=== PATIENT | female | born 2000 | race Caucasian/White ===

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

== ENCOUNTER 2020-07-12 13:01 | Emergency (ER) | payer OTHER ==
--- OUTSIDE RECORDS SUMMARY | 2020-07-12 13:03 | XMS REPORT | Continuity of Care Document ---
:2000 Author Organization [facility] t Address [address] [place] [address] Care Team Providers Name Role Phone Jalen Reynolds PA-C Attending Clinician Lab, Michael Woodard I Attending Clinician Unavailable Roldan SUBRAMANIAN Attending Clinician Problems This patient has no known problems. Allergies, Adverse Reactions, Alerts This patient has no known allergies or adverse reactions. Medications This patient has no known medications. Procedures This patient has no known procedures. Encounters Start End Encounter Admission Attending Care Care Encounter Source Date/Time Date/Time Type Type Clinicians Facility Department ID 2020-07-04 2020-07-04 [id number] 00:00:00 00:00:00 , Molly Patterson [id number] [facility] [id number] 225 2020-06-28 2020-06-28 Laboratory Lab, [facility] [id number] 17:21:12 17:41:12 Only Fam Pob I [facility] [id number] [place] [id number] [facility] [id number] nal [address] 2020-06-06 2020-06-06 Telephone [facility] [id number] 00:00:00 00:00:00 , Molly Patterson [id number] Pediatric 4.2.7.2.686 Clinic [id number] 225 2020-05-15 2020-05-[address]114 [id number] 12:58:06 13:18:06 Visit , Molly Patterson [id number] [facility] [id number] 225 2020-05-15 2020-05-15 Xavi Vera [address]114 [id number] 00:00:00 00:00:00 Leonardo [id number] [facility] [id number] 225 2020-05-15 2020-05-[address]11 4 [id number] 00:00:00 00:00:00 , Molly Patterson [id number] [facility] [id number] 225 Results This patient has no known results.
--- OUTSIDE RECORDS SUMMARY | 2020-07-12 13:03 | XMS REPORT | Summary of Care ---
:2000 Author Organization [facility] Address [address] [place] [address] Care Team Providers Name Role Phone Molly Reyonlds PA-C Primary Care Provider [phone] Reason for Visit Reason Comments Refill Request Encounter Details Date Type Department Care Team Description 05/09/[address] [facility] Pediatric Primary El amXavi MD Refill Request Care- [address], [facility] [address] [place], [place] [address] [phone] Allergies No Known Allergiesdocumented as of this encounter (statuses as of 05/09/2020) Medications Medication Sig Dispensed Refills Start Date End Date Status brompheniramine-pseudoep Take 10 mL by 473 mL 0 07/15/2019 Active hedrine-DM (BROMFED DM) mouth 4 (four) 2-30-10 mg/5 mL times daily as syrupIndications: needed for Bronchitis Congestion/Caleb rgies. 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 [id number]: ADHD (attention deficit hyperactivity disorder), combined type documented as of this encounter (statuses as of 05/09/2020) Active Problems Problem Noted Date Sensorineural hearing loss (SNHL) of both ears 020 Attention deficit hyperactivity disorder (ADHD), combi azeem type 07/15/2019 documented as of this encounter (statuses as of 05/09/2020) Immunizations Name Administration Dates Next Due DTAP 08/20/2004, 08/10/2001, 03/05/2001 HEPATITIS A 02/12/2006, 04/04/2005, 2001 HIB 3 Dose Schedule 08/10/2001, 03/05/2001 HPV 2011 Hep B, Adol or Pedi Dosage 03/05/2001, 2000 MMR 08/20/2004, 08/10/2001 Meningococcal Vaccine 08/27/2016, 2016, 09/04/2011 Polio (IPV/OPV) 08/20/2004, 05/12/2001 TDAP 09/04/2011 Varicella (varivax)(chicken pox) 03/09/2008 documented as of this encounter Social History Tobacco Use Types Packs/Day Years Used Date Never Smoker Smokeless Tobacco: Never Used Sex Assigned at Date Recorded Not on file documented as of this encounter Last Filed Vital Signs Not on filedocumented in this encounter Miscellaneous Notes Telephone Encounter - Xavi Montilla MD - 05/09/2020 12:22 PM CSTNeeds appointment. elephone Encounter - Nirmala Hobson RN - 05/09/2020 12:11 PM CST Refill request: Requested Prescriptions Pending Prescriptions Disp Refills methylphenidate HCl (QUILLICHEW ER) 30 mg cb24 30 Each 0 Sig: Take 30 mg by mouth daily. Last office visit: 04/05/2020 Last refill date: 04/05/2020 Follow up recommended for one month. No appointment currently scheduled. documented in this encounter Plan of Treatment Health Maintenance Due Date Last Done Comments VARICELLA VACCINES (2 of 2 - 06/01/2008 03/09/2008 2-dose childhood series) MENINGOCOCCAL B VACCINES (1 2010 of 2 - Risk Bexsero 2-dose series) HPV VACCINES (2 - 2-dose 02/06/2012 2011 series) CHLAMYDIA SCREENING 2016 WELL CARE VISIT: 12-21 YEARS 01/27/2020 01/26/2019 (yearly) INFLUENZA VACCINE (#1) 2020 Depression Screening 01/04/2021 01/05/2020 DTaP,Tdap,and Td Vaccines (5 09/03/2021 09/04/2011, 005, [...] Effective Dates Phone Addre ss Type Group [place] [facility] [place] [facility] [id number] 2017-[employer] Medicaid HEALTH PLAN - [facility] MANAGED MEDICAID documented as of this encounter
--- OUTSIDE RECORDS SUMMARY | 2020-07-12 13:03 | XMS REPORT | Summary of Care ---
:2000 Author Organization [facility] Address [address] [place] [address] Care Team Providers Name Role Phone Molly Reynolds PA-C Primary Care Provider [phone] Reason for Visit Reason Comments Appointment Encounter Details Date Type Department Care Team Description 05/10/2020 Telephone [facility] Pediatric Primary Molly Reynolds, Appointment Care- Ralph ANDREW [address] [place] [address] [address] [facility] [address] [facility] [address] [place] [phone] [place] [address] Allergies No Known Allergiesdocumented as of this encounter (statuses as of 05/10/2020) Medications Medication Sig Dispensed Refills Start Date [...] Active (QUILLICHEW ER) 30 mg mouth daily. [id number]: ADHD (attention deficit hyperactivity disorder), combined type documented as of this encounter (statuses as of 05/10/2020) Active Problems Problem Noted Date Sensorineural hearing loss (SNHL) of both ears 020 Attention deficit hyperactivity disorder (ADHD), combi azeem type 07/15/2019 documented as of this encounter (statuses as of 05/10/2020) Immunizations Name Administration Dates Next Due DTAP [...] this encounter Miscellaneous Notes Telephone Encounter - Malathi Ferraro - 05/10/2020 3:37 PM CSTAppointment made with sibling elephone Encounter - Mckenna Huang - 05/10/2020 3:26 PM CSTMOC would like to know if patient can be seen for a medication check on Friday the with her sibling at 1:10pm with Molly CEJA. The next medication check available is not until next Friday and she states patient cannot go that long with out it. Please advise. 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
--- OUTSIDE RECORDS SUMMARY | 2020-07-12 13:04 | XMS REPORT | Summary of Care ---
:2000 Author Organization [facility] Address [address] [place] [address] Care Team Providers Name Role Phone Molly Reynolds PA-C Primary Care Provider [phone] Reason for Visit Reason Comments Rx Concern/Question Encounter Details Date Type Department Care Team Description 05/15/2020 Telephone [facility] Pediatric Molly Reynolds, Rx Concern/Question Primary Care- [place] ANDREW [address] [place] [phone] Allergies No Known Allergiesdocumented as of this encounter (statuses as of 05/16/2020) Medications Medication Sig Dispensed Refills Start Date End Date Status Biotin 2,500 mcg Take 1 po QD for 90 capsule 2 04/05/2020 Active CapIndications: 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 Doing well on new Medication. Please send refill. documented in this encounter Plan of Treatment [...] Effective Dates Phone Addre ss Type Group [facility] CHILDRENS [id number] 2017-[employer] Medicaid [facility] - HEALTH t MANAGED MEDICAID documented as of this encounter
--- OUTSIDE RECORDS SUMMARY | 2020-07-12 13:04 | XMS REPORT | Summary of Care ---
:2000 Author Organization [facility] Address [address] [place] [address] Care Team Providers Name Role Phone Molly Reynolds PA-C Primary Care Provider [phone] Reason for Visit Reason Comments Forms Encounter Details Date Type Department Care Team Description 06/06/2020 Telephone [facility] Pediatric Primary Molly Reynolds, Forms [facility] ANDREW 208 [facility] 208 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 disorder), combined type documented as of this encounter (statuses as of 06/07/2020) Active Problems Problem Noted Date Sensorineural hearing loss (SNHL) of both ears 020 Attention deficit hyperactivity disorder (ADHD), combi azeem type 07/15/2019 documented as of this encounter (statuses as of 06/07/2020) Immunizations Name Administration Dates Next Due DTAP [...] this encounter Miscellaneous Notes Telephone Encounter - Indiana Oliva MA - 06/07/2020 8:44 AM CSTShot record attached to form and given to ANALIA Treadwell while in the clinic with sibling's appointment today. elephone Encounter - Molly Reynolds PA-C - 06/07/2020 8:35 AM CSTForm filled out, does need copy of shot records attached. Also has place for TB test, unsure if thisis required for camp. Please call patient or family and notify ready and for them to verify if TB test required./acp elephone Encounter - Malathi Ferraro MA - 06/06/2020 3:59 PM CSTForm dropped off for review and signature. Patient has not been seen for WCC only ADHD. REMA: 05/15/2020 Placed on Amys desk for review documented in this encounter Plan of Treatment [...] ss Type Group [place] [facility] [place] [facility] [id number] 2017-[employer] Medicaid HEALTH PLAN - HEALTH MANAGED MEDICAID documented as of this encounter
--- OUTSIDE RECORDS SUMMARY | 2020-07-12 13:04 | XMS REPORT | Summary of Care ---
:2000 Author Organization [facility] Address [address] [place] [address] Care Team Providers Name Role Phone Molly Reynolds PA-C Primary Care Provider [phone] Reason for Visit Reason Comments ADHD med check Encounter Details Date Type Department Care Team Description 05/15/2020 Office Visit [facility] Pediatric KATHY Reynolds ( attention deficit Primary Care- [place] Molly Rao PA-C hyperactivity disorder), [address] combined type (Primary [address] [place] [address]) [address] [facility] [address] [facility], [address] [place] [id number] Allergies No Known Allergiesdocumented as of this encounter (statuses as of 05/15/2020) Medications Medication Sig Dispensed Refills Start Date [...] Active (QUILLICHEW ER) 30 mg mouth daily. [id number]: ADHD (attention deficit hyperactivity disorder), combined type documented as of this encounter (statuses as of 05/15/2020) Active Problems Problem Noted Date Sensorineural hearing loss (SNHL) of both ears 020 Attention deficit hyperactivity disorder (ADHD), combi azeem type 07/15/2019 documented as of this encounter (statuses as of 05/15/2020) Immunizations Name Administration Dates Next Due DTAP [...] Sign Reading Time Taken Comments Blood Pressure 114/80 05/15/2020 1:09 PM FIRE PREVENTION OFFICER Pulse 112 05/15/2020 1:09 PM FIRE PREVENTION OFFICER Temperature 36.2 C (97.2 F) 05/15/2020 1:09 PM FIRE PREVENTION OFFICER Respiratory Rate 19 05/15/2020 1:09 PM FIRE PREVENTION OFFICER Oxygen Saturation 96% 05/15/2020 1:09 PM FIRE PREVENTION OFFICER Inhaled Oxygen Concentration - - Weight 46.3 kg (102 lb) 05/15/2020 1:09 PM FIRE PREVENTION OFFICER Height 165.1 cm (5' 5") 05/15/2020 1:09 PM FIRE PREVENTION OFFICER Body Mass Index 16.97 05/15/2020 1:09 PM FIRE PREVENTION OFFICER documented in this encounter Progress Notes Molly Reynolds PA-C - 05/15/2020 1:10 PM CST Patient is here for evaluation of therapy for ADD/ADHD. 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 She states he/she is doing much better at home and in school on current medication. Her ADL's and attention is much better. She reports not pulling out her hair and having a better appetite. She is adding higher calorie shakes once to twice daily. Overall she is doing well on Current medication. ROS: Headaches: No Insomnia: No Mood: No [...] have been marked as taking for the 05/15/20 encounter (Office Visit) with Molly Reynolds PA-C. History reviewed. No pertinent past medical history. BP 114/80 (BP Location: Left arm, Patient Position: Sitting, BP CUFF SIZE: Adult Medium) | Pulse 112 | Temp 36.2 C (97.2 F) (Temporal Artery) | Resp 19 | Ht 65" (165.1 cm) | Wt 46.3 kg (102 lb) | SpO2 96% | BMI 16.97 kg/m General: alert, active, in no acute distress, affect happy, appopriate Head: Atraumatic, normocephalic Eyes: pupils equal, round, reactive to light, conjunctiva clear and conjugate gaze Ears: TM's normal, external auditory canals normal Nose: clear, no discharge Oral Pharynx: moist mucous membranes without erythema, exudates or petechiae, dentition normal, normal for age Neck: supple and no lymphadenopathy Pulm: clear to auscultation CV: regular rate and rhythm, no murmur GI: soft, BS x4, no masses, no HSM : non-tender, no supra pubic tenderness, genital exam deferred at pt request Msk: FROM, Spine straight, no swelling or edema noted Neuro: appropriate mentation, MS 5/5, gait/balance appropriate Skin: warm, no rashes, no ecchymosis ASSESSMENT: Encounter Diagnosis Name Primary? ADHD (attention deficit hyperactivity disorder), combined type Yes PLAN: Medication: Current Outpatient Medications: Biotin 2,500 mcg Cap, Take 1 po QD for 4-6 months, Disp: 90 capsule, Rfl: 2 methylphenidate HCl (QUILLICHEW ER) 30 mg cb24, Take 30 mg by mouth daily., Disp: 30 Each, Rfl:0 Continue to self monitor weight and continue to eat well Follow-up in 4 months Take medication as directed Call if any side effects such as chest pain, shortness of breath, tics, or worsening behavior Parent/caregiver expressed understanding and is in agreement with plan of care Target goalsThe management ofADD/ADHD centers upon the improvement in symptoms and [...] more than 50% of the visit time. PREVENTION OFFICER documented in this encounter Plan of Treatment [...] Effective Dates Phone Addre ss Type Group [facility] CHILDRENS [id number] 2017-Presen Medicaid HEALTH PLAN - HEALTH MANAGED MEDICAID documented as of this encounter
--- OUTSIDE RECORDS SUMMARY | 2020-07-12 13:04 | XMS REPORT | Summary of Care ---
:2000 Author Organization [facility] Address [address] [place] [address] Care Team Providers Name Role Phone Molly Reynolds PA-C Primary Care Provider [phone] Reason for Visit Reason Comments ADHD med check Encounter Details Date Type Department Care Team Description 05/15/2020 Office Visit [facility] Pediatric KATHY Reynolds ( attention deficit Primary Care- [place] Molly Rao PA-C hyperactivity disorder), [address] combined type (Primary [address] [place] [address]) [address] [facility] [address] [facility], [address] [place] [address] Allergies No Known Allergiesdocumented as of this [...] Active (QUILLICHEW ER) 30 mg mouth daily. [id number]: ADHD (attention deficit hyperactivity disorder), combined type [...] Comments Blood Pressure 114/80 05/15/2020 1:09 PM TRAVEL AGENT Pulse 112 05/15/2020 1:09 PM TRAVEL AGENT Temperature 36.2 C (97.2 F) 05/15/2020 1:09 PM TRAVEL AGENT Respiratory Rate 19 05/15/2020 1:09 PM TRAVEL AGENT Oxygen Saturation 96% 05/15/2020 1:09 PM TRAVEL AGENT Inhaled Oxygen Concentration - - Weight 46.3 kg (102 lb) 05/15/2020 1:09 PM TRAVEL AGENT Height 165.1 cm (5' 5") 05/15/2020 1:09 PM TRAVEL AGENT Body Mass Index 16.97 05/15/2020 1:09 PM TRAVEL AGENT documented in this encounter Progress Notes Molly [...] more than 50% of the visit time. EL AGENT documented in this encounter Plan of Treatment [...] Effective Dates Phone Addre ss Type Group [facility] CHILDRENS [id number] 2017-[employer] Medicaid HEALTH PLAN - HEALTH MANAGED MEDICAID documented as of this encounter
--- OUTSIDE RECORDS SUMMARY | 2020-07-12 13:04 | XMS REPORT | Summary of Care ---
:2000 Author Organization [facility] Address [address] [place] [address] Care Team Providers Name Role Phone Molly Reynolds PA-C Primary Care Provider [phone] Reason for Visit Reason Comments Refill Request Encounter Details Date Type Department Care Team Description 05/09/2020 Refill [facility] Pediatric Primary El amXavi MD Refill Request Care- [address], [facility] [address] [place], [place] [phone] Allergies No Known Allergiesdocumented as of this [...] Active (QUILLICHEW ER) 30 mg mouth daily. [id number]: ADHD (attention deficit hyperactivity disorder), combined type [...] this encounter Miscellaneous Notes Telephone Encounter - Myra Valencia RN - 05/15/2020 8:43 AM SHORTHAND REPORTER Pt is scheduled for medication check appointment today. elephone Encounter - Nirmala Hobson RN - 05/10/2020 3:11 PM CSTATC patient in regards to provider instructions. No answer, left voicemail. elephone Encounter - Xavi Montilla MD - 05/09/2020 [...] 05/15/2020 Office Visit Pediatrics Molly Reynolds, ANDREW [address] [id number] Health Maintenance Due Date Last Done Comments [...] Effective Dates Phone Addre ss Type Group [place] [facility] [place] [facility] [id number] 2017-[employer] Medicaid HEALTH PLAN - HEALTH MANAGED MEDICAID documented as of this encounter
--- OUTSIDE RECORDS SUMMARY | 2020-07-12 13:04 | XMS REPORT | Summary of Care ---
:2000 Author Organization [facility] Address [address] [place] [address] Care Team Providers Name Role Phone Molly Reynolds PA-C Primary Care Provider [phone] Reason for Visit Reason Comments Refill Request Encounter Details Date Type Department Care Team Description 05/15/2020 Refill [facility] Pediatric Primary El Xavi canales MD Refill Request Care- [address], [facility] [address] [place], [place] [phone] Allergies No Known Allergiesdocumented as of this encounter (statuses as of 05/16/2020) Medications Medication Sig Dispensed Refills Start Date End Date Status Biotin 2,500 mcg Take 1 po 90 capsule 2 04/05/2020 A ctive CapIndications: QD for 4-6 Traction alopecia months QUILLICHEW ER 30 mg TAKE ONE 30 Each 0 05/16/2020 Active [id number]: (1) ADHD (attention TABLET(S) deficit BY MOUTH hyperactivity ONCE A DAY. disorder), combined type brompheniramine-pseu Take 10 mL 473 mL 0 07/15/2019 02 Discontinued doephedrine-DM by mouth 4 0 (The rapy (BROMFED DM) 2-30-10 (four) completed) mg/5 mL times daily syrupIndications: as needed Bronchitis for Congestion/ Allergies. methylphenidate HCl Take 30 mg 30 Each 0 04/05/2020 05/16/20 2 Discontinued (QUILLICHEW ER) 30 by mouth 0 mg [id number]: daily. ADHD (attention deficit hyperactivity disorder), combined type [...] Notes Telephone Encounter - Malathi Ferraro - 05/16/2020 8:15 AM CST Refill Request for: Name from pharmacy: QuilliChew 30mg ER Tablet Will file in chart as: QUILLICHEW ER 30 mg cb24 Possible duplicate: Hover to review recent actions on this medication Sig: TAKE ONE (1) TABLET(S) BY MOUTH ONCE A DAY. Disp: 30 Each Refills: Not specified Start: 05/15/2020 Earliest Fill Date: 05/15/2020 Class: eRX For: ADHD (attention deficit hyperactivity disorder), combined type Last ordered: 1 month ago by Xavi Montilla MD Last refill: 04/05/2020 Rx #: [id number] Controlled Substance [id number]/15/2020 06:19 PM Pain agreement on file Protocol Details This refill cannot be delegated Valid encounter within last 12 months To be filled at: [facility] [place] [facility] [place], [place] - [address] Last Filled: 04/05/2020 REMA: 05/15/2020 FILL GRADER documented in this encounter Plan of Treatment [...] Phone Addre ss Type Group [place] [facility] [place] [facility] [id number] 2017-[place] Medicaid HEALTH PLAN - HEALTH MANAGED MEDICAID documented as of this encounter
--- OUTSIDE RECORDS SUMMARY | 2020-07-12 13:04 | XMS REPORT | Summary of Care ---
:2000 Author Organization [facility] Address [address] [place] [address] Care Team Providers Name Role Phone Molly Reynolds PA-C Primary Care Provider [phone] Reason for Visit Reason Comments LAB WORK Covid Encounter Details Date Type Department Care Team Description 06/28/2020 Laboratory Only [facility] Family Mando, Sissy, KNITTING MACHINE OPERATOR HELPER [address] [facility] [address] [place] [address] Exposure to Medicine - [facility], Adc Fam Pob I SARS-associated [address] [facility] coronaviru s ([address] Dx) [place] [address] Allergies No Known Allergiesdocumented as of this encounter (statuses as of 06/28/2020) Medications Medication Sig Dispensed Refills Start Date End Date Status Biotin 2,500 mcg Take 1 po QD for 90 capsule 2 04/05/2020 Active CapIndications: 4-6 months Traction alopecia QUILLICHEW ER 30 mg TAKE ONE (1) 30 Each 0 05/16/2020 Active [id number]: ADHD TABLET(S) BY (attention deficit MOUTH ONCE A hyperactivity DAY. disorder), combined type documented as of this encounter (statuses as of 06/28/2020) Active Problems Problem Noted Date Sensorineural hearing loss (SNHL) of both ears 020 Attention deficit hyperactivity disorder (ADHD), combi azeem type 07/15/2019 documented as of this encounter (statuses as of 06/28/2020) Immunizations Name Administration Dates Next Due DTAP [...] Assigned at Date Recorded Not on file COVID-19 Exposure Response Date Recorded In the last month, have you been in contact with No / Unsure 06/28/2020 5:28 PM COUNTY HISTORIAN someone who was confirmed or suspected to have Coronavirus / COVID-19? documented as of this encounter Last Filed Vital Signs Not on filedocumented in this encounter Nursing Notes Gama Elliott MA - 06/28/2020 5:00 PM CSTSaba Mcgovern is a 19 year old female here for COVID Screening with a Nasopharyngeal Swab All droplet and contact precautions taken with appropriate PPE worn while interacting with patient. ? Goggles ? N95 Mask ? Gloves ? Gown RR 18 Pulse Ox 98% Patient educated on plan of care for visit, swabbing technique, risks and benefits of test and length of time to receive results. Verbal consent obtained to perform test. CDC Fact Sheet for Patients nCoV Diagnostic Panel dated 08/29/2019 and Factsheet What to Do if Sick with COVID 19 08/09/19 provided. Patient swabbed per appropriate nasopharyngeal technique, and patient tolerated well. Patient was discharged from the testing clinic in stable condition. Gama Elliott MA 06/28/2020 5:31 PM TY HISTORIAN documented in this encounter Plan of Treatment Name Type Priority Associated Diagnoses Order S yessica COVID-19 (MOLECULAR LAB Routine Exposure to SARS-asso ciated Ordered: 06/28/2020 TESTING coronavirus NUCLEIC ACID AMPLIFICATION) Health Maintenance Due Date Last Done Comments [...] filedocumented in this encounter Visit Diagnoses Diagnosis Exposure to SARS-associated coronavirus - Primary documented in this encounter Additional Health Concerns Infection Onset Date Last Indicated Resolved Time COVID-19 Rule Out 06/28/2020 06/28/2020 documented as of this encounter Insurance Payer Benefit Plan / Subscriber ID Effective Dates Phone Addre ss Type Group [place] [facility] [place] [id number] 2017-[place] Medicaid HEALTH PLAN - HEALTH MANAGED MEDICAID documented as of this encounter
--- OUTSIDE RECORDS SUMMARY | 2020-07-12 13:05 | XMS REPORT | Summary of Care ---
:2000 Author Organization [facility] Address [address] [place] [address] Care Team Providers Name Role Phone Molly Reynolds PA-C Primary Care Provider [phone] Reason for Visit Reason Comments Assessment Encounter Details Date Type Department Care Team Description 07/04/2020 Telephone [facility] Pediatric Primary Molly Reynolds, Assessment Care- [place] ANDREW [address] [place] [address] [place] [phone] [place] [address] Allergies No Known Allergiesdocumented as of this encounter (statuses as of 07/04/2020) Medications Medication Sig Dispensed Refills Start Date End Date Status Biotin 2,500 mcg Take 1 po QD for 90 capsule 2 04/05/2020 Active CapIndications: 4-6 months Traction alopecia QUILLICHEW ER 30 mg TAKE ONE (1) 30 Each 0 05/16/2020 Active [id number]: ADHD TABLET(S) BY (attention deficit MOUTH ONCE A hyperactivity DAY. disorder), combined type brompheniramine-pseudoe Take 5 mL by 120 mL 0 07/04/2020 Active phedrine-DM (BROMFED mouth 3 (three) DM) 2-30-10 mg/5 mL times daily as syrupIndications: Cough needed for Congestion/Aller gies or Cold symptoms. documented as of this encounter (statuses as of 07/04/2020) Active Problems Problem Noted Date Sensorineural hearing loss (SNHL) of both ears 020 Attention deficit hyperactivity disorder (ADHD), combi azeem type 07/15/2019 documented as of this encounter (statuses as of 07/04/2020) Immunizations Name Administration Dates Next Due DTAP [...] with No / Unsure 06/28/2020 5:[address] MECHANIC someone who was confirmed or suspected to have Coronavirus / COVID-19? documented as of this encounter Last Filed Vital Signs Not on filedocumented in this encounter Miscellaneous Notes Telephone Encounter - Malathi Ferraro MA - 07/04/2020 10:51 AM CSTMOC was contacted regarding Carloz recommendations. Verbal understanding . Will pay for bromfed if notcovered by insurance elephone Encounter - Molly Reynolds PA-C - 07/04/2020 10:42 AM CSTPlease call mec, can send c/c medication to slow cough but may not be adequate. Although it may not be covered by insurance. Can also use Robitussin CF or Mucinex cough otc. Recommend continue humidifier, nasal saline, honey with lemon and see patient if cough is prolonged, worsening or any sob./acp MECHANIC Telephone Encounter - Nirmala Cisse - 07/04/2020 10:15 AM CSTPer mom patient is covid + and is wanting something called in for her congestion/cough. Please advise. MECHANIC documented in this encounter Plan of Treatment [...] filedocumented in this encounter Visit Diagnoses Diagnosis Cough - Primary documented in this encounter Additional Health Concerns Infection Onset Date Last Indicated Resolved Time COVID-19 Confirmed 06/28/2020 06/28/2020 documented as of this encounter Insurance Payer Benefit Plan / Subscriber ID Effective Dates Phone Addre ss Type Group [place] [facility] [place] CH[facility]DRENS [id number] 2017-[place] Medicaid HEALTH PLAN - [employer] MANAGED MEDICAID documented as of this encounter
--- NOTE | 2020-07-12 13:48 | RAD REPORT ---
EXAM DESCRIPTION: Austin Cormier (2 Views)07/12/2020 1:39 pm CLINICAL HISTORY: Cough COMPARISON: None FINDINGS: The lungs appear clear of acute infiltrate. The heart is normal size IMPRESSION: No acute abnormalities displayed
--- NOTE | 2020-07-12 14:59 | ER ---
Nurse's Notes [facility] Name: Saba Mcgovern Age: 19 yrs Sex: Female : 2000 Arrival Date: 07/12/2020 Time: 13:02 Bed 23 Private MD: Diagnosis: Cough Presentation: 07/12 13:17 Chief complaint: Pt's father states "we all had covid about 16 days ago but she is aa5 still coughing and the doctor said to bring her here". Reports cough and sore throat. Coronavirus screen: Client presents with at least one sign or symptom that may indicate coronavirus-19. Standard/surgical mask placed on the client. Provider contacted for isolation considerations. Ebola Screen: Patient negative for fever greater than or equal to 101.5 degrees Fahrenheit, and additional compatible Ebola Virus Disease symptoms. Initial Sepsis Screen: Does the patient meet any 2 criteria? No. Patient's initial sepsis screen is negative. Does the patient have a suspected source of infection? No. Patient's initial sepsis screen is negative. Risk Assessment: Do you want to hurt yourself or someone else? Patient reports no desire to harm self or others. Onset of symptoms was June 2020. 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 - Social history:: Smoking status: Patient denies any tobacco usage or history of. Screenin:58 Abuse screen: Denies threats or abuse. Denies injuries from another. Nutritional iw screening: No deficits noted. Tuberculosis screening: No symptoms or risk factors identified. Fall Risk None identified. Assessment: 14:45 General: Appears in no apparent distress. comfortable, Behavior is calm, cooperative, ss Denies fever, chills. Pain: Denies pain. Neuro: Level of Consciousness is awake, alert, Oriented to person, place, time, situation. Cardiovascular: Capillary refill < 3 seconds is brisk in bilateral fingers. Respiratory: Reports shortness of breath Airway is patent Respiratory effort is even, unlabored, Respiratory pattern is regular, symmetrical. GI: No signs and/or symptoms were reported involving the gastrointestinal system. : No signs and/or symptoms were reported regarding the genitourinary system. EENT: Oral mucosa is moist. Derm: Skin is intact, is healthy with good turgor, Skin is dry, Skin is pink, warm \\T\\ dry. normal. 14:58 Reassessment: Patient appears in no apparent distress at this time. Patient and/or iw family updated on plan of care and expected duration. Pain level reassessed. Patient is alert, oriented x 3, equal unlabored respirations, skin warm/dry/pink. Vital Signs: 13:17 BP 119 / 91; Pulse 109; Resp 18 S; Temp 98.7(TE); Pulse Ox 100% on R/A; aa5 14:45 BP 127 / 94; Pulse 107; Resp 16; Temp 98.4(O); Pulse Ox 100% on R/A; Weight 47.63 kg; em1 Height 5 ft. 4 in. (162.56 cm); Pain 0/10; 14:57 BP 127 / 91; Pulse 88; Resp 16; Pulse Ox 100% on R/A; iw 14:45 Body Mass Index 18.02 (47.63 kg, 162.56 cm) em1 ED Course: 13:02 Patient arrived in ED. as 13:17 Arm band placed on. aa5 13:19 Triage completed. aa5 14:19 Kristal Chatterjee, RN is Primary Nurse. iw 14:21 Enio Chand PA is PHCP. [facility] 14:21 Kyle Cobian MD is Attending Physician. [facility] 14:45 Patient has correct armband on for positive identification. Bed in low position. Call ss light in reach. 15:01 No provider procedures requiring assistance completed. Patient did not have IV access ss during this emergency room visit. Administered Medications: 14:57 Drug: Decadron 10 mg Route: IM; Site: left deltoid; iw 15:17 Follow up: Response: No adverse reaction; Medication administered at discharge. ss Outcome: 14:[address] [facility] 15:17 Discharged to home ambulatory. ss 15:17 Condition: good 15:17 Discharge instructions given to patient, Instructed on discharge instructions, follow up and referral plans. medication usage, Demonstrated understanding of instructions, follow-up care. 15:17 Patient left the ED. ss Signatures: Enio Chand PA PA jmm Martinez, Amelia as Williams, Irene, RN RN iw Martinez, Eric em1 Erin Mcqueen RN RN aa5 Elodia Salas RN RN ss
--- NOTE | 2020-07-12 14:59 | EDPHYS ---
Physician Documentation [facility] Name: Saba Mcgovern Age: 19 yrs Sex: Female : 2000 Arrival Date: 07/12/2020 Time: 13:02 Bed 23 Private MD: ED Physician Kyle Cobian HPI: 07/12 14:38 This 19 yrs old Female presents to ER via Ambulatory with complaints of Cough jmm - covid+. 14:38 The patient or guardian reports cough. Onset: The symptoms/episode began/occurred jm gradually, 16 day(s) ago. Associated signs and symptoms: Pertinent negatives: fever. This is a 19 year old female with a history of ADHD, hearing impaired that presents to the ED with complaints of ongoing cough. Denies fever. Patient was diagnosed with COVID 19 16 days ago. . 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 - Social history:: Smoking status: Patient denies any tobacco usage or history of. ROS: 14:38 Constitutional: Negative for fever, chills, and weight loss, Cardiovascular: Negative jmm for chest pain, palpitations, and edema. 14:38 Respiratory: Positive for cough. 14:38 All other systems are negative. Exam: 14:38 Constitutional: This is a well developed, well nourished patient who is awake, alert, jmm and in no acute distress. Head/Face: atraumatic. Eyes: EOMI, no conjunctival erythema appreciated ENT: Moist Mucus Membranes Neck: Trachea midline, Supple Chest/axilla: Normal chest wall appearance and motion. Cardiovascular: Regular rate and rhythm. No edema appreciated Respiratory: Normal respirations, no respiratory distress appreciated Abdomen/GI: Non distended, soft Back: Normal ROM 14:38 Skin: General appearance color normal MS/ Extremity: Moves all extremities, no obvious deformities appreciated, no edema noted to the lower extremities Neuro: Awake and alert, normal gait Psych: Behavior is normal, Mood is normal, Patient is cooperative and pleasant 14:38 Respiratory: the patient does not display signs of respiratory distress, Respirations: normal, Breath sounds: are clear throughout. Vital Signs: 13:17 BP 119 / 91; Pulse 109; Resp 18 S; Temp 98.7(TE); Pulse Ox 100% on R/A; aa5 14:45 BP 127 / 94; Pulse 107; Resp 16; Temp 98.4(O); Pulse Ox 100% on R/A; Weight 47.63 kg; em1 Height 5 ft. 4 in. (162.56 cm); Pain 0/10; 14:57 BP 127 / 91; Pulse 88; Resp 16; Pulse Ox 100% on R/A; iw 14:45 Body Mass Index 18.02 (47.63 kg, 162.56 cm) em1 MDM: 14:37 Patient medically screened. [facility] 14:41 Data reviewed: vital signs, nurses notes. Counseling: I had a detailed discussion with chinedu the patient and/or guardian regarding: the historical points, exam findings, and any diagnostic results supporting the discharge/admit diagnosis, radiology results. ED course: Patient is alert and non toxic in appearance in the ED. patient is advised to follow up with pcp. Patient given return precautions. patient understood and agrees with the plan of care. . 07/12 13:20 Order name: Chest Pa And Lat (2 Views) XRAY aa5 07/12 13:48 Order name: RAD; Complete Time: 14:22 EDMS Administered Medications: 14:57 Drug: Decadron 10 mg Route: IM; Site: left deltoid; iw 15:17 Follow up: Response: No adverse reaction; Medication administered at discharge. ss Disposition: 18:24 Co-signature as Attending Physician, Kyle Cobian MD. ma2 Disposition: 07/12/20 14:58 Discharged to Home. Impression: Cough. - Condition is Stable. - Discharge Instructions: Cough, Adult, [place]. - Medication Reconciliation Form, Thank You Letter, Antibiotic Education, Prescription Opioid Use form. - Follow up: Private Physician; When: 2 - 3 days; Reason: Recheck today's complaints, Continuance of care, Re-evaluation by your physician. Signatures: Dispatcher [employer] EDMS Enio Chand PA PA jmm Williams, Irene, RN RN iw Erin Mcqueen RN RN aa5 Elodia Salas RN RN ss Kyle Cobian MD MD ma2 Corrections: (The following items were deleted from the chart) 15:17 14:58 07/12/2020 14:58 Discharged to Home. Impression: Cough. Condition is Stable. ss Forms are Medication Reconciliation Form, Thank You Letter, Antibiotic Education, Prescription Opioid Use. Follow up: Private Physician; When: 2 - 3 days; Reason: Recheck today's complaints, Continuance of care, Re-evaluation by your physician. chinedu
[2020-07-12] MEDS ORDERED: dexAMETHasone 10 MG/ML VIAL ONE ×2 (15:00→15:09)
[2020-07-12 15:23] VITALS: O2SAT 100
[2020-07-12 15:24] VITALS: TEMP 98.4
[2020-07-12 15:25] VITALS: BP 127/91
== END 2020-07-12 15:17 | disposition home or self-care (01) ==
LOC: ER 13:01
DX: R05 Cough (principal); F90.9 Attention-deficit hyperactivity disorder, unspecified type; Z86.16 Personal history of COVID-19
CPT/HCPCS: 71046; 96372; 99283; J1100 ×2

== ENCOUNTER 2021-10-24 19:28 | Emergency (ER) | payer OTHER ==
--- OUTSIDE RECORDS SUMMARY | 2021-10-24 19:32 | XMS REPORT | Continuity of Care Document ---
:2000 Author Organization [facility] t Address [address] [place] [address] Care Team Providers Name Role Phone Jalen Reynolds PA-C Primary Care Physician GUILLERMO Attending Clinician Unavailable RESHMA Attending Clinician Unavailable Reshma FINANCIAL SERVICES EDUCATION CONSULTANT Attending Clinician Nurse, [facility] Attending Clinician Unavailable Guillermo SUBRAMANIAN Attending Clinician Jalen Reynolds PA-C Attending Clinician Jalen REYNOLDS Attending Clinician Unavailable Lab, Fam Pob I Attending Clinician Unavailable Roldan SUBRAMANIAN Attending Clinician Payers Payer Name Policy Type Policy Number Effective Date Expiration Date Fahad reyes [facility] [id number] 2021 00:00:00 PLUS Problems Condition Condition Condition Status Onset Resolution Last Treating Co mments Source Name Details Category Date Date Treatment Clinician Date 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 1-30 ity of hearing hearing 00:00: [place] loss loss 00 Medical (SNHL) of (SNHL) of Bran ch both ears both ears Attention Attention Disease Active Uni vers deficit deficit 1-30 [place] Medical disorder disorder Branch (ADHD), (ADHD), combined combined type type Allergies, Adverse Reactions, Alerts Allergy Allergy Status Severity Reaction(s) Onset Inactive Treating Comm ents Source Name Type Date Date Clinician NO KNOWN Drug Active Univers ALLERGIE Class ity of S [facility] Social History Social Habit Start Date Stop Date Quantity Comments Source History SDOH University o f Alcohol Frequency [place] M edical Branch History SDOH University o f Alcohol Std [place] Medical Drinks Branch History SDOH University o f Alcohol Binge [place] [facility] Branch Exposure to 2021-10-12 2021-10-22 Not sure [facility] [place] [facility]-CoV-2 00:00:00 07:10:00 [facility] (event) Branch Alcohol intake 2021-10-22 2021-10-22 .29 /d University of 00:00:00 00:00:00 [facility] Alcohol Comment 2021-08-13 2021-08-13 1 to 2 cans a Univer sity of 00:00:00 00:00:00 week [facility] Tobacco use and 2019-01-26 2019-01-26 Never used Universit y of exposure 00:00:00 00:00:00 [facility] Sex Assigned At [birth year] Universit y of 00:00:00 00:00:00 [facility] Smoking Status Start Date Stop Date Source Never smoker [facility] Medications Ordered Filled Start Stop Current Ordering Indication Dosage Frequency Signature Comments Components Source Medication Medication Date Date Medication? Clinician (SIG) Name Name ondansetron Yes [id number] 4mg Take 1 Univers 4 mg 5-09 tablet by ity of disintegrat 00:00: mouth [place] ing tablet 00 every 8 Medica l (eight) Branch hours as needed for Nausea and Vomiting (N/V). medroxyPROG 2021- No [id number] 150mg Univers ESTERone 4-25 04-25 ity of (DEPO-PROVE 21:30: 20:34 [place] RA) 00 :00 Medical injection Branch 150 mg medroxyPROG 2021- No [id number] 150mg 150 mg, Univers ESTERone 4-25 04-25 Intramuscu ity of (DEPO-PROVE 21:30: 20:34 lar, ONCE, [place] RA) 00 :00 1 dose, On Medical injection Mon Branch 150 mg 10/08/21 at 1630, Routine methylpheni Yes [id number] 1{tbl} Take 1 Univers date HCl 4-12 tablet by ity of (QUILLICHEW 00:00: mouth [place] ER) 30 mg [address] methylpheni 2021-0 Yes [id number] 1{tbl} Take 1 Univers date HCl 4-12 tablet by ity of (QUILLICHEW 00:00: mouth [place] ER) 30 mg [address] methylpheni 2021-0 Yes [id number] 1{tbl} Take 1 Univers date HCl 4-12 tablet by ity of (QUILLICHEW 00:00: mouth [place] ER) 30 mg [address] methylpheni 2021-0 Yes [id number] 1{tbl} Take 1 Univers date HCl 4-12 tablet by ity of (QUILLICHEW 00:00: mouth [place] ER) 30 mg [address] triamcinolo Yes [id number] Apply to Univers ne 1-12 area(s) 2 ity of acetonide 00:00: (two) [place] 0.1 % 00 times Medical ointment daily. Branch triamcinolo 0 Yes [id number] Apply to Univers ne 1-12 area(s) 2 ity of acetonide 00:00: (two) [place] 0.1 % 00 times Medical ointment daily. Branch triamcinolo 0 Yes [id number] Apply to Univers ne 1-12 area(s) 2 ity of acetonide 00:00: (two) [place] 0.1 % 00 times Medical ointment daily. Branch triamcinolo 0 Yes [id number] Apply to Univers ne 1-12 area(s) 2 ity of acetonide 00:00: (two) [place] 0.1 % 00 times Medical ointment daily. Branch benzonatate 2020-06 Yes [id number] 200mg Take 2 Univers 100 mg 0-20 capsules ity of capsule 00:00[place] (two[place] Medical times Branch daily as needed for Cough. benzonatate 2020-06 Yes [id number] 200mg Take 2 Univers 100 mg 0-20 capsules ity of capsule 00:00[place] (two[place] Medical times Branch daily as needed for Cough. benzonatate 2020-06 Yes [id number] 200mg Take 2 Univers 100 mg 0-20 capsules ity of capsule 00:00[place] (two[place] Medical times Branch daily as needed for Cough. benzonatate 2020-06 Yes [id number] 200mg Take 2 Univers 100 mg 0-20 capsules ity of capsule [place]:00[place] (two[place] Medical times Branch daily as needed for Cough. Biotin 2020- Yes [id number] Take 1 po Un ericka 2,500 mcg 0-21 QD for 4-6 ity of Cap 00:00: months [address] Biotin 2020- Yes [id number] Take 1 po Un ericka 2,500 mcg 0-21 QD for 4-6 ity of Cap 00:00: months [place] [facility] Biotin 2020- Yes [id number] Take 1 po Un ericka 2,500 mcg 0-21 QD for 4-6 ity of Cap 00:00: months [address] Biotin 2020- Yes [id number] Take 1 po Un ericka 2,500 mcg 0-21 QD for 4-6 ity of Cap 00:00: months [address] Immunizations Ordered Immunization Filled Immunization Date Status Commen ts Source Name Name Meningococcal 2016-08-27 Completed University of Vaccine 00:00:00 [facility] Meningococcal 2016-08-27 Completed University of Vaccine 00:00:00 [facility] Meningococcal 2016-08-27 Completed University of Vaccine 00:00:00 [facility] Meningococcal 2016-08-27 Completed University of Vaccine 00:00:00 [facility] Meningococcal 2016 Completed University of Vaccine 00:00:00 [facility] Meningococcal 2016 Completed University of Vaccine 00:00:00 [facility] Meningococcal 2016 Completed University of Vaccine 00:00:00 [facility] Meningococcal 2016 Completed University of Vaccine 00:00:00 [facility] Meningococcal 2011-09-04 Completed University of Vaccine 00:00:00 [facility] TDAP 2011-09-04 Completed University of 00:00:00 [facility] Meningococcal 2011-09-04 Completed University of Vaccine 00:00:00 [facility] TDAP 2011-09-04 Completed University of 00:00:00 [facility] Meningococcal 2011-09-04 Completed University of Vaccine 00:00:00 [facility] TDAP 2011-09-04 Completed University of 00:00:00 [facility] Meningococcal 2011-09-04 Completed University of Vaccine 00:00:00 [facility] TDAP 2011-09-04 Completed University of 00:00:00 [facility] HPV 2011 Completed University of 00:00:00 [facility] HPV 2011 Completed University of 00:00:00 [facility] HPV 2011 Completed University of 00:00:00 [facility] HPV 2011 Completed University of 00:00:00 [facility] Varicella 2008-03-09 Completed University of (varivax)(chicken 00:00:00 [place] M edical pox) Branch Varicella 2008-03-09 Completed University of (varivax)(chicken 00:00:00 [facility] edical pox) Branch Varicella 2008-03-09 Completed University of (varivax)(chicken 00:00:00 [place] [facility] [place] pox) Branch Varicella 2008-03-09 Completed University of (varivax)(chicken 00:00:00 [facility] edical pox) Branch HEPATITIS A 2006-02-12 Completed University of 00:00:00 [facility] HEPATITIS A 2006-02-12 Completed University of 00:00:00 [facility] HEPATITIS A 2006-02-12 Completed University of 00:00:00 [facility] HEPATITIS A 2006-02-12 Completed University of 00:00:00 [facility] HEPATITIS A 2005-04-04 Completed University of 00:00:00 [facility] HEPATITIS A 2005-04-04 Completed University of 00:00:00 [facility] HEPATITIS A 2005-04-04 Completed University of 00:00:00 [facility] HEPATITIS A 2005-04-04 Completed University of 00:00:00 [facility] DTAP 2004-08-20 Completed University of 00:00:00 [facility] MMR 2004-08-20 Completed University of 00:00:00 [facility] Polio (IPV/OPV) 2004-08-20 Completed Universit y of 00:00:00 [facility] DTAP 2004-08-20 Completed University of 00:00:00 [facility] MMR 2004-08-20 Completed University of 00:00:00 [facility] Polio (IPV/OPV) 2004-08-20 Completed Universit y of 00:00:00 [facility] DTAP 2004-08-20 Completed University of 00:00:00 [place] [facility] MMR 2004-08-20 Completed University of 00:00:00 [facility] Branch Polio (IPV/OPV) 2004-08-20 Completed Universit y of 00:00:00 [place] [facility] DTAP 2004-08-20 Completed University of 00:00:00 [facility] Branch MMR 2004-08-20 Completed University of 00:00:00 [facility] Branch Polio (IPV/OPV) 2004-08-20 Completed Universit y of 00:00:00 [facility] Branch DTAP 2001-08-10 Completed University of 00:00:00 [facility] HIB 3 Dose Schedule 2001-08-10 Completed Unive rsity of 00:00:00 [facility] Branch MMR 2001-08-10 Completed University of 00:00:00 [facility] Branch DTAP 2001-08-10 Completed University of 00:00:00 [facility] HIB 3 Dose Schedule 2001-08-10 Completed Unive rsity of 00:00:00 [facility] Branch MMR 2001-08-10 Completed University of 00:00:00 [facility] Branch DTAP 2001-08-10 Completed University of 00:00:00 [facility] HIB 3 Dose Schedule 2001-08-10 Completed Unive rsity of 00:00:00 [facility] Branch MMR 2001-08-10 Completed University of 00:00:00 [facility] Branch DTAP 2001-08-10 Completed University of 00:00:00 [facility] HIB 3 Dose Schedule 2001-08-10 Completed Unive rsity of 00:00:00 [facility] MMR 2001-08-10 Completed University of 00:00:00 [facility] HEPATITIS A 2001 Completed University of 00:00:00 [facility] HEPATITIS A 2001 Completed University of 00:00:00 [facility] Branch HEPATITIS A 2001 Completed University of 00:00:00 [facility] Branch HEPATITIS A 2001 Completed University of 00:00:00 [facility] Polio (IPV/OPV) 2001-05-12 Completed Universit y of 00:00:00 [facility] Polio (IPV/OPV) 2001-05-12 Completed Universit y of 00:00:00 [facility] Polio (IPV/OPV) 2001-05-12 Completed Universit y of 00:00:00 [facility] Polio (IPV/OPV) 2001-05-12 Completed Universit y of 00:00:00 [facility] DTAP 2001-03-05 Completed University of 00:00:00 [facility] HIB 3 Dose Schedule 2001-03-05 Completed Unive rsity of 00:00:00 [facility] Hep B, Adol or Pedi 2001-03-05 Completed Unive rsity of Dosage 00:00:00 [facility] DTAP 2001-03-05 Completed University of 00:00:00 [facility] HIB 3 Dose Schedule 2001-03-05 Completed Unive rsity of 00:00:00 [facility] Branch Hep B, Adol or Pedi 2001-03-05 Completed Unive rsity of Dosage 00:00:00 [facility] DTAP 2001-03-05 Completed University of 00:00:00 [facility] HIB 3 Dose Schedule 2001-03-05 Completed Unive rsity of 00:00:00 [facility] Branch Hep B, Adol or Pedi 2001-03-05 Completed Unive rsity of Dosage 00:00:00 [facility] DTAP 2001-03-05 Completed University of 00:00:00 [facility] HIB 3 Dose Schedule 2001-03-05 Completed Unive rsity of 00:00:00 [place] [facility] Hep B, Adol or Pedi 2001-03-05 Completed Unive rsity of Dosage 00:00:00 [facility] Branch Hep B, Adol or Pedi 2000 Completed Unive rsity of Dosage 00:00:00 [facility] Branch Hep B, Adol or Pedi 2000 Completed Unive rsity of Dosage 00:00:00 [place] [facility] Hep B, Adol or Pedi 2000 Completed Unive rsity of Dosage 00:00:00 [facility] Branch Hep B, Adol or Pedi 2000 Completed Unive rsity of Dosage 00:00:00 [facility] Vital Signs Vital Name Observation Time Observation Value Comments Source Systolic blood 2021-10-22 15:09:00 113 mm[Hg] Univer sity of pressure [facility] Diastolic blood 2021-10-22 15:09:00 78 mm[Hg] Unive rsity of pressure [facility] Heart rate 2021-10-22 15:09:00 82 /min Universi ty of [place] [facility] Body temperature 2021-10-22 15:09:00 36.39 Rufina Univ ersity of [place] [facility] Respiratory rate 2021-10-22 15:09:00 20 /min Univ ersity of [place] [facility] Body height 2021-10-22 15:09:00 162.6 cm Universi ty [facility] [place] [facility] Body weight 2021-10-22 15:09:00 52.334 kg [facility]i [facility] [place] [facility] BMI 2021-10-22 15:09:00 19.80 kg/m2 Universi ty [facility] [place] [facility] Oxygen saturation in 2021-10-22 15:09:00 98 /min University of Arterial blood by [place] [employer] angelica Pulse oximetry Branch Systolic blood 2021-10-08 20:25:00 102 mm[Hg] Univer sity of pressure [place] [facility] Diastolic blood 2021-10-08 20:25:00 63 mm[Hg] Unive rsity of pressure [place] [facility] Heart rate 2021-10-08 20:25:00 105 /min Universi ty [facility] [place] [facility] Body temperature 2021-10-08 20:25:00 36.72 Rufina Univ ersity of [place] [facility] Respiratory rate 2021-10-08 20:25:00 18 /min Univ ersity of [place] [facility] Body height 2021-10-08 20:25:00 162.6 cm [facility]i [facility] [place] [facility] Body weight 2021-10-08 20:25:00 53.116 kg [facility] [place] [facility] BMI 2021-10-08 20:25:00 20.10 kg/m2 [facility]i [facility] [place] [facility] Oxygen saturation in 2021-10-08 20:25:00 97 /min University of Arterial blood by [place] [employer] angelica Pulse oximetry Branch Systolic blood 2021-10-02 13:22:00 111 mm[Hg] Univer sity of pressure [place] [facility] Diastolic blood 2021-10-02 13:22:00 77 mm[Hg] Unive rsity of pressure [place] [facility] Heart rate 2021-10-02 13:22:00 93 /min Universi ty [facility] [place] [facility] Respiratory rate 2021-10-02 13:22:00 16 /min Univ ersity of [place] [facility] Body weight 2021-10-02 13:22:00 51.88 kg [facility] BMI 2021-10-02 13:22:00 19.63 kg/m2 [facility] Procedures Procedure Date / Time Performed Performing Clinician Sourc e POCT MOLECULAR FLU 2021-10-22 15:20:00 Makayla Rausch [facility] Encounters Start End Encounter Admission Attending Care Care Encounter Source Date/Time Date/Time Type Type Clinicians Facility Department ID 2022-08-13 2022-08-13 Outpatient R LINDA LOUIS [facility] [id number] Univers [facility] 2022-01-02 Outpatient [facility] [id number] Univers 09:30:00 09:30:00 [id number] [facility] 2021-11-01 2021-11-01 Outpatient R [facility]DA L[place] [id number] Univers 00:00:00 00:00:00 [id number] [facility] 2021-10-22 2021-10-22 Outpatient R RESHMA [facility] [id number] Univers 10:00:00 10:37:57 [facility] o f [facility] 2021-10-22 2021-10-22 [facility] [id number] Univers 10:00:00 10:37:57 Care [facility] [id number] i ty of [place] [id number] Pj as JANNY?BLEA [id number] Mo dical [address] MEDICAL OFFICE BUILDING 2021-10-22 2021-10-22 Outpatient R [facility] [id number] Univers 10:00:00 10:00:00 [id number] [facility] 2021-10-08 2021-10-08 Outpatient R [facility]DA L[facility] [id number] Univers 15:00:00 15:25:31 ity [facility] 2021-10-08 2021-10-08 Nurse Nurse, [facility] [id number] Univers 15:00:00 15:25:31 Visit Linda Louis [id number] ity of WOMEN'S [id number] [facility] [id number] [facility] 134 Branch 2021-10-08 2021-10-08 Outpatient LINDA LOUIS [facility] [id number] Univers 15:00:00 15:00:00 [id number] ity [facility] 2021-10-02 2021-10-02 Office [facility] [id number] Univers 08:10:00 08:40:28 Visit , Molly PATTERSON [id number] it y [place] PEDIATR[id number] [facility] [id number] [facility] 225 Branch 2021-10-02 2021-10-02 Outpatient R [facility] [id number] [facility] 08:10:00 08:40:28 , MOLLY frye [facility] 2020-07-04 2020-07-04 Telephone [facility] [id number] 00:00:00 00:00:00 , Molly Patterson [id number] Pediatric [id number] Clinic [id number] 2020-06-28 2020-06-28 Laboratory Lab, [facility] [id number] 17:21:12 17:41:12 Only Fam [facility] [id number] [place] 4.2.7.2.686 Professio [id number] nal [address] 2020-06-06 2020-06-06 Telephone [facility] [id number] 00:00:00 00:00:00 , Molly Patterson [id number] Pediatric [id number] Clinic [id number] 2020-05-15 2020-05-15 Office [facility] [id number] 12:58:06 13:18:06 Visit , Molly Patterson [id number] Pediatric [id number] Clinic [id number] 2020-05-15 2020-05-[address] [facility] [id number] 00:00:00 00:00:00 Leonardo [id number] Pediatric [id number] [facility] [id number] 225 2020-05-15 2020-05-[address] [facility] [id number] 00:00:00 00:00:00 , Molly Patterson [id number] Pediatric [id number] [facility] [id number] Results Test Description Test Time Test Comments Results Result Comments Source POCT MOLECULAR FLU 2021-10-22 15:31:56 Test Item Value Reference Range Interpretation Comme nts POCT Molecular FluA (test code = 17289-2) Negative Negative POCT Molecular FluB (test code = 11590-8) Negative Negative Lab Interpretation (test code = 27315-3) Normal [facility]
--- NOTE | 2021-10-24 21:05 | EDPHYS ---
Physician Documentation [facility] Name: Saba Mcgovern Age: 21 yrs Sex: Female : 2000 Arrival Date: 10/24/2021 Time: 19:48 Bed 6 Private MD: KYLE Physician Jerry Lorenz HPI: 10/24 21:01 This 21 yrs old Female presents to ER via Ambulatory with complaints of epigastric pain.jr8 21:01 Onset: The symptoms/episode began/occurred acutely, today. Associated signs and jr8 symptoms: Pertinent positives: shortness of breath. Modifying factors: The patient symptoms are alleviated by nothing, the patient symptoms are aggravated by nothing. The patient has experienced a previous episode. The patient has not recently seen a physician. Patient stated that she had sudden onset epigastric pain causing shortness of breath. Hurt with palpation. Has had this once before. On/off gerd but does not take anything for it. Denies any other symptoms. Completely resolved at this time and feels back to normal. 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 - Social history:: Smoking status: Patient denies any tobacco usage or history of. Patient/guardian denies using alcohol. ROS: 21:01 Eyes: Negative for injury, pain, redness, and discharge, ENT: Negative for injury, jr8 pain, and discharge, Neck: Negative for injury, pain, and swelling, Cardiovascular: Negative for chest pain, palpitations, and edema, Respiratory: Negative for shortness of breath, cough, wheezing, and pleuritic chest pain, Back: Negative for injury and pain, MS/Extremity: Negative for injury and deformity, Skin: Negative for injury, rash, and discoloration, Neuro: Negative for headache, weakness, numbness, tingling, and seizure. 21:01 Abdomen/GI: Positive for abdominal pain, Negative for nausea, vomiting, and diarrhea. Exam: 21:01 Constitutional: This is a well developed, well nourished patient who is awake, alert, jr8 and in no acute distress. Neck: Trachea midline, no thyromegaly or masses palpated, and no cervical lymphadenopathy. Supple, full range of motion without nuchal rigidity, or vertebral point tenderness. No Meningismus. Chest/axilla: Normal chest wall appearance and motion. Nontender with no deformity. No lesions are appreciated. Cardiovascular: Regular rate and rhythm with a normal S1 and S2. No gallops, murmurs, or rubs. Normal PMI, no JVD. No pulse deficits. Respiratory: Lungs have equal breath sounds bilaterally, clear to auscultation and percussion. No rales, rhonchi or wheezes noted. No increased work of breathing, no retractions or nasal flaring. Abdomen/GI: Soft, non-tender, with normal bowel sounds. No distension or tympany. No guarding or rebound. No evidence of tenderness throughout. Back: No spinal tenderness. No costovertebral tenderness. Full range of motion. Skin: Warm, dry with normal turgor. Normal color with no rashes, no lesions, and no evidence of cellulitis. MS/ Extremity: Pulses equal, no cyanosis. Neurovascular intact. Full, normal range of motion. Neuro: Awake and alert, GCS 15, oriented to person, place, time, and situation. Cranial nerves II-XII grossly intact. Motor strength 5/5 in all extremities. Sensory grossly intact. Cerebellar exam normal. Normal gait. Vital Signs: 20:02 BP 132 / 100; Pulse 72; Resp 18; Temp 99.0(TE); Pulse Ox 97% on R/A; Weight 52.16 kg; ld1 Height 5 ft. 4 in. (162.56 cm); Pain 2/10; 21:01 BP 119 / 78; jb4 20:02 Body Mass Index 19.74 (52.16 kg, 162.56 cm) ld1 MDM: 20:39 Patient medically screened. jr8 21:01 Data reviewed: vital signs, nurses notes, EKG. Data interpreted: Pulse oximetry: on jr8 room air is 97 %. Interpretation: normal. Counseling: I had a detailed discussion with the patient and/or guardian regarding: the historical points, exam findings, and any diagnostic results supporting the discharge/admit diagnosis, the need for outpatient follow up, a family practitioner, to return to the emergency department if symptoms worsen or persist or if there are any questions or concerns that arise at home. Administered Medications: No medications were administered Disposition Summary: 10/24/21 21:05 Discharge Ordered Location: Home jr8 Problem: new jr8 Symptoms: are resolved jr8 Condition: Stable jr8 Diagnosis - Epigastric pain jr8 Followup: jr8 - With: Private Physician - When: 1 week - Reason: Recheck today's complaints, Continuance of care, Re-evaluation by your physician Discharge Instructions: - Discharge Summary Sheet jr8 - Food Choices for Gastroesophageal Reflux Disease, Adult jr8 - Gastritis, Adult jr8 Forms: - Medication Reconciliation Form jr8 - Thank You Letter jr8 - Antibiotic Education jr8 - Prescription Opioid Use jr8 Signatures: David Marley PA PA jr8 Christine Barajas, RN RN ld1
--- NOTE | 2021-10-24 21:05 | ER ---
Nurse's Notes [facility] Name: Saba Mcgovern Age: 21 yrs Sex: Female : 2000 Arrival Date: 10/24/2021 Time: 19:48 Bed 6 Private MD: Diagnosis: Epigastric pain Presentation: 10/24 20:02 Chief complaint: Patient states: I began feeling palpitations yesterday. Pt states "I ld1 don't think it is anxiety." Chest pain 1 hour ago. Coronavirus screen: At this time, the client does not indicate any symptoms associated with coronavirus-19. Ebola Screen: No symptoms or risks identified at this time. Initial Sepsis Screen: Does the patient meet any 2 criteria? No. Patient's initial sepsis screen is negative. Does the patient have a suspected source of infection? No. Patient's initial sepsis screen is negative. Risk Assessment: Do you want to hurt yourself or someone else? Patient reports no desire to harm self or others. Onset of symptoms was October 24, 2021. 20:02 Method Of Arrival: Ambulatory ld1 20:02 Acuity: RICHI 3 ld1 Triage Assessment: 20:04 General: Appears in no apparent distress. comfortable, Behavior is calm, cooperative, ld1 appropriate for age. Pain: Complains of pain in chest Pain does not radiate. Pain currently is 2 out of 10 on a pain scale. Quality of pain is described as throbbing. EENT: No signs and/or symptoms were reported regarding the EENT system. Neuro: Level of Consciousness is awake, alert, obeys commands, Oriented to person, place, time, situation, Appropriate for age. Cardiovascular: Capillary refill < 3 seconds Patient's skin is warm and dry. Respiratory: Reports Airway is patent Respiratory effort is even, unlabored. Musculoskeletal: Reports pain in chest. 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 - Social history:: Smoking status: Patient denies any tobacco usage or history of. Patient/guardian denies using alcohol. Screenin:04 Abuse screen: Denies threats or abuse. Nutritional screening: No deficits noted. jb4 Tuberculosis screening: No symptoms or risk factors identified. Fall Risk None identified. Assessment: 21:01 General: Appears in no apparent distress. comfortable, Behavior is calm, cooperative, jb4 appropriate for age. Pain: Denies pain. Neuro: Level of Consciousness is awake, alert, obeys commands, Oriented to person, place, time, situation. Cardiovascular: Patient's skin is warm and dry. Rhythm is sinus rhythm. Respiratory: Airway is patent Respiratory effort is even, unlabored, Respiratory pattern is regular, symmetrical. GI: No signs and/or symptoms were reported involving the gastrointestinal system. : No signs and/or symptoms were reported regarding the genitourinary system. EENT: No signs and/or symptoms were reported regarding the EENT system. Derm: Skin is intact, Skin is pink, warm \\T\\ dry. Musculoskeletal: Circulation, motion, and sensation intact. Range of motion: intact in all extremities. Vital Signs: 20:02 BP 132 / 100; Pulse 72; Resp 18; Temp 99.0(TE); Pulse Ox 97% on R/A; Weight 52.16 kg; ld1 Height 5 ft. 4 in. (162.56 cm); Pain 2/10; 21:01 BP 119 / 78; jb4 20:02 Body Mass Index 19.74 (52.16 kg, 162.56 cm) ld1 ED Course: 19:48 Patient arrived in ED. kz 20:04 Triage completed. ld1 20:04 Arm band placed on right wrist. ld1 20:39 David Marley PA is PHCP. jr8 20:39 Jerry Lorenz MD is Attending Physician. jr8 20:43 Priyank Mckenzie RN is Primary Nurse. jb4 21:04 Patient has correct armband on for positive identification. Bed in low position. Call jb4 light in reach. Side rails up X 1. 21:04 No provider procedures requiring assistance completed. Patient did not have IV access jb4 during this emergency room visit. Administered Medications: No medications were administered Outcome: 21:04 Discharged to home ambulatory. jb4 21:04 Condition: stable 21:04 Discharge instructions given to patient, Instructed on discharge instructions, follow up and referral plans. Demonstrated understanding of instructions, follow-up care. 21:05 Discharge ordered by MD. sanders 21:09 Patient left the ED. jb4 Signatures: David Marley PA PA jr8 Priyank Mckenzie RN RN jb4 Christine Barajas RN RN ld1 Candace Celaya
[2021-10-24 22:46] VITALS: TEMP 99; O2SAT 97
[2021-10-24 22:47] VITALS: BP 119/78
--- NOTE | 2021-10-25 07:44 | EKG ---
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
== END 2021-10-24 21:09 | disposition home or self-care (01) ==
LOC: ER 19:28
DX: R10.13 Epigastric pain (principal)
CPT/HCPCS: 93005; 99284

== ENCOUNTER 2022-06-13 10:49 | Emergency (ER) | payer OTHER ==
--- OUTSIDE RECORDS SUMMARY | 2022-06-13 10:55 | XMS REPORT | Continuity of Care Document ---
:2000 Author Organization [facility] t Address [address] [place] [address] Care Team Providers Name Role Phone Molly Reynolds PA-C Primary Care Physician [phone] LINDA LI Attending Clinician Unavailable MOLLY REYNOLDS Attending Clinician Unavailable Molly Reynolds PA-C Attending Clinician Linda Li MD Attending Clinician Doctor Unassigned, [place] Attending Clinician Unavailable JANETT MEAD Attending Clinician Unavailable JANETT MEAD Attending Clinician Unavailable Mayela Bocanegra MD Attending Clinician Xavi Montilla MD Attending Clinician LEIGHA JUSTICE Attending Clinician Unavailable Leigha Gorman Attending Clinician Nurse, Jd [facility] Attending Clinician Unavailable Only, Ang Db Test Attending Clinician Unavailable Delia Melvin Attending Clinician DELIA GRAJEDA Attending Clinician Unavailable Nurse, Jd Rivers Attending Clinician Unavailable Trupti Koch RN Attending Clinician Unavailable Mayra Tse MD Attending Clinician Cyndee Deras MD Attending Clinician Pob, Adc Lab Main Attending Clinician Unavailable Lab, Adc Fam Pob I Attending Clinician Unavailable Mando LINCOLN, Dena Attending Clinician DENA OLVERA Attending Clinician Unavailable Millie WEDDING CAKE DESIGNER, Michael Attending Clinician MICHAEL PINTO Attending Clinician Unavailable Antonella LINCOLN, Ignacio Attending Clinician IGNACIO BERMAN Attending Clinician Unavailable Pc, Adc Echo Room 1 - Attending Clinician Unavailable [place] SUBRAMANIAN, Lisa Attending Clinician Visit, Adc Nurse Attending Clinician Unavailable 2, Adc Lab Attending Clinician Unavailable LISA MCCLAIN Attending Clinician Unavailable CYNDEE DERAS Attending Clinician Unavailable Bruce TOOL AND DIE MAKER APPRENTICE, Eder Matthews Attending Clinician Unavailable Romario SUBRAMANIAN, Musa Szymanski Attending Clinician Missy Barrera PTA Attending Clinician Unavailable David Joseph PT, Ila Attending Clinician Unavailable Jason SUBRAMANIAN, Saba Attending Clinician Farhad Angeles Attending Clinician LINDA LI Admitting Clinician Unavailable Payers Payer Name Policy Type Policy Number Effective Date Expiration Date [employer]ad [employer] [id number] 2016 HEALTH 00:00:00 [place]ID OF [place] [id number] 2021 00:00:00 FORMERLY [facility] [id number] 2021 PLUS 00:00:00 Problems Condition Condition Condition Status Onset Resolution [...] Active Univers ALLERGIE Class ity of S [facility] Social History Social Habit Start Date Stop Date Quantity Comments Source History [facility] o f Alcohol Frequency [place] [facility] History [facility] o f Alcohol Std [place] [facility] Drinks Branch History [facility] o f Alcohol Binge [place] [facility] al [facility] Alcohol intake 2022-05-21 2022-05-21 .29 /d University of 00:00:00 00:00:00 [facility] Exposure to 2022-05-07 2022-05-17 Not sure [facility] SARS-CoV-2 00:00:00 15:23:00 [facility] (event) [place] Tobacco use and 2022-02-12 2022-02-12 Smokeless tobacco Un iversity of exposure 00:00:00 00:00:00 non-user [facility] Alcohol Comment 2021-08-13 2021-08-13 1 to 2 cans a Univer sity of 00:00:00 00:00:00 week [facility] Sex Assigned At 2000 2000 Universit y of 00:00:00 00:00:00 [facility] Smoking Status Start Date Stop Date Source Never smoked tobacco [facility] Medications Ordered Filled Start Stop Current Ordering Indication Dosage Frequency Signature Comments Components Source Medication Medication Date Date Medication? Clinician (SIG) Name Name medroxyPROG 2021-06- No [id number] 150mg Univers ESTERone 0-11 10-11 ity of (DEPO-PROVE 14:15: 13:37 [place] RA) 00 :00 Medical injection Branch 150 mg medroxyPROG 2021-06- No [id number] 150mg 150 mg, Univers ESTERone 0-11 10-11 Intramuscu ity of (DEPO-PROVE 14:15: 13:37 lar, ONCE, [place] RA) 00 :00 1 dose, On Medical injection Tue Branch 150 mg 03/26/22 at 0915, Routine medroxyPROG 2021-06- No [id number] 150mg Univers ESTERone 0-11 10-11 ity of (DEPO-PROVE 14:15: 13:37 [place] RA) 00 :00 Medical injection Branch 150 mg medroxyPROG 2021-06- No [id number] 150mg 150 mg, Univers ESTERone 0-11 10-11 Intramuscu ity of (DEPO-PROVE 14:15: 13:37 lar, ONCE, [place] RA) 00 :00 1 dose, On Medical injection Tue Branch 150 mg 03/26/22 at 0915, Routine methylpheni 2021-06 Yes [id number] 1{tbl} Take 1 Univers date HCl 0-11 tablet by ity of (QUILLICHEW 00:00: mouth [place] ER) 30 mg 00 daily. [place] [address] Branch methylpheni 2021-06 Yes [id number] 1{tbl} Take 1 Univers date HCl 0-11 tablet by ity of (QUILLICHEW 00:00: mouth [place] ER) 30 mg 00 [facility]. [facility] methylpheni 2021-06 Yes [id number] 1{tbl} Take 1 Univers date HCl 0-11 tablet by ity of (QUILLICHEW 00:00: mouth [place] ER) 30 mg 00 daily. [place] [address] Branch methylpheni 2021-06 Yes [id number] 1{tbl} Take 1 Univers date HCl 0-11 tablet by ity of (QUILLICHEW 00:00: mouth [place] ER) 30 mg 00 daily. [place] [address] Branch ibuprofen 2021-0 Yes [id number] 600mg Take 1 U nivers 600 mg 8-24 tablet by ity of tablet 00:00: mouth [place] 00 every 8 Medical (eight) Branch hours as needed (pain). ibuprofen 2021-0 Yes [id number] 600mg Take 1 U nivers 600 mg 8-24 tablet by ity of tablet 00:00: mouth [place] 00 every 8 Medical (eight) Branch hours as needed (pain). ibuprofen 2021-0 Yes [id number] 600mg Take 1 U nivers 600 mg 8-24 tablet by ity of tablet 00:00: mouth [place] 00 every 8 Medical (eight) Branch hours as needed (pain). ibuprofen 2021-0 Yes [id number] 600mg Take 1 U nivers 600 mg 8-24 tablet by ity of tablet 00:00: mouth [place] 00 every 8 Medical (eight) Branch hours as needed (pain). ibuprofen 2021-0 Yes [id number] 600mg Take 1 U nivers 600 mg 8-24 tablet by ity of tablet 00:00: mouth [place] 00 every 8 Medical (eight) Branch hours as needed (pain). ibuprofen 2021-0 Yes [id number] 600mg Take 1 U nivers 600 mg 8-24 tablet by ity of tablet 00:00: mouth [place] 00 every 8 Medical (eight) Branch hours as needed (pain). ibuprofen Yes [id number] 600mg Take 1 U nivers 600 mg 8-24 tablet by ity of tablet 00:00: mouth [place] 00 every 8 Medical (eight) Branch hours as needed (pain). methylpheni Yes [id number] 1{tbl} Take 1 Univers date HCl 7-19 tablet by ity of (QUILLICHEW 00:00: mouth [place] ER) 30 mg 00 daily. [place] [address] Branch cetirizine Yes [id number] Take 1 po Univers (ZYRTEC) 10 7-19 qhs for ity o f mg tablet 00:00: allergies Pj as 00 Medical Branch fluticasone Yes [id number] 2{spray Use 2 Univers propionate 7-19 } Sprays in ity of 50 00:00: each [place] mcg/actuati 00 nostril in Me dical on nasal the Branch spray morning and 2 Sprays in the evening. methylpheni Yes [id number] 1{tbl} Take 1 Univers date HCl 7-19 tablet by ity of (QUILLICHEW 00:00: mouth [place] ER) 30 mg [address] cetirizine Yes [id number] Take 1 po Univers (ZYRTEC) 10 7-19 qhs for ity o f mg tablet 00:00: allergies Pj as 00 Medical Branch fluticasone 2021-0 Yes [id number] 2{spray Use 2 Univers propionate 7-19 } Sprays in ity of 50 00:00: each [place] mcg/actuati 00 nostril in Me dical on nasal the Branch spray morning and 2 Sprays in the evening. methylpheni Yes [id number] 1{tbl} Take 1 Univers date HCl 7-19 tablet by ity of (QUILLICHEW 00:00: mouth [place] ER) 30 mg [address] cetirizine Yes [id number] Take 1 po Univers (ZYRTEC) 10 7-19 qhs for ity o f mg tablet 00:00: allergies Pj as 00 Medical Branch fluticasone 2021-0 Yes [id number] 2{spray Use 2 Univers propionate 7-19 } Sprays in ity of 50 00:00: each [place] mcg/actuati 00 nostril in Me dical on nasal the Branch spray morning and 2 Sprays in the evening. cetirizine 0 Yes [id number] Take 1 po Univers (ZYRTEC) 10 7-19 qhs for ity o f mg tablet 00:00: allergies Pj as 00 Medical Branch fluticasone 0 Yes [id number] 2{spray Use 2 Univers propionate 7-19 } Sprays in ity of 50 00:00: each [place] mcg/actuati 00 nostril in Me dical on nasal the Branch spray morning and 2 Sprays in the evening. cetirizine Yes [id number] Take 1 po Univers (ZYRTEC) 10 7-19 qhs for ity o f mg tablet 00:00: allergies Pj as 00 Medical Branch fluticasone 0 Yes [id number] 2{spray Use 2 Univers propionate 7-19 } Sprays in ity of 50 00:00: each [place] mcg/actuati 00 nostril in Me dical on nasal the Branch spray morning and 2 Sprays in the evening. cetirizine Yes [id number] Take 1 po Univers (ZYRTEC) 10 7-19 qhs for ity o f mg tablet 00:00: allergies Pj as 00 Medical Branch fluticasone 0 Yes [id number] 2{spray Use 2 Univers propionate 7-19 } Sprays in ity of 50 00:00: each [place] mcg/actuati 00 nostril in Me dical on nasal the Branch spray morning and 2 Sprays in the evening. cetirizine 0 Yes [id number] Take 1 po Univers (ZYRTEC) 10 7-19 qhs for ity o f mg tablet 00:00: allergies Pj as 00 Medical Branch fluticasone 0 Yes [id number] 2{spray Use 2 Univers propionate 7-19 } Sprays in ity of 50 00:00: each [place] mcg/actuati 00 nostril in Me dical on nasal the Branch spray morning and 2 Sprays in the evening. methylpheni 0 2021- No [id number] 1{tbl} Take 1 Univers date HCl 7-19 10-11 tablet by ity o f (QUILLICHEW 00:00: [place] 30 mg 00 :00 daily. Medical cb24 Branch triamcinolo 0 Yes [id number] Apply to Univers ne 1-12 area(s) 2 ity of acetonide 00:00: (two) [place] 0.1 % 00 times Medical ointment daily. Branch triamcinolo 0 Yes [id number] Apply to Univers ne 1-12 area(s) 2 ity of acetonide 00:00: (two) [place] 0.1 % 00 times Medical ointment daily. Branch triamcinolo 0 Yes [id number] Apply to Univers ne 1-12 area(s) 2 ity of acetonide 00:00: (two) [place] 0.1 % 00 times Medical ointment daily. Branch triamcinolo Yes [id number] Apply to Univers ne 1-12 area(s) 2 ity of acetonide 00:00: (two) [place] 0.1 % 00 times Medical ointment daily. Branch triamcinolo 0 Yes [id number] Apply to Univers ne 1-12 area(s) 2 ity of acetonide 00:00: (two) [place] 0.1 % 00 times Medical ointment daily. Branch triamcinolo 0 Yes [id number] Apply to Univers ne 1-12 area(s) 2 ity of acetonide 00:00: (two) [place] 0.1 % 00 times Medical ointment daily. Branch triamcinolo 0 Yes [id number] Apply to Univers ne 1-12 area(s) 2 ity of acetonide 00:00: (two) [place] 0.1 % 00 times Medical ointment daily. Branch methylpheni 2020- No [id number] 1{tbl} Take 1 Univers date HCl 9-02 10-05 tablet by ity o f (QUILLICHEW 00:00: [place] 30 mg 00 :00 daily. Medical [facility] Branch methylpheni 0 202- No [id number] 1{tbl} Take 1 Univers date HCl 9-02 10-05 tablet by ity o f (QUILLICHEW 00:00: [place] 30 mg 00 :00 daily. [place] [address] Branch bromphenira 2021- No [id number] 5mL Take 5 mL Univers mine-pseudo 07-04 by mouth 3 i ty of ephedrine-D 00:00: 00:00 (three[place] (BROMFED 00 :00 times Medical DM) 2-30-10 daily as Bran ch mg/5 mL needed for syrup Congestion /Allergies or Cold symptoms. bromphenira 2021- No [id number] 5mL Take 5 mL Univers mine-pseudo 07-04 by mouth 3 i ty of ephedrine-D 00:00: 00:00 (three[place] (BROMFED 00 :00 times Medical DM) 2-30-10 daily as Bran ch mg/5 mL needed for syrup Congestion /Allergies or Cold symptoms. Biotin 2020-1 Yes [id number] Take 1 po Un ericka 2,500 mcg 0-21 QD for 4-6 ity of Cap 00:00: [address] Biotin 2020-1 Yes [id number] Take 1 po Un ericka 2,500 mcg 0-21 QD for 4-6 ity of Cap 00:00: [address] Biotin 2020-1 Yes [id number] Take 1 po Un ericka 2,500 mcg 0-21 QD for 4-6 ity of Cap 00:00: [address] Biotin 2020-1 Yes [id number] Take 1 po Un ericka 2,500 mcg 0-21 QD for 4-6 ity of Cap 00:00: [address] Biotin 2020-1 Yes [id number] Take 1 po Un ericka 2,500 mcg 0-21 QD for 4-6 ity of Cap 00:00: [address] Biotin 2020-1 Yes [id number] Take 1 po Un ericka 2,500 mcg 0-21 QD for 4-6 ity of Cap 00:00: [address] Biotin 2020-1 Yes [id number] Take 1 po Un ericka 2,500 mcg 0-21 QD for 4-6 ity of Cap 00:00: [address] Biotin 2020-1 Yes [id number] Take 1 po Un ericka 2,500 mcg 0-21 QD for 4-6 ity of Cap 00:00: months [address] Biotin 2020-1 Yes [id number] Take 1 po Un ericka 2,500 mcg 0-21 QD for 4-6 ity of Cap 00:00: months [address] Immunizations Ordered Immunization Filled Immunization Date Status Commen ts Source Name Name Influenza Virus 2022-03-26 Completed Universit y of Vaccine [facility], 00:00:00 [place] [facility] Preserv and ABX Free Bran ch 6 MO-64 YRS Influenza Virus 2022-03-26 Completed Universit y of Vaccine [place] [facility], 00:00:00 [place] [facility] Preserv and ABX Free Bran ch 6 MO-64 YRS Influenza Virus 2022-03-26 Completed Universit y of Vaccine [place] IM, 00:00:00 [place] [facility] Preserv and ABX Free Bran ch 6 MO-64 YRS Influenza Virus 2022-03-26 Completed Universit y of Vaccine [place] IM, 00:00:00 [place] [facility] Preserv and ABX Free Bran ch 6 MO-64 YRS Influenza Virus 2022-03-26 Completed Universit y of Vaccine [facility] IM, 00:00:00 [place] [facility] Preserv and ABX Free Bran ch 6 MO-64 YRS Influenza Virus 2022-03-26 Completed Universit y of Vaccine [facility] IM, 00:00:00 [place] [facility] Preserv and ABX Free Bran ch 6 MO-64 YRS Meningococcal 2016-08-27 Completed University of Vaccine 00:00:00 [facility] Meningococcal 2016-08-27 Completed University of Vaccine 00:00:00 [facility] Meningococcal 2016-08-27 Completed University of Vaccine 00:00:00 [facility] Meningococcal 2016-08-27 Completed University of Vaccine 00:00:00 [facility] Meningococcal 2016-08-27 Completed University of Vaccine 00:00:00 [facility] Meningococcal 2016-08-27 Completed University of Vaccine 00:00:00 [facility] Meningococcal 2016-08-27 Completed University of Vaccine 00:00:00 [facility] Meningococcal 2016-08-27 Completed University of Vaccine 00:00:00 [facility] Meningococcal 2016-08-27 Completed University of Vaccine 00:00:00 [facility] Meningococcal 2016 Completed University of Vaccine 00:00:00 [facility] Meningococcal 2016 Completed University of Vaccine 00:00:00 [facility] Meningococcal 2016 Completed University of Vaccine 00:00:00 [facility] Meningococcal 2016 Completed University of Vaccine 00:00:00 [facility] Meningococcal 2016 Completed University of Vaccine 00:00:00 [facility] Meningococcal 2016 Completed University of Vaccine 00:00:00 [facility] Meningococcal 2016 Completed University of Vaccine 00:00:00 [facility] Meningococcal 2016 Completed University of Vaccine 00:00:00 [facility] Meningococcal 2016 Completed University of Vaccine 00:00:00 [facility] Meningococcal 2011-09-04 Completed University of Vaccine 00:00:00 [facility] TDAP 2011-09-04 Completed University of 00:00:00 [facility] Meningococcal 2011-09-04 Completed University of Vaccine 00:00:00 [facility] TDAP 2011-09-04 Completed University of 00:00:00 [facility] Meningococcal 2011-09-04 Completed University of Vaccine 00:00:00 [facility] TDAP 2011-09-04 Completed University of 00:00:00 [facility] Meningococcal 2011-09-04 Completed University of Vaccine 00:00:00 [facility] TDAP 2011-09-04 Completed University of 00:00:00 [facility] Meningococcal 2011-09-04 Completed University of Vaccine 00:00:00 [facility] TDAP 2011-09-04 Completed University of 00:00:00 [facility] Meningococcal 2011-09-04 Completed University of Vaccine 00:00:00 [facility] TDAP 2011-09-04 Completed University of 00:00:00 [facility] Meningococcal 2011-09-04 Completed University of Vaccine 00:00:00 [facility] TDAP 2011-09-04 Completed University of 00:00:00 [facility] Meningococcal 2011-09-04 Completed University of Vaccine 00:00:00 [facility] TDAP 2011-09-04 Completed University of 00:00:00 [facility] Meningococcal 2011-09-04 Completed University of Vaccine 00:00:00 [facility] TDAP 2011-09-04 Completed University of 00:00:00 [facility] HPV 2011 Completed University of 00:00:00 [facility] HPV 2011 Completed University of 00:00:00 [facility] Branch HPV 2011 Completed University of 00:00:00 [facility] Branch HPV 2011 Completed University of 00:00:00 [facility] Branch HPV 2011 Completed University of 00:00:00 [facility] Branch HPV 2011 Completed University of 00:00:00 [facility] Branch HPV 2011 Completed University of 00:00:00 [facility] Branch HPV 2011 Completed University of 00:00:00 [facility] Branch HPV 2011 Completed University of 00:00:00 [facility] Branch Varicella 2008-03-09 Completed University of (varivax)(chicken 00:00:00 [place] [facility] pox) Branch Varicella 2008-03-09 Completed University of (varivax)(chicken 00:00:00 [place] [facility] pox) Branch Varicella 2008-03-09 Completed University of (varivax)(chicken 00:00:00 [place] [facility] pox) Branch Varicella 2008-03-09 Completed University of (varivax)(chicken 00:00:00 [place] M edical pox) Branch Varicella 2008-03-09 Completed University of (varivax)(chicken 00:00:00 [place] [facility] pox) Branch Varicella 2008-03-09 Completed University of (varivax)(chicken 00:00:00 [place] [facility] edical pox) Branch Varicella 2008-03-09 Completed University of (varivax)(chicken 00:00:00 [place] M edical pox) Branch Varicella 2008-03-09 Completed University of (varivax)(chicken 00:00:00 [place] [facility] pox) Branch Varicella 2008-03-09 Completed University of (varivax)(chicken 00:00:00 [place] [facility] pox) Branch HEPATITIS A 2006-02-12 Completed University of 00:00:00 [facility] HEPATITIS A 2006-02-12 Completed University of 00:00:00 [facility] HEPATITIS A 2006-02-12 Completed University of 00:00:00 [facility] HEPATITIS A 2006-02-12 Completed University of 00:00:00 [facility] HEPATITIS A 2006-02-12 Completed University of 00:00:00 [facility] HEPATITIS A 2006-02-12 Completed University of 00:00:00 [facility] HEPATITIS A 2006-02-12 Completed University of 00:00:00 [facility] Branch HEPATITIS A 2006-02-12 Completed University of 00:00:00 [place] [facility] HEPATITIS A 2006-02-12 Completed University of 00:00:00 [facility] HEPATITIS A 2005-04-04 Completed University of 00:00:00 [facility] HEPATITIS A 2005-04-04 Completed University of 00:00:00 [facility] HEPATITIS A 2005-04-04 Completed University of 00:00:00 [facility] HEPATITIS A 2005-04-04 Completed University of 00:00:00 [facility] HEPATITIS A 2005-04-04 Completed University of 00:00:00 [facility] HEPATITIS A 2005-04-04 Completed University of 00:00:00 [facility] HEPATITIS A 2005-04-04 Completed University of 00:00:00 [facility] HEPATITIS A 2005-04-04 Completed University of 00:00:00 [facility] HEPATITIS A 2005-04-04 Completed University of 00:00:00 [facility] DTAP 2004-08-20 Completed University of 00:00:00 [facility] MMR 2004-08-20 Completed University of 00:00:00 [facility] Branch Polio (IPV/OPV) 2004-08-20 Completed Universit y of 00:00:00 [facility] DTAP 2004-08-20 Completed University of 00:00:00 [facility] MMR 2004-08-20 Completed University of 00:00:00 [place] [facility] Polio (IPV/OPV) 2004-08-20 Completed Universit y of 00:00:00 [facility] DTAP 2004-08-20 Completed University of 00:00:00 [facility] MMR 2004-08-20 Completed University of 00:00:00 [place] [facility] Polio (IPV/OPV) 2004-08-20 Completed Universit y of 00:00:00 [place] [facility] DTAP 2004-08-20 Completed University of 00:00:00 [place] [facility] MMR 2004-08-20 Completed University of 00:00:00 [place] [facility] Polio (IPV/OPV) 2004-08-20 Completed Universit y of 00:00:00 [facility] DTAP 2004-08-20 Completed University of 00:00:00 [facility] MMR 2004-08-20 Completed University of 00:00:00 [place] [facility] Polio (IPV/OPV) 2004-08-20 Completed Universit y of 00:00:00 [facility] DTAP 2004-08-20 Completed University of 00:00:00 [facility] MMR 2004-08-20 Completed University of 00:00:00 [facility] Polio (IPV/OPV) 2004-08-20 Completed Universit y of 00:00:00 [facility] DTAP 2004-08-20 Completed University of 00:00:00 [facility] MMR 2004-08-20 Completed University of 00:00:00 [facility] Polio (IPV/OPV) 2004-08-20 Completed Universit y of 00:00:00 [facility] DTAP 2004-08-20 Completed University of 00:00:00 [facility] MMR 2004-08-20 Completed University of 00:00:00 [facility] Polio (IPV/OPV) 2004-08-20 Completed Universit y of 00:00:00 [facility] DTAP 2004-08-20 Completed University of 00:00:00 [facility] MMR 2004-08-20 Completed University of 00:00:00 [facility] Polio (IPV/OPV) 2004-08-20 Completed Universit y of 00:00:00 [facility] Pneumococcal 13 2001-11-10 Completed Universit y of Conjugate, PCV13 00:00:00 [place] [facility] (Prevnar 13) Branch Pneumococcal 13 2001-11-10 Completed Universit y of Conjugate, PCV13 00:00:00 [place] [facility] (Prevnar 13) Branch Pneumococcal 13 2001-11-10 Completed Universit y of Conjugate, PCV13 00:00:00 [place] [facility] (Prevnar 13) Branch Pneumococcal 13 2001-11-10 Completed Universit y of Conjugate, PCV13 00:00:00 [place] [facility]ical (Prevnar 13) Branch Pneumococcal 13 2001-11-10 Completed Universit y of Conjugate, PCV13 00:00:00 [place] [facility] (Prevnar 13) Branch Pneumococcal 13 2001-11-10 Completed Universit y of Conjugate, PCV13 00:00:00 [place] [facility] (Prevnar 13) Branch Pneumococcal 13 2001-11-10 Completed Universit y of Conjugate, PCV13 00:00:00 [place] [facility] (Prevnar 13) Branch Pneumococcal 13 2001-11-10 Completed Universit y of Conjugate, PCV13 00:00:00 [place] [facility] (Prevnar 13) Branch Pneumococcal 13 2001-11-10 Completed Universit y of Conjugate, PCV13 00:00:00 [facility] dical (Prevnar 13) Branch DTAP 2001-08-10 Completed University of 00:00:00 [facility] HIB 3 Dose Schedule 2001-08-10 Completed Unive rsity of 00:00:00 [facility] MMR 2001-08-10 Completed University of 00:00:00 [facility] Branch DTAP 2001-08-10 Completed University of 00:00:00 [facility] HIB 3 Dose Schedule 2001-08-10 Completed Unive rsity of 00:00:00 [facility] MMR 2001-08-10 Completed University of 00:00:00 [facility] DTAP 2001-08-10 Completed University of 00:00:00 [facility] HIB 3 Dose Schedule 2001-08-10 Completed Unive rsity of 00:00:00 [facility] MMR 2001-08-10 Completed University of 00:00:00 [facility] DTAP 2001-08-10 Completed University of 00:00:00 [facility] HIB 3 Dose Schedule 2001-08-10 Completed Unive rsity of 00:00:00 [facility] MMR 2001-08-10 Completed University of 00:00:00 [facility] DTAP 2001-08-10 Completed University of 00:00:00 [facility] HIB 3 Dose Schedule 2001-08-10 Completed Unive rsity of 00:00:00 [facility] MMR 2001-08-10 Completed University of 00:00:00 [facility] DTAP 2001-08-10 Completed University of 00:00:00 [facility] HIB 3 Dose Schedule 2001-08-10 Completed Unive rsity of 00:00:00 [facility] MMR 2001-08-10 Completed University of 00:00:00 [facility] DTAP 2001-08-10 Completed University of 00:00:00 [facility] HIB 3 Dose Schedule 2001-08-10 Completed Unive rsity of 00:00:00 [facility] MMR 2001-08-10 Completed University of 00:00:00 [facility] DTAP 2001-08-10 Completed University of 00:00:00 [facility] HIB 3 Dose Schedule 2001-08-10 Completed Unive rsity of 00:00:00 [facility] MMR 2001-08-10 Completed University of 00:00:00 [facility] DTAP 2001-08-10 Completed University of 00:00:00 [facility] HIB 3 Dose Schedule 2001-08-10 Completed Unive rsity of 00:00:00 [facility] MMR 2001-08-10 Completed University of 00:00:00 [facility] HEPATITIS A 2001 Completed University of 00:00:00 [facility] HEPATITIS A 2001 Completed University of 00:00:00 [facility] HEPATITIS A 2001 Completed University of 00:00:00 [facility] HEPATITIS A 2001 Completed University of 00:00:00 [facility] HEPATITIS A 2001 Completed University of 00:00:00 [facility] HEPATITIS A 2001 Completed University of 00:00:00 [facility] HEPATITIS A 2001 Completed University of 00:00:00 [facility] HEPATITIS A 2001 Completed University of 00:00:00 [facility] HEPATITIS A 2001 Completed University of 00:00:00 [facility] Polio (IPV/OPV) 2001-05-12 Completed Universit y of 00:00:00 [facility] Polio (IPV/OPV) 2001-05-12 Completed Universit y of 00:00:00 [facility] Polio (IPV/OPV) 2001-05-12 Completed Universit y of 00:00:00 [facility] Polio (IPV/OPV) 2001-05-12 Completed Universit y of 00:00:00 [facility] Polio (IPV/OPV) 2001-05-12 Completed Universit y of 00:00:00 [facility] Polio (IPV/OPV) 2001-05-12 Completed Universit y of 00:00:00 [facility] Polio (IPV/OPV) 2001-05-12 Completed Universit y of 00:00:00 [facility] Polio (IPV/OPV) 2001-05-12 Completed Universit y of 00:00:00 [facility] Polio (IPV/OPV) 2001-05-12 Completed Universit y of 00:00:00 [facility] DTAP 2001-03-05 Completed University of 00:00:00 [facility] HIB 3 Dose Schedule 2001-03-05 Completed [facility] rsity of 00:00:00 [facility] Hep B, Adol or Pedi 2001-03-05 Completed Unive rsity of Dosage 00:00:00 [facility] DTAP 2001-03-05 Completed University of 00:00:00 [facility] HIB 3 Dose Schedule 2001-03-05 Completed Unive rsity of 00:00:00 [facility] Hep B, Adol or Pedi 2001-03-05 Completed Unive rsity of Dosage 00:00:00 [facility] DTAP 2001-03-05 Completed University of 00:00:00 [facility] HIB 3 Dose Schedule 2001-03-05 Completed Unive rsity of 00:00:00 [facility] Hep B, Adol or Pedi 2001-03-05 Completed Unive rsity of Dosage 00:00:00 [facility] DTAP 2001-03-05 Completed University of 00:00:00 [facility] HIB 3 Dose Schedule 2001-03-05 Completed Unive rsity of 00:00:00 [facility] Hep B, Adol or Pedi 2001-03-05 Completed Unive rsity of Dosage 00:00:00 [facility] DTAP 2001-03-05 Completed University of 00:00:00 [facility] HIB 3 Dose Schedule 2001-03-05 Completed Unive rsity of 00:00:00 [facility] Hep B, Adol or Pedi 2001-03-05 Completed Unive rsity of Dosage 00:00:00 [facility] DTAP 2001-03-05 Completed University of 00:00:00 [facility] HIB 3 Dose Schedule 2001-03-05 Completed Unive rsity of 00:00:00 [facility] Hep B, Adol or Pedi 2001-03-05 Completed Unive rsity of Dosage 00:00:00 [facility] DTAP 2001-03-05 Completed University of 00:00:00 [facility] HIB 3 Dose Schedule 2001-03-05 Completed Unive rsity of 00:00:00 [facility] Hep B, Adol or Pedi 2001-03-05 Completed Unive rsity of Dosage 00:00:00 [facility] DTAP 2001-03-05 Completed University of 00:00:00 [facility] HIB 3 Dose Schedule 2001-03-05 Completed Unive rsity of 00:00:00 [facility] Hep B, Adol or Pedi 2001-03-05 Completed Unive rsity of Dosage 00:00:00 [facility] DTAP 2001-03-05 Completed University of 00:00:00 [facility] HIB 3 Dose Schedule 2001-03-05 Completed Unive rsity of 00:00:00 [facility] Hep B, Adol or Pedi 2001-03-05 Completed Unive rsity of Dosage 00:00:00 [facility] Pneumococcal 13 2000 Completed Universit y of Conjugate, PCV13 00:00:00 [facility] Pneumococcal 13 2000 Completed Universit y of Conjugate, PCV13 00:00:00 [facility] Pneumococcal 13 2000 Completed Universit y of Conjugate, PCV13 00:00:00 [facility] (Pre[facility] Pneumococcal 13 2000 Completed Universit y of Conjugate, PCV13 00:00:00 [facility] (Pre[facility] 13) [facility] Pneumococcal 13 2000 Completed Universit y of Conjugate, PCV13 00:00:00 [facility] (Pre[facility] 13[facility] Pneumococcal 13 2000 Completed Universit y of Conjugate, PCV13 00:00:00 [facility] (Pre[facility] 13[facility] Pneumococcal 13 2000 Completed Universit y of Conjugate, PCV13 00:00:00 [facility] (Pre[facility] 13[facility] Pneumococcal 13 2000 Completed Universit y of Conjugate, PCV13 00:00:00 [facility] Pneumococcal 13 2000 Completed Universit y of Conjugate, PCV13 00:00:00 [facility] Hep B, Adol or Pedi 2000 Completed Unive rsity of Dosage 00:00:00 [facility] Hep B, Adol or Pedi 2000 Completed Unive rsity of Dosage 00:00:00 [facility] Hep B, Adol or Pedi 2000 Completed Unive rsity of Dosage 00:00:00 [facility] Hep B, Adol or Pedi 2000 Completed Unive rsity of Dosage 00:00:00 [facility] Hep B, Adol or Pedi 2000 Completed Unive rsity of Dosage 00:00:00 [facility] Hep B, Adol or Pedi 2000 Completed Unive rsity of Dosage 00:00:00 [facility] Hep B, Adol or Pedi 2000 Completed Unive rsity of Dosage 00:00:00 [facility] Hep B, Adol or Pedi 2000 Completed Unive rsity of Dosage 00:00:00 [facility] Hep B, Adol or Pedi 2000 Completed Unive rsity of Dosage 00:00:00 [facility] Vital Signs Vital Name Observation Time Observation Value Comments Source Systolic blood 2022-03-26 13:03:00 107 mm[Hg] Univer sity of pressure [facility] Diastolic blood 2022-03-26 13:03:00 69 mm[Hg] Unive rsity of pressure [facility] Heart rate 2022-03-26 13:03:00 88 /min Universi ty of [facility] Body temperature 2022-03-26 13:03:00 36.94 Rufina Univ ersity of [facility] Respiratory rate 2022-03-26 13:03:00 16 /min Univ ersity of [facility] Body weight 2022-03-26 13:03:00 51.03 kg Universi ty of [facility] BMI 2022-03-26 13:03:00 19.93 kg/m2 Universi ty of [facility] Systolic blood 2022-02-12 20:14:00 104 mm[Hg] Univer sity of pressure [facility] Diastolic blood 2022-02-12 20:14:00 73 mm[Hg] Unive rsity of pressure [facility] Heart rate 2022-02-12 20:14:00 91 /min Universi ty of [facility] Body temperature 2022-02-12 20:14:00 36.78 Rufina Univ ers[facility] of [facility] Respiratory rate 2022-02-12 20:14:00 18 /min Univ ersity of [facility] Body height 2022-02-12 20:14:00 160 cm Universi ty of [facility] Body weight 2022-02-12 20:14:00 50.168 kg Universi ty of [facility] BMI 2022-02-12 20:14:00 19.59 kg/m2 Universi ty of [facility] Oxygen saturation in 2022-02-12 20:14:00 98 /min [facility] Arterial blood by [facility] Pulse oximetry Branch Systolic blood 2021-02-16 18:39:00 113 mm[Hg] Univer sity of pressure [facility] Diastolic blood 2021-02-16 18:39:00 82 mm[Hg] Unive rsity of [facility] Heart rate 2021-02-16 18:39:00 90 /min [facility] Body temperature 2021-02-16 18:39:00 36.61 Rufina [facility] Res[facility] rate 2021-02-16 18:39:00 18 /min [facility] Body height 2021-02-16 18:39:00 165.1 cm [facility] Body weight 2021-02-16 18:39:00 44.453 kg [facility] BMI 2021-02-16 18:39:00 16.31 kg/m2 [facility] Procedures Procedure Date / Time Performed Performing Clinician Sourc e FLU VACC ([id number]), 2022-03-26 13:28:53 Molly Reynolds [facility] 6 MO-64 YRS, .5ML, Medical Branc h IM, QUAD (FLUCELVAX) Encounters Start End Encounter Admission Attending Care Care Encounter Source Date/Time Date/Time Type Type Clinicians Facility Department ID 2022-08-13 2022-08-13 Outpatient R HERIBERTO LINDA [facility] [id number] [facility] 2022-08-13 Outpatient R HERIBERTO LINDA [facility] [id number] [facility] 09:00[facility]00 [facility] 2022-08-13 2022-08-13 Outpatient R LINDA LI [facility] [id number] [facility] 09:00[facility]00 [facility] 2022-08-13 2022-08-13 Outpatient R LINDA LI [facility] [id number] [facility] 09:00[facility]00 [facility] 2022-08-13 2022-08-13 Outpatient R LINDA LI [facility] [id number] Univers 09:00:00 09:00:00 ity [facility] 2022-06-14 2022-06-14 Outpatient R [facility] [id number] Univers 11:20:00 11:20:00 , MOLLY frye [facility] 2022-05-17 2022-05-17 Office [facility] 1.2.840.114 [id number] Univers 15:50:00 16:10:00 Visit , Molly PATTERSON 350.1.13.10 [place] [place] [place] [facility] [id number] [address] 2022-05-17 2022-05-17 Outpatient R [facility] [id number] Univers 15:50:00 15:50:00 , MOLLY frye [facility] 2022-05-17 2022-05-17 Outpatient R [facility] [id number] Univers 09:50:00 09:50:00 , MOLLY frye [facility] 2022-05-17 2022-05-17 Telephone [facility] 1.2.840.11 [id number] Univers 00:00:00 00:00:00 , Molly PATTERSON 350.1.13.10 [place] [place] [facility] [id number] [address] 2022-03-26 2022-03-26 Outpatient R [facility] [id number] Univers 07:50:00 08:37:57 , MOLLY frye [facility] 2022-03-26 2022-03-26 Office [facility] 1.2.840.114 [id number] Univers 07:50:00 08:37:57 Visit , Molly PATTERSON 350.1.13.10 [place] [place] [place] [facility] [id number] [address] 2022-03-26 2022-03-26 Refill [facility] 1.2.840.114 [id number] Univers 00:00:00 00:00:00 , Molly PATTERSON 350.1.13.10 [place] [place] [facility] [id number] [facility] [address] 2022-02-12 2022-02-12 Office Linda Li [facility] 1.2.840.114 [id number] Univers 15:00:00 15:42:40 Visit LEONARDO 350.1.13.10 it y of WOMEN'S 4.2.7.2.686 [facility] [id number] [facility] [address] 2022-02-12 2022-02-12 Outpatient R HERIBERTO LINDA [facility] [id number] Univers 15:00:00 15:42:40 ity [facility] 2022-02-12 2022-02-12 Out[facility] [id number] Univers 15:00:00 15:00:00 ity [facility] 2022-02-12 2022-02-12 Outpatient R HERIBERTO LINDA [facility] [id number] Univers 15:00:00 15:00:00 ity [facility] 2022-02-06 2022-02-06 Office [facility] 1.2.840.114 [id number] Univers 14:30:00 15:14:22 Visit , Molly PATTERSON 350.1.13.10 [place] [place] [facility] [id number] [address] 2022-02-06 2022-02-06 Outpatient R [facility] [id number] Univers 14:30:00 15:14:22 , MOLLY rochakimberli [facility] 2022-02-06 2022-02-06 Outpatient R [facility] [id number] Univers 14:30:00 14:30:00 , MOLLY [facility] 2022-01-07 2022-01-07 Orders Doctor PEREZ 1.2.840.114 [id number] Univers 00:00:00 00:00:00 Only Unassigned, ALVARO 350.1.13.10 ity of [place] [facility] 4.2.7.2.[id number] [facility] [address] 2022-01-03 2022-01-03 Telephone [facility] 1.2.840.11 [id number] Univers 00:00:00 00:00:00 , Molly PATTERSON 350.1.13.10 [place] [place] [place] [facility] [id number] [address] 2022-01-02 2022-01-02 Outpatient R SLIMEASHLEYYAIMAJANETT GONZALEZ [facility] [id number] Univers 09:30:00 09:30:00 BOSTON JANETT [facility] 2022-01-01 2022-01-01 Outpatient R [facility] [id number] Univers 08:30:00 09:18:07 , MOLLY rochakimberli [facility] 2022-01-01 2022-01-01 Office [facility] 1.2.840.114 [id number] Univers 08:30:00 09:18:07 Visit , Molly PATTERSON 350.1.13.10 [place] [place] [facility] [id number] [address] 2022-01-01 2022-01-01 Outpatient R [facility] [id number] Univers 08:30:00 09:18:07 , MOLLY [facility] 2021-12-31 2021-12-31 [facility] 1.2.957.402 [id number] Univers 00:00:00 00:00:00 Mayela PATTERSON 350.1.13.10 [place] [place] [facility] [id number] [address] 2021-11-22 2021-11-22 Edmond Bocanegra [facility] 1.2.778.411 [id number] Univers 00:00:00 00:00:00 Mayela PATTERSON 350.1.13.10 [place] [facility] [id number] [address] 2021-11-05 2021-11-05 Outpatient R [facility] [id number] Univers 08:40:00 08:40:00 ity of [facility] 2021-11-01 2021-11-01 Outpatient R LINDA LI [facility] [id number] Univers 10:09:25 23:59:00 ity of [facility] 2021-11-01 2021-11-01 Hospital Linda Li [facility] 1.2.840.114 [id number] Univers 10:00:00 23:59:00 Encounter Y HEALTH 350.1.13.10 ity [place] [place] [id number] [facility] [address] 2021-10-27 2021-10-27 Xavi Vera [facility] 1.2.840.114 [id number] Univers 00:00:00 00:00:00 LEONARDO 350.1.13.10 [place] [facility] [id number] [facility] [address] 2021-10-22 2021-10-22 [facility] [id number] Univers 10:00:00 10:37:57 [facility] o f [facility] 2021-10-22 2021-10-22 [facility] 1.2.840.114 [id number] Univers 10:00:00 10:37:57 Care [facility] 350.1.13.10 i ty of [place] 4.2.7.2.686 Pj as JOSEPH?BLEA [id number] [place] makayla [address] MEDICAL OFFICE BUILDING 2021-10-08 2021-10-08 Outpatient R LINDA LI [facility] [id number] Univers 15:00:00 15:25:31 ity of [facility] 2021-10-08 2021-10-08 Nurse Nurse, Rudyj [facility] 1.2.840.114 [id number] Univers 15:00:00 15:25:31 Visit Linda Li 350.1.13.10 [place] [id number] [facility] [address] 2021-10-08 2021-10-08 Outpatient R [facility] [id number] Univers 08:40:00 08:40:00 ity [facility] 2021-10-08 2021-10-08 Outpatient R [facility] [id number] Univers 08:40:00 08:40:00 , MOLLY frye [facility] 2021-10-02 2021-10-02 Outpatient R [facility] [id number] Univers 08:10:00 08:40:28 , MOLLY frye [facility] 2021-10-02 2021-10-02 Office [facility] 1.2.840.114 [id number] Univers 08:10:00 08:40:28 Visit , Molly PATTERSON 350.1.13.10 [place] [facility] [id number] [facility] [address] 2021-10-02 2021-10-02 Outpatient R [facility] [id number] Univers 08:10:00 08:40:28 , MOLLY frye [facility] 2021-09-24 2021-09-24 Xavi Vera [facility] 1.2.840.114 [id number] Univers 00:00:00 00:00:00 LEONARDO 350.1.13.10 [place] [facility] [id number] [facility] [address] 2021-08-31 2021-08-31 Xavi Vera [facility] 1.2.840.114 [id number] Univers 00:00:00 00:00:00 LEONARDO 350.1.13.10 [place] [id number] [facility] [address] 2021-08-28 2021-08-28 Linda Montes [facility] 1.2.840.11 [id number] Univers 00:00:00 00:00:00 LEONARDO 350.1.13.10 it y of WOMEN'S 4.2.7.2.686 [facility] [id number] [facility] [address] 2021-08-13 2021-08-13 Outpatient R LINDA LI [facility] [id number] Univers 15:30:00 16:50:06 ity of [facility] 2021-08-13 2021-08-13 Office Linda Li [facility] 1.2.840.114 [id number] Univers 15:30:00 16:50:06 Visit LEONARDO 350.1.13.10 it [place].2.[place] [facility] [id number] [facility] [address] 2021-08-13 2021-08-13 Outpatient R LINDA LI [facility] [id number] Univers 15:30:00 16:50:06 ity of [facility] 2021-07-09 2021-07-09 Outpatient R [facility] [id number] Univers 10:30:00 11:12:39 , MOLLY rochay [facility] 2021-07-09 2021-07-09 Office [facility] 1.2.840.114 [id number] Univers 10:30:00 11:12:39 Visit , Molly PATTERSON 350.1.13.10 [place] [facility] [id number] [facility] [address] 2021-07-09 2021-07-09 Outpatient R [facility] [id number] Univers 10:30:00 11:12:39 , MOLLY [facility] 2021-07-09 2021-07-09 Outpatient R [facility] [id number] Univers 10:30:00 10:30:00 , MOLLY [facility] 2021-07-05 2021-07-05 Laboratory Only, Ang Db Test [facility] 1.2.8 40.114 [id number] Univers 14:30:00 14:45:00 Only Delia Grajeda J HEALTH 350.1.13.10 ity of [place] 4.2.7.2.686 Pj as JOSEPH?BLEA [id number] [address] MEDICAL OFFICE BUILDING 2021-07-05 2021-07-05 [facility] [id number] Univers 14:30:00 14:30:00 DELIA josefinakimberli agee f [facility] 2021-06-27 2021-06-27 Outpatient [facility] [id number] Univers 10:30:00 11:06:37 , MOLLY frye [facility] 2021-06-27 2021-06-27 Office [facility] 1.2.840.114 [id number] Univers 10:30:00 11:06:37 Visit , Molly PATTERSON 350.1.13.10 it [place] [place] [facility] [id number] [address] 2021-06-11 2021-06-11 [facility] [id number] [id number] Univers 00:00:00 00:00:00 Mayela PATTERSON 350.1.13.10 [place] [place] [facility] [id number] [address] 2021-05-03 2021-05-03 Edmond Bocanegra [facility] 1.2.354.883 [id number] Univers 00:00:00 00:00:00 Mayela PATTERSON 350.1.13.10 [place] [facility] [id number] [address] 2021-04-18 2021-04-18 Nurse Nurse, Rudyj Tita [facility] 1.2.840. 114 [id number] Univers 09:39:40 10:01:58 Visit Molly Reynolds 350.1.13.10 it[place] [facility] [id number] [address] 2021-04-18 2021-04-18 Outpatient R [facility] [id number] Univers 09:40:00 09:40:00 , MOLLY frye [facility] 2021-04-17 2021-04-17 Outpatient R [facility] [id number] Univers 12:30:00 12:30:00 , MOLLY frye [facility] 2021-04-05 2021-04-05 Telephone Trupti Koch 1.2.840.114 [id number] Univers 00:00:00 00:00:00 ALVARO 350.1.13.10 it y of HOSPITAL 4.2.7.2.[id number] [facility] [address] 2021-04-04 2021-04-04 [facility] [id number] Univers 11:20:00 11:20:00 LEIGHA frye o f [facility] 2021-04-04 2021-04-04 Urgent Mayra Tse [facility] 1.2.840.114 [id number] Univers 10:09:10 10:49:17 [facility] 350.1.13.10 ity of [place] 4.2.7.2.686 Pj as Joseph?Blea [id number] [place] makayla kney [address] Medical Office Building 2021-03-20 2021-03-20 [facility] 1.2.840.114 [id number] Univers 00:00:00 00:00:00 Cyndee Patterson 350.1.13.10 [place] [facility] [id number] [facility] [address] 2021-03-13 2021-03-13 Ear Mold Laboratory Technician Carloz Woodard Lab Main [facility] 1.2.8 40.114 [id number] Univers 12:47:01 13:02:01 Visit Molly Reynolds 350.1.13.1 0 [place] [id number] [place] dicalden nal [address] Building 2021-03-13 2021-03-13 Outpatient R GAIL [facility] [id number] Univers 12:45:00 12:45:00 MOLLY [facility] 2021-03-13 2021-03-13 Patient JordenDanyLi [facility] 1.2.840.114 [id number] Univers 00:00:00 00:00:00 Secure Molly Byers 350.1.13.10 [place].2.[place] [facility] [id number] [address] 2021-02-23 2021-02-23 Telephone [facility] 1.2.840.11 [id number] Univers 00:00:00 00:00:00 , Molly Patterson 350.1.13.10 [place].2.[place] [facility] [id number] [address] 2021-02-16 2021-02-16 Office [facility] 1.2.840.114 [id number] Univers 13:15:00 13:30:00 Visit KIANA 350.1.13.10 i ty of [facility] [place] [id number] [place] dical [address] 2021-02-16 2021-02-16 Outpatient R HERIBERTO LINDA [facility] [id number] Univers 13:15:00 13:15:00 ity of [facility] 2021-02-16 2021-02-16 Outpatient R HERIBERTO LINDA [facility] [id number] Univers 13:15:00 13:15:00 ity of [facility] 2021-02-14 2021-02-14 Office [facility] 1.2.840.114 [id number] Univers 08:14:37 09:02:36 Visit , Molly Patterson 350.1.13.10 it y of Pediatric 4.2.7.2.686 [facility] [phone] [address] 2021-02-14 2021-02-14 Outpatient R [facility] [id number] Univers 08:10:00 08:10:00 , MOLLY rochay [facility] 2021-02-13 2021-02-13 Edmond Deras [facility] 1.2.840.114 [id number] Univers 00:00:00 00:00:00 Cyndee Patterson 350.1.13.10 ity of Pediatric 4.2.7.2.686 [facility] [phone] [address] 2021-02-13 2021-02-13 [facility] 1.2.840.114 [id number] Univers 00:00:00 00:00:00 Cyndee Patterson 350.1.13.10 ity of Pediatric 4.2.7.2.686 [facility] [id number] [address] 2021-01-22 2021-01-22 Outpatient R [facility] [id number] Univers 09:30:00 09:30:00 , MOLLY frye [facility] 2021-01-16 2021-01-16 Office [facility] 1.2.840.114 [id number] Univers 08:10:00 09:05:19 Visit , Molly Patterson 350.1.13.10 it y of Pediatric 4.2.7.2.686 [facility] [id number] [address] 2021-01-16 2021-01-16 Outpatient R [facility] [id number] Univers 08:10:00 08:10:00 , MOLLY frye [facility] 2021-01-15 2021-01-15 Telephone [facility] 1.2.840.11 4 [id number] Univers 00:00:00 00:00:00 , Molly Patterson 350.1.13.10 it y of Pediatric 4.2.7.2.686 [facility] [id number] [address] 2021-01-02 2021-01-02 [facility] 1.2.840.114 [id number] Univers 00:00:00 00:00:00 Cyndee Patterson 350.1.13.10 ity of Pediatric 4.2.7.2.686 [facility] [phone] [address] 2020-12-04 2020-12-04 Telephone [facility] 1.2.840.11 4 [id number] Univers 00:00:00 00:00:00 , Molly Patterson 350.1.13.10 it y of Pediatric 4.2.7.2.686 [facility] [id number] [address] 2020-11-29 2020-11-29 [facility] 1.2.840.114 [id number] Univers 00:00:00 00:00:00 Cyndee Patterson 350.1.13.10 ity of Pediatric 4.2.7.2.686 [facility] [id number] [address] 2020-10-24 2020-10-24 Office [facility] 1.2.840.114 [id number] Univers 09:48:05 10:46:55 Visit , Molly Patterson 350.1.13.10 it y of Pediatric 4.2.7.2.686 [facility] [id number] [address] 2020-10-24 2020-10-24 Outpatient R [facility] [id number] Univers 09:50:00 09:50:00 , MOLLY ity of [facility] 2020-10-23 2020-10-[address] [facility] 1.2.840.114 [id number] Univers 00:00:00 00:00:00 Cyndee Patterson 350.1.13.10 ity of Pediatric 4.2.7.2.686 [facility] [id number] [address] 2020-10-23 2020-10-23 Telephone [facility] 1.2.840.11 4 [id number] Univers 00:00:00 00:00:00 , Molly Patterson 350.1.13.10 it y of Pediatric 4.2.7.2.686 [facility] [phone] [address] 2020-10-02 2020-10-02 Laboratory Lab, Adc Fam Pob I [facility] 1.2. 840.114 [id number] Univers 16:21:37 16:41:37 Only Mando Dena [facility] 350.1.13.10 ity of [place] 4.2.7.2.686 Pj as Professio [phone] [place] [facility]. [facility] [address] [place] [place] [address] 2020-10-02 2020-10-02 Outpatient R MANDO [facility] [id number] Univers 16:20:00 16:20:00 DENA itkimberli [facility] 2020-09-27 2020-09-27 Laboratory Lab, [facility] Pob I [facility] 1.2. 840.114 [id number] Univers 18:17:02 18:37:02 Only Michael Pinto [employer] 350.1.13.10 ity of [place] 4.2.7.2.686 Pj as Professio [phone] [place] dic[address] Office [facility] One 2020-09-27 2020-09-27 Outpatient [facility] [id number] [facility] 18:20:00 18:20:00 MICHAEL [facility] 2020-09-20 2020-09-20 Office [facility] 1.2.840.114 [id number] Univers 08:39:40 09:24:44 Visit , Molly Patterson 350.1.13.10 it y of Pediatric 4.2.7.2.686 [facility] [phone] [address] 2020-09-20 2020-09-20 Outpatient R [facility] [id number] Univers 08:30:00 08:30:00 , MOLLY uday [facility] 2020-09-18 2020-09-18 Telephone [facility] 1.2.840.11 [id number] Univers 00:00:00 00:00:00 , Molly Patterson 350.1.13.10 it y of Pediatric 4.2.7.2.686 [facility] [id number] [address] 2020-09-15 2020-09-15 Xavi Vera [facility] 1.2.840.114 [id number] Univers 00:00:00 00:00:00 Leonardo 350.1.13.10 it y of Pediatric 4.2.7.2.686 [facility] [id number] [address] 2020-08-07 2020-08-07 Laboratory Lab, [facility] Pob I [facility] 1.2. 840.114 [id number] Univers 09:07:55 09:27:55 Only Ignacio [facility] 350.1.13.10 ity of [place] 4.2.7.2.686 Pj as Professio [phone] [place] dical nal 044 [facility] One 2020-08-07 2020-08-07 Outpatient Marisol BERMAN [facility] [id number] Univers 09:00:00 09:00:00 IGNACIO frye [facility] 2020-07-20 2020-07-20 Laboratory Lab, [facility] 1.2. 840.114 [id number] [facility] 08:28:08 08:48:08 Only Ignacio [facility] 350.1.13.10 ity of [place] 4.2.7.2.686 Pj as Professio [phone] [place] dicmd nal 044 [facility] One 2020-07-20 2020-07-20 Outpatient Marisol BERMAN [facility] [id number] Univers 08:20:00 08:20:00 IGNACIO frye [facility] 2020-07-04 2020-07-04 Telephone [facility] 1.2.840.11 [id number] Univers 00:00:00 00:00:00 , Molly Patterson 350.1.13.10 it y of Pediatric 4.2.7.2.686 [facility] [phone] [address] 2020-07-04 2020-07-04 Telephone [facility] 1.2.840.11 [id number] 00:00:00 00:00:00 , Molly Patterson 350.1.13.10 Pediatric 4.2.7.2.686 Clinic [id number] [facility] 2020-06-28 2020-06-28 Laboratory Lab, [facility] I [facility] 1.2. 840.114 [id number] [facility] 17:21:12 17:41:12 Only Dena [facility] 350.1.13.10 ity of [place] 4.2.7.2.686 Pj as Professio [phone] [place] dical nal [address] [place] [address] One 2020-06-28 2020-06-28 Laboratory Lab, [facility] 1.2.840.114 [id number] 17:21:12 17:41:12 Only Fam Pob I Health 350.1.13.10 [place] 4.2.7.2.686 [facility] [phone] nal [address] 2020-06-28 2020-06-28 Outpatient R MANDO [facility] [id number] Univers 17:00:00 17:00:00 DENA frye [facility] 2020-06-06 2020-06-06 Telephone [facility] 1.2.840.11 4 [id number] Univers 00:00:00 00:00:00 , Molly Patterson 350.1.13.10 it y of Pediatric 4.2.7.2.686 [facility] [id number] [address] 2020-06-06 2020-06-06 [facility] 1.2.840.11 4 [id number] 00:00:00 00:00:00 , Molly Patterson 350.1.13.10 Pediatric 4.2.7.2.686 Clinic [id number] [facility] 2020-05-15 2020-05-15 Office [facility] 1.2.840.114 [id number] Univers 12:58:06 13:18:06 Visit , Molly Patterson 350.1.13.10 it y of Pediatric 4.2.7.2.686 [facility] [id number] [address] 2020-05-15 2020-05-15 Office [facility] 1.2.840.114 [id number] 12:58:06 13:18:06 Visit , Molly Patterson 350.1.13.10 Pediatric 4.2.7.2.686 Clinic [id number] [facility] 2020-05-15 2020-05-15 Outpatient R [facility] [id number] Univers 13:10:00 13:10:00 , MOLLY frye [facility] 2020-05-15 2020-05-15 Xavi Vera [facility] 1.2.840.114 [id number] Univers 00:00:00 00:00:00 Leonardo 350.1.13.10 it y of Pediatric 4.2.7.2.686 [facility] [id number] [address] 2020-05-15 2020-05-15 Telephone [facility] 1.2.840.11 4 [id number] [facility] 00:00:00 00:00:00 , Molly Patterson 350.1.13.10 it y of Pediatric 4.2.7.2.686 [facility] [id number] [address] 2020-05-15 2020-05-15 [facility] 1.2.840.114 [id number] 00:00:00 00:00:00 Leonardo 350.1.13.10 Pediatric 4.2.7.2.686 Clinic [id number] [facility] 2020-05-15 2020-05-15 Telephone [facility] 1.2.840.11 4 [id number] 00:00:00 00:00:00 , Molly Patterson 350.1.13.10 Pediatric 4.2.7.2.686 Clinic [id number] [facility] 2020-05-10 2020-05-10 Telephone [facility] 1.2.840.11 4 [id number] [facility] 00:00:00 00:00:00 , Molly Patterson 350.1.13.10 it y of Pediatric 4.2.7.2.686 [facility] [id number] [address] 2020-05-09 2020-05-09 Edmond Roldan [facility] 1.2.840.114 [id number] [facility] 00:00:00 00:00:00 Leonardo 350.1.13.10 it y of Pediatric 4.2.7.2.686 [facility] [id number] [address] 2020-04-05 2020-04-05 Telemedici [facility] 1.2.840.1 14 [id number] [facility] 11:17:34 13:53:29 ne Visit , Molly Patterson 350.1.13.10 i ty of Pediatric 4.2.7.2.686 [facility] [id number] [address] 2020-04-05 2020-04-05 Outpatient R [facility] [id number] Univers 12:30:00 12:30:00 , MOLLY frye [facility] 2020-04-05 2020-04-05 Telephone [facility] 1.2.840.11 [id number] Univers 00:00:00 00:00:00 , Molly Patterson 350.1.13.10 it y of Pediatric 4.2.7.2.686 [facility] [id number] [address] 2020-04-04 2020-04-04 Refill [facility] 1.2.840.114 [id number] Univers 00:00:00 00:00:00 , Molly Patterson 350.1.13.10 it y of Pediatric 4.2.7.2.686 [facility] [id number] [address] 2020-02-07 2020-02-07 Office [facility] 1.2.840.114 [id number] Univers 13:44:54 14:30:06 Visit , Molly Patterson 350.1.13.10 it y of Pediatric 4.2.7.2.686 [facility] [id number] [address] 2020-02-07 2020-02-07 Outpatient R [facility] [id number] Univers 13:40:00 13:40:00 , MOLLY frye [facility] 2020-02-07 2020-02-07 Telephone [facility] .2.840.11 4 [id number] Univers 00:00:00 00:00:00 , Molly Patterson 350.1.13.10 it y of Pediatric 4.2.7.2.686 [facility] [phone] [address] 2020-02-01 2020-02-01 Laboratory Pc, Adc Echo Room 1 [facility] 1 .2.840.114 [id number] Univers 09:52:14 10:46:24 Only Lisa Mcclain 350.1.13.10 it[place] of [place] [phone] [place] dic[address] 2020-02-01 2020-02-01 Outpatient R [facility] [id number] Univers 10:00:00 10:00:00 ity of [facility] 2020-01-26 2020-01-26 Office [facility] 1.2.840.114 [id number] Univers 11:19:38 16:10:21 Visit Lisa Mosley 350.1.13.10 [place] [phone] [facility]59 [facility] 2020-01-26 2020-01-26 Nurse Visit, [facility] Nurse [facility] 1.2.840.1 14 [id number] Univers 15:18:44 15:47:18 Visit Lisa Mcclain 350.1.13.10 ity of [place].2.[place] [phone] [place] dicalden hinds 059 [facility] 2020-01-26 2020-01-26 Ear Mold Laboratory Technician 2, [facility] Lab [facility] 1.2.840.114 [id number] Univers 15:14:44 15:29:44 Visit Lisa Mcclain 350.1.13.10 [place] of [place] [phone] [facility] guzman 353 [facility] 2020-01-26 2020-01-26 Outpatient R [facility] [id number] Univers 11:20:00 11:20:00 LISA frye o f [facility] 2020-01-26 2020-01-26 Telephone [facility] 1.2.702.006 [id number] Univers 00:00:00 00:00:00 Lisa Mosley 350.1.13.10 [place] [phone] [place] dicmd guzman 9 [facility] 2020-01-11 2020-01-11 Refill Gail [facility] 1.2.840.114 [id number] Univers 00:00:00 00:00:00 , Molly Patterson 350.1.13.10 it y of Pediatric 4.2.7.2.686 [facility] [id number] [address] 2020-01-05 2020-01-05 Office Efraín [facility] 1.2.840.114 [id number] Univers 08:26:44 09:38:08 Visit Cyndee Patterson 350.1.13.10 ity of Pediatric 4.2.7.2.686 [facility] [id number] [address] 2020-01-05 2020-01-05 Outpatient [facility] [id number] Univers 08:20:00 08:20:00 CYNDEE frye [facility] 2019-12-31 2019-12-31 Telephone [facility] 1.2.840.11 [id number] Univers 00:00:00 00:00:00 , Molly Patterson 350.1.13.10 it y of Pediatric 4.2.7.2.686 [facility] [id number] [address] 2019-12-06 2019-12-06 Outpatient R [facility]IRD[facility] [id number] Univers 13:20:00 13:20:00 , MOLLY ity [facility] 2019-12-02 2019-12-02 [facility]ill [facility] 1.2.840.114 [id number] Univers 00:00:00 00:00:00 , Molly Patterson 350.1.13.10 it y of Pediatric 4.2.7.2.686 [facility] [id number] [address] 2019-11-05 2019-11-05 Nurse Nurse, Jd Rivers [facility] 1.2.840. 114 [id number] Univers 09:10:10 09:47:52 Visit Molly Reynolds 350.1.13.10 ity of Pediatric 4.2.7.2.686 [facility] [id number] [address] 2019-11-05 2019-11-05 Outpatient R [facility] [id number] Univers 09:00:00 09:00:00 ity [facility] 2019-11-03 2019-11-03 Refill [facility] 1.2.840.114 [id number] Univers 00:00:00 00:00:00 , Molly Patterson 350.1.13.10 it y of Pediatric 4.2.7.2.686 [facility] [id number] [address] 2019-10-05 2019-10-05 Telemedici [facility] 1.2.840.1 14 [id number] Univers 12:45:20 13:05:20 ne Visit , Molly Patterson 350.1.13.10 i ty of Pediatric 4.2.7.2.686 [facility] [id number] [address] 2019-10-05 2019-10-05 Outpatient R [facility] [id number] Univers 12:30:00 12:30:00 , MOLLY frye [facility] 2019-10-05 2019-10-05 Telephone [facility] 1.2.840.11 [id number] Univers 00:00:00 00:00:00 , Molly Patterson 350.1.13.10 it y of Pediatric 4.2.7.2.686 [facility] [id number] [address] 2019-08-17 2019-08-[address] [facility] 1.2.840.114 [id number] Univers 10:02:57 14:25:34 Visit Cyndee Patterson 350.1.13.10 ity of Pediatric 4.2.7.2.686 [facility] [id number] [address] 2019-08-17 2019-08-17 Outpatient R [facility] [id number] Univers 10:00:00 10:00:00 CYNDEE frye [facility] 2019-08-17 2019-08-17 Letter [facility] 1.2.840.114 [id number] Univers 00:00:00 00:00:00 (Out) , Molly Patterson 350.1.13.10 it y of Pediatric 4.2.7.2.686 [facility] [phone] [address] 2019-08-17 2019-08-[address] [facility] 1.2.840.114 [id number] Univers 00:00:00 00:00:00 Cyndee Patterson 350.1.13.10 ity of Pediatric 4.2.7.2.686 [facility] [id number] [address] 2019-08-05 2019-08-05 Refill [facility] 1.2.840.114 [id number] Univers 00:00:00 00:00:00 , Molly Patterson 350.1.13.10 it y of Pediatric 4.2.7.2.686 [facility] [id number] [address] 2019-08-02 2019-08-02 Office [facility] 1.2.840.114 [id number] Univers 15:51:04 16:28:55 Visit , Molly Patterson 350.1.13.10 it y of Pediatric 4.2.7.2.686 [facility] [id number] [address] 2019-07-15 2019-07-22 Ancillary Eder Barrera [facility] 1.2.840. 114 [id number] Univers 08:13:21 11:41:46 Visit Musa Doss 350.1.13.10 it[place] of [place] [phone] [place] dical nal 179 [facility] 2019-07-15 2019-07-15 Office Efraín [facility] 1.2.840.114 [id number] [facility] 13:17:03 13:44:48 Visit Cyndee Patterson 350.1.13.10 ity of Pediatric 4.2.7.2.686 [facility] [id number] [address] 2019-07-14 2019-07-14 Ancillary Missy Barrera [facility] 1.2.840 .114 [id number] Univers 07:48:46 08:28:46 Visit Musa Doss 350.1.13.10 it[place] of [place] [phone] [place] dical nal 179 [facility] 2019-07-12 2019-07-12 Ancillary Eder Barrera [facility] 1.2.840. 114 [id number] Univers 11:09:39 11:49:39 Visit Musa Doss 350.1.13.10 ity of [place].2.[place] [phone] [place] dical nal 179 [facility] 2019-07-09 2019-07-09 Office [facility] 1.2.840.114 [id number] Univers 15:00:28 15:20:28 Visit , Molly Patterson 350.1.13.10 it y of Pediatric 4.2.7.2.[id number] [facility] [address] [place] 2019-07-09 2019-07-09 Ancillary David Jake Ila [facility] 1 .2.840.114 [id number] Univers 07:50:57 08:30:57 Visit Musa Doss 350.1.13.10 ity of [place].2.[place] [phone] [place] [facility] 179 [facility] 2019-07-09 2019-07-09 Orders Doctor CHRIS 1.2.840.114 [id number] Univers 00:00:00 00:00:00 Only Unassigned, ALVARO 350.1.13.10 ity of [place] [facility] 4.2.7.2.[phone] [facility] [address] [place] 2019-07-09 2019-07-09 Telephone [facility] 1.2.840.11 4 [id number] Univers 00:00:00 00:00:00 , Molly Patterson 350.1.13.10 it y of Pediatric 4.2.7.2.686 [id number] [facility] [address] [place] [place] 2019-07-07 2019-07-07 Ancillary Eder Barrera [facility] 1.2.840. 114 [id number] Univers 08:32:08 09:24:23 Visit Musa Doss 350.1.13.10 ity of [place].2.[place] [phone] [place] dical nal 179 [facility] 2019-07-06 2019-07-06 Telephone [facility] 1.2.840.11 4 [id number] Univers 00:00:00 00:00:00 , Molly Patterson 350.1.13.10 it y of Pediatric 4.2.7.2.[id number] [facility] [address] [place] 2019-07-01 2019-07-01 Ancillary Eder Barrera [facility] 1.2.840. 114 [id number] Univers 09:36:45 10:21:45 Visit Musa Doss 350.1.13.10 it[place] of [place].2.[place] [phone] [place] dical nal 179 [facility] 2019-06-30 2019-06-30 Ancillary Eder Barrera [facility] 1.2.840. 114 [id number] Univers 08:17:26 09:02:26 Visit Musa Doss 350.1.13.10 ity of [place].2.[place] [phone] [place] dical nal 179 [facility] 2019-06-30 2019-06-30 Xavi Vera [facility] 1.2.840.114 [id number] Univers 00:00:00 00:00:00 Leonardo 350.1.13.10 it y of Pediatric 4.2.7.2.[facility] [phone] [facility] [address] [place] 2019-06-28 2019-06-28 Orders Doctor PEREZ 1.2.840.114 [id number] Univers 00:00:00 00:00:00 Only Unassigned, ALVARO 350.1.13.10 ity of [place] [facility] 4.2.7.2.[phone] [facility] [address] 2019-02-26 2019-02-26 [facility] 1.2.840.114 [id number] Univers 09:14:40 23:59:00 Encounter , Molly Mosley 350.1.13.10 [place] [phone] [facility] [address] [place] 2019-02-26 2019-02-26 Orders Doctor PEREZ 1.2.840.114 [id number] Univers 00:00:00 00:00:00 Only Unassigned, ALVARO 350.1.13.10 ity of [place] [facility] 4.2.7.2.686 Pj as [phone] [address] 2019-02-25 2019-02-25 Telephone [facility] 1.2.840.11 4 [id number] Univers 00:00:00 00:00:00 , Molly Patterson 350.1.13.10 it y of Pediatric 4.2.7.2.686 [facility] [id number] [address] 2019-02-25 2019-02-25 Refill [facility] 1.2.840.114 [id number] Univers 00:00:00 00:00:00 Saba Wyatt 350.1.13.10 ity of Pediatric 4.2.7.2.686 [facility] [phone] [address] 2019-01-26 2019-01-26 Office [facility] 1.2.840.114 [id number] [facility] 10:51:33 12:08:39 Visit , Molly Patterson 350.1.13.10 it y of Pediatric 4.2.7.2.686 [facility] [id number] [address] 2019-01-26 2019-01-26 Refill [facility] 1.2.840.114 [id number] Univers 00:00:00 00:00:00 , Molly Patterson 350.1.13.10 it y of Pediatric 4.2.7.2.686 [facility] [id number] [address] 2019-01-26 2019-01-26 Orders Doctor PEREZ 1.2.840.114 [id number] Univers 00:00:00 00:00:00 Only Unassigned, ALVARO 350.1.13.10 ity of [place] [facility] 4.2.7.2.686 Pj as [phone] [address] 2019-01-19 2019-01-19 Telephone [facility] 1.2.840.11 4 [id number] Univers 00:00:00 00:00:00 , Molly Patterson 350.1.13.10 it y of Pediatric 4.2.7.2.[phone] [facility] [address] 2018-10-12 2018-10-12 Letter [place]ICA [place] 1.2.840.114 [id number] Univers 00:00:00 00:00:00 (Out) [facility] 350.1.13.10 ity of [facility] 4.2.7.2.[phone] [facility] [address] Results This patient has no known results.
--- NOTE | 2022-06-13 11:46 | RAD REPORT ---
EXAM DESCRIPTION: US - Abdomen Exam Limited - 06/13/2022 11:40 am CLINICAL HISTORY: ABD PAIN COMPARISON: No comparisons FINDINGS: The gallbladder demonstrates no gallstones. No pericholecystic fluid or gallbladder wall t hickening. The common bile duct is normal measuring 3 mm. The liver demonstrates no findings of intrahepatic biliary dilatation. IMPRESSION: Negative for cholelithiasis or acute cholecystitis. No biliary ductal dilatation.
--- NOTE | 2022-06-13 12:03 | RAD REPORT ---
EXAM DESCRIPTION: RAD - Chest Single View - 06/13/2022 11:49 am CLINICAL HISTORY: CHEST PAIN COMPARISON: Chest Pa And Lat (2 Views) dated 07/12/2020 FINDINGS: Lines: None. Lungs: No evidence of edema or pneumonia. Pleural: No significant pleural effusions or pneumothorax. Cardiac: The heart size is within normal limits. Mediastinum: Within normal limits. Bones: No acute fractures. Other: None IMPRESSION: No acute cardiopulmonary disease.
[2022-06-13 12:05] LABS: Urine Blood Trace-intact (Negative); Urine Glucose Negative (Negative); Urine Protein Negative (Negative); Urine Specific Gravity 1.025 (1.005-1.030)
[2022-06-13 12:27] LABS: Absolute Lymphocytes (CBC) 1.3 K/uL (0.7-4.9); Hematocrit 44.6 % (36.0-45.0); Lymphocytes % 23.5 % (15.3-44.8); MCV 88.2 fL (80-100); RBC Red Blood Cell Count 5.06 M/uL (3.86-4.86)
[2022-06-13 12:29] LABS: Urine Specific Gravity/Preg 1.025 (1.005-1.030)
[2022-06-13 12:39] LABS: Bilirubin Total 0.7 mg/dL (0.2-1.0); Potassium 4.3 mmol/L (3.5-5.1); Protein, Total 7.7 g/dL (6.4-8.2)
[2022-06-13] MEDS ORDERED: MAGNES/ALUMIN/SIMET 30ML UCUP ONE (13:33)
[2022-06-13] MEDS ORDERED: LIDOCAINE VISCOUS 2% SOLN 15 ML UDC ONE (13:34)
--- NOTE | 2022-06-13 14:00 | ER ---
Nurse's Notes [facility] Name: Saba Mcgovern Age: 21 yrs Sex: Female : 2000 Arrival Date: 06/13/2022 Time: 10:50 Bed 6 Private MD: Diagnosis: Epigastric pain;Gastro-esophageal reflux disease without esophagitis Presentation: 06/13 11:21 Chief complaint: Patient states: EPIGASTRIC PAIN WITH NAUSEA SINCE LAST PM. Coronavirus bp screen: At this time, the client does not indicate any symptoms associated with coronavirus-19. Ebola Screen: No symptoms or risks identified at this time. Initial Sepsis Screen: Does the patient meet any 2 criteria? No. Patient's initial sepsis screen is negative. Does the patient have a suspected source of infection? No. Patient's initial sepsis screen is negative. Risk Assessment: Do you want to hurt yourself or someone else? Patient reports no desire to harm self or others. Onset of symptoms was June 12, 2022 at 21:00. 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 - Social history:: Smoking status: Patient denies any tobacco usage or history of. Screenin:34 [facility] ED Fall Risk Assessment (Adult) History of falling in the last 3 months, ko1 including since admission No falls in past 3 months (0 pts) Confusion or Disorientation No (0 pts) Intoxicated or Sedated No (0 pts) Impaired Gait No (0 pts) Mobility Assist Device Used No (0 pt) Altered Elimination No (0 pt) Score/Fall Risk Level 0 - 2 = Low Risk Oriented to surroundings, Maintained a safe environment, Educated pt \T\ family on fall prevention, incl call for assistance when getting out of bed, Assessed \T\ reinforced patient's understanding of fall precautions, Provided non-skid footwear, Hourly rounding (assess needs \T\ fall precautionary measures) done, Used ambulatory aids as needed (educated on \T\ assisted with), Used gait belt as appropriate. Abuse screen: Denies threats or abuse. Denies injuries from another. Nutritional screening: No deficits noted. Tuberculosis screening: No symptoms or risk factors identified. Assessment: 13:34 General: Appears in no apparent distress. comfortable, slender, Behavior is calm, ko1 cooperative, appropriate for age. Pain: Complains of pain in abdomen. Neuro: No deficits noted. Cardiovascular: No deficits noted. Respiratory: No deficits noted. GI: Reports lower abdominal pain, upper abdominal pain, nausea. : No deficits noted. EENT: Reports deaf. Derm: No deficits noted. Musculoskeletal: No deficits noted. Vital Signs: 11:21 BP 114 / 95; Pulse 81; Resp 16; Temp 99.2; Pulse Ox 100% ; Weight 54.43 kg; Height 5 bp ft. 4 in. (162.56 cm); 14:44 BP 112 / 74; Pulse 78; Pulse Ox 100% on R/A; ko1 11:21 Body Mass Index 20.60 (54.43 kg, 162.56 cm) bp ED Course: 10:50 Patient arrived in ED. am2 10:52 Hazel Patterson [facility]C [facility] kb 10:52 Indiana Helton MD is Attending Physician. kb 11:27 Triage completed. bp 11:42 Abdomen Limited US In Process Unspecified. EDMS 11:51 Chest Single View XRAY In Process Unspecified. EDMS 12:18 Inserted saline lock: 20 gauge in left antecubital area, using aseptic technique. Blood zm collected. 12:18 Urine --Ancillary (enter results) Sent. zm 12:18 CBC with Diff Sent. zm 12:18 CMP Sent. zm 12:18 Lipase Sent. zm 13:29 Arm band placed on. hb 13:34 Mare Hancock, RN is Primary Nurse. ko1 13:34 Patient has correct armband on for positive identification. Bed in low position. Call ko1 light in reach. Pulse ox on. NIBP on. 14:44 No provider procedures requiring assistance completed. IV discontinued, intact, ko1 bleeding controlled, No redness/swelling at site. Administered Medications: 13:33 Drug: GI Cocktail without - (Maalox Suspension 30 ml, Lidocaine Liquid 2 % 15 ko1 ml) Route: PO; 14:05 Drug: Ketorolac 15 mg Route: IVP; Site: left antecubital; hb 14:05 Drug: Pepcid (famotidine) 20 mg Route: IVP; Site: left antecubital; hb Medication: 13:34 VIS not applicable for this client. ko1 Outcome: 13:59 Discharge ordered by MD. gutiérrez 14:46 Discharged to home ambulatory, with family. ko1 14:46 Condition: good 14:46 Discharge instructions given to patient, family, Instructed on discharge instructions, follow up and referral plans. medication usage, Demonstrated understanding of instructions, follow-up care, medications, Prescriptions given X 1. 14:47 Patient left the ED. ko1 Signatures: Dispatcher [employer] EDMS Hazel Patterson, SWISS TYPE SCREW MACHINE OPERATOR-C SWISS TYPE SCREW MACHINE OPERATOR-Veronica Sharma, RN RN Mayra Marroquin Brian, RN RN Evette Bowles Kathy, RN RN ko1
--- NOTE | 2022-06-13 14:00 | EDPHYS ---
Physician Documentation [facility] Name: Saab Mcgovern Age: 21 yrs Sex: Female : 2000 Arrival Date: 06/13/2022 Time: 10:50 Bed 6 Private MD: ED Physician Indiana Helton HPI: 06/13 14:12 This 21 yrs old Female presents to ER via Ambulatory with complaints of Epigastric kb Pain, Nausea. 14:12 The patient presents with abdominal pain in the epigastric area. Onset: The kb symptoms/episode began/occurred yesterday. The symptoms do not radiate. Associated signs and symptoms: Pertinent positives: nausea, Pertinent negatives: constipation, diarrhea, fever, vomiting. The symptoms are described as constant. Modifying factors: The symptoms are alleviated by nothing, the symptoms are aggravated by nothing. Severity of pain: At its worst the pain was moderate in the emergency department the pain is unchanged. The patient has experienced a previous episode. The patient has not recently seen a physician. 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 - Social history:: Smoking status: Patient denies any tobacco usage or history of. ROS: 14:12 Constitutional: Negative for fever, chills, and weight loss. kb 14:12 Abdomen/GI: Positive for abdominal pain, nausea, Negative for vomiting, diarrhea, constipation. 14:12 All other systems are negative. Exam: 13:46 ECG was reviewed by the Attending Physician. kb 14:12 Constitutional: This is a well developed, well nourished patient who is awake, alert, kb and in no acute distress. Head/Face: Normocephalic, atraumatic. ENT: Moist Mucous membranes Cardiovascular: Regular rate and rhythm with a normal S1 and S2. No gallops, murmurs, or rubs. No pulse deficits. Respiratory: Respirations even and unlabored. No increased work of breathing. Talking in full sentences Back: No spinal tenderness. No costovertebral tenderness. Full range of motion. Skin: Warm, dry with normal turgor. Normal color. MS/ Extremity: Pulses equal, no cyanosis. Neurovascular intact. Full, normal range of motion. Neuro: Awake and alert, GCS 15, oriented to person, place, time, and situation. Moves all extremities. Normal gait. Psych: Awake, alert, with orientation to person, place and time. Behavior, mood, and affect are within normal limits. 14:12 Abdomen/GI: Inspection: abdomen appears normal, Bowel sounds: normal, in all quadrants, Palpation: soft, in all quadrants, moderate abdominal tenderness, in the epigastric area. Vital Signs: 11:21 BP 114 / 95; Pulse 81; Resp 16; Temp 99.2; Pulse Ox 100% ; Weight 54.43 kg; Height 5 bp ft. 4 in. (162.56 cm); 14:44 BP 112 / 74; Pulse 78; Pulse Ox 100% on R/A; ko1 11:21 Body Mass Index 20.60 (54.43 kg, 162.56 cm) bp MDM: 11:17 Patient medically screened. kb 13:58 Data reviewed: vital signs, nurses notes. Data interpreted: Pulse oximetry: on room air kb is 100 %. Interpretation: normal. Counseling: I had a detailed discussion with the patient and/or guardian regarding: the historical points, exam findings, and any diagnostic results supporting the discharge/admit diagnosis, lab results, radiology results, the need for outpatient follow up, a family practitioner, a moss picker, to return to the emergency department if symptoms worsen or persist or if there are any questions or concerns that arise at home. Response to treatment: the patient's symptoms have markedly improved after treatment. 06/13 11:18 Order name: CBC with Diff; Complete Time: 12:32 kb 06/13 11:18 Order name: CMP; Complete Time: 12:39 kb 06/13 11:18 Order name: Lipase; Complete Time: 12:39 kb 06/13 11:18 Order name: Abdomen Limited US; Complete Time: 11:53 kb 06/13 12:06 Order name: Urine Dipstick-Ancillary; Complete Time: 12:06 EDMS 06/13 12:11 Order name: Urine --Ancillary (enter results); Complete Time: 12:32 kj1 06/13 11:18 Order name: IV Saline Lock; Complete Time: 12:18 kb 06/13 11:18 Order name: Labs collected and sent; Complete Time: 12:18 kb 06/13 11:18 Order name: Chest Single View XRAY; Complete Time: 12:05 kb 06/13 11:18 Order name: EKG; Complete Time: 11:19 kb 06/13 11:18 Order name: EKG - Nurse/Tech; Complete Time: 13:40 kb EC:46 Rate is 82 beats/min. Rhythm is regular. QRS Reserve is Normal. TN interval is normal at kb 152 msec. QRS interval is normal at 68 msec. QT interval is normal at 397 msec. Administered Medications: 13:33 Drug: GI Cocktail without - (Maalox Suspension 30 ml, Lidocaine Liquid 2 % 15 ko1 ml) Route: PO; 14:05 Drug: Ketorolac 15 mg Route: IVP; Site: left antecubital; hb 14:05 Drug: Pepcid (famotidine) 20 mg Route: IVP; Site: left antecubital; hb Disposition Summary: 06/13/22 13:59 Discharge Ordered Location: Home kb Condition: Stable kb Diagnosis - Epigastric pain kb - Gastro-esophageal reflux disease without esophagitis kb Followup: kb - With: Emergency Department - When: As needed - Reason: Worsening of condition Followup: kb - With: Private Physician - When: 2 - 3 days - Reason: Recheck today's complaints, Continuance of care, Re-evaluation by your physician Discharge Instructions: - Discharge Summary Sheet kb - Gastroesophageal Reflux Disease, Adult, [id number] kb Forms: - Medication Reconciliation Form kb - Thank You Letter kb - Antibiotic Education kb - Prescription Opioid Use kb - Work release form ss Prescriptions: - Protonix 40 mg Oral Tablet - take 1 tablet by ORAL route once daily; 30 tablet; Refills: 0, Product kb Selection Permitted Addendum: 06/17/2022 17:41 STAFF ATTESTATION STATEMENT: I was immediately available onsite in the emergency s d2 department for consultation in the care of this patient. I did not see or examine this patient. Indiana Helton MD. Signatures: Dispatcher [employer] EDDE Hazel Patterson FNP-C FNP-Veronica Sharma RN RN Lexa Cary RN RN bp Dunlop, Stephanie, MD MD sd2 Santi, Mare, RN RN ko1
[2022-06-13] MEDS ORDERED: KETOROLAC 30 MG/ML INJ ONE (14:03)
[2022-06-13] MEDS ORDERED: FAMOTIDINE 20 MG/2 ML VIAL IV ONE (14:03)
[2022-06-13 15:10] VITALS: TEMP 99.2; O2SAT 100
[2022-06-13 15:11] VITALS: BP 112/74
--- NOTE | 2022-06-14 14:52 | EKG ---
Test Date: 2022-06-13 Test Time: 13:05:02 Childcare Center Director: ELFEGO MEASUREMENT RESULTS: Intervals: Rate: 82 [place]: 152 QRSD: 68 QT: 340 QTc: 397 [place]: P: 67 [place]: 152 QRS: 77 T: 66 INTERPRETIVE STATEMENTS: Normal sinus rhythm Early repolarization Normal ECG Compared to ECG 10/24/2021 20:08:55 ST (T wave) deviation no longer present Electronically Signed On 06-14-22 14:50:41 PERSONNEL MONITOR by Italo Barker
== END 2022-06-13 14:47 | disposition home or self-care (01) ==
LOC: ER 10:49
DX: K21.9 Gastro-esophageal reflux disease without esophagitis (principal)
CPT/HCPCS: 36415; 71045; 76705; 80053; 81003; 81025; 83690; 85025; 93005; 96374; 96375; 99284

== ENCOUNTER → 2023-07-22 | Emergency (ER) | payer OTHER ==
[~2023-07-22] MED LIST: FAMOTIDINE 20 MG/2 ML VIAL IV ONE; NA CHLORIDE 0.9% 1,000 ML ONE; ONDANSETRON 4 MG/2 ML VIAL ONE
[2023-07-22 23:20] LABS: Absolute Lymphocytes (CBC) 2.4 K/uL (0.7-4.9); Hematocrit 38.2 % (36.0-45.0); Lymphocytes % 38.1 % (15.3-44.8); MCV 72.1 fL (80-100); MPV 8.3 fL (7.6-11.3); Platelets 289 thou/uL (152-406); RBC Red Blood Cell Count 5.29 M/uL (3.86-4.86)
[2023-07-22 23:25] LABS: Specific Gravity 1.027 (1.005-1.030)
[2023-07-22 23:26] LABS: Albumin 4.3 g/dL (3.4-5.0); Bilirubin Total 1.1 mg/dL (0.2-1.0); Potassium 3.7 mEq/L (3.5-5.1); Protein, Total 8.1 g/dL (6.4-8.2)
[2023-07-22 23:39] LABS: Specific Gravity 1.027 (1.005-1.030); Urine Bacteria <20 /HPF (<20); Urine Bilirubin NEGATIVE (Negative); Urine Blood 3+ (Negative); Urine Clarity Clear (Clear); Urine Color Yellow (Yellow); Urine Glucose NEGATIVE (Negative); Urine Mucus 2+ /HPF (None Seen); Urine Protein TRACE (Negative); Urine RBC <5 /HPF (None Seen); Urine Urobilinogen Normal (Normal)
--- NOTE | 2023-07-22 23:51 | ER ---
Nurse's Notes [facility] Name: Saba Mcgovern Age: 22 yrs Sex: Female : 2000 Arrival Date: 07/22/2023 Time: 20:54 Bed 8 Private MD: Diagnosis: Epigastric pain Presentation: 07/22 21:03 Chief complaint: Patient states: she vomited yesterday at 0500 black emisis. patient ap3 reports abdominal pain that started yesterday, and nausea through today. patient reports feeling sweaty as well. Coronavirus screen: At this time, the client does not indicate any symptoms associated with coronavirus-19. Ebola Screen: No symptoms or risks identified at this time. Initial Sepsis Screen: Does the patient meet any 2 criteria? HR > 90 bpm. Does the patient have a suspected source of infection? No. Patient's initial sepsis screen is negative. Risk Assessment: Do you want to hurt yourself or someone else? Patient reports no desire to harm self or others. Onset of symptoms was July 21, 2023. 21:03 Method Of Arrival: Ambulatory ap3 21:03 Acuity: RICHI 3 ap3 Triage Assessment: 21:07 General: Appears in no apparent distress. Behavior is calm, cooperative, appropriate ap3 for age. Pain: Complains of pain in epigastric area. Neuro: Level of Consciousness is awake, alert, obeys commands, Oriented to person, place, time, situation. Cardiovascular: Patient's skin is warm and dry. Respiratory: Airway is patent Respiratory effort is even, unlabored, Respiratory pattern is regular, symmetrical. GI: Reports upper abdominal pain, nausea, vomiting. 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 Flu vaccine is not up to date. - Social history:: Smoking status: Patient reports the use of cigarette tobacco products, Reported history of juuling and/or vaping. Patient uses alcohol, occasionally. Screenin:07 [facility] ED Fall Risk Assessment (Adult) History of falling in the last 3 months, ap3 including since admission No falls in past 3 months (0 pts). Abuse screen: Denies threats or abuse. Nutritional screening: No deficits noted. Tuberculosis screening: No symptoms or risk factors identified. Assessment: 22:40 General: Appears uncomfortable, Behavior is cooperative. Pain: Complains of pain in ha1 abdomen and epigastric area Pain does not radiate. Pain currently is 7 out of 10 on a pain scale. Quality of pain is described as burning. Neuro: Level of Consciousness is awake, alert, obeys commands, Oriented to person, place, time, situation. Cardiovascular: Capillary refill < 3 seconds Patient's skin is warm and dry. Respiratory: Airway is patent Respiratory effort is even, unlabored, Respiratory pattern is regular, symmetrical. GI: Abdomen is flat, non-distended, Bowel sounds present X 4 quads. Reports epigastric pain. Derm: Skin is pink, warm \T\ dry. Musculoskeletal: Circulation, motion, and sensation intact. Range of motion: intact in all extremities. Vital Signs: 21:03 Pulse 99; Resp 18; Temp 98.8; Pulse Ox 100% ; Weight 56.25 kg; Pain 7/10; ap3 22:40 BP 109 / 96; Pulse 90; Resp 17 S; Pulse Ox 100% on R/A; ha1 21:03 Pain Scale: Adult ap3 ED Course: 02 22:40 Patient has correct armband on for positive identification. Placed in gown. Bed in low ha1 position. Call light in reach. Side rails up X 1. Side rails up X2. Adult w/ patient. 02 20:57 Patient arrived in ED. jj6 21:00 Hazel Patterson [facility]NP-C [facility]. kb 21:00 Klaus Cha MD is Attending Physician. kb 21:06 Triage completed. ap3 21:07 Arm band placed on right wrist. ap3 23:04 CBC with Diff Sent. ha1 23:04 CMP Sent. ha1 23:04 Lipase Sent. ha1 23:05 Inserted saline lock: 22 gauge in right antecubital area, using aseptic technique. oe Blood collected. 07/23 00:01 No provider procedures requiring assistance completed. IV discontinued, intact, ap3 bleeding controlled, No redness/swelling at site. Pressure dressing applied. 00:02 Provided Education on: discharge instructions. ap3 Administered Medications: 07/22 23:30 Drug: NS 0.9% IV 1000 ml IV at 1 bolus Per protocol; 1000 mL bolus Route: IV; Rate: 1 jj7 bolus; Site: right antecubital; 23:30 Drug: Famotidine IVP 20 mg IVP once; dilute with 10 mL 0.9% NaCl; give over 2 minutes jj7 Route: IVP; Site: right antecubital; 23:30 Drug: Ondansetron IVP 4 mg IVP once; over 2 minutes Route: IVP; Site: right antecubital;jj7 Medication: 23:10 VIS not applicable for this client. ha1 Outcome: 23:50 Discharge ordered by MD. gutiérrez 07/23 00:02 Discharged to home with family, ap3 Condition: good Discharge instructions given to patient, family, Instructed on discharge instructions, follow up and referral plans. medication usage, Demonstrated understanding of instructions, follow-up care, medications, Prescriptions given X 1, 00:02 Patient left the ED. ap3 Signatures: Hazel Patterson, RISK DEVELOPER-C RISK DEVELOPER-Bassem Yoon Amanda, RN RN ap3 Wilda Rodriguez jj6 Florence Camargo RN RN ha1 Vickey Sahni RN RN jj7
--- NOTE | 2023-07-22 23:52 | EDPHYS ---
Physician Documentation [facility] Name: Saba Mcgovern Age: 22 yrs Sex: Female : 2000 Arrival Date: 07/22/2023 Time: 20:54 Bed 8 Private MD: ED Physician Klaus Cha HPI: 07/22 22:11 This 22 yrs old Female presents to ER via Ambulatory with complaints of kb Nausea/Vomiting, Vomiting blood/black. 22:11 Patient is a 22-year-old female who presents for epigastric pain that started kb yesterday. Reports she had 1 episode of vomiting yesterday morning at 0 500 and it was black emesis. Denies diarrhea, fever.. 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 Flu vaccine is not up to date. - Social history:: Smoking status: Patient reports the use of cigarette tobacco products, Reported history of juuling and/or vaping. Patient uses alcohol, occasionally. ROS: 22:12 Constitutional: Negative for fever, chills, and weight loss, kb 22:12 Abdomen/GI: Positive for abdominal pain, nausea and vomiting, 22:12 All other systems are negative, Exam: 22:12 Constitutional: This is a well developed, well nourished patient who is awake, alert, kb and in no acute distress. Head/Face: Normocephalic, atraumatic. ENT: Moist Mucous membranes Cardiovascular: Regular rate Respiratory: Respirations even and unlabored. No increased work of breathing. Talking in full sentences Skin: Warm, dry with normal turgor. Normal color. MS/ Extremity: Pulses equal, no cyanosis. Neurovascular intact. Full, normal range of motion. Neuro: Awake and alert, GCS 15, oriented to person, place, time, and situation. Moves all extremities. Normal gait. 22:12 Abdomen/GI: Inspection: abdomen appears normal, Bowel sounds: normal, in all quadrants, Palpation: soft, in all quadrants, mild abdominal tenderness, in the epigastric area, Vital Signs: 21:03 Pulse 99; Resp 18; Temp 98.8; Pulse Ox 100% ; Weight 56.25 kg; Pain 7/10; ap3 22:40 BP 109 / 96; Pulse 90; Resp 17 S; Pulse Ox 100% on R/A; ha1 21:03 Pain Scale: Adult ap3 MDM: 21:00 Patient medically screened. kb 22:12 Differential diagnosis: Nonspecific abd pain, gastritis, GERD. Data reviewed: vital kb signs, nurses notes. 23:48 Historians other than the Patient: Spouse/Significant Other: spouse. 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 ED course: Discussed all results with pt and spouse. Pt has a GI that she sees and will call in the morning for follow up. States she GERD medication at home that was prescribed, but she hasn't been taking it. Recommended restarting that medication. . 07/22 21:00 Order name: CBC with Diff; Complete Time: 23:25 kb 07/22 21:00 Order name: CMP; Complete Time: 23:37 kb 07/22 21:00 Order name: Lipase; Complete Time: 23:37 kb 07/22 21:00 Order name: Test, Urine; Complete Time: 23:51 kb 07/22 21:00 Order name: Urinalysis w/ reflexes; Complete Time: 23:43 kb 07/22 21:00 Order name: IV Saline Lock; Complete Time: 23:04 kb 07/22 21:00 Order name: Labs collected and sent; Complete Time: 23:04 kb Administered Medications: 23:30 Drug: NS 0.9% IV 1000 ml IV at 1 bolus Per protocol; 1000 mL bolus Route: IV; Rate: 1 jj7 bolus; Site: right antecubital; 23:30 Drug: Famotidine IVP 20 mg IVP once; dilute with 10 mL 0.9% NaCl; give over 2 minutes jj7 Route: IVP; Site: right antecubital; 23:30 Drug: Ondansetron IVP 4 mg IVP once; over 2 minutes Route: IVP; Site: right antecubital;jj7 Disposition: 07/23 07:16 Co-signature as Attending Physician, Klaus Cha MD I agree with the assessment sp4 and plan of care. I reviewed the patient's care provided by the Advanced Practice Provider and agree with the diagnosis and treatment plan. Disposition Summary: 07/22/23 23:50 Discharge Ordered Notes: Location: Home kb Condition: Stable kb Diagnosis - Epigastric pain kb Followup: kb - With: Emergency Department - When: As needed - Reason: Worsening of condition Followup: kb - With: Private Physician - When: 2 - 3 days - Reason: Recheck today's complaints, Continuance of care, Re-evaluation by your physician Discharge Instructions: - Discharge Summary Sheet kb - Abdominal Pain, Adult, [id number] kb - Gastroesophageal Reflux Disease, Adult, [id number] kb - Food Choices for Gastroesophageal Reflux Disease, Adult, [id number] kb Forms: - Medication Reconciliation Form kb - Thank You Letter kb - Antibiotic Education kb - Prescription Opioid Use kb - Patient Portal Instructions kb - Leadership Thank You Letter kb Prescriptions: - Zofran 4 mg Oral tablet - take 1 tablet ORAL route every 6 hours As needed; 10 tablet; Refills: 0, kb Product Selection Permitted Signatures: Dispatcher [employer] EDMS Hazel Patterson, ABDON LINCOLN-Mayra Cummings RN RN ap3 Vickey Sahni RN RN jj7 Klaus Cha MD MD sp4 Corrections: (The following items were deleted from the chart) 07/22 23:50 23:48 ED course: Discussed all results with pt and spouse. Pt has a GI that she sees kb and will call in the morning for follow up. kb
== END ==
LOC: ER 20:54
DX: R10.13 Epigastric pain (principal); R11.10 Vomiting, unspecified; Z72.0 Tobacco use; Z28.310 Unvaccinated for COVID-19
CPT/HCPCS: 85025; 81001; 36415; 81025; 83690; 80053; J2405; J7030

== ENCOUNTER 2024-01-26 01:50 | Observation (INO) | payer OTHER ==
--- OUTSIDE RECORDS SUMMARY | 2024-01-26 01:58 | XMS REPORT | Continuity of Care Document ---
Author Name Unknown Address [address] [facility] [address] [place] [address] [facility] thconnect Address [address] [facility] 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 Phone IGNACIO BERMAN Primary Care Physician Unavailab LAURA Sandoval Attending Clinician LAURA Clemens Attending Clinician NARENDRA Dang Attending Clinician Unavailable Molly Reynolds PA-C Attending Clinician [phone] Doctor Unassigned, [place] Attending Clinician JANETT Baez Attending Clinician UnavailJANETT Ojeda Attending Clinician UnavailIGNACIO Braswell Attending Clinician Unavailable Nurse, Jd Rivers Attending Clinician Unavailable Xavi Leonard MD Attending Clinician [phone] XAVI LEONARD Attending Clinician Unavailable MOLLY REYNOLDS Attending Clinician Unavailab Branden Lockhart Attending Clinician Unavailable Ignacio Cabrera Attending Clinician [phone] LINDA LI Attending Clinician Unavailable Veronica Gentile MA Attending Clinician UnavailLinda Terry MD Attending Clinician [phone] Mayela Bocanegra MD Attending Clinician [phone] LEIGHA RAUSCH Attending Clinician Unavailabl e [employer] 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, Leigha Attending Clinician [phone] Nurse, [facility] Attending Clinician Unavailable Only, Ang Db Test Attending Clinician Unavailabl jaja Bradford 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, Delia Bourne Attending Clinician [phone] DELIA BRADFORD Attending Clinician Unavailab Trupti Shirley RN Attending Clinician Unavailable Dedrick SUBRAMANIAN, Mayra Attending Clinician [phone] Cyndee Kenny MD Attending Clinician [phone] Pob, [facility] Main Attending Clinician Unavailjusto wilkinson Lab, [facility] I Attending Clinician Unavailab armida Gilmore 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, Dena Attending Clinician [phone] DENA GILMORE Attending Clinician Unavailable Omaghomi 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, Omayemi Attending Clinician [phone] MICHAEL PINTO Attending Clinician Unavailabl jaja Golden MD, Lisa Attending Clinician [phone] Pc, [facility] Echo Room 1 - Attending Clinician Unavai lable Visit, [facility] Nurse Attending Clinician Unavailable 2, [facility] Attending Clinician Unavailable LISA GOLDEN Attending Clinician Unavailable CYNDEE KENNY Attending Clinician Unavail able Bruce RAE, Eder Matthews Attending Clinician Unavaila kati Doss MD, Musa Szymanski Attending Clinician [phone] Missy Barrera PTA Attending Clinician Unavail able David Joseph PT, Ila Attending Clinician Un available Saba Gomez MD Attending Clinician + [phone] Farhad Angeles Attending Clinician [phone] JANETT MEAD Admitting Clinician Unavaila LINDA Blake Admitting Clinician Unavailable Payers Payer Name Policy Type Policy Number Effective Date Expirati on Date Source MEDICARE PART A \T\ B [id number] 2020 00:00:00 [place] [id number] 2021 00:00:00 [facility] [id number] 2021 00:00:00 2021 00:00:00 Problems Condition Name Condition Details Condition Category Status Onset Date Resolution Date Last Treatment Date Treating Clinician Comments Source Encounter for routine checking of intrauteri ne contracept lanre device (IUD) Encounter for routine checking of intrauteri ne contracept lanre device (IUD) Disease Active 1-18 00:00: 00 [facility] Retroverte d uterus Retroverte d uterus Disease Active 2022-06 0 00:00: 00 [facility] Absence of menstruati on Absence of menstruati on Disease Active 2022-06 0 00:00: 00 [facility] Cyst of right ovary Cyst of right ovary Disease Active 2022-06 0 00:00: 00 [facility] Depo-Prove ra contracept lanre status Depo-Prove ra contracept lanre status Disease Active 2022-06 0 00:00: 00 [facility] Routine gynecologi angelica examinatio n Routine gynecologi angelica examinatio n Disease Active 2- 00:00: 00 [facility] Pap smear of cervix not needed Pap smear of cervix not needed Disease Active 2- 00:00: 00 [facility] Vaginal discharge Vaginal discharge Disease Active 08-13 00:00: 00 [facility] Sensorineu ral hearing loss (SNHL) of both ears Sensorineu ral hearing loss (SNHL) of both ears Disease Active 07-15 00:00: 00 [facility] Attention deficit hyperactiv ity disorder (ADHD), combined type Attention deficit hyperactiv ity disorder (ADHD), combined type Disease Active 1- 00:00: 00 [facility] Allergies, Adverse Reactions, Alerts Allergy Name Allergy Type Status Severity Reaction(s) Onset Date Inactive Date Treating Clinician Comments Source NO KNOWN ALLERGIE S Drug Class Active [facility] Social History Social Habit Start Date Stop Date Quantity Comments Source History SDOH Alcohol Frequency [facility] History SDOH Alcohol Std Drinks [facility] History SDOH Alcohol Binge [facility] 2023-07-03 00:00:00 2023-07-03 00:00:00 .29 /d [facility] Exposure to SARS-CoV-2 (event) 2022-09-21 00:00:00 2022-10-01 12:41:00 Not sure [facility] History of Social function 2022-10-01 00:00:00 2022-10-01 00:00:00 [facility] Alcohol Comment 2021-08-13 00:00:00 2021-08-13 00:00:00 1 to 2 cans a week [facility] Tobacco use and exposure 2019-01-26 00:00:00 2019-01-26 00:00:00 Smokeless tobacco non-user [facility] Sex assigned at 2000 00:00:00 2000 00:00:00 [facility] Smoking Status Start Date Stop Date Source Never smoked tobacco [facility] Medications Ordered Medication Name Filled Medication Name Start Date Stop Date Current Medication? Ordering Clinician Indication Dosage Frequency Signature (SIG) Comments Components Source fluconazole 150 mg tablet 09-15 00:00: 00 09-16 04:59 :00 No [id number] 150mg Take 1 tablet by mouth once now for [address] [facility] levonorgest reL (MIRENA) IUD 1 Device 2022-06 18:30: 00 06-03 17:41 :00 No [id number] 1{devic e} [facility] miSOPROStoL 200 mcg tablet 2022-06 00:00: 00 07-03 00:00 :00 No [id number] Take one by mouth the night before your procedure and then take one by mouth the morning of your procedure. [facility] miSOPROStoL 200 mcg tablet 2022-06 00:00: 00 07-03 00:00 :00 No [id number] Take one tablet the night before IUD insertion procedure and take one tablet the morning of the IUD insertion procedure. This is not for abortive treatment; patient will have IUD insertion. [facility] sucralfate 1 gram tablet 2022-06 0-05 00:00: 00 Yes 1g Take 1 tablet by mouth in the morning and 1 tablet at noon and 1 tablet in the evening. [facility] medroxyPROG ESTERone (DEPO-PROVE RA) injection 150 mg 9-06 17:15: 00 02-19 16:17 :00 No [id number] 150mg [facility] medroxyPROG ESTERone (DEPO-PROVE RA) injection 150 mg 6- 15:45: 00 12-04 14:49 :00 No [id number] [facility] EC tablet 4 00:00: 00 Yes [id number] 40mg Take 1 tablet by mouth in the morning. [facility] medroxyPROG ESTERone (DEPO-PROVE RA) injection 150 mg 3-30 16:00: 00 09-12 15:05 :00 No [id number] [facility] methylpheni date HCl (QUILLICHEW ER) 30 mg cb24 1-11 00:00: 00 09-24 00:00 :00 No [id number] 1{tbl} Take 1 tablet by mouth daily. [facility] medroxyPROG ESTERone (DEPO-PROVE RA) injection 150 mg 2021-06 2-30 18:15: 00 06-14 17:22 :00 No [id number] 150mg [facility]iver [facility] pantoprazol e 40 mg EC tablet 2021-06 2-29 00:00: 00 09-24 00:00 :00 No 40mg Take 1 tablet by mouth in the morning. [facility] medroxyPROG ESTERone (DEPO-PROVE RA) injection 150 mg 2021-06 0-11 14:15: 00 03-26 13:37 :00 No [id number] [facility] methylpheni date HCl (QUILLICHEW ER) 30 mg cb24 2021-06 0-11 00:00: 00 06-26 00:00 :00 No [id number] 1{tbl} Take 1 tablet by mouth daily. [facility] ibuprofen 600 mg tablet 8-24 00:00: 00 Yes [id number] 600mg Take 1 tablet by mouth every 8 (eight) hours as needed (pain). [facility] cetirizine (ZYRTEC) 10 mg tablet 01-01 00:00: 00 Yes [id number] Take 1 po qhs for allergies [facility] fluticasone propionate 50 mcg/actuati on nasal spray 01-01 00:00: 00 Yes [id number] 2{spray } Use 2 Sprays in each nostril in the morning and 2 Sprays in the evening. [facility] methylpheni date HCl (QUILLICHEW ER) 30 mg cb24 01-01 00:00: 00 03-26 00:00 :00 No [id number] 1{tbl} Take 1 tablet by mouth daily. [facility] triamcinolo ne acetonide 0.1 % ointment 06-27 00:00: 00 Yes [id number] Apply to area(s) 2 (two) times daily. [facility] benzonatate 100 mg capsule 2020-06 0 00:00: 00 01-01 00:00 :00 No [id number] 200mg Take 2 capsules by mouth 2 (two) times daily as needed for Cough. [facility] methylpheni date HCl (QUILLICHEW ER) 30 mg cb24 - 00:00: 00 03-20 00:00 :00 No [id number] 1{tbl} Take 1 tablet by mouth daily. [facility] bromphenira mine-pseudo ephedrine-D M (BROMFED DM) 2-30-10 mg/5 mL syrup - 00:00: 00 08-14 00:00 :00 No [id number] 5mL Take 5 mL by mouth 3 (three) times daily as needed for Congestion /Allergies or Cold symptoms. [facility] Biotin 2,500 mcg Cap 2019-06 0- 00:00: 00 Yes [id number] Take 1 po QD for 4-[address] [facility] dexmethylph enidate 40 mg MP50 7-29 00:00: 00 02-06 00:00 :00 No [id number] 40mg Take 40 mg by mouth daily. [facility] Cetirizine 10 mg capsule 08-16 00:00: 09-16 04:59 :00 No [id number] 10mg Take 1 capsule by mouth daily for [address] [facility] oseltamivir (TAMIFLU) 75 mg capsule 3- 00:00: 00 08-27 04:59 :00 No [id number] 75mg Take 1 capsule by mouth daily for [address] [facility] lisdexamfet amine (VYVANSE) 50 mg capsule 2 00:00: 10-04 00:00 :00 No [id number] 50mg Take 1 capsule by mouth every morning. [facility] biotin 5,000 mcg TbDL 2-17 00:00: 04-05 00:00 :00 No [id number] 5000ug Take 5,000 mcg by mouth daily. [facility] bromphenira mine-pseudo ephedrine-D M (BROMFED DM) 2-30-10 mg/5 mL syrup 1-30 00:00: 00 05-16 00:00 :00 No [id number] 10mL Take 10 mL by mouth 4 (four) times daily as needed for Congestion /Allergies . [facility] diclofenac 75 mg EC tablet 2018-06 2-20 00:00: 00 01-25 00:00 :00 No 75mg Take 1 tablet by mouth 2 (two) times daily with meals. [facility] dexmethylph enidate 40 mg MP50 2018-06 2-05 00:00: 10-04 00:00 :[address] [facility] clobetasol 0.05 % external solution 2017-06 0- 00:00: 00 01-25 00:00 :00 No [id number] Apply to area(s) 2 (two) times daily as needed (hair loss on scalp only. Stop when hairloss resolves. Not for face, groin or underarms. ). [facility] tretinoin 0.05 % cream 2017-06 00:00: 00 01-25 00:00 :00 No [id number] Apply to affected area(s) at bedtime. [facility] Minoxidil 5 % Soln 2017-06 00:00: 00 01-25 00:00 :00 No [id number] Apply to area(s) every 24 (twenty-fo ur) hours as needed (hairloss) . [facility] clindamycin 1 % gel 2017-06 00:00: 00 01-25 00:00 :00 No [id number] Apply to affected area(s) every morning. [facility] Immunizations Ordered Immunization Name Filled Immunization Name Date Status Comments Source TD 2022-10-01 00:00:00 Completed [facility] TDAP 2022-10-01 00:00:00 Completed [facility] TDAP 2022-10-01 00:00:00 Completed [facility] TDAP 2022-10-01 00:00:00 Completed [facility] Influenza Virus Vaccine Quad IM, Preserv and ABX Free 6 MO-64 YRS 2022-03-26 00:00:00 Completed [facility] Influenza Virus Vaccine Quad IM, Preserv and ABX Free 6 MO-64 YRS 2022-03-26 00:00:00 Completed [facility] Influenza Virus Vaccine Quad IM, Preserv and ABX Free 6 MO-64 YRS 2022-03-26 00:00:00 Completed [facility] Influenza Virus Vaccine Quad IM, Preserv and ABX Free 6 MO-64 YRS 2022-03-26 00:00:00 Completed [facility] Influenza Virus Vaccine Quad IM, Preserv and ABX Free 6 MO-64 YRS 2022-03-26 00:00:00 Completed [facility] Influenza Virus Vaccine Quad IM, Preserv and ABX Free 6 MO-64 YRS 2022-03-26 00:00:00 Completed [facility] Influenza Virus Vaccine Quad IM, Preserv and ABX Free 6 MO-64 YRS 2022-03-26 00:00:00 Completed [facility] Influenza Virus Vaccine Quad IM, Preserv and ABX Free 6 MO-64 YRS 2022-03-26 00:00:00 Completed [facility] Influenza Virus Vaccine Quad IM, Preserv and ABX Free 6 MO-64 YRS 2022-03-26 00:00:00 Completed [facility] Influenza Virus Vaccine Quad IM, Preserv and ABX Free 6 MO-64 YRS 2022-03-26 00:00:00 Completed [facility] Influenza Virus Vaccine Quad IM, Preserv and ABX Free 6 MO-64 YRS 2022-03-26 00:00:00 Completed [facility] Influenza Virus Vaccine Quad IM, Preserv and ABX Free 6 MO-64 YRS 2022-03-26 00:00:00 Completed [facility] Influenza Virus Vaccine Quad IM, Preserv and ABX Free 6 MO-64 YRS 2022-03-26 00:00:00 Completed [facility] Influenza Virus Vaccine Quad IM, Preserv and ABX Free 6 MO-64 YRS 2022-03-26 00:00:00 Completed [facility] Influenza Virus Vaccine Quad IM, Preserv and ABX Free 6 MO-64 YRS 2022-03-26 00:00:00 Completed [facility] Influenza Virus Vaccine Quad IM, Preserv and ABX Free 6 MO-64 YRS 2022-03-26 00:00:00 Completed [facility] Influenza Virus Vaccine Quad IM, Preserv and ABX Free 6 MO-64 YRS 2022-03-26 00:00:00 Completed [facility] Influenza Virus Vaccine Quad IM, Preserv and ABX Free 6 MO-64 YRS 2022-03-26 00:00:00 Completed [facility] Influenza Virus Vaccine Quad IM, Preserv and ABX Free 6 MO-64 YRS 2022-03-26 00:00:00 Completed [facility] Influenza Virus Vaccine Quad IM, Preserv and ABX Free 6 MO-64 YRS 2022-03-26 00:00:00 Completed [facility] Influenza Virus Vaccine Quad IM, Preserv and ABX Free 6 MO-64 YRS (FLUCELVAX) 2022-03-26 00:00:00 Completed [facility] Meningococcal Vaccine 2016-08-27 00:00:00 Completed [facility] Meningococcal Vaccine 2016-08-27 00:00:00 Completed [facility] Meningococcal Vaccine 2016-08-27 00:00:00 Completed [facility] Meningococcal Vaccine 2016-08-27 00:00:00 Completed [facility] Meningococcal Vaccine 2016-08-27 00:00:00 Completed [facility] Meningococcal Vaccine 2016-08-27 00:00:00 Completed [facility] Meningococcal Vaccine 2016-08-27 00:00:00 Completed [facility] Meningococcal Vaccine 2016-08-27 00:00:00 Completed [facility] Meningococcal Vaccine 2016-08-27 00:00:00 Completed [facility] Meningococcal Vaccine 2016-08-27 00:00:00 Completed [facility] Meningococcal Vaccine 2016-08-27 00:00:00 Completed [facility] Meningococcal Vaccine 2016-08-27 00:00:00 Completed [facility] Meningococcal Vaccine 2016-08-27 00:00:00 Completed [facility] Meningococcal Vaccine 2016-08-27 00:00:00 Completed [facility] Meningococcal Polysaccharide (groups A, C, Y and W-135) conjugate vaccine (MCV4P) 2016-08-27 00:00:00 Completed [facility] Meningococcal Vaccine 2016-08-27 00:00:00 Completed [facility] Meningococcal Polysaccharide (groups A, C, Y and W-135) conjugate vaccine (MCV4P) 2016-08-27 00:00:00 Completed [facility] Meningococcal Vaccine 2016-08-27 00:00:00 Completed [facility] Meningococcal Polysaccharide (groups A, C, Y and W-135) conjugate vaccine (MCV4P) 2016-08-27 00:00:00 Completed [facility] Meningococcal Vaccine 2016-08-27 00:00:00 Completed [facility] Meningococcal Polysaccharide (groups A, C, Y and W-135) conjugate vaccine (MCV4P) 2016-08-27 00:00:00 Completed [facility] Meningococcal Vaccine 2016-08-27 00:00:00 Completed [facility] Meningococcal Polysaccharide (groups A, C, Y and W-135) conjugate vaccine (MCV4P) 2016-08-27 00:00:00 Completed [facility] Meningococcal Vaccine 2016-08-27 00:00:00 Completed [facility] Meningococcal Polysaccharide (groups A, C, Y and W-135) conjugate vaccine (MCV4P) 2016-08-27 00:00:00 Completed [facility] Meningococcal Vaccine 2016-08-27 00:00:00 Completed [facility] Meningococcal Polysaccharide (groups A, C, Y and W-135) conjugate vaccine (MCV4P) 2016-08-27 00:00:00 Completed [facility] Meningococcal Vaccine 2016-08-27 00:00:00 Completed [facility] Meningococcal Polysaccharide (groups A, C, Y and W-135) conjugate vaccine (MCV4P) 2016-08-27 00:00:00 Completed [facility] Meningococcal Vaccine 2016-08-27 00:00:00 Completed [facility] Meningococcal Polysaccharide (groups A, C, Y and W-135) conjugate vaccine (MCV4P) 2016-08-27 00:00:00 Completed [facility] Meningococcal Vaccine 2016-08-27 00:00:00 Completed [facility] Meningococcal Polysaccharide (groups A, C, Y and W-135) conjugate vaccine (MCV4P) 2016-08-27 00:00:00 Completed [facility] Meningococcal Vaccine 2016-08-27 00:00:00 Completed [facility] Meningococcal Polysaccharide (groups A, C, Y and W-135) conjugate vaccine (MCV4P) 2016-08-27 00:00:00 Completed [facility] Meningococcal Vaccine 2016 00:00:00 Completed [facility] Meningococcal Vaccine 2016 00:00:00 Completed [facility] Meningococcal Vaccine 2016 00:00:00 Completed [facility] Meningococcal Vaccine 2016 00:00:00 Completed [facility] Meningococcal Vaccine 2016 00:00:00 Completed [facility] Meningococcal Vaccine 2016 00:00:00 Completed [facility] Meningococcal Vaccine 2016 00:00:00 Completed [facility] Meningococcal Vaccine 2016 00:00:00 Completed [facility] Meningococcal Vaccine 2016 00:00:00 Completed [facility] Meningococcal Vaccine 2016 00:00:00 Completed [facility] Meningococcal Vaccine 2016 00:00:00 Completed [facility] Meningococcal Vaccine 2016 00:00:00 Completed [facility] Meningococcal Vaccine 2016 00:00:00 Completed [facility] Meningococcal Vaccine 2016 00:00:00 Completed [facility] Meningococcal Vaccine 2016 00:00:00 Completed [facility] Meningococcal Vaccine 2016 00:00:00 Completed [facility] Meningococcal Vaccine 2016 00:00:00 Completed [facility] Meningococcal Vaccine 2016 00:00:00 Completed [facility] Meningococcal Vaccine 2016 00:00:00 Completed [facility] Meningococcal Vaccine 2016 00:00:00 Completed [facility] Meningococcal Vaccine 2016 00:00:00 Completed [facility] Meningococcal Vaccine 2016 00:00:00 Completed [facility] Meningococcal Vaccine 2016 00:00:00 Completed [facility] Meningococcal Vaccine 2016 00:00:00 Completed [facility] Meningococcal Vaccine 2011-09-04 00:00:00 Completed [facility] TDAP 2011-09-04 00:00:00 Completed [facility] Meningococcal Vaccine 2011-09-04 00:00:00 Completed [facility] TDAP 2011-09-04 00:00:00 Completed [facility] Meningococcal Vaccine 2011-09-04 00:00:00 Completed [facility] TDAP 2011-09-04 00:00:00 Completed [facility] Meningococcal Vaccine 2011-09-04 00:00:00 Completed [facility] TDAP 2011-09-04 00:00:00 Completed [facility] Meningococcal Vaccine 2011-09-04 00:00:00 Completed [facility] TDAP 2011-09-04 00:00:00 Completed [facility] Meningococcal Vaccine 2011-09-04 00:00:00 Completed [facility] TDAP 2011-09-04 00:00:00 Completed [facility] Meningococcal Vaccine 2011-09-04 00:00:00 Completed [facility] TDAP 2011-09-04 00:00:00 Completed [facility] Meningococcal Vaccine 2011-09-04 00:00:00 Completed [facility] TDAP 2011-09-04 00:00:00 Completed [facility] Meningococcal Vaccine 2011-09-04 00:00:00 Completed [facility] TDAP 2011-09-04 00:00:00 Completed [facility] Meningococcal Vaccine 2011-09-04 00:00:00 Completed [facility] TDAP 2011-09-04 00:00:00 Completed [facility] Meningococcal Vaccine 2011-09-04 00:00:00 Completed [facility] TDAP 2011-09-04 00:00:00 Completed [facility] Meningococcal Vaccine 2011-09-04 00:00:00 Completed [facility] TDAP 2011-09-04 00:00:00 Completed [facility] Meningococcal Vaccine 2011-09-04 00:00:00 Completed [facility] TDAP 2011-09-04 00:00:00 Completed [facility] Meningococcal Vaccine 2011-09-04 00:00:00 Completed [facility] TDAP 2011-09-04 00:00:00 Completed [facility] Meningococcal Vaccine 2011-09-04 00:00:00 Completed [facility] TDAP 2011-09-04 00:00:00 Completed [facility] Meningococcal Vaccine 2011-09-04 00:00:00 Completed [facility] TDAP 2011-09-04 00:00:00 Completed [facility] Meningococcal Vaccine 2011-09-04 00:00:00 Completed [facility] TDAP 2011-09-04 00:00:00 Completed [facility] Meningococcal Vaccine 2011-09-04 00:00:00 Completed [facility] TDAP 2011-09-04 00:00:00 Completed [facility] Meningococcal Vaccine 2011-09-04 00:00:00 Completed [facility] TDAP 2011-09-04 00:00:00 Completed [facility] Meningococcal Vaccine 2011-09-04 00:00:00 Completed [facility] TDAP 2011-09-04 00:00:00 Completed [facility] Meningococcal Vaccine 2011-09-04 00:00:00 Completed [facility] TDAP 2011-09-04 00:00:00 Completed [facility] Meningococcal Vaccine 2011-09-04 00:00:00 Completed [facility] TDAP 2011-09-04 00:00:00 Completed [facility] Meningococcal Vaccine 2011-09-04 00:00:00 Completed [facility] TDAP 2011-09-04 00:00:00 Completed [facility] Meningococcal Vaccine 2011-09-04 00:00:00 Completed [facility] TDAP 2011-09-04 00:00:00 Completed [facility] HPV 2011 00:00:00 Completed [facility] HPV 2011 00:00:00 Completed [facility] HPV 2011 00:00:00 Completed [facility] HPV 2011 00:00:00 Completed [facility] HPV 2011 00:00:00 Completed [facility] HPV 2011 00:00:00 Completed [facility] HPV 2011 00:00:00 Completed [facility] HPV 2011 00:00:00 Completed [facility] HPV 2011 00:00:00 Completed [facility] HPV 2011 00:00:00 Completed [facility] HPV 2011 00:00:00 Completed [facility] HPV 2011 00:00:00 Completed [facility] HPV 2011 00:00:00 Completed [facility] HPV 2011 00:00:00 Completed [facility] HPV 2011 00:00:00 Completed [facility] HPV 2011 00:00:00 Completed [facility] HPV 2011 00:00:00 Completed [facility] HPV 2011 00:00:00 Completed [facility] HPV 2011 00:00:00 Completed [facility] HPV 2011 00:00:00 Completed [facility] HPV 2011 00:00:00 Completed [facility] HPV 2011 00:00:00 Completed [facility] HPV 2011 00:00:00 Completed [facility] HPV 2011 00:00:00 Completed [facility] Varicella (varivax)(chicken pox) 2008-03-09 00:00:00 Completed [facility] Varicella (varivax)(chicken pox) 2008-03-09 00:00:00 Completed [facility] Varicella (varivax)(chicken pox) 2008-03-09 00:00:00 Completed [facility] Varicella (varivax)(chicken pox) 2008-03-09 00:00:00 Completed [facility] Varicella (varivax)(chicken pox) 2008-03-09 00:00:00 Completed [facility] Varicella (varivax)(chicken pox) 2008-03-09 00:00:00 Completed [facility] Varicella (varivax)(chicken pox) 2008-03-09 00:00:00 Completed [facility] Varicella (varivax)(chicken pox) 2008-03-09 00:00:00 Completed [facility] Varicella (varivax)(chicken pox) 2008-03-09 00:00:00 Completed [facility] Varicella (varivax)(chicken pox) 2008-03-09 00:00:00 Completed [facility] Varicella (varivax)(chicken pox) 2008-03-09 00:00:00 Completed [facility] Varicella (varivax)(chicken pox) 2008-03-09 00:00:00 Completed [facility] Varicella (varivax)(chicken pox) 2008-03-09 00:00:00 Completed [facility] Varicella (varivax)(chicken pox) 2008-03-09 00:00:00 Completed [facility] Varicella (varivax)(chicken pox) 2008-03-09 00:00:00 Completed [facility] Varicella (varivax)(chicken pox) 2008-03-09 00:00:00 Completed [facility] Varicella (varivax)(chicken pox) 2008-03-09 00:00:00 Completed [facility] Varicella (varivax)(chicken pox) 2008-03-09 00:00:00 Completed [facility] Varicella (varivax)(chicken pox) 2008-03-09 00:00:00 Completed [facility] Varicella (varivax)(chicken pox) 2008-03-09 00:00:00 Completed [facility] Varicella (varivax)(chicken pox) 2008-03-09 00:00:00 Completed [facility] Varicella (varivax)(chicken pox) 2008-03-09 00:00:00 Completed [facility] Varicella (varivax)(chicken pox) 2008-03-09 00:00:00 Completed [facility] Varicella (varivax)(chicken pox) 2008-03-09 00:00:00 Completed [facility] HEPATITIS A 2006-02-12 00:00:00 Completed [facility] HEPATITIS A 2006-02-12 00:00:00 Completed [facility] HEPATITIS A 2006-02-12 00:00:00 Completed [facility] HEPATITIS A 2006-02-12 00:00:00 Completed [facility] HEPATITIS A 2006-02-12 00:00:00 Completed [facility] HEPATITIS A 2006-02-12 00:00:00 Completed [facility] HEPATITIS A 2006-02-12 00:00:00 Completed [facility] HEPATITIS A 2006-02-12 00:00:00 Completed [facility] HEPATITIS A 2006-02-12 00:00:00 Completed [facility] HEPATITIS A 2006-02-12 00:00:00 Completed [facility] HEPATITIS A 2006-02-12 00:00:00 Completed [facility] HEPATITIS A 2006-02-12 00:00:00 Completed [facility] HEPATITIS A 2006-02-12 00:00:00 Completed [facility] HEPATITIS A 2006-02-12 00:00:00 Completed [facility] HEPATITIS A 2006-02-12 00:00:00 Completed [facility] HEPATITIS A 2006-02-12 00:00:00 Completed [facility] HEPATITIS A 2006-02-12 00:00:00 Completed [facility] HEPATITIS A 2006-02-12 00:00:00 Completed [facility] HEPATITIS A 2006-02-12 00:00:00 Completed [facility] HEPATITIS A 2006-02-12 00:00:00 Completed [facility] HEPATITIS A 2006-02-12 00:00:00 Completed [facility] HEPATITIS A 2006-02-12 00:00:00 Completed [facility] HEPATITIS A 2006-02-12 00:00:00 Completed [facility] HEPATITIS A 2006-02-12 00:00:00 Completed [facility] HEPATITIS A 2005-04-04 00:00:00 Completed [facility] HEPATITIS A 2005-04-04 00:00:00 Completed [facility] HEPATITIS A 2005-04-04 00:00:00 Completed [facility] HEPATITIS A 2005-04-04 00:00:00 Completed [facility] HEPATITIS A 2005-04-04 00:00:00 Completed [facility] HEPATITIS A 2005-04-04 00:00:00 Completed [facility] HEPATITIS A 2005-04-04 00:00:00 Completed [facility] HEPATITIS A 2005-04-04 00:00:00 Completed [facility] HEPATITIS A 2005-04-04 00:00:00 Completed [facility] HEPATITIS A 2005-04-04 00:00:00 Completed [facility] HEPATITIS A 2005-04-04 00:00:00 Completed [facility] HEPATITIS A 2005-04-04 00:00:00 Completed [facility] HEPATITIS A 2005-04-04 00:00:00 Completed [facility] HEPATITIS A 2005-04-04 00:00:00 Completed [facility] HEPATITIS A 2005-04-04 00:00:00 Completed [facility] HEPATITIS A 2005-04-04 00:00:00 Completed [facility] HEPATITIS A 2005-04-04 00:00:00 Completed [facility] HEPATITIS A 2005-04-04 00:00:00 Completed [facility] HEPATITIS A 2005-04-04 00:00:00 Completed [facility] HEPATITIS A 2005-04-04 00:00:00 Completed [facility] HEPATITIS A 2005-04-04 00:00:00 Completed [facility] HEPATITIS A 2005-04-04 00:00:00 Completed [facility] HEPATITIS A 2005-04-04 00:00:00 Completed [facility] HEPATITIS A 2005-04-04 00:00:00 Completed [facility] DTAP 2004-08-20 00:00:00 Completed [facility] MMR 2004-08-20 00:00:00 Completed [facility] Polio (IPV/OPV) 2004-08-20 00:00:00 Completed [facility] DTAP 2004-08-20 00:00:00 Completed [facility] MMR 2004-08-20 00:00:00 Completed [facility] Polio (IPV/OPV) 2004-08-20 00:00:00 Completed [facility] DTAP 2004-08-20 00:00:00 Completed [facility] MMR 2004-08-20 00:00:00 Completed [facility] Polio (IPV/OPV) 2004-08-20 00:00:00 Completed [facility] DTAP 2004-08-20 00:00:00 Completed [facility] MMR 2004-08-20 00:00:00 Completed [facility] Polio (IPV/OPV) 2004-08-20 00:00:00 Completed [facility] DTAP 2004-08-20 00:00:00 Completed [facility] MMR 2004-08-20 00:00:00 Completed [facility] Polio (IPV/OPV) 2004-08-20 00:00:00 Completed [facility] DTAP 2004-08-20 00:00:00 Completed [facility] MMR 2004-08-20 00:00:00 Completed [facility] Polio (IPV/OPV) 2004-08-20 00:00:00 Completed [facility] DTAP 2004-08-20 00:00:00 Completed [facility] MMR 2004-08-20 00:00:00 Completed [facility] Polio (IPV/OPV) 2004-08-20 00:00:00 Completed [facility] DTAP 2004-08-20 00:00:00 Completed [facility] MMR 2004-08-20 00:00:00 Completed [facility] Polio (IPV/OPV) 2004-08-20 00:00:00 Completed [facility] DTAP 2004-08-20 00:00:00 Completed [facility] MMR 2004-08-20 00:00:00 Completed [facility] Polio (IPV/OPV) 2004-08-20 00:00:00 Completed [facility] DTAP 2004-08-20 00:00:00 Completed [facility] MMR 2004-08-20 00:00:00 Completed [facility] Polio (IPV/OPV) 2004-08-20 00:00:00 Completed [facility] DTAP 2004-08-20 00:00:00 Completed [facility] MMR 2004-08-20 00:00:00 Completed [facility] Polio (IPV/OPV) 2004-08-20 00:00:00 Completed [facility] DTAP 2004-08-20 00:00:00 Completed [facility] MMR 2004-08-20 00:00:00 Completed [facility] Polio (IPV/OPV) 2004-08-20 00:00:00 Completed [facility] DTAP 2004-08-20 00:00:00 Completed [facility] MMR 2004-08-20 00:00:00 Completed [facility] Polio (IPV/OPV) 2004-08-20 00:00:00 Completed [facility] DTAP 2004-08-20 00:00:00 Completed [facility] MMR 2004-08-20 00:00:00 Completed [facility] Polio (IPV/OPV) 2004-08-20 00:00:00 Completed [facility] DTaP, Unspecified Formulation 2004-08-20 00:00:00 Completed [facility] IPV 2004-08-20 00:00:00 Completed [facility] DTAP 2004-08-20 00:00:00 Completed [facility] MMR 2004-08-20 00:00:00 Completed [facility] Polio (IPV/OPV) 2004-08-20 00:00:00 Completed [facility] DTaP, Unspecified Formulation 2004-08-20 00:00:00 Completed [facility] IPV 2004-08-20 00:00:00 Completed [facility] DTAP 2004-08-20 00:00:00 Completed [facility] MMR 2004-08-20 00:00:00 Completed [facility] Polio (IPV/OPV) 2004-08-20 00:00:00 Completed [facility] DTaP, Unspecified Formulation 2004-08-20 00:00:00 Completed [facility] IPV 2004-08-20 00:00:00 Completed [facility] DTAP 2004-08-20 00:00:00 Completed [facility] MMR 2004-08-20 00:00:00 Completed [facility] Polio (IPV/OPV) 2004-08-20 00:00:00 Completed [facility] DTaP, Unspecified Formulation 2004-08-20 00:00:00 Completed [facility] IPV 2004-08-20 00:00:00 Completed [facility] DTAP 2004-08-20 00:00:00 Completed [facility] MMR 2004-08-20 00:00:00 Completed [facility] Polio (IPV/OPV) 2004-08-20 00:00:00 Completed [facility] DTaP, Unspecified Formulation 2004-08-20 00:00:00 Completed [facility] IPV 2004-08-20 00:00:00 Completed [facility] DTAP 2004-08-20 00:00:00 Completed [facility] MMR 2004-08-20 00:00:00 Completed [facility] Polio (IPV/OPV) 2004-08-20 00:00:00 Completed [facility] DTaP, Unspecified Formulation 2004-08-20 00:00:00 Completed [facility] IPV 2004-08-20 00:00:00 Completed [facility] DTAP 2004-08-20 00:00:00 Completed [facility] MMR 2004-08-20 00:00:00 Completed [facility] Polio (IPV/OPV) 2004-08-20 00:00:00 Completed [facility] DTaP, Unspecified Formulation 2004-08-20 00:00:00 Completed [facility] IPV 2004-08-20 00:00:00 Completed [facility] DTAP 2004-08-20 00:00:00 Completed [facility] MMR 2004-08-20 00:00:00 Completed [facility] Polio (IPV/OPV) 2004-08-20 00:00:00 Completed [facility] DTaP, Unspecified Formulation 2004-08-20 00:00:00 Completed [facility] IPV 2004-08-20 00:00:00 Completed [facility] DTAP 2004-08-20 00:00:00 Completed [facility] MMR 2004-08-20 00:00:00 Completed [facility] Polio (IPV/OPV) 2004-08-20 00:00:00 Completed [facility] DTaP, Unspecified Formulation 2004-08-20 00:00:00 Completed [facility] IPV 2004-08-20 00:00:00 Completed [facility] DTAP 2004-08-20 00:00:00 Completed [facility] MMR 2004-08-20 00:00:00 Completed [facility] Polio (IPV/OPV) 2004-08-20 00:00:00 Completed [facility] DTaP, Unspecified Formulation 2004-08-20 00:00:00 Completed [facility] IPV 2004-08-20 00:00:00 Completed [facility] DTAP 2004-08-20 00:00:00 Completed [facility] MMR 2004-08-20 00:00:00 Completed [facility] Polio (IPV/OPV) 2004-08-20 00:00:00 Completed [facility] DTaP, Unspecified Formulation 2004-08-20 00:00:00 Completed [facility] IPV 2004-08-20 00:00:00 Completed [facility] Pneumococcal 13 Conjugate, PCV13 (Prevnar 13) 2001-11-10 00:00:00 Completed [facility] Pneumococcal 13 Conjugate, PCV13 (Prevnar 13) 2001-11-10 00:00:00 Completed [facility] Pneumococcal 13 Conjugate, PCV13 (Prevnar 13) 2001-11-10 00:00:00 Completed [facility] Pneumococcal 13 Conjugate, PCV13 (Prevnar 13) 2001-11-10 00:00:00 Completed [facility] Pneumococcal 13 Conjugate, PCV13 (Prevnar 13) 2001-11-10 00:00:00 Completed [facility] Pneumococcal 13 Conjugate, PCV13 (Prevnar 13) 2001-11-10 00:00:00 Completed [facility] Pneumococcal 13 Conjugate, PCV13 (Prevnar 13) 2001-11-10 00:00:00 Completed [facility] Pneumococcal 13 Conjugate, PCV13 (Prevnar 13) 2001-11-10 00:00:00 Completed [facility] Pneumococcal 13 Conjugate, PCV13 (Prevnar 13) 2001-11-10 00:00:00 Completed [facility] Pneumococcal 13 Conjugate, PCV13 (Prevnar 13) 2001-11-10 00:00:00 Completed [facility] Pneumococcal 13 Conjugate, PCV13 (Prevnar 13) 2001-11-10 00:00:00 Completed [facility] Pneumococcal 13 Conjugate, PCV13 (Prevnar 13) 2001-11-10 00:00:00 Completed [facility] Pneumococcal 13 Conjugate, PCV13 (Prevnar 13) 2001-11-10 00:00:00 Completed [facility] Pneumococcal 13 Conjugate, PCV13 (Prevnar 13) 2001-11-10 00:00:00 Completed [facility] Pneumococcal 13 Conjugate, PCV13 (Prevnar 13) 2001-11-10 00:00:00 Completed [facility] Pneumococcal 13 Conjugate, PCV13 (Prevnar 13) 2001-11-10 00:00:00 Completed [facility] Pneumococcal 13 Conjugate, PCV13 (Prevnar 13) 2001-11-10 00:00:00 Completed [facility] Pneumococcal 13 Conjugate, PCV13 (Prevnar 13) 2001-11-10 00:00:00 Completed [facility] Pneumococcal 13 Conjugate, PCV13 (Prevnar 13) 2001-11-10 00:00:00 Completed [facility] Pneumococcal 13 Conjugate, PCV13 (Prevnar 13) 2001-11-10 00:00:00 Completed [facility] Pneumococcal 13 Conjugate, PCV13 (Prevnar 13) 2001-11-10 00:00:00 Completed [facility] Pneumococcal 13 Conjugate, PCV13 (Prevnar 13) 2001-11-10 00:00:00 Completed [facility] Pneumococcal 13 Conjugate, PCV13 (Prevnar 13) 2001-11-10 00:00:00 Completed [facility] Pneumococcal 13 Conjugate, PCV13 (Prevnar 13) 2001-11-10 00:00:00 Completed [facility] DTAP 2001-08-10 00:00:00 Completed [facility] HIB 3 Dose Schedule 2001-08-10 00:00:00 Completed [facility] MMR 2001-08-10 00:00:00 Completed [facility] DTAP 2001-08-10 00:00:00 Completed [facility] HIB 3 Dose Schedule 2001-08-10 00:00:00 Completed [facility] MMR 2001-08-10 00:00:00 Completed [facility] DTAP 2001-08-10 00:00:00 Completed [facility] HIB 3 Dose Schedule 2001-08-10 00:00:00 Completed [facility] MMR 2001-08-10 00:00:00 Completed [facility] DTAP 2001-08-10 00:00:00 Completed [facility] HIB 3 Dose Schedule 2001-08-10 00:00:00 Completed [facility] MMR 2001-08-10 00:00:00 Completed [facility] DTAP 2001-08-10 00:00:00 Completed [facility] HIB 3 Dose Schedule 2001-08-10 00:00:00 Completed [facility] MMR 2001-08-10 00:00:00 Completed [facility] DTAP 2001-08-10 00:00:00 Completed [facility] HIB 3 Dose Schedule 2001-08-10 00:00:00 Completed [facility] MMR 2001-08-10 00:00:00 Completed [facility] DTAP 2001-08-10 00:00:00 Completed [facility] HIB 3 Dose Schedule 2001-08-10 00:00:00 Completed [facility] MMR 2001-08-10 00:00:00 Completed [facility] DTAP 2001-08-10 00:00:00 Completed [facility] HIB 3 Dose Schedule 2001-08-10 00:00:00 Completed [facility] MMR 2001-08-10 00:00:00 Completed [facility] DTAP 2001-08-10 00:00:00 Completed [facility] HIB 3 Dose Schedule 2001-08-10 00:00:00 Completed [facility] MMR 2001-08-10 00:00:00 Completed [facility] DTAP 2001-08-10 00:00:00 Completed [facility] HIB 3 Dose Schedule 2001-08-10 00:00:00 Completed [facility] MMR 2001-08-10 00:00:00 Completed [facility] DTAP 2001-08-10 00:00:00 Completed [facility] HIB 3 Dose Schedule 2001-08-10 00:00:00 Completed [facility] MMR 2001-08-10 00:00:00 Completed [facility] DTAP 2001-08-10 00:00:00 Completed [facility] HIB 3 Dose Schedule 2001-08-10 00:00:00 Completed [facility] MMR 2001-08-10 00:00:00 Completed [facility] DTAP 2001-08-10 00:00:00 Completed [facility] HIB 3 Dose Schedule 2001-08-10 00:00:00 Completed [facility] MMR 2001-08-10 00:00:00 Completed [facility] DTAP 2001-08-10 00:00:00 Completed [facility] HIB 3 Dose Schedule 2001-08-10 00:00:00 Completed [facility] MMR 2001-08-10 00:00:00 Completed [facility] DTaP, Unspecified Formulation 2001-08-10 00:00:00 Completed [facility] HIB 4 Dose Schedule 2001-08-10 00:00:00 Completed [facility] DTAP 2001-08-10 00:00:00 Completed [facility] HIB 3 Dose Schedule 2001-08-10 00:00:00 Completed [facility] MMR 2001-08-10 00:00:00 Completed [facility] DTaP, Unspecified Formulation 2001-08-10 00:00:00 Completed [facility] HIB 4 Dose Schedule 2001-08-10 00:00:00 Completed [facility] DTAP 2001-08-10 00:00:00 Completed [facility] HIB 3 Dose Schedule 2001-08-10 00:00:00 Completed [facility] MMR 2001-08-10 00:00:00 Completed [facility] DTaP, Unspecified Formulation 2001-08-10 00:00:00 Completed [facility] HIB 4 Dose Schedule 2001-08-10 00:00:00 Completed [facility] DTAP 2001-08-10 00:00:00 Completed [facility] HIB 3 Dose Schedule 2001-08-10 00:00:00 Completed [facility] MMR 2001-08-10 00:00:00 Completed [facility] DTaP, Unspecified Formulation 2001-08-10 00:00:00 Completed [facility] HIB 4 Dose Schedule 2001-08-10 00:00:00 Completed [facility] DTAP 2001-08-10 00:00:00 Completed [facility] HIB 3 Dose Schedule 2001-08-10 00:00:00 Completed [facility] MMR 2001-08-10 00:00:00 Completed [facility] DTaP, Unspecified Formulation 2001-08-10 00:00:00 Completed [facility] HIB 4 Dose Schedule 2001-08-10 00:00:00 Completed [facility] DTAP 2001-08-10 00:00:00 Completed [facility] HIB 3 Dose Schedule 2001-08-10 00:00:00 Completed [facility] MMR 2001-08-10 00:00:00 Completed [facility] DTaP, Unspecified Formulation 2001-08-10 00:00:00 Completed [facility] HIB 4 Dose Schedule 2001-08-10 00:00:00 Completed [facility] DTAP 2001-08-10 00:00:00 Completed [facility] HIB 3 Dose Schedule 2001-08-10 00:00:00 Completed [facility] MMR 2001-08-10 00:00:00 Completed [facility] DTaP, Unspecified Formulation 2001-08-10 00:00:00 Completed [facility] HIB 4 Dose Schedule 2001-08-10 00:00:00 Completed [facility] DTAP 2001-08-10 00:00:00 Completed [facility] HIB 3 Dose Schedule 2001-08-10 00:00:00 Completed [facility] MMR 2001-08-10 00:00:00 Completed [facility] DTaP, Unspecified Formulation 2001-08-10 00:00:00 Completed [facility] HIB 4 Dose Schedule 2001-08-10 00:00:00 Completed [facility] DTAP 2001-08-10 00:00:00 Completed [facility] HIB 3 Dose Schedule 2001-08-10 00:00:00 Completed [facility] MMR 2001-08-10 00:00:00 Completed [facility] DTaP, Unspecified Formulation 2001-08-10 00:00:00 Completed [facility] HIB 4 Dose Schedule 2001-08-10 00:00:00 Completed [facility] DTAP 2001-08-10 00:00:00 Completed [facility] HIB 3 Dose Schedule 2001-08-10 00:00:00 Completed [facility] MMR 2001-08-10 00:00:00 Completed [facility] DTaP, Unspecified Formulation 2001-08-10 00:00:00 Completed [facility] HIB 4 Dose Schedule 2001-08-10 00:00:00 Completed [facility] DTAP 2001-08-10 00:00:00 Completed [facility] HIB 3 Dose Schedule 2001-08-10 00:00:00 Completed [facility] MMR 2001-08-10 00:00:00 Completed [facility] DTaP, Unspecified Formulation 2001-08-10 00:00:00 Completed [facility] HIB 4 Dose Schedule 2001-08-10 00:00:00 Completed [facility] HEPATITIS A 2001 00:00:00 Completed [facility] HEPATITIS A 2001 00:00:00 Completed [facility] HEPATITIS A 2001 00:00:00 Completed [facility] HEPATITIS A 2001 00:00:00 Completed [facility] HEPATITIS A 2001 00:00:00 Completed [facility] HEPATITIS A 2001 00:00:00 Completed [facility] HEPATITIS A 2001 00:00:00 Completed [facility] HEPATITIS A 2001 00:00:00 Completed [facility] HEPATITIS A 2001 00:00:00 Completed [facility] HEPATITIS A 2001 00:00:00 Completed [facility] HEPATITIS A 2001 00:00:00 Completed [facility] HEPATITIS A 2001 00:00:00 Completed [facility] HEPATITIS A 2001 00:00:00 Completed [facility] HEPATITIS A 2001 00:00:00 Completed [facility] HEPATITIS A 2001 00:00:00 Completed [facility] HEPATITIS A 2001 00:00:00 Completed [facility] HEPATITIS A 2001 00:00:00 Completed [facility] HEPATITIS A 2001 00:00:00 Completed [facility] HEPATITIS A 2001 00:00:00 Completed [facility] HEPATITIS A 2001 00:00:00 Completed [facility] HEPATITIS A 2001 00:00:00 Completed [facility] HEPATITIS A 2001 00:00:00 Completed [facility] HEPATITIS A 2001 00:00:00 Completed [facility] HEPATITIS A 2001 00:00:00 Completed [facility] Polio (IPV/OPV) 2001-05-12 00:00:00 Completed [facility] Polio (IPV/OPV) 2001-05-12 00:00:00 Completed [facility] Polio (IPV/OPV) 2001-05-12 00:00:00 Completed [facility] Polio (IPV/OPV) 2001-05-12 00:00:00 Completed [facility] Polio (IPV/OPV) 2001-05-12 00:00:00 Completed [facility] Polio (IPV/OPV) 2001-05-12 00:00:00 Completed [facility] Polio (IPV/OPV) 2001-05-12 00:00:00 Completed [facility] Polio (IPV/OPV) 2001-05-12 00:00:00 Completed [facility] Polio (IPV/OPV) 2001-05-12 00:00:00 Completed [facility] Polio (IPV/OPV) 2001-05-12 00:00:00 Completed [facility] Polio (IPV/OPV) 2001-05-12 00:00:00 Completed [facility] Polio (IPV/OPV) 2001-05-12 00:00:00 Completed [facility] Polio (IPV/OPV) 2001-05-12 00:00:00 Completed [facility] Polio (IPV/OPV) 2001-05-12 00:00:00 Completed [facility] IPV 2001-05-12 00:00:00 Completed [facility] Polio (IPV/OPV) 2001-05-12 00:00:00 Completed [facility] IPV 2001-05-12 00:00:00 Completed [facility] Polio (IPV/OPV) 2001-05-12 00:00:00 Completed [facility] IPV 2001-05-12 00:00:00 Completed [facility] Polio (IPV/OPV) 2001-05-12 00:00:00 Completed [facility] IPV 2001-05-12 00:00:00 Completed [facility] Polio (IPV/OPV) 2001-05-12 00:00:00 Completed [facility] IPV 2001-05-12 00:00:00 Completed [facility] Polio (IPV/OPV) 2001-05-12 00:00:00 Completed [facility] IPV 2001-05-12 00:00:00 Completed [facility] Polio (IPV/OPV) 2001-05-12 00:00:00 Completed [facility] IPV 2001-05-12 00:00:00 Completed [facility] Polio (IPV/OPV) 2001-05-12 00:00:00 Completed [facility] IPV 2001-05-12 00:00:00 Completed [facility] Polio (IPV/OPV) 2001-05-12 00:00:00 Completed [facility] IPV 2001-05-12 00:00:00 Completed [facility] Polio (IPV/OPV) 2001-05-12 00:00:00 Completed [facility] IPV 2001-05-12 00:00:00 Completed [facility] Polio (IPV/OPV) 2001-05-12 00:00:00 Completed [facility] IPV 2001-05-12 00:00:00 Completed [facility] DTAP 2001-03-05 00:00:00 Completed [facility] HIB 3 Dose Schedule 2001-03-05 00:00:00 Completed [facility] Hep B, Adol or Pedi Dosage 2001-03-05 00:00:00 Completed [facility] DTAP 2001-03-05 00:00:00 Completed [facility] HIB 3 Dose Schedule 2001-03-05 00:00:00 Completed [facility] Hep B, Adol or Pedi Dosage 2001-03-05 00:00:00 Completed [facility] DTAP 2001-03-05 00:00:00 Completed [facility] HIB 3 Dose Schedule 2001-03-05 00:00:00 Completed [facility] Hep B, Adol or Pedi Dosage 2001-03-05 00:00:00 Completed [facility] DTAP 2001-03-05 00:00:00 Completed [facility] HIB 3 Dose Schedule 2001-03-05 00:00:00 Completed [facility] Hep B, Adol or Pedi Dosage 2001-03-05 00:00:00 Completed [facility] DTAP 2001-03-05 00:00:00 Completed [facility] HIB 3 Dose Schedule 2001-03-05 00:00:00 Completed [facility] Hep B, Adol or Pedi Dosage 2001-03-05 00:00:00 Completed [facility] DTAP 2001-03-05 00:00:00 Completed [facility] HIB 3 Dose Schedule 2001-03-05 00:00:00 Completed [facility] Hep B, Adol or Pedi Dosage 2001-03-05 00:00:00 Completed [facility] DTAP 2001-03-05 00:00:00 Completed [facility] HIB 3 Dose Schedule 2001-03-05 00:00:00 Completed [facility] Hep B, Adol or Pedi Dosage 2001-03-05 00:00:00 Completed [facility] DTAP 2001-03-05 00:00:00 Completed [facility] HIB 3 Dose Schedule 2001-03-05 00:00:00 Completed [facility] Hep B, Adol or Pedi Dosage 2001-03-05 00:00:00 Completed [facility] DTAP 2001-03-05 00:00:00 Completed [facility] HIB 3 Dose Schedule 2001-03-05 00:00:00 Completed [facility] Hep B, Adol or Pedi Dosage 2001-03-05 00:00:00 Completed [facility] DTAP 2001-03-05 00:00:00 Completed [facility] HIB 3 Dose Schedule 2001-03-05 00:00:00 Completed [facility] Hep B, Adol or Pedi Dosage 2001-03-05 00:00:00 Completed [facility] DTAP 2001-03-05 00:00:00 Completed [facility] HIB 3 Dose Schedule 2001-03-05 00:00:00 Completed [facility] Hep B, Adol or Pedi Dosage 2001-03-05 00:00:00 Completed [facility] DTAP 2001-03-05 00:00:00 Completed [facility] HIB 3 Dose Schedule 2001-03-05 00:00:00 Completed [facility] Hep B, Adol or Pedi Dosage 2001-03-05 00:00:00 Completed [facility] DTAP 2001-03-05 00:00:00 Completed [facility] HIB 3 Dose Schedule 2001-03-05 00:00:00 Completed [facility] Hep B, Adol or Pedi Dosage 2001-03-05 00:00:00 Completed [facility] DTAP 2001-03-05 00:00:00 Completed [facility] HIB 3 Dose Schedule 2001-03-05 00:00:00 Completed [facility] Hep B, Adol or Pedi Dosage 2001-03-05 00:00:00 Completed [facility] DTaP, Unspecified Formulation 2001-03-05 00:00:00 Completed [facility] HIB 4 Dose Schedule 2001-03-05 00:00:00 Completed [facility] DTAP 2001-03-05 00:00:00 Completed [facility] HIB 3 Dose Schedule 2001-03-05 00:00:00 Completed [facility] Hep B, Adol or Pedi Dosage 2001-03-05 00:00:00 Completed [facility] DTaP, Unspecified Formulation 2001-03-05 00:00:00 Completed [facility] HIB 4 Dose Schedule 2001-03-05 00:00:00 Completed [facility] DTAP 2001-03-05 00:00:00 Completed [facility] HIB 3 Dose Schedule 2001-03-05 00:00:00 Completed [facility] Hep B, Adol or Pedi Dosage 2001-03-05 00:00:00 Completed [facility] DTaP, Unspecified Formulation 2001-03-05 00:00:00 Completed [facility] HIB 4 Dose Schedule 2001-03-05 00:00:00 Completed [facility] DTAP 2001-03-05 00:00:00 Completed [facility] HIB 3 Dose Schedule 2001-03-05 00:00:00 Completed [facility] Hep B, Adol or Pedi Dosage 2001-03-05 00:00:00 Completed [facility] DTaP, Unspecified Formulation 2001-03-05 00:00:00 Completed [facility] HIB 4 Dose Schedule 2001-03-05 00:00:00 Completed [facility] DTAP 2001-03-05 00:00:00 Completed [facility] HIB 3 Dose Schedule 2001-03-05 00:00:00 Completed [facility] Hep B, Adol or Pedi Dosage 2001-03-05 00:00:00 Completed [facility] DTaP, Unspecified Formulation 2001-03-05 00:00:00 Completed [facility] HIB 4 Dose Schedule 2001-03-05 00:00:00 Completed [facility] DTAP 2001-03-05 00:00:00 Completed [facility] HIB 3 Dose Schedule 2001-03-05 00:00:00 Completed [facility] Hep B, Adol or Pedi Dosage 2001-03-05 00:00:00 Completed [facility] DTaP, Unspecified Formulation 2001-03-05 00:00:00 Completed [facility] HIB 4 Dose Schedule 2001-03-05 00:00:00 Completed [facility] DTAP 2001-03-05 00:00:00 Completed [facility] HIB 3 Dose Schedule 2001-03-05 00:00:00 Completed [facility] Hep B, Adol or Pedi Dosage 2001-03-05 00:00:00 Completed [facility] DTaP, Unspecified Formulation 2001-03-05 00:00:00 Completed [facility] HIB 4 Dose Schedule 2001-03-05 00:00:00 Completed [facility] DTAP 2001-03-05 00:00:00 Completed [facility] HIB 3 Dose Schedule 2001-03-05 00:00:00 Completed [facility] Hep B, Adol or Pedi Dosage 2001-03-05 00:00:00 Completed [facility] DTaP, Unspecified Formulation 2001-03-05 00:00:00 Completed [facility] HIB 4 Dose Schedule 2001-03-05 00:00:00 Completed [facility] DTAP 2001-03-05 00:00:00 Completed [facility] HIB 3 Dose Schedule 2001-03-05 00:00:00 Completed [facility] Hep B, Adol or Pedi Dosage 2001-03-05 00:00:00 Completed [facility] DTaP, Unspecified Formulation 2001-03-05 00:00:00 Completed [facility] HIB 4 Dose Schedule 2001-03-05 00:00:00 Completed [facility] DTAP 2001-03-05 00:00:00 Completed [facility] HIB 3 Dose Schedule 2001-03-05 00:00:00 Completed [facility] Hep B, Adol or Pedi Dosage 2001-03-05 00:00:00 Completed [facility] DTaP, Unspecified Formulation 2001-03-05 00:00:00 Completed [facility] HIB 4 Dose Schedule 2001-03-05 00:00:00 Completed [facility] DTAP 2001-03-05 00:00:00 Completed [facility] HIB 3 Dose Schedule 2001-03-05 00:00:00 Completed [facility] Hep B, Adol or Pedi Dosage 2001-03-05 00:00:00 Completed [facility] DTaP, Unspecified Formulation 2001-03-05 00:00:00 Completed [facility] HIB 4 Dose Schedule 2001-03-05 00:00:00 Completed [facility] Pneumococcal 13 Conjugate, PCV13 (Prevnar 13) 2000 00:00:00 Completed [facility] Pneumococcal 13 Conjugate, PCV13 (Prevnar 13) 2000 00:00:00 Completed [facility] Pneumococcal 13 Conjugate, PCV13 (Prevnar 13) 2000 00:00:00 Completed [facility] Pneumococcal 13 Conjugate, PCV13 (Prevnar 13) 2000 00:00:00 Completed [facility] Pneumococcal 13 Conjugate, PCV13 (Prevnar 13) 2000 00:00:00 Completed [facility] Pneumococcal 13 Conjugate, PCV13 (Prevnar 13) 2000 00:00:00 Completed [facility] Pneumococcal 13 Conjugate, PCV13 (Prevnar 13) 2000 00:00:00 Completed [facility] Pneumococcal 13 Conjugate, PCV13 (Prevnar 13) 2000 00:00:00 Completed [facility] Pneumococcal 13 Conjugate, PCV13 (Prevnar 13) 2000 00:00:00 Completed [facility] Pneumococcal 13 Conjugate, PCV13 (Prevnar 13) 2000 00:00:00 Completed [facility] Pneumococcal 13 Conjugate, PCV13 (Prevnar 13) 2000 00:00:00 Completed [facility] Pneumococcal 13 Conjugate, PCV13 (Prevnar 13) 2000 00:00:00 Completed [facility] Pneumococcal 13 Conjugate, PCV13 (Prevnar 13) 2000 00:00:00 Completed [facility] Pneumococcal 13 Conjugate, PCV13 (Prevnar 13) 2000 00:00:00 Completed [facility] Pneumococcal 13 Conjugate, PCV13 (Prevnar 13) 2000 00:00:00 Completed [facility] Pneumococcal 13 Conjugate, PCV13 (Prevnar 13) 2000 00:00:00 Completed [facility] Pneumococcal 13 Conjugate, PCV13 (Prevnar 13) 2000 00:00:00 Completed [facility] Pneumococcal 13 Conjugate, PCV13 (Prevnar 13) 2000 00:00:00 Completed [facility] Pneumococcal 13 Conjugate, PCV13 (Prevnar 13) 2000 00:00:00 Completed [facility] Pneumococcal 13 Conjugate, PCV13 (Prevnar 13) 2000 00:00:00 Completed [facility] Pneumococcal 13 Conjugate, PCV13 (Prevnar 13) 2000 00:00:00 Completed [facility] Pneumococcal 13 Conjugate, PCV13 (Prevnar 13) 2000 00:00:00 Completed [facility] Pneumococcal 13 Conjugate, PCV13 (Prevnar 13) 2000 00:00:00 Completed [facility] Pneumococcal 13 Conjugate, PCV13 (Prevnar 13) 2000 00:00:00 Completed [facility] Hep B, Adol or Pedi Dosage 2000 00:00:00 Completed [facility] Hep B, Adol or Pedi Dosage 2000 00:00:00 Completed [facility] Hep B, Adol or Pedi Dosage 2000 00:00:00 Completed [facility] Hep B, Adol or Pedi Dosage 2000 00:00:00 Completed [facility] Hep B, Adol or Pedi Dosage 2000 00:00:00 Completed [facility] Hep B, Adol or Pedi Dosage 2000 00:00:00 Completed [facility] Hep B, Adol or Pedi Dosage 2000 00:00:00 Completed [facility] Hep B, Adol or Pedi Dosage 2000 00:00:00 Completed [facility] Hep B, Adol or Pedi Dosage 2000 00:00:00 Completed [facility] Hep B, Adol or Pedi Dosage 2000 00:00:00 Completed [facility] Hep B, Adol or Pedi Dosage 2000 00:00:00 Completed [facility] Hep B, Adol or Pedi Dosage 2000 00:00:00 Completed [facility] Hep B, Adol or Pedi Dosage 2000 00:00:00 Completed [facility] Hep B, Adol or Pedi Dosage 2000 00:00:00 Completed [facility] Hep B, Adol or Pedi Dosage 2000 00:00:00 Completed [facility] Hep B, Adol or Pedi Dosage 2000 00:00:00 Completed [facility] Hep B, Adol or Pedi Dosage 2000 00:00:00 Completed [facility] Hep B, Adol or Pedi Dosage 2000 00:00:00 Completed [facility] Hep B, Adol or Pedi Dosage 2000 00:00:00 Completed [facility] Hep B, Adol or Pedi Dosage 2000 00:00:00 Completed [facility] Hep B, Adol or Pedi Dosage 2000 00:00:00 Completed [facility] Hep B, Adol or Pedi Dosage 2000 00:00:00 Completed [facility] Hep B, Adol or Pedi Dosage 2000 00:00:00 Completed [facility] Hep B, Adol or Pedi Dosage 2000 00:00:00 Completed [facility] DTAP Unknown Completed [facility] DTAP Unknown Completed [facility] DTAP Unknown Completed [facility] HIB 3 Dose Schedule Unknown Completed [facility] HIB 3 Dose Schedule Unknown Completed [facility] HEPATITIS A Unknown Completed [facility] HEPATITIS A Unknown Completed [facility] HEPATITIS A Unknown Completed [facility] Hep B, Adol or Pedi Dosage Unknown Completed [facility] Hep B, Adol or Pedi Dosage Unknown Completed [facility] HPV Unknown Completed [facility] Meningococcal Vaccine Unknown Completed [facility] Meningococcal Vaccine Unknown Completed [facility] Meningococcal Vaccine Unknown Completed [facility] MMR Unknown Completed [facility] MMR Unknown Completed [facility] Polio (IPV/OPV) Unknown Completed [facility] Polio (IPV/OPV) Unknown Completed [facility] TDAP Unknown Completed [facility] Varicella (varivax)(chicken pox) Unknown Completed [facility] Pneumococcal 13 Conjugate, PCV13 (Prevnar 13) Unknown Completed [facility] Pneumococcal 13 Conjugate, PCV13 (Prevnar 13) Unknown Completed [facility] DTaP, Unspecified Formulation Unknown Completed [facility] DTaP, Unspecified Formulation Unknown Completed [facility] DTaP, Unspecified Formulation Unknown Completed [facility] HIB 4 Dose Schedule Unknown Completed [facility] HIB 4 Dose Schedule Unknown Completed [facility] Meningococcal Polysaccharide (groups A, C, Y and W-135) conjugate vaccine (MCV4P) Unknown Completed [facility] IPV Unknown Completed [facility] IPV Unknown Completed [facility] DTAP Unknown Completed [facility] DTAP Unknown Completed [facility] DTAP Unknown Completed [facility] HIB 3 Dose Schedule Unknown Completed [facility] HIB 3 Dose Schedule Unknown Completed [facility] HEPATITIS A Unknown Completed [facility] HEPATITIS A Unknown Completed [facility] HEPATITIS A Unknown Completed [facility] Hep B, Adol or Pedi Dosage Unknown Completed [facility] Hep B, Adol or Pedi Dosage Unknown Completed [facility] HPV Unknown Completed [facility] Meningococcal Vaccine Unknown Completed [facility] Meningococcal Vaccine Unknown Completed [facility] Meningococcal Vaccine Unknown Completed [facility] MMR Unknown Completed [facility] MMR Unknown Completed [facility] Polio (IPV/OPV) Unknown Completed [facility] Polio (IPV/OPV) Unknown Completed [facility] TDAP Unknown Completed [facility] Varicella (varivax)(chicken pox) Unknown Completed [facility] Pneumococcal 13 Conjugate, PCV13 (Prevnar 13) Unknown Completed [facility] Pneumococcal 13 Conjugate, PCV13 (Prevnar 13) Unknown Completed [facility] DTaP, Unspecified Formulation Unknown Completed [facility] DTaP, Unspecified Formulation Unknown Completed [facility] DTaP, Unspecified Formulation Unknown Completed [facility] HIB 4 Dose Schedule Unknown Completed [facility] HIB 4 Dose Schedule Unknown Completed [facility] Meningococcal Polysaccharide (groups A, C, Y and W-135) conjugate vaccine (MCV4P) Unknown Completed [facility] IPV Unknown Completed [facility] IPV Unknown Completed [facility] DTAP Unknown Completed [facility] DTAP Unknown Completed [facility] DTAP Unknown Completed [facility] HIB 3 Dose Schedule Unknown Completed [facility] HIB 3 Dose Schedule Unknown Completed [facility] HEPATITIS A Unknown Completed [facility] HEPATITIS A Unknown Completed [facility] HEPATITIS A Unknown Completed [facility] Hep B, Adol or Pedi Dosage Unknown Completed [facility] Hep B, Adol or Pedi Dosage Unknown Completed [facility] HPV Unknown Completed [facility] Meningococcal Vaccine Unknown Completed [facility] Meningococcal Vaccine Unknown Completed [facility] Meningococcal Vaccine Unknown Completed [facility] MMR Unknown Completed [facility] MMR Unknown Completed [facility] Polio (IPV/OPV) Unknown Completed [facility] Polio (IPV/OPV) Unknown Completed [facility] TDAP Unknown Completed [facility] Varicella (varivax)(chicken pox) Unknown Completed [facility] Pneumococcal 13 Conjugate, PCV13 (Prevnar 13) Unknown Completed [facility] Pneumococcal 13 Conjugate, PCV13 (Prevnar 13) Unknown Completed [facility] DTaP, Unspecified Formulation Unknown Completed [facility] DTaP, Unspecified Formulation Unknown Completed [facility] DTaP, Unspecified Formulation Unknown Completed [facility] HIB 4 Dose Schedule Unknown Completed [facility] HIB 4 Dose Schedule Unknown Completed [facility] Meningococcal Polysaccharide (groups A, C, Y and W-135) conjugate vaccine (MCV4P) Unknown Completed [facility] IPV Unknown Completed [facility] IPV Unknown Completed [facility] DTAP Unknown Completed [facility] DTAP Unknown Completed [facility] DTAP Unknown Completed [facility] HIB 3 Dose Schedule Unknown Completed [facility] HIB 3 Dose Schedule Unknown Completed [facility] HEPATITIS A Unknown Completed [facility] HEPATITIS A Unknown Completed [facility] HEPATITIS A Unknown Completed [facility] Hep B, Adol or Pedi Dosage Unknown Completed [facility] Hep B, Adol or Pedi Dosage Unknown Completed [facility] HPV Unknown Completed [facility] Meningococcal Vaccine Unknown Completed [facility] Meningococcal Vaccine Unknown Completed [facility] Meningococcal Vaccine Unknown Completed [facility] MMR Unknown Completed [facility] MMR Unknown Completed [facility] Polio (IPV/OPV) Unknown Completed [facility] Polio (IPV/OPV) Unknown Completed [facility] TDAP Unknown Completed [facility] Varicella (varivax)(chicken pox) Unknown Completed [facility] Pneumococcal 13 Conjugate, PCV13 (Prevnar 13) Unknown Completed [facility] Pneumococcal 13 Conjugate, PCV13 (Prevnar 13) Unknown Completed [facility] DTaP, Unspecified Formulation Unknown Completed [facility] DTaP, Unspecified Formulation Unknown Completed [facility] DTaP, Unspecified Formulation Unknown Completed [facility] HIB 4 Dose Schedule Unknown Completed [facility] HIB 4 Dose Schedule Unknown Completed [facility] Meningococcal Polysaccharide (groups A, C, Y and W-135) conjugate vaccine (MCV4P) Unknown Completed [facility] IPV Unknown Completed [facility] IPV Unknown Completed [facility] DTAP Unknown Completed [facility] DTAP Unknown Completed [facility] DTAP Unknown Completed [facility] HIB 3 Dose Schedule Unknown Completed [facility] HIB 3 Dose Schedule Unknown Completed [facility] HEPATITIS A Unknown Completed [facility] HEPATITIS A Unknown Completed [facility] HEPATITIS A Unknown Completed [facility] Hep B, Adol or Pedi Dosage Unknown Completed [facility] Hep B, Adol or Pedi Dosage Unknown Completed [facility] HPV Unknown Completed [facility] Meningococcal Vaccine Unknown Completed [facility] Meningococcal Vaccine Unknown Completed [facility] Meningococcal Vaccine Unknown Completed [facility] MMR Unknown Completed [facility] MMR Unknown Completed [facility] Polio (IPV/OPV) Unknown Completed [facility] Polio (IPV/OPV) Unknown Completed [facility] TDAP Unknown Completed [facility] Varicella (varivax)(chicken pox) Unknown Completed [facility] Pneumococcal 13 Conjugate, PCV13 (Prevnar 13) Unknown Completed [facility] Pneumococcal 13 Conjugate, PCV13 (Prevnar 13) Unknown Completed [facility] DTaP, Unspecified Formulation Unknown Completed [facility] DTaP, Unspecified Formulation Unknown Completed [facility] DTaP, Unspecified Formulation Unknown Completed [facility] HIB 4 Dose Schedule Unknown Completed [facility] HIB 4 Dose Schedule Unknown Completed [facility] Meningococcal Polysaccharide (groups A, C, Y and W-135) conjugate vaccine (MCV4P) Unknown Completed [facility] IPV Unknown Completed [facility] IPV Unknown Completed [facility] DTAP Unknown Completed [facility] DTAP Unknown Completed [facility] DTAP Unknown Completed [facility] HIB 3 Dose Schedule Unknown Completed [facility] HIB 3 Dose Schedule Unknown Completed [facility] HEPATITIS A Unknown Completed [facility] HEPATITIS A Unknown Completed [facility] HEPATITIS A Unknown Completed [facility] Hep B, Adol or Pedi Dosage Unknown Completed [facility] Hep B, Adol or Pedi Dosage Unknown Completed [facility] HPV Unknown Completed [facility] Meningococcal Vaccine Unknown Completed [facility] Meningococcal Vaccine Unknown Completed [facility] Meningococcal Vaccine Unknown Completed [facility] MMR Unknown Completed [facility] MMR Unknown Completed [facility] Polio (IPV/OPV) Unknown Completed [facility] Polio (IPV/OPV) Unknown Completed [facility] TDAP Unknown Completed [facility] Varicella (varivax)(chicken pox) Unknown Completed [facility] Pneumococcal 13 Conjugate, PCV13 (Prevnar 13) Unknown Completed [facility] Pneumococcal 13 Conjugate, PCV13 (Prevnar 13) Unknown Completed [facility] DTaP, Unspecified Formulation Unknown Completed [facility] DTaP, Unspecified Formulation Unknown Completed [facility] DTaP, Unspecified Formulation Unknown Completed [facility] HIB 4 Dose Schedule Unknown Completed [facility] HIB 4 Dose Schedule Unknown Completed [facility] Meningococcal Polysaccharide (groups A, C, Y and W-135) conjugate vaccine (MCV4P) Unknown Completed [facility] IPV Unknown Completed [facility] IPV Unknown Completed [facility] DTAP Unknown Completed [facility] DTAP Unknown Completed [facility] DTAP Unknown Completed [facility] HIB 3 Dose Schedule Unknown Completed [facility] HIB 3 Dose Schedule Unknown Completed [facility] HEPATITIS A Unknown Completed [facility] HEPATITIS A Unknown Completed [facility] HEPATITIS A Unknown Completed [facility] Hep B, Adol or Pedi Dosage Unknown Completed [facility] Hep B, Adol or Pedi Dosage Unknown Completed [facility] HPV Unknown Completed [facility] Meningococcal Vaccine Unknown Completed [facility] Meningococcal Vaccine Unknown Completed [facility] Meningococcal Vaccine Unknown Completed [facility] MMR Unknown Completed [facility] MMR Unknown Completed [facility] Polio (IPV/OPV) Unknown Completed [facility] Polio (IPV/OPV) Unknown Completed [facility] TDAP Unknown Completed [facility] Varicella (varivax)(chicken pox) Unknown Completed [facility] Pneumococcal 13 Conjugate, PCV13 (Prevnar 13) Unknown Completed [facility] Pneumococcal 13 Conjugate, PCV13 (Prevnar 13) Unknown Completed [facility] Influenza Virus Vaccine Quad IM, Preserv and ABX Free 6 MO-64 YRS (FLUCELVAX) Unknown Completed [facility] DTaP, Unspecified Formulation Unknown Completed [facility] DTaP, Unspecified Formulation Unknown Completed [facility] DTaP, Unspecified Formulation Unknown Completed [facility] HIB 4 Dose Schedule Unknown Completed [facility] HIB 4 Dose Schedule Unknown Completed [facility] Meningococcal Polysaccharide (groups A, C, Y and W-135) conjugate vaccine (MCV4P) Unknown Completed [facility] IPV Unknown Completed [facility] IPV Unknown Completed [facility] TDAP Unknown Completed [facility] DTAP Unknown Completed [facility] DTAP Unknown Completed [facility] DTAP Unknown Completed [facility] HIB 3 Dose Schedule Unknown Completed [facility] HIB 3 Dose Schedule Unknown Completed [facility] HEPATITIS A Unknown Completed [facility] HEPATITIS A Unknown Completed [facility] HEPATITIS A Unknown Completed [facility] Hep B, Adol or Pedi Dosage Unknown Completed [facility] Hep B, Adol or Pedi Dosage Unknown Completed [facility] HPV Unknown Completed [facility] Meningococcal Vaccine Unknown Completed [facility] Meningococcal Vaccine Unknown Completed [facility] Meningococcal Vaccine Unknown Completed [facility] MMR Unknown Completed [facility] MMR Unknown Completed [facility] Polio (IPV/OPV) Unknown Completed [facility] Polio (IPV/OPV) Unknown Completed [facility] TDAP Unknown Completed [facility] Varicella (varivax)(chicken pox) Unknown Completed [facility] Pneumococcal 13 Conjugate, PCV13 (Prevnar 13) Unknown Completed [facility] Pneumococcal 13 Conjugate, PCV13 (Prevnar 13) Unknown Completed [facility] Influenza Virus Vaccine Quad IM, Preserv and ABX Free 6 MO-64 YRS (FLUCELVAX) Unknown Completed [facility] DTaP, Unspecified Formulation Unknown Completed [facility] DTaP, Unspecified Formulation Unknown Completed [facility] DTaP, Unspecified Formulation Unknown Completed [facility] HIB 4 Dose Schedule Unknown Completed [facility] HIB 4 Dose Schedule Unknown Completed [facility] Meningococcal Polysaccharide (groups A, C, Y and W-135) conjugate vaccine (MCV4P) Unknown Completed [facility] IPV Unknown Completed [facility] IPV Unknown Completed [facility] TDAP Unknown Completed [facility] DTAP Unknown Completed [facility] DTAP Unknown Completed [facility] DTAP Unknown Completed [facility] HIB 3 Dose Schedule Unknown Completed [facility] HIB 3 Dose Schedule Unknown Completed [facility] HEPATITIS A Unknown Completed [facility] HEPATITIS A Unknown Completed [facility] HEPATITIS A Unknown Completed [facility] Hep B, Adol or Pedi Dosage Unknown Completed [facility] Hep B, Adol or Pedi Dosage Unknown Completed [facility] HPV Unknown Completed [facility] Meningococcal Vaccine Unknown Completed [facility] Meningococcal Vaccine Unknown Completed [facility] Meningococcal Vaccine Unknown Completed [facility] MMR Unknown Completed [facility] MMR Unknown Completed [facility] Polio (IPV/OPV) Unknown Completed [facility] Polio (IPV/OPV) Unknown Completed [facility] TDAP Unknown Completed [facility] Varicella (varivax)(chicken pox) Unknown Completed [facility] Pneumococcal 13 Conjugate, PCV13 (Prevnar 13) Unknown Completed [facility] Pneumococcal 13 Conjugate, PCV13 (Prevnar 13) Unknown Completed [facility] Influenza Virus Vaccine Quad IM, Preserv and ABX Free 6 MO-64 YRS (FLUCELVAX) Unknown Completed [facility] DTaP, Unspecified Formulation Unknown Completed [facility] DTaP, Unspecified Formulation Unknown Completed [facility] DTaP, Unspecified Formulation Unknown Completed [facility] HIB 4 Dose Schedule Unknown Completed [facility] HIB 4 Dose Schedule Unknown Completed [facility] Meningococcal Polysaccharide (groups A, C, Y and W-135) conjugate vaccine (MCV4P) Unknown Completed [facility] IPV Unknown Completed [facility] IPV Unknown Completed [facility] TDAP Unknown Completed [facility] DTAP Unknown Completed [facility] DTAP Unknown Completed [facility] DTAP Unknown Completed [facility] HIB 3 Dose Schedule Unknown Completed [facility] HIB 3 Dose Schedule Unknown Completed [facility] HEPATITIS A Unknown Completed [facility] HEPATITIS A Unknown Completed [facility] HEPATITIS A Unknown Completed [facility] Hep B, Adol or Pedi Dosage Unknown Completed [facility] Hep B, Adol or Pedi Dosage Unknown Completed [facility] HPV Unknown Completed [facility] Meningococcal Vaccine Unknown Completed [facility] Meningococcal Vaccine Unknown Completed [facility] Meningococcal Vaccine Unknown Completed [facility] MMR Unknown Completed [facility] MMR Unknown Completed [facility] Polio (IPV/OPV) Unknown Completed [facility] Polio (IPV/OPV) Unknown Completed [facility] TDAP Unknown Completed [facility] Varicella (varivax)(chicken pox) Unknown Completed [facility] Pneumococcal 13 Conjugate, PCV13 (Prevnar 13) Unknown Completed [facility] Pneumococcal 13 Conjugate, PCV13 (Prevnar 13) Unknown Completed [facility] Influenza Virus Vaccine Quad IM, Preserv and ABX Free 6 MO-64 YRS (FLUCELVAX) Unknown Completed [facility] DTaP, Unspecified Formulation Unknown Completed [facility] DTaP, Unspecified Formulation Unknown Completed [facility] DTaP, Unspecified Formulation Unknown Completed [facility] HIB 4 Dose Schedule Unknown Completed [facility] HIB 4 Dose Schedule Unknown Completed [facility] Meningococcal Polysaccharide (groups A, C, Y and W-135) conjugate vaccine (MCV4P) Unknown Completed [facility] IPV Unknown Completed [facility] IPV Unknown Completed [facility] TDAP Unknown Completed [facility] DTAP Unknown Completed [facility] DTAP Unknown Completed [facility] DTAP Unknown Completed [facility] HIB 3 Dose Schedule Unknown Completed [facility] HIB 3 Dose Schedule Unknown Completed [facility] HEPATITIS A Unknown [facility] HEPATITIS A Unknown Completed [facility] HEPATITIS A Unknown Completed [facility] Hep B, Adol or Pedi Dosage Unknown Completed [facility] Hep B, Adol or Pedi Dosage Unknown Completed [facility] HPV Unknown Completed [facility] Meningococcal Vaccine Unknown Completed [facility] Meningococcal Vaccine Unknown Completed [facility] Meningococcal Vaccine Unknown Completed [facility] MMR Unknown Completed [facility] MMR Unknown Completed [facility] Polio (IPV/OPV) Unknown Completed [facility] Polio (IPV/OPV) Unknown Completed [facility] TDAP Unknown Completed [facility] Varicella (varivax)(chicken pox) Unknown Completed [facility] Pneumococcal 13 Conjugate, PCV13 (Prevnar 13) Unknown Completed [facility] Pneumococcal 13 Conjugate, PCV13 (Prevnar 13) Unknown Completed [facility] Influenza Virus Vaccine Quad IM, Preserv and ABX Free 6 MO-64 YRS (FLUCELVAX) Unknown Completed [facility] DTaP, Unspecified Formulation Unknown Completed [facility] DTaP, Unspecified Formulation Unknown Completed [facility] DTaP, Unspecified Formulation Unknown Completed [facility] HIB 4 Dose Schedule Unknown Completed [facility] HIB 4 Dose Schedule Unknown Completed [facility] Meningococcal Polysaccharide (groups A, C, Y and W-135) conjugate vaccine (MCV4P) Unknown Completed [facility] IPV Unknown Completed [facility] IPV Unknown Completed [facility] TDAP Unknown Completed [facility] DTAP Unknown Completed [facility] DTAP Unknown Completed [facility] DTAP Unknown Completed [facility] HIB 3 Dose Schedule Unknown Completed [facility] HIB 3 Dose Schedule Unknown Completed [facility] HEPATITIS A Unknown Completed [facility] HEPATITIS A Unknown Completed [facility] HEPATITIS A Unknown Completed [facility] Hep B, Adol or Pedi Dosage Unknown Completed [facility] Hep B, Adol or Pedi Dosage Unknown Completed [facility] HPV Unknown Completed [facility] Meningococcal Vaccine Unknown Completed [facility] Meningococcal Vaccine Unknown Completed [facility] Meningococcal Vaccine Unknown Completed [facility] MMR Unknown Completed [facility] MMR Unknown Completed [facility] Polio (IPV/OPV) Unknown Completed [facility] Polio (IPV/OPV) Unknown Completed [facility] TDAP Unknown Completed [facility] Varicella (varivax)(chicken pox) Unknown Completed [facility] Pneumococcal 13 Conjugate, PCV13 (Prevnar 13) Unknown Completed [facility] Pneumococcal 13 Conjugate, PCV13 (Prevnar 13) Unknown Completed [facility] Influenza Virus Vaccine Quad IM, Preserv and ABX Free 6 MO-64 YRS (FLUCELVAX) Unknown Completed [facility] DTaP, Unspecified Formulation Unknown Completed [facility] DTaP, Unspecified Formulation Unknown Completed [facility] DTaP, Unspecified Formulation Unknown Completed [facility] HIB 4 Dose Schedule Unknown Completed [facility] HIB 4 Dose Schedule Unknown Completed [facility] Meningococcal Polysaccharide (groups A, C, Y and W-135) conjugate vaccine (MCV4P) Unknown Completed [facility] IPV Unknown Completed [facility] IPV Unknown Completed [facility] TDAP Unknown Completed [facility] DTAP Unknown Completed [facility] DTAP Unknown Completed [facility] DTAP Unknown Completed [facility] HIB 3 Dose Schedule Unknown Completed [facility] HIB 3 Dose Schedule Unknown Completed [facility] HEPATITIS A Unknown Completed [facility] HEPATITIS A Unknown Completed [facility] HEPATITIS A Unknown Completed [facility] Hep B, Adol or Pedi Dosage Unknown Completed [facility] Hep B, Adol or Pedi Dosage Unknown Completed [facility] HPV Unknown Completed [facility] Meningococcal Vaccine Unknown Completed [facility] Meningococcal Vaccine Unknown Completed [facility] Meningococcal Vaccine Unknown Completed [facility] MMR Unknown Completed [facility] MMR Unknown Completed [facility] Polio (IPV/OPV) Unknown Completed [facility] Polio (IPV/OPV) Unknown Completed [facility] TDAP Unknown Completed [facility] Varicella (varivax)(chicken pox) Unknown Completed [facility] Pneumococcal 13 Conjugate, PCV13 (Prevnar 13) Unknown Completed [facility] Pneumococcal 13 Conjugate, PCV13 (Prevnar 13) Unknown Completed [facility] Influenza Virus Vaccine Quad IM, Preserv and ABX Free 6 MO-64 YRS (FLUCELVAX) Unknown Completed [facility] DTaP, Unspecified Formulation Unknown Completed [facility] DTaP, Unspecified Formulation Unknown Completed [facility] DTaP, Unspecified Formulation Unknown Completed [facility] HIB 4 Dose Schedule Unknown Completed [facility] HIB 4 Dose Schedule Unknown Completed [facility] Meningococcal Polysaccharide (groups A, C, Y and W-135) conjugate vaccine (MCV4P) Unknown Completed [facility] IPV Unknown Completed [facility] IPV Unknown Completed [facility] TDAP Unknown Completed [facility] DTAP Unknown Completed [facility] DTAP Unknown Completed [facility] DTAP Unknown Completed [facility] HIB 3 Dose Schedule Unknown Completed [facility] HIB 3 Dose Schedule Unknown Completed [facility] HEPATITIS A Unknown Completed [facility] HEPATITIS A Unknown Completed [facility] HEPATITIS A Unknown Completed [facility] Hep B, Adol or Pedi Dosage Unknown Completed [facility] Hep B, Adol or Pedi Dosage Unknown Completed [facility] HPV Unknown Completed [facility] Meningococcal Vaccine Unknown Completed [facility] Meningococcal Vaccine Unknown Completed [facility] Meningococcal Vaccine Unknown Completed [facility] MMR Unknown Completed [facility] MMR Unknown Completed [facility] Polio (IPV[facility]OPV) [facility] TDAP Unknown Completed [facility] Varicella (varivax)(chicken pox) Unknown Completed [facility] Pneumococcal 13 Conjugate, PCV13 (Prevnar 13) Unknown Completed [facility] Pneumococcal 13 Conjugate, PCV13 (Prevnar 13) Unknown Completed [facility] Influenza Virus Vaccine Quad IM, Preserv and ABX Free 6 MO-64 YRS (FLUCELVAX) Unknown Completed [facility] DTaP, Unspecified Formulation Unknown Completed [facility] DTaP, Unspecified Formulation Unknown Completed [facility] DTaP, Unspecified Formulation Unknown Completed [facility] HIB 4 Dose Schedule Unknown Completed [facility] HIB 4 Dose Schedule Unknown Completed [facility] Meningococcal Polysaccharide (groups A, C, Y and W-135) conjugate vaccine (MCV4P) Unknown Completed [facility] IPV Unknown Completed [facility] IPV Unknown Completed [facility] TDAP Unknown Completed [facility] DTAP Unknown Completed [facility] DTAP Unknown Completed [facility] DTAP Unknown Completed [facility] HIB 3 Dose Schedule Unknown Completed [facility] HIB 3 Dose Schedule Unknown Completed [facility] HEPATITIS A Unknown Completed [facility] HEPATITIS A Unknown Completed [facility] HEPATITIS A Unknown Completed [facility] Hep B, Adol or Pedi Dosage Unknown Completed [facility] Hep B, Adol or Pedi Dosage Unknown Completed [facility] HPV Unknown Completed [facility] Meningococcal Vaccine Unknown Completed [facility] Meningococcal Vaccine Unknown Completed [facility] Meningococcal Vaccine Unknown Completed [facility] MMR Unknown Completed [facility] MMR Unknown Completed [facility] Polio (IPV/OPV) Unknown Completed [facility] Polio (IPV/OPV) Unknown Completed [facility] TDAP Unknown Completed [facility] Varicella (varivax)(chicken pox) Unknown Completed [facility] Pneumococcal 13 Conjugate, PCV13 (Prevnar 13) Unknown Completed [facility] Pneumococcal 13 Conjugate, PCV13 (Prevnar 13) Unknown Completed [facility] Influenza Virus Vaccine Quad IM, Preserv and ABX Free 6 MO-64 YRS (FLUCELVAX) Unknown Completed [facility] DTaP, Unspecified Formulation Unknown Completed [facility] DTaP, Unspecified Formulation Unknown Completed [facility] DTaP, Unspecified Formulation Unknown Completed [facility] HIB 4 Dose Schedule Unknown Completed [facility] HIB 4 Dose Schedule Unknown Completed [facility] Meningococcal Polysaccharide (groups A, C, Y and W-135) conjugate vaccine (MCV4P) Unknown Completed [facility] IPV Unknown Completed [facility] IPV Unknown Completed [facility] TDAP Unknown Completed [facility] DTAP Unknown Completed [facility] DTAP Unknown Completed [facility] DTAP Unknown Completed [facility] HIB 3 Dose Schedule Unknown Completed [facility] HIB 3 Dose Schedule Unknown Completed [facility] HEPATITIS A Unknown Completed [facility] HEPATITIS A Unknown Completed [facility] HEPATITIS A Unknown Completed [facility] Hep B, Adol or Pedi Dosage Unknown Completed [facility] Hep B, Adol or Pedi Dosage Unknown Completed [facility] HPV Unknown Completed [facility] Meningococcal Vaccine Unknown Completed [facility] Meningococcal Vaccine Unknown Completed [facility] Meningococcal Vaccine Unknown Completed [facility] MMR Unknown Completed [facility] MMR Unknown Completed [facility] Polio (IPV/OPV) Unknown Completed [facility] Polio (IPV/OPV) Unknown Completed [facility] TDAP Unknown Completed [facility] Varicella (varivax)(chicken pox) Unknown Completed [facility] Pneumococcal 13 Conjugate, PCV13 (Prevnar 13) Unknown Completed [facility] Pneumococcal 13 Conjugate, PCV13 (Prevnar 13) Unknown Completed [facility] Influenza Virus Vaccine Quad IM, Preserv and ABX Free 6 MO-64 YRS (FLUCELVAX) Unknown Completed [facility] DTaP, Unspecified Formulation Unknown Completed [facility] DTaP, Unspecified Formulation Unknown Completed [facility] DTaP, Unspecified Formulation Unknown Completed [facility] HIB 4 Dose Schedule Unknown Completed [facility] HIB 4 Dose Schedule Unknown Completed [facility] Meningococcal Polysaccharide (groups A, C, Y and W-135) conjugate vaccine (MCV4P) Unknown Completed [facility] IPV Unknown Completed [facility] IPV Unknown Completed [facility] TDAP Unknown Completed [facility] DTAP Unknown Completed [facility] DTAP Unknown Completed [facility] DTAP Unknown Completed [facility] HIB 3 Dose Schedule Unknown Completed [facility] HIB 3 Dose Schedule Unknown Completed [facility] HEPATITIS A Unknown Completed [facility] HEPATITIS A Unknown Completed [facility] HEPATITIS A Unknown Completed [facility] Hep B, Adol or Pedi Dosage Unknown Completed [facility] Hep B, Adol or Pedi Dosage Unknown Completed [facility] HPV Unknown Completed [facility] Meningococcal Vaccine Unknown Completed [facility] Meningococcal Vaccine Unknown Completed [facility] Meningococcal Vaccine Unknown Completed [facility] MMR Unknown Completed [facility] MMR Unknown Completed [facility] Polio (IPV/OPV) Unknown Completed [facility] Polio (IPV/OPV) Unknown Completed [facility] TDAP Unknown Completed [facility] Varicella (varivax)(chicken pox) Unknown Completed [facility] Pneumococcal 13 Conjugate, PCV13 (Prevnar 13) Unknown Completed [facility] Pneumococcal 13 Conjugate, PCV13 (Prevnar 13) Unknown Completed [facility] [facility] Influenza Virus Vaccine Quad IM, Preserv and ABX Free 6 MO-64 YRS (FLUCELVAX) Unknown Completed [facility] DTaP, Unspecified Formulation Unknown Completed [facility] DTaP, Unspecified Formulation Unknown Completed [facility] DTaP, Unspecified Formulation Unknown Completed [facility] HIB 4 Dose Schedule Unknown Completed [facility] HIB 4 Dose Schedule Unknown Completed [facility] Meningococcal Polysaccharide (groups A, C, Y and W-135) conjugate vaccine (MCV4P) Unknown Completed [facility] IPV Unknown Completed [facility] IPV Unknown Completed [facility] TDAP Unknown Completed [facility] DTAP Unknown Completed [facility] DTAP Unknown Completed [facility] DTAP Unknown Completed [facility] HIB 3 Dose Schedule Unknown Completed [facility] HIB 3 Dose Schedule Unknown Completed [facility] HEPATITIS A Unknown Completed [facility] HEPATITIS A Unknown Completed [facility] HEPATITIS A Unknown Completed [facility] Hep B, Adol or Pedi Dosage Unknown Completed [facility] Hep B, Adol or Pedi Dosage Unknown Completed [facility] HPV Unknown Completed [facility] Meningococcal Vaccine Unknown Completed [facility] Meningococcal Vaccine Unknown Completed [facility] Meningococcal Vaccine Unknown Completed [facility] MMR Unknown Completed [facility] MMR Unknown Completed [facility] Polio (IPV/OPV) Unknown Completed [facility] Polio (IPV/OPV) Unknown Completed [facility] TDAP Unknown Completed [facility] Varicella (varivax)(chicken pox) Unknown Completed [facility] Pneumococcal 13 Conjugate, PCV13 (Prevnar 13) Unknown Completed [facility] Pneumococcal 13 Conjugate, PCV13 (Prevnar 13) Unknown Completed [facility] Influenza Virus Vaccine Quad IM, Preserv and ABX Free 6 MO-64 YRS (FLUCELVAX) Unknown Completed [facility] DTaP, Unspecified Formulation Unknown Completed [facility] DTaP, Unspecified Formulation Unknown Completed [facility] DTaP, Unspecified Formulation Unknown Completed [facility] HIB 4 Dose Schedule Unknown Completed [facility] HIB 4 Dose Schedule Unknown Completed [facility] Meningococcal Polysaccharide (groups A, C, Y and W-135) conjugate vaccine (MCV4P) Unknown Completed [facility] IPV Unknown Completed [facility] IPV Unknown Completed [facility] TDAP Unknown Completed [facility] DTAP Unknown Completed [facility] DTAP Unknown Completed [facility] DTAP Unknown Completed [facility] HIB 3 Dose Schedule Unknown Completed [facility] HIB 3 Dose Schedule Unknown Completed [facility] HEPATITIS A Unknown Completed [facility] HEPATITIS A Unknown Completed [facility] HEPATITIS A Unknown Completed [facility] Hep B, Adol or Pedi Dosage Unknown Completed [facility] Hep B, Adol or Pedi Dosage Unknown Completed [facility] HPV Unknown Completed [facility] Meningococcal Vaccine Unknown Completed [facility] Meningococcal Vaccine Unknown Completed [facility] Meningococcal Vaccine Unknown Completed [facility] MMR Unknown Completed [facility] MMR Unknown Completed [facility] Polio (IPV/OPV) Unknown Completed [facility] Polio (IPV/OPV) Unknown Completed [facility] TDAP Unknown Completed [facility] Varicella (varivax)(chicken pox) Unknown Completed [facility] Pneumococcal 13 Conjugate, PCV13 (Prevnar 13) Unknown Completed [facility] Pneumococcal 13 Conjugate, PCV13 (Prevnar 13) Unknown Completed [facility] Influenza Virus Vaccine Quad IM, Preserv and ABX Free 6 MO-64 YRS (FLUCELVAX) Unknown Completed [facility] DTaP, Unspecified Formulation Unknown Completed [facility] DTaP, Unspecified Formulation Unknown Completed [facility] DTaP, Unspecified Formulation Unknown Completed [facility] HIB 4 Dose Schedule Unknown Completed [facility] HIB 4 Dose Schedule Unknown Completed [facility] Meningococcal Polysaccharide (groups A, C, Y and W-135) conjugate vaccine (MCV4P) Unknown Completed [facility] IPV Unknown Completed [facility] IPV Unknown Completed [facility] TDAP Unknown Completed [facility] DTAP Unknown Completed [facility] DTAP Unknown Completed [facility] DTAP Unknown Completed [facility] HIB 3 Dose Schedule Unknown Completed [facility] HIB 3 Dose Schedule Unknown Completed [facility] HEPATITIS A Unknown Completed [facility] HEPATITIS A Unknown Completed [facility] HEPATITIS A Unknown Completed [facility] Hep B, Adol or Pedi Dosage Unknown Completed [facility] Hep B, Adol or Pedi Dosage Unknown Completed [facility] HPV Unknown Completed [facility] Meningococcal Vaccine Unknown Completed [facility] Meningococcal Vaccine Unknown Completed [facility] Meningococcal Vaccine Unknown Completed [facility] MMR Unknown Completed [facility] MMR Unknown Completed [facility] Polio (IPV/OPV) Unknown Completed [facility] Polio (IPV/OPV) Unknown Completed [facility] TDAP Unknown Completed [facility] Varicella (varivax)(chicken pox) Unknown Completed [facility] Pneumococcal 13 Conjugate, PCV13 (Prevnar 13) Unknown Completed [facility] Pneumococcal 13 Conjugate, PCV13 (Prevnar 13) Unknown Completed [facility] Influenza Virus Vaccine Quad IM, Preserv and ABX Free 6 MO-64 YRS (FLUCELVAX) Unknown Completed [facility] DTaP, Unspecified Formulation Unknown Completed [facility] DTaP, Unspecified Formulation Unknown Completed [facility] DTaP, Unspecified Formulation Unknown Completed [facility] HIB 4 Dose Schedule Unknown Completed [facility] HIB 4 Dose Schedule Unknown Completed [facility] Meningococcal Polysaccharide (groups A, C, Y and W-135) conjugate vaccine (MCV4P) Unknown Completed [facility] IPV Unknown Completed [facility] IPV Unknown Completed [facility] TDAP Unknown Completed [facility] DTAP Unknown Completed [facility] DTAP Unknown Completed [facility] DTAP Unknown Completed [facility] HIB 3 Dose Schedule Unknown Completed [facility] HIB 3 Dose Schedule Unknown Completed [facility] HEPATITIS A Unknown Completed [facility] HEPATITIS A Unknown Completed [facility] HEPATITIS A Unknown Completed [facility] Hep B, Adol or Pedi Dosage Unknown Completed [facility] Hep B, Adol or Pedi Dosage Unknown Completed [facility] HPV Unknown Completed [facility] Meningococcal Vaccine Unknown Completed [facility] Meningococcal Vaccine Unknown Completed [facility] Meningococcal Vaccine Unknown Completed [facility] MMR Unknown Completed [facility] MMR Unknown Completed [facility] Polio (IPV/OPV) Unknown Completed [facility] Polio (IPV/OPV) Unknown Completed [facility] TDAP Unknown Completed [facility] Varicella (varivax)(chicken pox) Unknown Completed [facility] Pneumococcal 13 Conjugate, PCV13 (Prevnar 13) Unknown Completed [facility] Pneumococcal 13 Conjugate, PCV13 (Prevnar 13) Unknown Completed [facility] Influenza Virus Vaccine Quad IM, Preserv and ABX Free 6 MO-64 YRS (FLUCELVAX) Unknown Completed [facility] DTaP, Unspecified Formulation Unknown Completed [facility] DTaP, Unspecified Formulation Unknown Completed [facility] DTaP, Unspecified Formulation Unknown Completed [facility] HIB 4 Dose Schedule Unknown Completed [facility] HIB 4 Dose Schedule Unknown Completed [facility] Meningococcal Polysaccharide (groups A, C, Y and W-135) conjugate vaccine (MCV4P) Unknown Completed [facility] IPV Unknown Completed [facility] IPV Unknown Completed [facility] TDAP Unknown Completed [facility] DTAP Unknown Completed [facility] DTAP Unknown Completed [facility] DTAP Unknown Completed [facility] HIB 3 Dose Schedule Unknown Completed [facility] HIB 3 Dose Schedule Unknown Completed [facility] HEPATITIS A Unknown Completed [facility] HEPATITIS A Unknown Completed [facility] HEPATITIS A Unknown Completed [facility] Hep B, Adol or Pedi Dosage Unknown Completed [facility] Hep B, Adol or Pedi Dosage Unknown Completed [facility] HPV Unknown Completed [facility] Meningococcal Vaccine Unknown Completed [facility] Meningococcal Vaccine Unknown Completed [facility] Meningococcal Vaccine Unknown Completed [facility] MMR Unknown Completed [facility] MMR Unknown Completed [facility] Polio (IPV/OPV) Unknown Completed [facility] Polio (IPV/OPV) Unknown Completed [facility] TDAP Unknown Completed [facility] Varicella (varivax)(chicken pox) Unknown Completed [facility] Pneumococcal 13 Conjugate, PCV13 (Prevnar 13) Unknown Completed [facility] Pneumococcal 13 Conjugate, PCV13 (Prevnar 13) Unknown Completed [facility] Influenza Virus Vaccine Quad IM, Preserv and ABX Free 6 MO-64 YRS (FLUCELVAX) Unknown Completed [facility] DTaP, Unspecified Formulation Unknown Completed [facility] DTaP, Unspecified Formulation Unknown Completed [facility] DTaP, Unspecified Formulation Unknown Completed [facility] HIB 4 Dose Schedule Unknown Completed [facility] HIB 4 Dose Schedule Unknown Completed [facility] Meningococcal Polysaccharide (groups A, C, Y and W-135) conjugate vaccine (MCV4P) Unknown Completed [facility] IPV Unknown Completed [facility] IPV Unknown Completed [facility] TDAP Unknown Completed [facility] DTAP Unknown Completed [facility] DTAP Unknown Completed [facility] DTAP Unknown Completed [facility] HIB 3 Dose Schedule Unknown Completed [facility] HIB 3 Dose Schedule Unknown Completed [facility] HEPATITIS A Unknown Completed [facility] HEPATITIS A Unknown Completed [facility] HEPATITIS A Unknown Completed [facility] Hep B, Adol or Pedi Dosage Unknown Completed [facility] Hep B, Adol or Pedi Dosage Unknown Completed [facility] HPV Unknown Completed [facility] Meningococcal Vaccine Unknown Completed [facility] Meningococcal Vaccine Unknown Completed [facility] Meningococcal Vaccine Unknown Completed [facility] MMR Unknown Completed [facility] MMR Unknown Completed [facility] Polio (IPV/OPV) Unknown Completed [facility] Polio (IPV/OPV) Unknown Completed [facility] TDAP Unknown Completed [facility] Varicella (varivax)(chicken pox) Unknown Completed [facility] Pneumococcal 13 Conjugate, PCV13 (Prevnar 13) Unknown Completed [facility] Pneumococcal 13 Conjugate, PCV13 (Prevnar 13) Unknown Completed [facility] Influenza Virus Vaccine Quad IM, Preserv and ABX Free 6 MO-64 YRS (FLUCELVAX) Unknown Completed [facility] DTaP, Unspecified Formulation Unknown Completed [facility] DTaP, Unspecified Formulation Unknown Completed [facility] DTaP, Unspecified Formulation Unknown Completed [facility] HIB 4 Dose Schedule Unknown Completed [facility] HIB 4 Dose Schedule Unknown Completed [facility] Meningococcal Polysaccharide (groups A, C, Y and W-135) conjugate vaccine (MCV4P) Unknown Completed [facility] IPV Unknown Completed [facility] IPV Unknown Completed [facility] TDAP Unknown Completed [facility] DTAP Unknown Completed [facility] DTAP Unknown Completed [facility] DTAP Unknown Completed [facility] HIB 3 Dose Schedule Unknown Completed [facility] HIB 3 Dose Schedule Unknown Completed [facility] HEPATITIS A Unknown Completed [facility] HEPATITIS A Unknown Completed [facility] HEPATITIS A Unknown Completed [facility] Hep B, Adol or Pedi Dosage Unknown Completed [facility] Hep B, Adol or Pedi Dosage Unknown Completed [facility] HPV Unknown Completed [facility] Meningococcal Vaccine Unknown Completed [facility] Meningococcal Vaccine Unknown Completed [facility] Meningococcal Vaccine Unknown Completed [facility] MMR Unknown Completed [facility] MMR Unknown Completed [facility] Polio (IPV/OPV) Unknown Completed [facility] Polio (IPV/OPV) Unknown Completed [facility] TDAP Unknown Completed [facility] Varicella (varivax)(chicken pox) Unknown Completed [facility] Pneumococcal 13 Conjugate, PCV13 (Prevnar 13) Unknown Completed [facility] Pneumococcal 13 Conjugate, PCV13 (Prevnar 13) Unknown Completed [facility] Influenza Virus Vaccine Quad IM, Preserv and ABX Free 6 MO-64 YRS (FLUCELVAX) Unknown Completed [facility] DTaP, Unspecified Formulation Unknown Completed [facility] DTaP, Unspecified Formulation Unknown Completed [facility] DTaP, Unspecified Formulation Unknown Completed [facility] HIB 4 Dose Schedule Unknown Completed [facility] HIB 4 Dose Schedule Unknown Completed [facility] Meningococcal Polysaccharide (groups A, C, Y and W-135) conjugate vaccine (MCV4P) Unknown Completed [facility] IPV Unknown Completed [facility] IPV Unknown Completed [facility] TDAP Unknown Completed [facility] DTAP Unknown Completed [facility] DTAP Unknown Completed [facility] DTAP Unknown Completed [facility] HIB 3 Dose Schedule Unknown Completed [facility] HIB 3 Dose Schedule Unknown Completed [facility] HEPATITIS A Unknown Completed [facility] HEPATITIS A Unknown Completed [facility] HEPATITIS A Unknown Completed [facility] Hep B, Adol or Pedi Dosage Unknown Completed [facility] Hep B, Adol or Pedi Dosage Unknown Completed [facility] HPV Unknown Completed [facility] Meningococcal Vaccine Unknown Completed [facility] Meningococcal Vaccine Unknown Completed [facility] Meningococcal Vaccine Unknown Completed [facility] MMR Unknown Completed [facility] MMR Unknown Completed [facility] Polio (IPV/OPV) [facility] Completed [facility] TDAP Unknown Completed [facility] Varicella (varivax)(chicken pox) Unknown Completed [facility] Pneumococcal 13 Conjugate, PCV13 (Prevnar 13) Unknown Completed [facility] Pneumococcal 13 Conjugate, PCV13 (Prevnar 13) Unknown Completed [facility] DTaP, Unspecified Formulation Unknown Completed [facility] DTaP, Unspecified Formulation Unknown Completed [facility] DTaP, Unspecified Formulation Unknown Completed [facility] HIB 4 Dose Schedule Unknown Completed [facility] HIB 4 Dose Schedule Unknown Completed [facility] Meningococcal Polysaccharide (groups A, C, Y and W-135) conjugate vaccine (MCV4P) Unknown Completed [facility] IPV Unknown Completed [facility] IPV Unknown Completed [facility] DTAP Unknown Completed [facility] DTAP Unknown Completed [facility] DTAP Unknown Completed [facility] HIB 3 Dose Schedule Unknown Completed [facility] HIB 3 Dose Schedule Unknown Completed [facility] HEPATITIS A Unknown Completed [facility] HEPATITIS A Unknown Completed [facility] HEPATITIS A Unknown Completed [facility] Hep B, Adol or Pedi Dosage Unknown Completed [facility] Hep B, Adol or Pedi Dosage Unknown Completed [facility] HPV Unknown Completed [facility] Meningococcal Vaccine Unknown Completed [facility] Meningococcal Vaccine Unknown Completed [facility] Meningococcal Vaccine Unknown Completed [facility] MMR Unknown Completed [facility] MMR Unknown Completed [facility] Polio (IPV/OPV) [facility] Unknown Completed [facility] TDAP Unknown Completed [facility] Varicella (varivax)(chicken pox) Unknown Completed [facility] Pneumococcal 13 Conjugate, PCV13 (Prevnar 13) Unknown Completed [facility] Pneumococcal 13 Conjugate, PCV13 (Prevnar 13) Unknown Completed [facility] DTaP, Unspecified Formulation Unknown Completed [facility] DTaP, Unspecified Formulation Unknown Completed [facility] DTaP, Unspecified Formulation Unknown Completed [facility] HIB 4 Dose Schedule Unknown Completed [facility] HIB 4 Dose Schedule Unknown Completed [facility] Meningococcal Polysaccharide (groups A, C, Y and W-135) conjugate vaccine (MCV4P) Unknown Completed [facility] IPV Unknown Completed [facility] IPV Unknown Completed [facility] Vital Signs Vital Name Observation Time Observation Value Comments S ource Systolic blood pressure 2023-09-15 21:40:00 116 mm[Hg] [facility] Diastolic blood pressure 2023-09-15 21:40:00 77 mm[Hg] [facility] Heart rate 2023-09-15 21:40:00 83 /min [facility] Body temperature 2023-09-15 21:40:00 36.67 Rufina [facility] Respiratory rate 2023-09-15 21:40:00 16 /min [facility] Body height 2023-09-15 21:40:00 162.6 cm [facility] Body weight 2023-09-15 21:40:00 53.524 kg [facility] BMI 2023-09-15 21:40:00 20.25 kg/m2 [facility] Oxygen saturation in Arterial blood by Pulse oximetry 2023-09-15 21:40:00 99 /min [facility] Systolic blood pressure 2023-07-03 22:17:00 112 mm[Hg] [facility] Diastolic blood pressure 2023-07-03 22:17:00 67 mm[Hg] [facility] Heart rate 2023-07-03 22:17:00 62 /min [facility] Body temperature 2023-07-03 22:17:00 36.61 Rufina [facility] Respiratory rate 2023-07-03 22:17:00 16 /min [facility] Body height 2023-07-03 22:17:00 162.6 cm [facility] Body weight 2023-07-03 22:17:00 54.477 kg [facility] BMI 2023-07-03 22:17:00 20.62 kg/m2 [facility] Systolic blood pressure 2023-06-03 17:20:00 113 mm[Hg] [facility] Diastolic blood pressure 2023-06-03 17:20:00 80 mm[Hg] [facility] Heart rate 2023-06-03 17:20:00 86 /min [facility] Body temperature 2023-06-03 17:20:00 36.72 Rufina [facility] Respiratory rate 2023-06-03 17:20:00 16 /min [facility] Body height 2023-06-03 17:20:00 162.6 cm [facility] Body weight 2023-06-03 17:20:00 55.52 kg [facility] BMI 2023-06-03 17:20:00 21.01 kg/m2 [facility] Systolic blood pressure 2023-04-22 21:06:00 114 mm[Hg] [facility] Diastolic blood pressure 2023-04-22 21:06:00 71 mm[Hg] [facility] Heart rate 2023-04-22 21:06:00 89 /min [facility] 2023-04-22 21:06:00 36.5 Rufina [facility] Respiratory rate 2023-04-22 21:06:00 16 /min [facility] Body height 2023-04-22 21:06:00 162[facility]6 [facility] 2023-04-22 21:06:00 58.968 kg [facility] BMI 2023-04-22 21:06:00 22.31 kg/m2 [facility] Systolic blood pressure 2023-03-24 20:34:00 120 mm[Hg] [facility] Diastolic blood pressure 2023-03-24 20:34:00 80 mm[Hg] [facility] Heart rate 2023-03-24 20:34:00 73 /min [facility] Res[facility] 2023-03-24 20:34:00 18 /min [facility] Body height 2023-03-24 20:34:00 [facility] Body weight 2023-03-24 20:34:00 58[facility]968 [facility] BMI 2023-03-24 20:34:00 22.31 kg/m[facility] Body weight 2023-02-19 16:15:00 62.097 [facility] BMI 2023-02-19 16:15:00 24.25 kg/m2 [facility] Body weight 2022-12-04 14:48:00 58.514 kg [facility] BMI 2022-12-04 14:48:00 22.85 kg/m2 [facility] Systolic blood pressure 2022-10-01 18:14:00 113 mm[Hg] [facility] Diastolic blood pressure 2022-10-01 18:14:00 75 mm[Hg] [facility] Heart rate 2022-10-01 18:14:00 90 /min [facility] Body height 2022-10-01 18:14:00 160 cm [facility] Body weight 2022-10-01 18:14:00 55.52 kg [facility] BMI 2022-10-01 18:14:00 21.68 kg/m2 [facility] Oxygen saturation in Arterial blood by Pulse oximetry 2022-10-01 18:14:00 98 /min [facility] Systolic blood pressure 2022-09-24 17:44:00 122 mm[Hg] [facility] Diastolic blood pressure 2022-09-24 17:44:00 80 mm[Hg] [facility] Heart rate 2022-09-24 17:44:00 95 /min [facility] Respiratory rate 2022-09-24 17:44:00 15 /min [facility] Body weight 2022-09-24 17:44:00 56.11 kg [facility] 2022-09-24 17:44:00 21.23 kg/[facility]2 [facility] Body weight 2022-09-12 15:05:00 54.477 [facility] BMI 2022-09-12 15:05:00 20.62 kg/m2 [facility] 2022-08-13 16:07:00 107 mm[Hg] [place] [facility] Diastolic blood pressure 2022-08-13 16:07:00 76 mm[Hg] [facility] Heart rate 2022-08-13 16:07:00 81 /min [facility] Respiratory rate 2022-08-13 16:07:00 18 /min [facility] Body height 2022-08-13 16:07:00 162.6 cm [facility] Body weight 2022-08-13 16:07:00 52.164 kg [facility] BMI 2022-08-13 16:07:00 19.74 kg/m2 [facility] Systolic blood pressure 2022-06-26 18:39:00 112 mm[Hg] [facility] Diastolic blood pressure 2022-06-26 18:39:00 75 mm[Hg] [facility] Heart rate 2022-06-26 18:39:00 84 /min [facility] Body temperature 2022-06-26 18:39:00 36.89 Rufina [facility] Respiratory rate 2022-06-26 18:39:00 16 /min [facility] Body weight 2022-06-26 18:39:00 54.885 kg [facility] BMI 2022-06-26 18:39:00 21.43 kg/m2 [facility] Body weight 2022-06-14 17:20:00 52.708 kg [facility] BMI 2022-06-14 17:20:00 20.58 kg/m2 [facility] Sy[facility] 2022-03-26 13:03:00 107 mm[Hg] [facility] Diastolic blood pressure 2022-03-26 13:03:00 69 mm[Hg] [facility] Heart rate 2022-03-26 13:03:00 88 /min [facility] Body temperature 2022-03-26 13:03:00 36.94 Rufina [facility] Respiratory rate 2022-03-26 13:03:00 16 /min [facility] Body weight 2022-03-26 13:03:00 51.03 kg [facility] BMI 2022-03-26 13:03:00 19.93 kg/m2 [facility] Systolic blood pressure 2022-02-12 20:14:00 104 mm[Hg] [facility] Diastolic blood pressure 2022-02-12 20:14:00 73 mm[Hg] [facility] Heart rate 2022-02-12 20:14:00 91 /min [facility] Body temperature 2022-02-12 20:14:00 36.78 Rufina [facility] Respiratory rate 2022-02-12 20:14:00 18 /min [facility] Body height 2022-02-12 20:14:00 160 cm [facility] Body weight 2022-02-12 20:14:00 50.168 kg [facility] BMI 2022-02-12 20:14:00 19.59 kg/m2 [facility] Oxygen saturation in Arterial blood by Pulse oximetry 2022-02-12 20:14:00 98 /min [facility] Systolic blood pressure 2021-02-16 18:39:00 113 mm[Hg] [facility] Diastolic blood pressure 2021-02-16 18:39:00 82 mm[Hg] [facility] Heart rate 2021-02-16 18:39:00 90 /min [facility] Body temperature 2021-02-16 18:39:00 36.61 Rufina [facility] Respiratory rate 2021-02-16 18:39:00 18 /min [facility] Body height 2021-02-16 18:39:00 165.1 cm [facility] Body weight 2021-02-16 18:39:00 44.453 kg [facility] BMI 2021-02-16 18:39:00 16.31 kg/m2 [facility] Procedures Procedure Date / Time Performed Performing Clinician Source POCT TEST 2023-09-15 00:00:00 Laura Mattson [facility] NOTICE OF BILLING PRACTICES FOR MEDICARE PATIENTS 2023-06-03 17:00:19 Doctor Unassigned, [place] [facility] POCT TEST 2023-06-03 00:00:00 Laura Mattson [facility] US PELVIS COMPLETE WITH TRANSVAGINAL 2023-04-03 15:02:48 Janett Mead [facility] TDAP VACCINE, >11 YRS, IM 2022-10-01 18:54:17 Ignacio Berman [facility] POCT URINALYSIS 2022-09-24 00:00:00 Molly Reynolds [facility] POCT TEST 2022-09-24 00:00:00 Carmen Reynolds [facility] FLU VACC ([id number]), 6 MO-64 YRS, .5ML, IM, QUAD (FLUCELVAX) 2022-03-26 13:28:53 Molly Reynolds [facility] Encounters Start Date/Time End Date/Time Encounter Type Admission Type Attending Clinicians Care Facility Care Department Encounter ID Source 2023-12-26 11:30:00 2023-12-26 11:30:00 Outpatient NARENDRA ROE [facility] [id number] [facility] 2019-01-26 00:00:00 2023-12-02 02:25:58 Mobile Device Encounter Molly Reynolds [facility] 1.2.840.114 350.1.13.10 4.2.7.2.[id number] [facility] 2019-08-17 00:00:00 2023-12-02 02:24:14 Mobile Device Encounter Molly Reynolds [facility] 1..840.114 350.1.13.10 4.2.7.2.[id number] [facility] 2023-09-17 16:30:00 2023-09-17 16:30:00 Outpatient R [facility] [id number] [facility] 2023-09-16 00:00:00 2023-09-16 00:00:00 [facility] 1.2.840.114 350.1.13.10 4.2.7.2.[id number] [facility] 2023-09-15 16:30:00 2023-09-15 17:02:54 Outpatient R NARENDRA NIEVES [facility] [id number] [facility] 2023-09-15 16:30:00 2023-09-15 17:02:54 Office Visit Narendra Nieves [facility] 1.2.840.114 350.1.13.10 4.2.7.2.[id number] [facility] 2023-09-15 10:00:00 2023-09-15 10:00:00 Outpatient R NARENDRA NIEVES [facility] [id number] [facility] 2023-09-10 00:00:00 2023-09-10 00:00:00 Patient Secure Msg Doctor Unassigned, [place] [facility] 1..840.114 350.1.13.10 4.2.7.2.[id number] [facility] 2023-08-15 10:00:00 2023-08-15 10:00:00 Outpatient R JANETT MEAD CHERYAL [facility] [id number] [facility] 2023-07-03 16:00:00 2023-07-03 16:25:58 Outpatient R MEJÍA-OSCAR S, LAURA MEJÍA-OSCAR S, LAURA [facility] [id number] [facility] 2023-07-03 16:00:00 2023-07-03 16:25:58 Office Visit Saida sMadisynLaura [facility] 1.2.840.114 350.1.13.10 4.2.7.2.[id number] [facility] 2023-06-03 11:00:00 2023-06-03 11:38:49 Outpatient R MEJÍA-OSCAR S, LAURA MEJÍA-OSCAR S, LAURA [facility] [id number] [facility] 2023-06-03 11:00:00 2023-06-03 11:38:49 Office Visit Oleksandr-Oscar sLaura [facility] 1.2.840.114 350.1.13.10 4.2.7.2.[id number] [facility] 2023-06-03 00:00:00 2023-06-03 00:00:00 Orders Only Doctor Unassigned, [place] [facility] 1.2.840.114 350.1.13.10 4.2.7.2.[id number] [facility] 2023-05-27 16:54:22 2023-05-27 16:54:22 Outpatient [facility] [id number] Alex Matthews 2023-05-12 16:42:09 2023-05-12 16:42:09 Outpatient [facility] [id number] Alex Matthews 2023-05-06 11:00:00 2023-05-06 11:00:00 Outpatient R MEJÍA-OSCAR S, LAURA MEJÍA-OSCAR S, LAURA [facility] [id number] [facility] 2023-05-06 00:00:00 2023-05-06 00:00:00 Telephone Laura Skaggs [facility] 1.0.114 350.1.13.10 4.2.7.2.[id number] [facility] 2023-05-06 00:00:00 2023-05-06 00:00:00 Patient Secure Msg Doctor Unassigned, [place] [facility] 1.2840.114 350.1.13.10 4.2.7.2.[id number] [facility] 2023-04-22 15:00:00 2023-04-22 15:30:48 Outpatient R MEJÍADanyOSCAR Fahad LAURA RICHEY [facility] [id number] [facility] 2023-04-22 15:00:00 2023-04-22 15:30:48 Office Visit Roberti Laura mosley [facility] 1.0.114 350.1.13.10 4.2.7.2.[id number] [facility] 2023-04-04 14:30:00 2023-04-04 14:30:00 Outpatient R IGNACIO BERMAN [facility] [id number] [facility] 2023-04-04 10:30:00 2023-04-04 10:30:00 Outpatient R IGNACIO BERMAN [facility] [id number] [facility] 2023-04-03 08:16:11 2023-04-03 23:59:00 Outpatient R JANETT MEAD CHERYAL [facility] [id number] [facility] 2023-04-03 08:00:00 2023-04-03 23:59:00 Hospital Encounter Janett Mead [facility] 1.840.114 350.1.13.10 4.2.7.2.[id number] [facility] 2023-03-24 15:30:00 2023-03-24 15:53:36 Outpatient R JANETT MEAD [facility] [id number] [facility] 2023-03-24 15:30:00 2023-03-24 15:53:36 Office Visit Janett Mead [facility] 1.2.840.114 350.1.13.10 4.2.7.2.[id number] [facility] 2023-03-24 00:00:00 2023-03-24 00:00:00 Patient Secure Msg Mead [facility] 1.2.840.114 350.1.13.10 4.2.7.2.[id number] [facility] 2023-02-19 10:40:00 2023-02-19 11:00:00 Nurse Visit Nurse, Jd Leonard [place] [facility] [place] [facility] 1.2.840.114 350.1.13.10 4.2.7.2.[id number] [facility] 2023-02-19 10:40:00 2023-02-19 10:40:00 Outpatient R XAVI LEONARD [facility] [id number] [facility] 2022-12-04 09:40:00 2022-12-04 09:49:43 Outpatient R MOLLY REYNOLDS [facility] [id number] [facility] 2022-12-04 09:40:00 2022-12-04 09:49:43 Nurse Visit Nurse, Molly Albright [facility] 1.2.840.114 350.1.13.10 4.2.7.2.[id number] [facility] 2022-11-29 10:20:00 2022-11-29 10:20:00 Outpatient R [facility] [id number] [facility] 2022-10-01 14:15:00 2022-10-01 14:30:00 Pin Setter Visit Lab, Branden - Amor Antonella Critical access hospital?[facility] 1.840.114 350.1.13.10 4.2.7.2.[id number] [facility] 2022-10-01 13:00:00 2022-10-01 14:09:54 [facility] [id number] [facility] 2022-10-01 13:00:00 2022-10-01 14:09:54 Office Visit Antonella Critical access hospital?[facility] 1.840.114 350.1.13.10 4.2.7.2.[id number] [facility] 2022-09-24 12:30:00 2022-09-24 13:42:35 Outpatient R MOLLY REYNOLDS [facility] [id number] [facility] 2022-09-24 12:30:00 2022-09-24 13:42:35 Office Visit Molly Reynolds [facility] 1.84.114 350.1.13.10 4.2.7.2.[id number] [facility] 2022-09-12 10:20:00 2022-09-12 10:20:00 Outpatient R MOLLY REYNOLDS [facility] [id number] [facility] 2022-09-12 10:20:00 2022-09-12 10:20:00 Nurse Visit Nurse, Molly Albright [facility] 1.840.114 350.1.13.10 4.2.7.2.[id number] [facility] 2022-08-13 10:00:00 2022-08-13 10:18:09 Outpatient R JANETT MEAD CHERYAL [facility] [id number] [facility] 2022-08-13 10:00:00 2022-08-13 10:18:09 Office Visit Janett Mead [facility] 1.840.114 350.1.13.10 4.2.7.2.[id number] [facility] 2022-08-13 09:00:00 2022-08-13 09:00:00 Outpatient R JOSELINE LIN [facility] [id number] [facility] 2022-08-13 09:00:00 2022-08-13 09:00:00 Outpatient R GUILLERMO LINDA [facility] [id number] [facility] 2022-08-13 09:00:00 2022-08-13 09:00:00 Outpatient R GUILLERMO LINDA [facility] [id number] [facility] 2022-08-13 09:00:00 2022-08-13 09:00:00 Outpatient R GUILLERMO LINDA [facility] [id number] [facility] 2022-08-13 09:00:00 2022-08-13 09:00:00 Outpatient R GUILLERMO LINDA [facility] [id number] [facility] 2022-07-05 11:00:00 2022-07-05 11:00:00 Outpatient R JANETT MEAD CHERYAL [facility] [id number] [facility] 2022-06-28 00:00:00 2022-06-28 00:00:00 Pre Visit Outreach Veronica Gentile 1..840.114 350.1.13.10 4.2.7.2.[id number] [facility] 2022-06-26 12:30:00 2022-06-26 13:11:32 Outpatient R MOLLY REYNOLDS [facility] [id number] [facility] 2022-06-26 12:30:00 2022-06-26 13:11:32 Office Visit Molly Reynolds [facility] 1.2.840.114 350.1.13.10 4.2.7.2.[id number] [facility] 2022-06-26 00:00:00 2022-06-26 00:00:00 Telephone Molly Reynolds [facility] 1.2.840.114 350.1.13.10 4.2.7.2.[id number] [facility] 2022-06-14 11:20:00 2022-06-14 11:21:30 Outpatient MOLLY ROGERS [facility] [id number] [facility] 2022-06-14 11:20:00 2022-06-14 11:21:30 Nurse Visit Nurse, Molly Albright [facility] 1.2.840.114 350.1.13.10 4.2.7.2.[id number] [facility] 2022-05-17 15:50:00 2022-05-17 16:10:00 Office Visit Molly Reynolds [facility] 1.2.840.114 350.1.13.10 4.2.7.2.[id number] [facility] 2022-05-17 15:50:00 2022-05-17 15:50:00 Outpatient MOLLY ROGERS [facility] [id number] [facility] 2022-05-17 09:50:00 2022-05-17 09:50:00 Outpatient MOLLY ROGERS [facility] [id number] [facility] 2022-05-17 00:00:00 2022-05-17 00:00:00 Telephone Molly Reynolds [facility] 1.2.840.114 350.1.13.10 4.2.7.2.[id number] [facility] 2022-03-26 07:50:00 2022-03-26 08:37:57 Outpatient R MOLLY REYNOLDS [facility] [id number] [facility] 2022-03-26 07:50:00 2022-03-26 08:37:57 Office Visit Molly Reynolds [facility] 1.2.840.114 350.1.13.10 4.2.7.2.[id number] [facility] 2022-03-26 00:00:00 2022-03-26 00:00:00 Refill Molly Reynolds [facility] 1.2.840.114 350.1.13.10 4.2.7.2.[id number] [facility] 2022-02-12 15:00:00 2022-02-12 15:42:40 Office Visit Linda Li [facility] 1.2840.114 350.1.13.10 4.2.7.2.[id number] [facility] 2022-02-12 15:00:00 2022-02-12 15:42:40 Outpatient R LINDA LI [facility] [id number] [facility] 2022-02-12 15:00:00 2022-02-12 15:00:00 Outpatient R LINDA LI [facility] [id number] [facility] 2022-02-12 15:00:00 2022-02-12 15:00:00 Outpatient R LINDA LI [facility] [id number] [facility] 2022-02-06 14:30:00 2022-02-06 15:14:22 Office Visit Molly Reynolds [facility] 1.84.114 350.1.13.10 4.2.7.2.[id number] [facility] 2022-02-06 14:30:00 2022-02-06 15:14:22 Outpatient MOLLY ROGERS [facility] [id number] [facility] 2022-02-06 14:30:00 2022-02-06 14:30:00 Outpatient MOLLY ROGERS [facility] [id number] [facility] 2022-01-07 00:00:00 2022-01-07 00:00:00 Orders Only Doctor Unassigned, [place] [facility] 1.84.114 350.1.13.10 4.2.7.2.[id number] [facility] 2022-01-03 00:00:00 2022-01-03 00:00:00 Telephone Molly Reynolds [facility] 1.84.114 350.1.13.10 4.2.7.2.[id number] [facility] 2022-01-02 09:30:00 2022-01-02 09:30:00 Outpatient JANETT RENTERIA CHERYAL [facility] [id number] [facility] 2022-01-01 08:30:00 2022-01-01 09:18:07 Outpatient MOLLY ROGERS [facility] [id number] [facility] 2022-01-01 08:30:00 2022-01-01 09:18:07 Office Visit Molly Reynolds [facility] 1..114 350.1.13.10 4.2.7.2.[id number] [facility] 2022-01-01 08:30:00 2022-01-01 09:18:07 Outpatient R MOLLY REYNOLDS [facility] [id number] [facility] 2021-12-31 00:00:00 2021-12-31 00:00:00 Mayela Laura [facility] 1..840.114 350.1.13.10 4.2.7.2.[id number] [facility] 2021-11-22 00:00:00 2021-11-22 00:00:00 Mayela Laura [facility] 1..840.114 350.1.13.10 4.2.7.2.[id number] [facility] 2021-11-05 08:40:00 2021-11-05 08:40:00 Outpatient R [facility] [id number] [facility] 2021-11-01 10:09:25 2021-11-01 23:59:00 Outpatient R LINDA LI [facility] [id number] [facility] 2021-11-01 10:00:00 2021-11-01 23:59:00 Hospital Encounter Linda iL [facility] 1.840.114 350.1.13.10 4.2.7.2.[id number] [facility] 2021-10-27 00:00:00 2021-10-27 00:00:[address] [facility] 1..840.114 350.1.13.10 4.2.7.2.[id number] [facility] 2021-10-22 10:00:00 2021-10-22 10:37:57 Outpatient R LEIGHA RAUSCH [facility] [id number] [facility] 2021-10-22 10:00:00 2021-10-22 10:37:57 Urgent Care Leigha Rausch [facility] 1.114 350.1.13.10 4.2.7.2.[id number] [facility] 2021-10-08 15:00:00 2021-10-08 15:25:31 Outpatient R LINDA LI [facility] [id number] [facility] 2021-10-08 15:00:00 2021-10-08 15:25:31 Nurse Visit Nurse, Rudyj [facility] Guillermo Linda [facility] 1.114 350.1.13.10 4.2.7.2.[id number] [facility] 2021-10-08 08:40:00 2021-10-08 08:40:00 Outpatient R [facility] [id number] [facility] 2021-10-08 08:40:00 2021-10-08 08:40:00 Outpatient R MOLLY REYNOLDS [facility] [id number] [facility] 2021-10-05 00:00:00 2021-10-05 00:00:00 Patient Secure Msg Doctor Unassigned, [place] [facility] 1.114 350.1.13.10 4.2.7.2.[id number] [facility] 2021-10-02 08:10:00 2021-10-02 08:40:28 Outpatient R MOLLY REYNOLDS [facility] [id number] [facility] 2021-10-02 08:10:00 2021-10-02 08:40:28 Office Visit Molly Reynolds [facility] 1.114 350.1.13.10 4.2.7.2.[id number] [facility] 2021-10-02 08:10:00 2021-10-02 08:40:28 Outpatient MOLLY ROGERS [facility] [id number] [facility] 2021-09-24 00:00:00 2021-09-24 00:00:00 Reftabatha Leonard Xavi [facility] 1.2.840.114 350.1.13.10 4.2.7.2.[id number] [facility] 2021-08-31 00:00:00 2021-08-31 00:00:00 Edmond Leonard [place] [facility] 1.2.840.114 350.1.13.10 4.2.7.2.[id number] [facility] 2021-08-28 00:00:00 2021-08-28 00:00:00 Telephone Joseline Lin [facility] 1.2.840.114 350.1.13.10 4.2.7.2.[id number] [facility] 2021-08-13 15:30:00 2021-08-13 16:50:06 Outpatient R GUILLERMO LINDA [facility] [id number] [facility] 2021-08-13 15:30:00 2021-08-13 16:50:06 Office Visit GuillermoJoselinen [facility] 1.2.840.114 350.1.13.10 4.2.7.2.[id number] [facility] 2021-08-13 15:30:00 2021-08-13 16:50:06 Outpatient R GUILLERMO LINDA [facility] [id number] [facility] 2021-07-09 10:30:00 2021-07-09 11:12:39 Outpatient MOLLY ROGERS [facility] [id number] [facility] 2021-07-09 10:30:00 2021-07-09 11:12:39 Office Visit Molly Reynolds [facility] 1.114 350.1.13.10 4.2.7.2.[id number] [facility] 2021-07-09 10:30:00 2021-07-09 11:12:39 Outpatient MOLLY ROGERS [facility] [id number] [facility] 2021-07-09 10:30:00 2021-07-09 10:30:00 Outpatient MOLLY ROGERS [facility] [id number] [facility] 2021-07-05 14:30:00 2021-07-05 14:45:00 Laboratory Only Only, Ang Db Test Delia Bradford [facility] 1..114 350.1.13.10 4.2.7.2.[id number] [facility] 2021-07-05 14:30:00 2021-07-05 14:30:00 Outpatient DELIA VELA [facility] [id number] [facility] 2021-06-27 10:30:00 2021-06-27 11:06:37 Outpatient R MOLYL REYNOLDS [facility] [id number] [facility] 2021-06-27 10:30:00 2021-06-27 11:06:37 Office Visit Molly Reynolds [facility] 1.114 350.1.13.10 4.2.7.2.[id number] [facility] 2021-06-11 00:00:00 2021-06-11 00:00:00 Mayela Laura [facility] 1..114 350.1.13.10 4.2.7.2.[id number] [facility] 2021-05-03 00:00:00 2021-05-03 00:00:00 Mayela Laura [facility] 1.2840.114 350.1.13.10 4.2.7.2.[id number] [facility] 2021-04-18 09:39:40 2021-04-18 10:01:58 Nurse Visit Nurse, Molly Albright [facility] 1..114 350.1.13.10 4.2.7.2.[id number] [facility] 2021-04-18 09:40:00 2021-04-18 09:40:00 Outpatient MOLLY ROGERS [facility] [id number] [facility] 2021-04-17 12:30:00 2021-04-17 12:30:00 Outpatient MOLLY ROGERS [facility] [id number] [facility] 2021-04-17 00:00:00 2021-04-17 00:00:00 Patient Secure Msg Doctor Unassigned, [place] [facility] 1.2.114 350.1.13.10 4.2.7.2.[id number] [facility] 2021-04-05 00:00:00 2021-04-05 00:00:00 Telephone Trupti Koch [facility] 1..114 350.1.13.10 4.2.7.2.[id number] [facility] 2021-04-04 11:20:00 2021-04-04 11:20:00 Outpatient LEIGHA HAZEL [facility] [id number] [facility] 2021-04-04 10:09:10 2021-04-04 10:49:17 Urgent Care Mayra Tse, Leigha [facility] 1.114 350.1.13.10 4.2.7.2.[id number] [facility] 2021-03-20 00:00:00 2021-03-20 00:00:00 Cyndee Bolivar [facility] 1.114 350.1.13.10 4.2.7.2.[id number] [facility] 2021-03-13 12:47:01 2021-03-13 13:02:01 Pin Setter Visit Pob, Adc Lab Main Molly Reynolds [facility] 1.114 350.1.13.10 4.2.7.2.[id number] [facility] 2021-03-13 12:45:00 2021-03-13 12:45:00 Outpatient R MOLLY REYNOLDS [facility] [id number] [facility] 2021-03-13 00:00:00 2021-03-13 00:00:00 Patient Secure g Molly Reynolds [facility] 1.114 350.1.13.10 4.2.7.2.[id number] [facility] 2021-02-23 00:00:00 2021-02-23 00:00:00 Telephone Molly Reynolds [facility] 1.114 350.1.13.10 4.2.7.2.[id number] [facility] 2021-02-20 00:00:00 2021-02-20 00:00:00 Patient Secure Msg Doctor Unassigned, [place] [facility] 1.2.840.114 350.1.13.10 4.2.7.2.[id number] [facility] 2021-02-16 13:15:00 2021-02-16 13:30:00 Office Visit Joseline Lin [facility] 1.2840.114 350.1.13.10 4.2.7.2.[id number] [facility] 2021-02-16 13:15:00 2021-02-16 13:15:00 Outpatient R LINDA LI [facility] [id number] [facility] 2021-02-16 13:15:00 2021-02-16 13:15:00 Outpatient R LINDA LI [facility] [id number] [facility] 2021-02-14 08:14:37 2021-02-14 09:02:36 Office Visit Molly Reynolds [facility] 1.840.114 350.1.13.10 4.2.7.2.[id number] [facility] 2021-02-14 08:10:00 2021-02-14 08:10:00 Outpatient R MOLLY REYNOLDS [facility] [id number] [facility] 2021-02-13 00:00:00 2021-02-13 00:00:00 Cyndee Bolivar [facility] 1.20.114 350.1.13.10 4.2.7.2.[id number] [facility] 2021-02-13 00:00:00 2021-02-13 00:00:00 Cyndee Bolivar [facility] 1.2840.114 350.1.13.10 4.2.7.2.[id number] [facility] 2021-01-22 09:30:00 2021-01-22 09:30:00 Outpatient R MOLLY REYNOLDS [facility] [id number] [facility] 2021-01-16 08:10:00 2021-01-16 09:05:19 Office Visit Molly Reynolds [facility] 1.2.840.114 350.1.13.10 4.2.7.2.[id number] [facility] 2021-01-16 08:10:00 2021-01-16 08:10:00 Outpatient MOLLY ROGERS [facility] [id number] [facility] 2021-01-15 00:00:00 2021-01-15 00:00:00 Telephone Molly Reynolds [facility] 1.2.840.114 350.1.13.10 4.2.7.2.[id number] [facility] 2021-01-02 00:00:00 2021-01-02 00:00:00 Cyndee Bolivar [facility] 1.2.840.114 350.1.13.10 4.2.7.2.[id number] [facility] 2020-12-04 00:00:00 2020-12-04 00:00:00 Telephone Molly Reynolds [facility] 1.2.840.114 350.1.13.10 4.2.7.2.[id number] [facility] 2020-11-29 00:00:00 2020-11-29 00:00:00 Cyndee Bolivar [facility] 1.2.840.114 350.1.13.10 4.2.7.2.[id number] [facility] 2020-10-24 09:48:05 2020-10-24 10:46:55 Office Visit Molly Reynolds [facility] 1..114 350.1.13.10 4.2.7.2.[id number] [facility] 2020-10-24 09:50:00 2020-10-24 09:50:00 Outpatient R MOLLY REYONLDS [facility] [id number] [facility] 2020-10-23 00:00:00 2020-10-23 00:00:00 Cyndee Bolivar [facility] 1..114 350.1.13.10 4.2.7.2.[id number] [facility] 2020-10-23 00:00:00 2020-10-23 00:00:00 Telephone Molly Reynolds [facility] 1..114 350.1.13.10 4.2.7.2.[id number] [facility] 2020-10-02 16:21:37 2020-10-02 16:41:37 Laboratory Only Lab, [facility] Jarekb I Mando [facility] Office Building One 1.114 350.1.13.10 4.2.7.2.[id number] [facility] 2020-10-02 16:20:00 2020-10-02 16:20:00 Outpatient R [facility] [id number] [facility] 2020-09-27 18:17:02 2020-09-27 18:37:02 Laboratory Only Lab, [facility] Pob I Natalya Pintoayemi [facility] Office Building One 1.114 350.1.13.10 4.2.7.2.[id number] [facility] 2020-09-27 18:20:00 2020-09-27 18:20:00 Outpatient R MICHAEL PINTO [facility] [id number] [facility] 2020-09-20 08:39:40 2020-09-20 09:24:44 Office Visit Molly Reynolds [facility] 1.2.840.114 350.1.13.10 4.2.7.2.[id number] [facility] 2020-09-20 08:30:00 2020-09-20 08:30:00 Outpatient R MOLLY REYNOLDS [facility] [id number] [facility] 2020-09-18 00:00:00 2020-09-18 00:00:00 Telephone Molly Reynolds [facility] 1.840.114 350.1.13.10 4.2.7.2.[id number] [facility] 2020-09-15 00:00:00 2020-09-15 00:00:00 Xavi Vera [facility] 1.2.840.114 350.1.13.10 4.2.7.2.[id number] [facility] 2020-08-07 09:07:55 2020-08-07 09:27:55 Laboratory Only Lab, Carloz [facility] Office Building One 1.840.114 350.1.13.10 4.2.7.2.[id number] [facility] 2020-08-07 09:00:00 2020-08-07 09:00:00 [id number] 2020-07-20 08:28:08 2020-07-20 08:48:08 [facility] 1.2.840.114 350.1.13.10 4.2.7.2.[id number] [facility] 2020-07-20 08:20:00 2020-07-20 08:20:00 Outpatient IGNACIO RICHARDSON [facility] [id number] [facility] 2020-07-04 00:00:00 2020-07-04 00:00:00 Telephone Molly Reynolds [facility] 1.2.840.114 350.1.13.10 4.2.7.2.[id number] [facility] 2020-07-04 00:00:00 2020-07-04 00:00:00 Telephone Molly Reynolds [facility] 1.2.840.114 350.1.13.10 4.2.7.2.686 [id number] 225 [id number] 2020-06-28 17:21:12 2020-06-28 17:41:12 Laboratory Only Lab, [facility] Pob Ambar Gilmore Dena [facility] Office Building One 1.2.840.114 350.1.13.10 4.2.7.2.[id number] [facility] 2020-06-28 17:21:12 2020-06-28 17:41:12 Laboratory Only Lab, [facility] Office Building One 1.2.840.114 350.1.13.10 4.2.7.2.686 [id number] 044 [id number] 2020-06-28 17:00:00 2020-06-28 17:00:00 Outpatient DENA HE [facility] [id number] [facility] 2020-06-06 00:00:00 2020-06-06 00:00:00 Telephone Molly Reynolds [facility] 1.2.840.114 350.1.13.10 4.2.7.2.[id number] [facility] 2020-06-06 00:00:00 2020-06-06 00:00:00 Telephone Molly Reynolds [facility] 1.2.840.114 350.1.13.10 4.2.7.2.686 [id number] 225 [id number] 2020-05-15 12:58:06 2020-05-15 13:18:06 Office Visit Molly Reynolds [facility] 1.2.840.114 350.1.13.10 4.2.7.2.[id number] [facility] 2020-05-15 12:58:06 2020-05-15 13:18:06 Office Visit Molly Reynolds [facility] 1.2.840.114 350.1.13.10 4.2.7.2.686 [id number] 225 [id number] 2020-05-15 13:10:00 2020-05-15 13:10:00 Outpatient R MOLLY REYNOLDS [facility] [id number] [facility] 2020-05-15 00:00:00 2020-05-15 00:00:00 RefXavi Gaitan [facility] 1.2.840.114 350.1.13.10 4.2.7.2.[id number] [facility] 2020-05-15 00:00:00 2020-05-15 00:00:00 Telephone Molly Reynolds [facility] 1.2.840.114 350.1.13.10 4.2.7.2.[id number] [facility] 2020-05-15 00:00:00 2020-05-15 00:00:00 RefXavi Gaitan [facility] 1.2.840.114 350.1.13.10 4.2.7.2.686 [id number] 225 [id number] 2020-05-15 00:00:00 2020-05-15 00:00:00 Telephone Molly Reynolds [facility] 1.2.840.114 350.1.13.10 4.2.7.2.686 [id number] 225 [id number] 2020-05-10 00:00:00 2020-05-10 00:00:00 Telephone Molly Reynolds [facility] 1.2.840.114 350.1.13.10 4.2.7.2.[id number] [facility] 2020-05-09 00:00:00 2020-05-09 00:00:00 Refill Xavi Leonard [facility] 1.2.840.114 350.1.13.10 4.2.7.2.[id number] [facility] 2020-04-05 11:17:34 2020-04-05 13:53:29 Telemedici ne Visit Molly Reynolds [facility] 1.2.840.114 350.1.13.10 4.2.7.2.[id number] [facility] 2020-04-05 12:30:00 2020-04-05 12:30:00 Outpatient R MOLLY REYNOLDS [facility] [id number] [facility] 2020-04-05 00:00:00 2020-04-05 00:00:00 Telephone Molly Reynolds [facility] 1.2.840.114 350.1.13.10 4.2.7.2.[id number] [facility] 2020-04-04 00:00:00 2020-04-04 00:00:00 Refill Molly Reynolds [facility] 1.2.840.114 350.1.13.10 4.2.7.2.[id number] [facility] 2020-02-07 13:44:54 2020-02-07 14:30:06 Office Visit Molly Reynolds [facility] 1.2.840.114 350.1.13.10 4.2.7.2.[id number] [facility] 2020-02-07 13:40:00 2020-02-07 13:40:00 Outpatient R MOLLY ERYNOLDS [facility] [id number] [facility] 2020-02-07 00:00:00 2020-02-07 00:00:00 Telephone Molly Reynolds [facility] 1.2.840.114 350.1.13.10 4.2.7.2.[id number] [facility] 2020-02-07 00:00:00 2020-02-07 00:00:00 Patient Secure [facility] 1.2.840.114 350.1.13.10 4.2.7.2.[id number] [facility] 2020-02-02 00:00:00 2020-02-02 00:00:00 [facility] 1.2.840.114 350.1.13.10 4.2.7.2.[id number] [facility] 2020-02-01 09:52:14 2020-02-01 10:46:24 Laboratory Only Pc, Ad[facility] [place] [facility] 1.2.840.114 350.1.13.10 4.2.7.2.[id number] [facility] 2020-02-01 10:00:00 2020-02-01 10:00:00 Outpatient R [facility] [id number] [facility] 2020-01-27 00:00:00 2020-01-27 00:00:00 Patient Secure Msg [facility] 1.2.840.114 350.1.13.10 4.2.7.2.[id number] [facility] 2020-01-26 11:19:38 2020-01-26 16:10:21 [facility] 1.2.840.114 350.1.13.10 4.2.7.2.[id number] [facility] 2020-01-26 15:18:44 2020-01-26 15:47:18 Nurse Visit Visit, [facility] 1.2.840.114 350.1.13.10 4.2.7.2.[id number] [facility] 2020-01-26 15:14:44 2020-01-26 15:29:44 Pin Setter Visit 2, [facility] 1.2.840.114 350.1.13.10 4.2.7.2.[id number] [facility] 2020-01-26 11:20:00 2020-01-26 11:20:00 Outpatient R LISA GOLDEN [facility] [id number] [facility] 2020-01-26 00:00:00 2020-01-26 00:00:00 [facility] 1.2.840.114 350.1.13.10 4.2.7.2.[id number] [facility] 2020-01-11 00:00:00 2020-01-11 00:00:00 Molly Mcgraw [facility] 1.2.840.114 350.1.13.10 4.2.7.2.[id number] [facility] 2020-01-05 08:26:44 2020-01-05 09:38:08 Office Visit Cyndee Kenny [facility] 1.2.840.114 350.1.13.10 4.2.7.2.[id number] [facility] 2020-01-05 08:20:00 2020-01-05 08:20:00 Outpatient R CYNDEE KENNY [facility] [id number] [facility] 2019-12-31 00:00:00 2019-12-31 00:00:00 Telephone Molly Reynolds [facility] 1.2.840.114 350.1.13.10 4.2.7.2.[id number] [facility] 2019-12-06 13:20:00 2019-12-06 13:20:00 Outpatient R MOLLY REYNOLDS [facility] [id number] [facility] 2019-12-02 00:00:00 2019-12-02 00:00:00 Refill Molly Reynolds [facility] 1.2.840.114 350.1.13.10 4.2.7.2.[id number] [facility] 2019-11-05 09:10:10 2019-11-05 09:47:52 Nurse Visit Nurse, Molly Albright [facility] 1.2.840.114 350.1.13.10 4.2.7.2.[id number] [facility] 2019-11-05 09:00:00 2019-11-05 09:00:00 Outpatient R [facility] [id number] [facility] 2019-11-03 00:00:00 2019-11-03 00:00:00 Refill Molly Reynolds [facility] 1.2.840.114 350.1.13.10 4.2.7.2.[id number] [facility] 2019-10-05 12:45:20 2019-10-05 13:05:20 Telemedici ne Visit Molly Reynolds [facility] 1.2.840.114 350.1.13.10 4.2.7.2.[id number] [facility] 2019-10-05 12:30:00 2019-10-05 12:30:00 Outpatient MOLLY ROGERS [facility] [id number] [facility] 2019-10-05 00:00:00 2019-10-05 00:00:00 Telephone Molly Reynolds [facility] 1.2840.114 350.1.13.10 4.2.7.2.[id number] [facility] 2019-08-17 10:02:57 2019-08-17 14:25:34 Office Visit Cyndee Kenny [facility] 1.20.114 350.1.13.10 4.2.7.2.[id number] [facility] 2019-08-17 10:00:00 2019-08-17 10:00:00 Outpatient CYNDEE SALEEM [facility] [id number] [facility] 2019-08-17 00:00:00 2019-08-17 00:00:00 Letter (Out) Molly Reynolds [facility] 1.2.840.114 350.1.13.10 4.2.7.2.[id number] [facility] 2019-08-17 00:00:00 2019-08-17 00:00:00 Telephone Cyndee Kenny [facility] 1.2.840.114 350.1.13.10 4.2.7.2.[id number] [facility] 2019-08-05 00:00:00 2019-08-05 00:00:00 Reftabatha Gail Molly Jalen [facility] 1.2.840.114 350.1.13.10 4.2.7.2.[id number] [facility] 2019-08-02 15:51:04 2019-08-02 16:28:55 Office Visit Molly Reynolds [facility] 1.2.840.114 350.1.13.10 4.2.7.2.[id number] [facility] 2019-07-15 08:13:21 2019-07-22 11:41:46 Ancillary Visit Eder Barrera Craig L [facility] Building 1.2.840.114 350.1.13.10 4.2.7.2.[id number] [facility] 2019-07-15 13:17:03 2019-07-15 13:44:48 Office Visit Cyndee Kenny [facility] 1.2.840.114 350.1.13.10 4.2.7.2.[id number] [facility] 2019-07-14 07:48:46 2019-07-14 08:28:46 Ancillary Visit [facility] 1.2.840.114 350.1.13.10 4.2.7.2.[id number] [facility] 2019-07-12 11:09:39 2019-07-12 11:49:39 Ancillary Visit Eder Barrera [facility] 1.2.840.114 350.1.13.10 4.2.7.2.[id number] [facility] 2019-07-09 15:00:28 2019-07-09 15:20:28 Office Visit Molly Reynolds [facility] 1.2.840.114 350.1.13.10 4.2.7.2.[id number] [facility] 2019-07-09 07:50:57 2019-07-09 08:30:57 Ancillary Visit Ila Rebolledo Craig L [facility] Building 1.2840.114 350.1.13.10 4.2.7.2.[id number] [facility] 2019-07-09 00:00:00 2019-07-09 00:00:00 Orders Only Doctor Unassigned, [place] [facility] 1.2840.114 350.1.13.10 4.2.7.2.[id number] [facility] 2019-07-09 00:00:00 2019-07-09 00:00:00 Telephone Molly Reynolds [facility] 1.2.840.114 350.1.13.10 4.2.7.2.[id number] [facility] 2019-07-07 08:32:08 2019-07-07 09:24:23 Ancillary Visit Eder Barrera Craig L [facility] Building 1.2840.114 350.1.13.10 4.2.7.2.[id number] [facility] 2019-07-06 00:00:00 2019-07-06 00:00:00 Telephone Molly Reynolds [facility] 1.2840.114 350.1.13.10 4.2.7.2.[id number] [facility] 2019-07-01 09:36:45 2019-07-01 10:21:45 Ancillary Visit Eder Barrera Craig L [facility] Building 1.2.840.114 350.1.13.10 4.2.7.2.[id number] [facility] 2019-06-30 08:17:26 2019-06-30 09:02:26 Ancillary Visit Eder Barrera Craig L [facility] Building 1.2.840.114 350.1.13.10 4.2.7.2.[id number] [facility] 2019-06-30 00:00:00 2019-06-30 00:00:00 Xavi Vera [facility] 1.2.840.114 350.1.13.10 4.2.7.2.[id number] [facility] 2019-06-28 00:00:00 2019-06-28 00:00:00 Orders Only Doctor Unassigned, [place] [facility] 1.2.840.114 350.1.13.10 4.2.7.2.[id number] [facility] 2019-02-26 09:14:40 2019-02-26 23:59:00 Hospital Encounter Molly Reynolds [facility] 1.2.840.114 350.1.13.10 4.2.7.2.[id number] [facility] 2019-02-26 00:00:00 2019-02-26 00:00:00 Orders Only Doctor Unassigned, [place] [facility] 1.2.840.114 350.1.13.10 4.2.7.2.[id number] [facility] 2019-02-25 00:00:00 2019-02-25 00:00:00 Telephone Molly Reynolds [facility] 1.2.840.114 350.1.13.10 4.2.7.2.[id number] [facility] 2019-02-25 00:00:00 2019-02-25 00:00:00 Refill Saba Mercer [facility] 1.2.840.114 350.1.13.10 4.2.7.2.[id number] [facility] 2019-01-26 10:51:33 2019-01-26 12:08:39 Office Visit Molly Reynolds [facility] 1.2.840.114 350.1.13.10 4.2.7.2.[id number] [facility] 2019-01-26 00:00:00 2019-01-26 00:00:00 Refill Molly Reynolds [facility] 1.2.840.114 350.1.13.10 4.2.7.2.[id number] [facility] 2019-01-26 00:00:00 2019-01-26 00:00:00 Orders Only Doctor Unassigned, [place] [facility] 1.2.840.114 350.1.13.10 4.2.7.2.[id number] [facility] 2019-01-19 00:00:00 2019-01-19 00:00:00 Telephone Molly Reynolds [facility] 1.2.840.114 350.1.13.10 4.2.7.2.[id number] [facility] 2018-10-12 00:00:00 2018-10-12 00:00:00 Letter (Out) Farhad [place] [facility] 1.2.840.114 350.1.13.10 4.2.7.2.[id number] [facility] Results Test Description Test Time Test Comments Results Result Co mments Source [facility] [id number] 22:03:00* Test Item Value Reference Range Interpretation Comme nts POCT PREG (test code = 1605) Negative On board controls acceptable with C Line (test code = 3574) Yes POCT PREG LOT # (test code = 3575) POCT PREG TEST DATE ( test code = 3576) [facility] [id number] 17:21:00* Test Item Value Reference Range Interpretation Comme nts POCT PREG (test code = 1605) Negative On board controls acceptable with C Line (test code = 3574) Yes POCT PREG LOT # (test code = 3575) t POCT PREG TEST DATE ( test code = 3576) [facility] [id number] 17:21:00* Test Item Value Reference Range Interpretation Comme nts POCT PREG (test code = 1605) Negative On board controls acceptable with C Line (test code = 3574) Yes POCT PREG LOT # (test code = 3575) t POCT PREG TEST DATE ( test code = 3576) [facility] [id number] 18:24:00* Test Item Value Reference Range Interpretation Comme nts POCT PREG (test code = 1605) Negative On board controls acceptable with C Line (test code = 3574) Yes POCT PREG LOT # (test code = 3575) POCT PREG TEST DATE ( test code = 3576) [facility] [id number] 18:24:00* Test Item Value Reference Range Interpretation Comme nts POCT PREG (test code = 1605) Negative On board controls acceptable with C Line (test code = 3574) Yes POCT PREG LOT # (test code = 3575) POCT PREG TEST DATE ( test code = 3576) [facility] URINALYSIS W SPECIFIC [id number] 18:23:00* Test Item Value Reference Range Interpretation Comme nts POCT U SP GRAV (test code = 3255) 1.010 mg/dl 1.005-1.025 POCT PH U (test code = 3254) 5 mg/dl 5-8 POCT U LEUK EST (test code = 3263) Negative Negative - Negative POCT U NIT (test code = 3262) Negative Negative - Negative POCT U PROT (test code = 3259) Negative Negative - Negative POCT U GLU (test code = 3256) Negative Negative - Negative POCT U KETONE (test code = 3258) Negative Negative - Negative POCT U UROBILI (test code = 3260) Negative 0.2-1 POCT U BILI (test code = 3261) Negative Negative - Negative POCT U BLD (test code = 3257) Negative Negative - Negative POCT U COLOR (test code = 3266) light yellow POCT U APPEAR (test code = 3267) [facility]CIFIC [id number] 18:23:00* Test Item Value Reference Range Interpretation Comme nts POCT U SP GRAV (test code = 3255) 1.010 mg/dl 1.005-1.025 POCT PH U (test code = 3254) 5 mg/dl 5-8 POCT U LEUK EST (test code = 3263) Negative Negative - Negative POCT U NIT (test code = 3262) Negative Negative - Negative POCT U PROT (test code = 3259) Negative Negative - Negative POCT U GLU (test code = 3256) Negative Negative - Negative POCT U KETONE (test code = 3258) Negative Negative - Negative POCT U UROBILI (test code = 3260) Negative 0.2-1 POCT U BILI (test code = 3261) Negative Negative - Negative POCT U BLD (test code = 3257) Negative Negative - Negative POCT U COLOR (test code = 3266) light yellow POCT U APPEAR (test code = 3267) clear [facility] Notes Date/Time Note Provider Source 2023-09-16 13:10:33 Rx for Diflucan for yeast infection. [facility]
[2024-01-26 02:37] LABS: Absolute Basophils 0.1 K/uL (0-0.5); Absolute Eosinophils 0.1 K/uL (0-0.5); Absolute Lymphocytes (CBC) 2.8 K/uL (0.7-4.9); Absolute Monocytes 0.7 K/uL (0.1-1.3); Absolute Neutrophil 3.5 K/uL (1.8-8.0); Eosinophils % 1.6 % (0-4.4); Hematocrit 36.3 % (36.0-45.0); Hemoglobin 11.7 g/dL (12.0-15.0); Lymphocytes % 38.8 % (15.3-44.8); MCH 26.1 pg (27.0-35.0); MCHC 32.3 g/dL (32.0-36.0); MCV 80.7 fL (80-100); Monocytes % 10.3 % (3.3-12.3); Neutrophils % 48.3 % (41.7-73.7); Nucleated Red Blood Cells % 0.1 % (0-0); Platelets 230 thou/uL (152-406); Red Cell Distribution Width 17.7 % (12.1-15.2)
[2024-01-26 02:47] LABS: PT Prothrombin Time 12.4 SECONDS (9.4-12.5); PTT, Activated Partial Thromb 28.6 SECONDS (24.3-36.9); Protime INR 1.11
[2024-01-26 03:24] LABS: Anion Gap 10.3 mEq/L (5.0-15.0); Magnesium 2.1 mg/dL (1.6-2.4); Potassium 3.3 mEq/L (3.5-5.1); Troponin High Sensitivity 3.3 pg/mL (<58.9)
--- NOTE | 2024-01-26 03:53 | ER ---
Nurse's Notes [facility] Name: Saba Mcgovern Age: 23 yrs Sex: Female : 2000 Arrival Date: 01/26/2024 Time: 01:50 Bed 8 Private MD: Diagnosis: Weakness;Left sided numbness Presentation: 01/25 02:09 Chief complaint: Patient states: I have a burning sensation running up and down my left bm8 arm. I feel very short of breath, I cant catch my breath. Coronavirus screen: At this time, the client does not indicate any symptoms associated with coronavirus-19. Ebola Screen: Patient negative for fever greater than or equal to 101.5 degrees Fahrenheit, and additional compatible Ebola Virus Disease symptoms Patient denies exposure to infectious person. Patient denies travel to an Ebola-affected area in the 21 days before illness onset. No symptoms or risks identified at this time. Initial Sepsis Screen: Does the patient meet any 2 criteria? No. Patient's initial sepsis screen is negative. Does the patient have a suspected source of infection? No. Patient's initial sepsis screen is negative. Risk Assessment: Do you want to hurt yourself or someone else? Patient reports no desire to harm self or others. Onset of symptoms is unknown. 02:09 Method Of Arrival: EMS: [facility] bm8 02:09 Acuity: RICHI 2 bm8 Triage Assessment: 02:11 General: Appears distressed, uncomfortable, slender, well groomed, well developed, well bm8 nourished, Behavior is anxious, crying. Pain: Complains of pain in left arm Pain does not radiate. Pain currently is 6 out of 10 on a pain scale. Quality of pain is described as burning. EENT: No deficits noted. No signs and/or symptoms were reported regarding the EENT system. Neuro: Level of Consciousness is awake, alert, obeys commands, Oriented to person, place, time, situation, Electromedical Equipment Repairer are weak on left Weakness in left arm(s) leg(s) foot/feet Speech pt is deaf, unable to interpret speech. Facial symmetry appears normal, Pupils are PERRLA, Pupil Size: 4 mm. Cardiovascular: Heart tones S1 S2 present Capillary refill < 3 seconds Patient's skin is warm and dry. Respiratory: Airway is patent Trachea midline Respiratory effort is even, unlabored, Respiratory pattern is regular, symmetrical, Breath sounds are clear bilaterally. GI: No signs and/or symptoms were reported involving the gastrointestinal system. : No signs and/or symptoms were reported regarding the genitourinary system. Derm: No signs and/or symptoms reported regarding the dermatologic system. Musculoskeletal: Reports weakness in left hand, left arm and left leg numbness in left hand, left arm and left leg pain in left arm since unk time began. CASTING MOLDER: 02:11 unknown bm8 Historical: - Allergies: 02:11 No Known Allergies; bm8 - Home Meds: 02:11 Unable to obtain [Active]; bm8 - PMHx: 02:11 ADD/ADHD; Anxiety; hearing impared; bm8 - PSHx: 02:11 Unable to Obtain; bm8 - Immunization history:: Adult Immunizations unknown. - Infectious Disease History:: Denies. - Social history:: Smoking status: Patient denies any tobacco usage or history of. Screenin:39 [facility] ED Fall Risk Assessment (Adult) History of falling in the last 3 months, bm8 including since admission Yes- single mechanical fall (1 pt) Confusion or Disorientation No (0 pts) Intoxicated or Sedated No (0 pts) Impaired Gait No (0 pts) Mobility Assist Device Used No (0 pt) Altered Elimination No (0 pt) Score/Fall Risk Level 0 - 2 = Low Risk Oriented to surroundings, Maintained a safe environment, Educated pt \T\ family on fall prevention, incl call for assistance when getting out of bed, Assessed \T\ reinforced patient's understanding of fall precautions, Hourly rounding (assess needs \T\ fall precautionary measures) done, Used ambulatory aids as needed (educated on \T\ assisted with), Used gait belt as appropriate. Abuse screen: Denies threats or abuse. Nutritional screening: No deficits noted. Tuberculosis screening: No symptoms or risk factors identified. Assessment: 02:34 General: Appears in no apparent distress. comfortable, Behavior is calm, cooperative. bm8 Pain: Denies pain. Neuro: Level of Consciousness is awake, alert, obeys commands, Oriented to person, place, time, situation, Appropriate for age. Cardiovascular: Denies chest pain, Heart tones S1 S2 present Capillary refill < 3 seconds Patient's skin is warm and dry. Rhythm is sinus tachycardia. Respiratory: Reports shortness of breath at rest Airway is patent Respiratory effort is even, unlabored, Respiratory pattern is regular, symmetrical, Breath sounds are clear bilaterally. GI: No deficits noted. No signs and/or symptoms were reported involving the gastrointestinal system. : No deficits noted. No signs and/or symptoms were reported regarding the genitourinary system. EENT: No deficits noted. No signs and/or symptoms were reported regarding the EENT system. Derm: No deficits noted. No signs and/or symptoms reported regarding the dermatologic system. Musculoskeletal: No deficits noted. No signs and/or symptoms reported regarding the musculoskeletal system. 03:49 Reassessment: Patient appears in no apparent distress at this time. Patient and/or bm8 family updated on plan of care and expected duration. Pain level reassessed. Patient is alert, oriented x 3, equal unlabored respirations, skin warm/dry/pink. pt is resting with eyes closed breathing is even and unlabored at this time. Parents at bedside. Patient denies pain at this time. Patient states feeling better. Patient states symptoms have improved. 04:58 Reassessment: Patient appears in no apparent distress at this time. Patient and/or bm8 family updated on plan of care and expected duration. Pain level reassessed. Patient is alert, oriented x 3, equal unlabored respirations, skin warm/dry/pink. Patient denies pain at this time. Patient states feeling better. Patient states symptoms have improved. Neuro: Level of Consciousness is alert, obeys commands, Oriented to person, place, time, situation, Appropriate for age Electromedical Equipment Repairer are equal bilaterally Moves all extremities. Full function Gait is steady, Facial symmetry appears normal, Intact. Vital Signs: 02:09 BP 150 / 124; Pulse 99; Resp 18; Temp 98.3; Pulse Ox 100% on R/A; Weight 54.43 kg; bm8 Height 5 ft. 4 in. ; Pain 6/10; 02:34 BP 125 / 105; Pulse 107; Resp 20; Temp 98.3; Pulse Ox 100% ; Pain 0/10; bm8 03:49 BP 115 / 75; Pulse 86; Resp 19; Temp 98.3; Pulse Ox 98% ; Pain 0/10; bm8 04:58 BP 101 / 63; Pulse 77; Resp 18; Temp 98.3; Pulse Ox 98% ; Pain 0/10; bm8 02:09 Body Mass Index 20.60 (54.43 kg, 162.56 cm) bm8 02:09 Pain Scale: Adult bm8 02:34 Pain Scale: Adult bm8 03:49 Pain Scale: Adult bm8 04:58 Pain Scale: Adult bm8 T[place] Coma Score: 02:34 Eye Response: spontaneous(4). Motor Response: obeys commands(6). Verbal Response: bm8 oriented(5). Total: 15. 03:49 Eye Response: spontaneous(4). Motor Response: obeys commands(6). Verbal Response: bm8 oriented(5). Total: 15. 04:58 Eye Response: spontaneous(4). Motor Response: obeys commands(6). Verbal Response: bm8 oriented(5). Total: 15. NIH Stroke Scale Scores: 02:11 NIHSS Score: 3 bm8 ED Course: 01:50 Patient arrived in ED. rv1 02:02 Tarun Burch DO is Attending Physician. ms3 02:09 Raheem Doss, RN is Primary Nurse. bm8 02:11 Triage completed. bm8 02:11 Arm band placed on right wrist. bm8 02:26 CT Neck Angio In Process Unspecified. EDMS 02:26 CT Stroke Brain w/o Contrast In Process Unspecified. EDMS 02:26 Head angio In Process Unspecified. EDMS 02:27 Stroke CXR 1 View In Process Unspecified. EDMS 02:39 Patient has correct armband on for positive identification. Bed in low position. Call bm8 light in reach. Side rails up X2. Adult w/ patient. Client placed on continuous cardiac and pulse oximetry monitoring. NIBP monitoring applied. monitor tech on. Pulse ox on. NIBP on. Door closed. Noise minimized. Warm blanket given. Pillow given. Verbal reassurance given. Head of bed lowered. 02:39 No provider procedures requiring assistance completed. Initial lab(s) drawn, by miryam cowan sent to lab. EKG done, by ED staff, reviewed by Tarun Burch DO. Inserted saline lock: 20 gauge in left antecubital area, using aseptic technique. Blood collected. Flushed with 10 mL NS. Patient maintains SpO2 saturation greater than 95% on room air. 03:49 Patient admitted, IV remains in place. bm8 03:52 Derick Weiss MD is Hospitalizing Provider. ms3 04:58 Provided Education on: need for admit. bm8 Administered Medications: No medications were administered Medication: 02:39 VIS not applicable for this client. bm8 Outcome: 03:53 Decision to Hospitalize by Provider. ms3 04:58 Admitted to Tele accompanied by nurse, via wheelchair, room 413, with chart, bm8 04:58 Condition: improved 04:58 Instructed on the need for admit, Demonstrated understanding of instructions, follow-up care, medications, 05:00 Patient left the ED. bm8 NIH Stroke Scale - NIH Stroke Score Date: 01/26/2024 Time: 02:11 Total Score = 3 10. Dysarthria (speech clarity - read or repeat words) - UN(Intubated) - Notes: pt is deaf 11. Extinction and Inattention (visual/tactile/auditory/spatial/personal) - 0(No abnormality) 1a. Level of Consciousness (LOC) - 0(Alert) 1b. Level of Consciousness (LOC) (Month \T\ Age) - 0(Both) 1c. LOC Commands (Open \T\ Closes Eyes/Manager Social Responsibility) - 0(Both) 2. Best Gaze (Lateral Gaze Paresis) - 0(Normal) 3. Visual Field Loss - 0(No visual loss) 4. Facial Palsy - 0(Normal) 5a. Left Arm: Motor (10-second hold) - 1(Drift) 5b. Right Arm: Motor (10-second hold) - 0(No drift) 6a. Left Leg: Motor (5-second hold - always test supine) - 2(Drift, some effort against gravity) 6b. Right Leg: Motor (5-second hold - always test supine) - 0(No drift) 7. Limb Ataxia (finger/nose \T\ heel/carter - test with eyes open) - 0(Absent) 8. Sensory Loss (pinprick arms/legs/face) - 0(Normal) 9. Best Language: Aphasia (description/naming/reading) - 0(No aphasia) Initials: bm8 Signatures: Dispatcher [employer] EDMS Tarun Burch DO DO ms3 Alanna Kim rv1 Raheem Doss, RN RN bm8
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
[2024-01-26] MEDS ORDERED: ACETAMINOPHEN 325 MG TABLET PO PRN (04:14)
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
[2024-01-26 04:37] LABS: Specific Gravity > 1.030 (1.005-1.030); Sqamous Epithelial 20-50 /HPF (None Seen); Urine Bacteria <20 /HPF (<20); Urine Bilirubin NEGATIVE (Negative); Urine Blood Negative (Negative); Urine Clarity Extremely Turbid (Clear); Urine Color Light-Yellow (Yellow); Urine Culture Reflex Order NOT NEEDED; Urine Glucose NEGATIVE (Negative); Urine Ketones NEGATIVE (Negative); Urine Micro Reflex YN NO BILL MICROSCOPIC; Urine Nitrite NEGATIVE (Negative); Urine Protein NEGATIVE (Negative); Urine RBC <5 /HPF (None Seen); Urine Urobilinogen Normal (Normal); Urine Yeast (Budding) Trace /HPF (None Seen); Urine pH 6.5 (5.0-7.0)
[2024-01-26 05:09] VITALS: O2SAT 98
[2024-01-26 06:21] VITALS: BMI 16.5
[2024-01-26] MEDS: NA CHLORIDE 0.9% 1,000 ML IV SCH (07:09)
[2024-01-26] MEDS: ASPIRIN EC 81 MG TAB PO SCH (09:09)
[2024-01-26 10:38] LABS: Specific Gravity > 1.030 (1.005-1.030)
--- NOTE | 2024-01-26 11:51 | RAD REPORT ---
EXAM DESCRIPTION: CT - Neck Angio - 01/26/2024 2:24 am CLINICAL HISTORY: The patient is 23 years old and is Female; Left sided weaknes TECHNIQUE: Routine carotid CT angiography protocol was performed with intravenous contrast. NASCET criteria using the distal ICAs for comparison were used for evaluation of stenoses. Sagittal and c oronal reformatted images were created and reviewed. This CT exam was performed using one or more o f the following dose reduction techniques: automated exposure control, adjustment of the mA and/or kV according to patient size, and/or use of iterative reconstruction technique. MIP reconstructed i mages were created and reviewed. COMPARISON: None. FINDINGS: VASCULATURE: Right common carotid artery: Unremarkable. No occlusion or significant stenosis. No dissectio n. Right internal carotid artery: Unremarkable. Extracranial segment is patent with no occlusion o r significant stenosis. No dissection. Right external carotid artery: Unremarkable. No occlusion. Right vertebral artery: Unremarkable. No occlusion or significant stenosis. No dissection. Left common carotid artery: Unremarkable. No occlusion or significant stenosis. No dissection . Left internal carotid artery: Unremarkable. Extracranial segment is patent with no occlusion or significant stenosis. No dissection. Left external carotid artery: Unremarkable. No occlusion. Left vertebral artery: Unremarkable. No occlusion or significant stenosis. No dissection. NECK: Bones/joints: Unremarkable. No acute fracture. Soft tissues: Unremarkable. Lung apices: Clear. CAROTID STENOSIS REFERENCE USING NASCET CRITERIA: % ICA stenosis = (1 - narrowest ICA diameter/diameter of distal cervical ICA) x 100. Mild - <50% stenosis. Moderate - 50-69% stenosis. Severe - 70-94% stenosis. Near occlusion - 95-99% stenosis. Occluded - 100% stenosis. IMPRESSION: No significant stenosis. No dissection or occlusion. Electronically signed by: Greg Justice MD 01/26/2024 03:32 AM CDT RP 8 Due to temporary technical issues with the PACS/Fluency reporting system, reports are being signed by the in house radiologist without review as a courtesy to ensure prompt reporting. The interpreting r adiologist is fully responsible for the content of the report.
--- NOTE | 2024-01-26 11:55 | RAD REPORT ---
EXAM DESCRIPTION: CT - Head angio - 01/26/2024 2:25 am CLINICAL HISTORY: The patient is 23 years old and is Female; stroke alert TECHNIQUE: Axial computed tomographic angiography images of the head with intravenous contrast. Sa gittal and coronal reformatted images were created and reviewed. This CT exam was performed using o ne or more of the following dose reduction techniques: automated exposure control, adjustment of th e mA and/or kV according to patient size, and/or use of iterative reconstruction technique. MIP rec onstructed images were created and reviewed. COMPARISON: No relevant prior studies available. FINDINGS: Right internal carotid artery: No acute findings. Intracranial segment is patent with no significant stenosis. No aneurysm. Right anterior cerebral artery: Unremarkable. No occlusion or significant stenosis. No aneury sm. Right middle cerebral artery: Unremarkable. No occlusion or significant stenosis. No aneurysm . Right posterior cerebral artery: Unremarkable. No occlusion or significant stenosis. No aneur ysm. Right vertebral artery: Unremarkable as visualized. Left internal carotid artery: No acute findings. Intracranial segment is patent with no signifi cant stenosis. No aneurysm. Left anterior cerebral artery: Unremarkable. No occlusion or significant stenosis. No aneurys m. Left middle cerebral artery: Unremarkable. No occlusion or significant stenosis. No aneurysm. Left posterior cerebral artery: Unremarkable. No occlusion or significant stenosis. No aneury sm. Left vertebral artery: Unremarkable as visualized. Basilar artery: Unremarkable. No occlusion or significant stenosis. No aneurysm. IMPRESSION: No occlusion or significant stenosis. No aneurysm. Electronically signed by: Greg Justice MD 01/26/2024 03:39 AM CDT 8 Due to temporary technical issues with the PACS/Fluency reporting system, reports are being signed by the in house radiologist without review as a courtesy to ensure prompt reporting. The interpreting r adiologist is fully responsible for the content of the report.
--- NOTE | 2024-01-26 11:56 | RAD REPORT ---
EXAM DESCRIPTION: CT - Ct Stroke Brain Wo Cont - 01/26/2024 2:24 am ADDENDUM #1 THIS REPORT CONTAINS FINDINGS THAT MAY BE CRITICAL TO PATIENT CARE: The findings were verbally discus sed via telephone conference with Dr. Tarun Burch by Dr. Greg Justice on 01/26/2024 3:23 AM CDT .The results were acknowledged and understood. Electronically signed by: Greg Justice MD 01/26/2024 03:25 AM T 8 End of Addendum EXAM DESCRIPTION: CT Head Without Intravenous Contrast CLINICAL HISTORY: The patient is 23 years old and is Female; STROKE ALERT TECHNIQUE: Axial computed tomography images of the head/brain without intravenous contrast. Sagitt al and coronal reformatted images were created and reviewed. This CT exam was performed using one o r more of the following dose reduction techniques: automated exposure control, adjustment of the mA and/or kV according to patient size, and/or use of iterative reconstruction technique. COMPARISON: No relevant prior studies available. FINDINGS: Brain: Unremarkable. No hemorrhage. No significant white matter disease. No edema. Ventricles: Unremarkable. No ventriculomegaly. Bones/joints: Unremarkable. No acute fracture. Soft tissues: Unremarkable. Sinuses: Unremarkable as visualized. Mastoid air cells: Unremarkable as visualized. No mastoid effusion. Tubes, lines and devices: Device within the right posterior calvarium/cochlea with associated art ifact. IMPRESSION: No acute intracranial abnormality. Electronically signed by: Greg Justice MD 01/26/2024 03:17 AM T 8 Due to temporary technical issues with the PACS/Fluency reporting system, reports are being signed by the in house radiologist without review as a courtesy to ensure prompt reporting. The interpreting r adiologist is fully responsible for the content of the report.
--- NOTE | 2024-01-26 12:13 | RAD REPORT ---
EXAM DESCRIPTION: RAD - Chest Single View - 01/26/2024 2:25 am CLINICAL HISTORY: The patient is 23 years old and is Female; Left sided weaknes TECHNIQUE: Frontal view of the chest. COMPARISON: No relevant prior studies available. FINDINGS: Lungs: Unremarkable. No consolidation. Pleural space: Unremarkable. No pneumothorax. Heart: Unremarkable. Mediastinum: Unremarkable. Normal mediastinal contour. Bones/joints: No acute findings. IMPRESSION: No acute findings in the chest. Electronically signed by: Greg Justice MD 01/26/2024 02:39 AM CDT 8 Due to temporary technical issues with the PACS/Fluency reporting system, reports are being signed by the in house radiologist without review as a courtesy to ensure prompt reporting. The interpreting r adiologist is fully responsible for the content of the report.
--- NOTE | 2024-01-26 13:44 | EKG ---
Test Date: 2024-01-26 Test Time: 02:28:50 Wiring Inspector: STEPH MEASUREMENT RESULTS: Intervals: Rate: 97 TX: 148 QRSD: 74 QT: 344 QTc: 436 [place]: P: 70 TX: 148 QRS: 69 T: 57 INTERPRETIVE STATEMENTS: Normal sinus rhythm Normal ECG Compared to ECG 01/03/2024 21:32:50 Early repolarization no longer present Electronically Signed On 01-26-24 13:43:25 CDT by Italo Barker
--- NOTE | 2024-01-26 13:58 | RAD REPORT ---
EXAM DESCRIPTION: CT - Chest Abd Pelvis Wo Con - 01/26/2024 1:41 pm CLINICAL HISTORY: Chest and abdominal pain COMPARISON: 2022 CT abdomen TECHNIQUE: Computed axial tomography of the chest, abdomen and pelvis was obtained. Oral contrast wa s given. IV contrast was not requested. All CT scans are performed using dose optimization technique as appropriate and may include automated exposure control or mA/KV adjustment according to patient size. FINDINGS: The evaluation of mediastinum, boris, vessels and solid organs is limited secondary to the lack of IV contrast administration The lungs are clear No mediastinal or hilar lymphadenopathy is seen. A pleural effusion is not present. A pericardial effusion is not seen. The liver, spleen, pancreas, adrenals and kidneys appear grossly normal There is no evidence of diverticulitis. 2.4 centimeter left ovarian cyst. No followup imaging recommended. Minimal free fluid IUD in place IMPRESSION: 2.4 centimeter left ovarian cyst with minimal free fluid
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
[2024-01-26 17:35] LABS: Barbiturates NEGATIVE (NEGATIVE); Benzodiazepines NEGATIVE (NEGATIVE); Cocaine NEGATIVE (NEGATIVE); METHAMPHETAM NEGATIVE (NEGATIVE); Methadone NEGATIVE (NEGATIVE); Opiates NEGATIVE (NEGATIVE); Phencyclidine NEGATIVE (NEGATIVE); THC Cannibis POSITIVE (NEGATIVE)
[2024-01-26] MEDS: POTASSIUM CL SA 10 MEQ TAB PO SCH (19:10)
[2024-01-26] MEDS: ATORVASTATIN 40 MG TAB PO SCH (20:57)
[2024-01-26] MEDS: PRAZOSIN HCL 1 MG CAP PO SCH (21:00)
[2024-01-27] MEDS: ONDANSETRON 4 MG/2 ML VIAL IV PRN (00:21)
[2024-01-27 09:58] LABS: Absolute Basophils 0.1 K/uL (0-0.5); Absolute Eosinophils 0.1 K/uL (0-0.5); Absolute Lymphocytes (CBC) 1.2 K/uL (0.7-4.9); Absolute Monocytes 0.6 K/uL (0.1-1.3); Absolute Neutrophil 2.9 K/uL (1.8-8.0); Basophils % 1.4 % (0-1.3); Eosinophils % 2.7 % (0-4.4); Hematocrit 37.4 % (36.0-45.0); Hemoglobin 11.9 g/dL (12.0-15.0); Lymphocytes % 24.8 % (15.3-44.8); MCHC 31.8 g/dL (32.0-36.0); MCV 81.5 fL (80-100); MPV 8.8 fL (7.6-11.3); Monocytes % 11.8 % (3.3-12.3); Neutrophils % 59.3 % (41.7-73.7); Platelets 207 thou/uL (152-406); RBC Red Blood Cell Count 4.59 M/uL (3.86-4.86); Red Cell Distribution Width 17.4 % (12.1-15.2)
[2024-01-27 10:16] LABS: Anion Gap 5.4 mEq/L (5.0-15.0); Potassium 4.4 mEq/L (3.5-5.1)
[2024-01-27] MEDS: SERTRALINE HCL 50 MG TAB PO SCH (12:25)
[2024-01-27] MEDS: PANTOPRAZOLE 40MG TABLET PO SCH (12:30)
[2024-01-27 13:19] VITALS: BP 131/90; TEMP 97
--- NOTE | 2024-01-27 14:12 | P.PN ---
Subjective Date of Service: 01/26/24 Chief Complaint: Left-sided weakness and numbness Patient report her left-sided numbness has mostly resolved with residual numbness in the left thumb. Family reported a jerking episode involving her left upper extremity. Patient reported difficulty speaking during the episode as well as difficulty moving her left leg. Physical Examination - Vital Signs Temperature: 97.0 F Blood Pressure: 131/90 Pulse: 80 Respirations: 16 Pulse Ox (%): 98 - Physical Exam General: Alert, In no apparent distress, Cachectic HEENT: Mucous membr. moist/pink, EOMI, Sclerae nonicteric Neck: Supple, JVD not distended Respiratory: Clear to auscultation bilaterally, Normal air movement Cardiovascular: No edema, Regular rate/rhythm, Normal S1 S2, No murmurs Gastrointestinal: Normal bowel sounds, Soft and benign, Non-distended, No tenderness Musculoskeletal: No swelling, No tenderness Integumentary: No rashes, No cyanosis Neurological: Normal strength at 5/5 x4 extr, Other (Deaf) Assessment And Plan - Current Problems (Diagnosis) (1) Stroke-like symptoms Current Visit: Yes Status: Acute (2) Deafness Current Visit: Yes Status: Acute (3) Anxiety and depression Current Visit: Yes Status: Acute (4) Severe protein-calorie malnutrition Current Visit: Yes Status: Acute (5) Seizure-like activity Current Visit: Yes Status: Acute - Plan Patient with nonspecific neurologic findings including prior history of passing out. Head CT, CTA neck and head unremarkable. CTA neck also reported normal cervical spine, no fracture. Orthostatic vitals negative Patient's symptoms could be neuropsychiatric. She is high risk for seizures given prior illicit drug use. Consult neurology. Resume home medications-prazosin and sertraline. Hold trazodone to decrease her risk of orthostatic hypotension. Neurochecks. Diet as tolerated.
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
== END 2024-01-27 16:00 | disposition home or self-care (01) ==
LOC: ER 01:50 → 4TH 04:14
PROVIDERS: ADMIT Family Medicine; ATTEND Internal Medicine
DX: R53.1 Weakness (principal); R20.0 Anesthesia of skin; E87.6 Hypokalemia; N39.0 Urinary tract infection, site not specified; H91.90 Unspecified hearing loss, unspecified ear; E46 Unspecified protein-calorie malnutrition; F41.9 Anxiety disorder, unspecified; F32.A Depression, unspecified; F12.90 Cannabis use, unspecified, uncomplicated; N83.202 Unspecified ovarian cyst, left side; Z68.1 Body mass index [BMI] 19.9 or less, adult
CPT/HCPCS: 93005; 95819; 87088; 85025 ×2; 81001; 87086; 80048 ×2; 36415 ×2; 83721; 83735; 81025; 85610; 82947; 85730; 84484; 80307; 71250; 70496; 70498; 74176; 70450; 71045; 99285; Q9967; J2405; J7030 ×2; G0378

== ENCOUNTER 2024-03-31 14:21 | Emergency (ER) | payer OTHER ==
--- OUTSIDE RECORDS SUMMARY | 2024-03-31 14:28 | XMS REPORT | Continuity of Care Document ---
Author Name Unknown Address [address] [facility] [address] [place] [address] [facility] thconnect Address [address] [facility] [address] [place] [address] Care Team Providers Care Youth Counselor Name Role Phone Ignacio Cabrera Primary Care Physician [phone] LAURA MATTSON Attending Clinician LAURA Clemens Attending Clinician Marcela baig Doctor Unassigned, [place] Attending Clinician U NARENDRA Zuluaga Attending Clinician Unavailable Molly Reynolds PA-C Attending Clinician [phone] Doctor Unassigned, [place] Attending Clinician U JANETT Washburn Attending Clinician UnavailJANETT Ojeda Attending Clinician UnavailIGNACIO Braswell Attending Clinician Unavailable XAVI LEONARD Attending Clinician Unavailable Nurse, Jd Rivers Attending Clinician Unavailable Xavi Leonard MD Attending Clinician [phone] MOLLY REYNOLDS Attending Clinician Unavailab armida Mejias Ang - Db Attending Clinician Unavailable Ignacio Cabrera Attending Clinician [phone] LINDA LI Attending Clinician Unavailable Veronica Gentile MA Attending Clinician UnavailLinda Terry MD Attending Clinician [phone] Mayela Bocanegra MD Attending Clinician + [phone] LEIGHA RAUSCH Attending Clinician UnavailMinal LINCOLN, Leigha Attending Clinician [phone] Nurse, [facility] Attending Clinician Unavailable Only, Ang Db Test Attending Clinician UnavailDelia Dinh Attending Clinician + [phone] DELIA BRADFORD Attending Clinician Unavailab Trupti Shirley RN Attending Clinician Unavailable Dedrick SUBRAMANIAN, Mayra Attending Clinician [phone] Cyndee Kenny MD Attending Clinician [phone] Pob, [facility] Attending Clinician Unavailjusto wilkinson Lab, [facility] I Attending Clinician Unavailab Frausto, Dena Attending Clinician [phone] DENA GILMORE Attending Clinician Unavailable Omaghommichelle LINCOLN, Michael Attending Clinician [phone] MICHAEL PINTO Attending Clinician Unavailjusto Golden MD, Lisa Attending Clinician [phone] Pc, [facility] Room 1 - Attending Clinician Unavai lable Visit, Adc Nurse Attending Clinician Unavailable 2, [facility] Attending Clinician Unavailable LISA GOLDEN Attending Clinician Unavailable CYNDEE KENNY Attending Clinician Unavail able Eder Barrera PTA Attending Clinician UnavailMusa Gonsales MD Attending Clinician [phone] Missy Barrera PTA Attending Clinician Unavail able Ila Rebolledo PT Attending Clinician Un available Saba Gomez MD Attending Clinician + [phone] Farhad Angeles Attending Clinician [phone] JANETT MEAD Admitting Clinician UnavailLINDA Velasquez Admitting Clinician Unavailable Payers Payer Name Policy Type Policy Number Effective Date Expirati on Date Source Problems Condition Name Condition Details Condition Category Status Onset Date Resolution Date Last Treatment Date Treating Clinician Comments Source Encounter for routine checking of intrauteri ne contracept lanre device (IUD) Encounter for routine checking of intrauteri ne contracept lanre device (IUD) Disease Active 1-18 00:00: 00 [facility] Retroverte d uterus Retroverte d uterus Disease Active 2022-06 0- 00:00: 00 [facility] Absence of menstruati on Absence of menstruati on Disease Active 2022-06 0 00:00: 00 [facility] Cyst of right ovary Cyst of right ovary Disease Active 2022-06 0 00:00: 00 [facility] Depo-Prove ra contracept lanre status Depo-Prove ra contracept lanre status Disease Active 2022-06 0 00:00: 00 [facility] Routine gynecologi angelica examinatio n Routine gynecologi angelica examinatio n Disease Active 2- 00:00: 00 [facility] Pap smear of cervix not needed Pap smear of cervix not needed Disease Active 2- 00:00: 00 [facility] Vaginal discharge Vaginal discharge Disease Active 2 00:00: 00 [facility] Sensorineu ral hearing loss (SNHL) of both ears Sensorineu ral hearing loss (SNHL) of both ears Disease Active 07-15 00:00: 00 [facility] Attention deficit hyperactiv ity disorder (ADHD), combined type Attention deficit hyperactiv ity disorder (ADHD), combined type Disease Active 07-15 00:00: 00 [facility] Allergies, Adverse Reactions, Alerts Allergy Name Allergy Type Status Severity Reaction(s) Onset Date Inactive Date Treating Clinician Comments Source NO KNOWN ALLERGIE S Drug Class Active [facility] Social History Social Habit Start Date Stop Date Quantity Comments Source History SDOH Alcohol Frequency [facility] History SDOH Alcohol Std Drinks [facility] History SDOH Alcohol Binge [facility] Gender identity [facility] Alcoholic beverage intake 2023-09-15 00:00:00 2023-09-15 00:00:00 .29 /d [facility] Alcohol intake 2023-07-03 00:00:00 2023-07-03 00:00:00 .29 /d [facility] Exposure to SARS-CoV-2 (event) 2022-09-21 00:00:00 2022-10-01 12:41:00 Not sure [facility] History of Social function 2022-10-01 00:00:00 2022-10-01 00:00:00 [facility] Tobacco use and exposure 2022-02-12 00:00:00 2022-02-12 00:00:00 Smokeless tobacco non-user [facility] Alcohol Comment 2021-08-13 00:00:00 2021-08-13 00:00:00 1 to 2 cans a week [facility] Sex assigned at 2000 00:00:00 2000 00:00:00 [facility] Smoking Status Start Date Stop Date Source Never smoked tobacco [facility] Medications Ordered Medication Name Filled Medication Name Start Date Stop Date Current Medication? Ordering Clinician Indication Dosage Frequency Signature (SIG) Comments Components Source fluconazole 150 mg tablet 09-15 00:00: 00 09-16 04:59 :00 No [id number] 150mg Take 1 tablet by mouth once now for 1 dose. [facility] levonorgest reL (MIRENA) IUD 1 Device 2022-06 18:30: 00 06-03 17:41 :00 No [id number] 1{devic e} [facility] miSOPROStoL 200 mcg tablet 2022-06 00:00: 00 07-03 00:00 :00 No [id number] Take one by mouth the night before your procedure and then take one by mouth the morning of your procedure. [facility] miSOPROStoL 200 mcg tablet 2022-06- 00:00: 00 07-03 00:00 :00 No [id number] Take one tablet the night before IUD insertion procedure and take one tablet the morning of the IUD insertion procedure. This is not for abortive treatment; patient will have IUD insertion. [facility] sucralfate 1 gram tablet 2022-06 0-05 00:00: 00 Yes 1g Take 1 tablet by mouth in the morning and 1 tablet at noon and 1 tablet in the evening. [facility] medroxyPROG ESTERone (DEPO-PROVE RA) injection 150 mg 9-06 17:15: 00 02-19 16:17 :00 No [id number] 150mg [facility] medroxyPROG ESTERone (DEPO-PROVE RA) injection 150 mg 6-21 15:45: 00 12-04 14:49 :00 [id number] EC tablet 4-11 00:00: 00 Yes [id number] 40mg Take 1 tablet by mouth in the morning. [facility] medroxyPROG ESTERone (DEPO-PROVE RA) injection 150 mg 3-30 16:00: 00 09-12 15:05 :00 No [id number] 150mg [facility] methylpheni date HCl (QUILLICHEW ER) 30 mg cb24 1-11 00:00: 00 09-24 00:00 :00 No [id number] 1{tbl} Take 1 tablet by mouth daily. [facility] medroxyPROG ESTERone (DEPO-PROVE RA) injection 150 mg 2021-06 2-30 18:15: 00 06-14 17:22 :00 No [id number] [facility] pantoprazol e 40 mg EC tablet 2021-06 2-29 00:00: 00 09-24 00:00 :00 No 40mg Take 1 tablet by mouth in the morning. [facility] medroxyPROG ESTERone (DEPO-PROVE RA) injection 150 mg 2021-06 0-11 14:15: 00 03-26 13:37 :00 No [id number] 150mg [facility] methylpheni date HCl (QUILLICHEW ER) 30 mg cb24 2021-06 0-11 00:00: 00 06-26 00:00 :00 No [id number] 1{tbl} Take 1 tablet by mouth daily. [facility] ibuprofen 600 mg tablet 8-24 00:00: 00 Yes [id number] 600mg Take 1 tablet by mouth every 8 (eight) hours as needed (pain). [facility] cetirizine (ZYRTEC) 10 mg tablet 01-01 00:00: 00 Yes [id number] Take 1 po qhs for allergies [facility] fluticasone propionate 50 mcg/actuati on nasal spray 01-01 00:00: 00 Yes [id number] 2{spray } Use 2 Sprays in each nostril in the morning and 2 Sprays in the evening. [facility] methylpheni date HCl (QUILLICHEW ER) 30 mg cb24 01-01 00:00: 00 03-26 00:00 :00 No [id number] 1{tbl} Take 1 tablet by mouth daily. [facility] triamcinolo ne acetonide 0.1 % ointment - 00:00: 00 Yes [id number] Apply to area(s) 2 (two) times daily. [facility] benzonatate 100 mg capsule 2020-06 0 00:00: 00 01-01 00:00 :00 No [id number] 200mg Take 2 capsules by mouth 2 (two) times daily as needed for Cough. [facility] methylpheni date HCl (QUILLICHEW ER) 30 mg cb24 - 00:00: 00 03-20 00:00 :00 No [id number] 1{tbl} Take 1 tablet by mouth daily. [facility] bromphenira mine-pseudo ephedrine-D M (BROMFED DM) 2-30-10 mg/5 mL syrup 07-04 00:00: 00 08-14 00:00 :00 No [id number] 5mL Take 5 mL by mouth 3 (three) times daily as needed for Congestion /Allergies or Cold symptoms. [facility] Biotin 2,500 mcg Cap 2019-06 0- 00:00: 00 Yes [id number] Take 1 po QD for 4-6 months [facility] dexmethylph enidate 40 mg MP50 7-29 00:00: 00 02-06 00:00 :00 No [id number] 40mg Take 40 mg by mouth daily. [facility] Cetirizine 10 mg capsule 3- 00:00: 09-16 04:59 :00 No [id number] 10mg Take 1 capsule by mouth daily for 30 days. [facility] oseltamivir (TAMIFLU) 75 mg capsule 3- 00:00: 00 08-27 04:59 :00 No [id number] 75mg Take 1 capsule by mouth daily for 10 days. [facility] lisdexamfet amine (VYVANSE) 50 mg capsule 2- 00:00: 10-04 00:00 :00 No [id number] 50mg Take 1 capsule by mouth every morning. [facility] biotin 5,000 mcg TbDL 2-17 00:00: 04-05 00:00 :00 No [id number] 5000ug Take 5,000 mcg by mouth daily. [facility] bromphenira mine-pseudo ephedrine-D M (BROMFED DM) 2-30-10 mg/5 mL syrup 1-30 00:00: 00 05-16 00:00 :00 No [id number] 10mL Take 10 mL by mouth 4 (four) times daily as needed for Congestion /Allergies . [facility] diclofenac 75 mg EC tablet 2018-06 2-20 00:00: 00 01-25 00:00 :00 No 75mg Take 1 tablet by mouth 2 (two) times daily with meals. [facility] dexmethylph enidate 40 mg MP50 2018-06 2-05 00:00: 00 10-04 00:00 :00 No [facility] clobetasol 0.05 % external solution 2017-06 0- 00:00: 00 01-25 00:00 :00 No [id number] Apply to area(s) 2 (two) times daily as needed (hair loss on scalp only. Stop when hairloss resolves. Not for face, groin or underarms. ). [facility] tretinoin 0.05 % cream 2017-06 00:00: 00 01-25 00:00 :00 No [id number] Apply to affected area(s) at bedtime. [facility] Minoxidil 5 % Soln 2017-06 00:00: 00 01-25 00:00 :00 No [id number] Apply to area(s) every 24 (twenty-fo ur) hours as needed (hairloss) . [facility] clindamycin 1 % gel 2017-06 00:00: 00 01-25 00:00 :00 No [id number] Apply to affected area(s) every morning. [facility] Immunizations Ordered Immunization Name Filled Immunization Name Date Status Comments Source TDAP 2022-10-01 00:00:00 Completed [facility] TDAP 2022-10-01 00:00:00 Completed [facility] TDAP 2022-10-01 00:00:00 Completed [facility] Influenza Virus Vaccine Quad IM, Preserv and ABX Free 6 MO-64 YRS 2022-03-26 00:00:00 Completed [facility] Influenza Virus Vaccine Quad IM, Preserv and ABX Free 6 MO-64 YRS 2022-03-26 00:00:00 Completed [facility] Influenza Virus Vaccine Quad IM, Preserv and ABX Free 6 MO-64 YRS 2022-03-26 00:00:00 Completed [facility] Influenza Virus Vaccine Quad IM, Preserv and ABX Free 6 MO-64 YRS 2022-03-26 00:00:00 Completed [facility] Influenza Virus Vaccine Quad IM, Preserv and ABX Free 6 MO-64 YRS 2022-03-26 00:00:00 Completed [facility] Influenza Virus Vaccine Quad IM, Preserv and ABX Free 6 MO-64 YRS 2022-03-26 00:00:00 Completed [facility] Influenza Virus Vaccine Quad IM, Preserv and ABX Free 6 MO-64 YRS 2022-03-26 00:00:00 Completed [facility] Influenza Virus Vaccine Quad IM, Preserv and ABX Free 6 MO-64 YRS 2022-03-26 00:00:00 Completed [facility] Influenza Virus Vaccine Quad IM, Preserv and ABX Free 6 MO-64 YRS 2022-03-26 00:00:00 Completed [facility] Influenza Virus Vaccine Quad IM, Preserv and ABX Free 6 MO-64 YRS 2022-03-26 00:00:00 Completed [facility] Influenza Virus Vaccine Quad IM, Preserv and ABX Free 6 MO-64 YRS 2022-03-26 00:00:00 Completed [facility] Influenza Virus Vaccine Quad IM, Preserv and ABX Free 6 MO-64 YRS 2022-03-26 00:00:00 Completed [facility] Influenza Virus Vaccine Quad IM, Preserv and ABX Free 6 MO-64 YRS 2022-03-26 00:00:00 Completed [facility] Influenza Virus Vaccine Quad IM, Preserv and ABX Free 6 MO-64 YRS 2022-03-26 00:00:00 Completed [facility] Influenza Virus Vaccine Quad IM, Preserv and ABX Free 6 MO-64 YRS (FLUCELVAX) 2022-03-26 00:00:00 Completed [facility] Meningococcal Vaccine 2016-08-27 00:00:00 Completed [facility] Meningococcal Vaccine 2016-08-27 00:00:00 Completed [facility] Meningococcal Vaccine 2016-08-27 00:00:00 Completed [facility] Meningococcal Vaccine 2016-08-27 00:00:00 Completed [facility] Meningococcal Vaccine 2016-08-27 00:00:00 Completed [facility] Meningococcal Vaccine 2016-08-27 00:00:00 Completed [facility] Meningococcal Vaccine 2016-08-27 00:00:00 Completed [facility] Meningococcal Vaccine 2016-08-27 00:00:00 Completed [facility] Meningococcal Vaccine 2016-08-27 00:00:00 Completed [facility] Meningococcal Vaccine 2016-08-27 00:00:00 Completed [facility] Meningococcal Polysaccharide (groups A, C, Y and W-135) conjugate vaccine (MCV4P) 2016-08-27 00:00:00 Completed [facility] Meningococcal Vaccine 2016-08-27 00:00:00 Completed [facility] Meningococcal Polysaccharide (groups A, C, Y and W-135) conjugate vaccine (MCV4P) 2016-08-27 00:00:00 Completed [facility] Meningococcal Vaccine 2016-08-27 00:00:00 Completed [facility] Meningococcal Polysaccharide (groups A, C, Y and W-135) conjugate vaccine (MCV4P) 2016-08-27 00:00:00 Completed [facility] Meningococcal Vaccine 2016-08-27 00:00:00 Completed [facility] Meningococcal Polysaccharide (groups A, C, Y and W-135) conjugate vaccine (MCV4P) 2016-08-27 00:00:00 Completed [facility] Meningococcal Vaccine 2016-08-27 00:00:00 Completed [facility] Meningococcal Polysaccharide (groups A, C, Y and W-135) conjugate vaccine (MCV4P) 2016-08-27 00:00:00 Completed [facility] Meningococcal Vaccine 2016-08-27 00:00:00 Completed [facility] Meningococcal Polysaccharide (groups A, C, Y and W-135) conjugate vaccine (MCV4P) 2016-08-27 00:00:00 Completed [facility] Meningococcal Vaccine 2016-08-27 00:00:00 Completed [facility] Meningococcal Polysaccharide (groups A, C, Y and W-135) conjugate vaccine (MCV4P) 2016-08-27 00:00:00 Completed [facility] Meningococcal Vaccine 2016-08-27 00:00:00 Completed [facility] Meningococcal Polysaccharide (groups A, C, Y and W-135) conjugate vaccine (MCV4P) 2016-08-27 00:00:00 Completed [facility] Meningococcal Vaccine 2016 00:00:00 Completed [facility] Meningococcal Vaccine 2016 00:00:00 Completed [facility] Meningococcal Vaccine 2016 00:00:00 Completed [facility] Meningococcal Vaccine 2016 00:00:00 Completed [facility] Meningococcal Vaccine 2016 00:00:00 Completed [facility] Meningococcal Vaccine 2016 00:00:00 Completed [facility] Meningococcal Vaccine 2016 00:00:00 Completed [facility] Meningococcal Vaccine 2016 00:00:00 Completed [facility] Meningococcal Vaccine 2016 00:00:00 Completed [facility] Meningococcal Vaccine 2016 00:00:00 Completed [facility] Meningococcal Vaccine 2016 00:00:00 Completed [facility] Meningococcal Vaccine 2016 00:00:00 Completed [facility] Meningococcal Vaccine 2016 00:00:00 Completed [facility] Meningococcal Vaccine 2016 00:00:00 Completed [facility] Meningococcal Vaccine 2016 00:00:00 Completed [facility] Meningococcal Vaccine 2016 00:00:00 Completed [facility] Meningococcal Vaccine 2016 00:00:00 Completed [facility] Meningococcal Vaccine 2011-09-04 00:00:00 Completed [facility] TDAP 2011-09-04 00:00:00 Completed [facility] Meningococcal Vaccine 2011-09-04 00:00:00 Completed [facility] TDAP 2011-09-04 00:00:00 Completed [facility] Meningococcal Vaccine 2011-09-04 00:00:00 Completed [facility] TDAP 2011-09-04 00:00:00 Completed [facility] Meningococcal Vaccine 2011-09-04 00:00:00 Completed [facility] TDAP 2011-09-04 00:00:00 Completed [facility] Meningococcal Vaccine 2011-09-04 00:00:00 Completed [facility] TDAP 2011-09-04 00:00:00 Completed [facility] Meningococcal Vaccine 2011-09-04 00:00:00 Completed [facility] TDAP 2011-09-04 00:00:00 Completed [facility] Meningococcal Vaccine 2011-09-04 00:00:00 Completed [facility] TDAP 2011-09-04 00:00:00 Completed [facility] Meningococcal Vaccine 2011-09-04 00:00:00 Completed [facility] TDAP 2011-09-04 00:00:00 Completed [facility] Meningococcal Vaccine 2011-09-04 00:00:00 Completed [facility] TDAP 2011-09-04 00:00:00 Completed [facility] Meningococcal Vaccine 2011-09-04 00:00:00 Completed [facility] TDAP 2011-09-04 00:00:00 Completed [facility] Meningococcal Vaccine 2011-09-04 00:00:00 Completed [facility] TDAP 2011-09-04 00:00:00 Completed [facility] Meningococcal Vaccine 2011-09-04 00:00:00 Completed [facility] TDAP 2011-09-04 00:00:00 Completed [facility] Meningococcal Vaccine 2011-09-04 00:00:00 Completed [facility] TDAP 2011-09-04 00:00:00 Completed [facility] Meningococcal Vaccine 2011-09-04 00:00:00 Completed [facility] TDAP 2011-09-04 00:00:00 Completed [facility] Meningococcal Vaccine 2011-09-04 00:00:00 Completed [facility] TDAP 2011-09-04 00:00:00 Completed [facility] Meningococcal Vaccine 2011-09-04 00:00:00 Completed [facility] TDAP 2011-09-04 00:00:00 Completed [facility] Meningococcal Vaccine 2011-09-04 00:00:00 Completed [facility] TDAP 2011-09-04 00:00:00 Completed [facility] HPV 2011 00:00:00 Completed [facility] HPV 2011 00:00:00 Completed [facility] HPV 2011 00:00:00 Completed [facility] HPV 2011 00:00:00 Completed [facility] HPV 2011 00:00:00 Completed [facility] HPV 2011 00:00:00 Completed [facility] HPV 2011 00:00:00 Completed [facility] HPV 2011 00:00:00 Completed [facility] HPV 2011 00:00:00 Completed [facility] HPV 2011 00:00:00 Completed [facility] HPV 2011 00:00:00 Completed [facility] HPV 2011 00:00:00 Completed [facility] HPV 2011 00:00:00 Completed [facility] HPV 2011 00:00:00 Completed [facility] HPV 2011 00:00:00 Completed [facility] HPV 2011 00:00:00 Completed [facility] HPV 2011 00:00:00 Completed [facility] Varicella (varivax)(chicken pox) 2008-03-09 00:00:00 Completed [facility] Varicella (varivax)(chicken pox) 2008-03-09 00:00:00 Completed [facility] Varicella (varivax)(chicken pox) 2008-03-09 00:00:00 Completed [facility] Varicella (varivax)(chicken pox) 2008-03-09 00:00:00 Completed [facility] Varicella (varivax)(chicken pox) 2008-03-09 00:00:00 Completed [facility] Varicella (varivax)(chicken pox) 2008-03-09 00:00:00 Completed [facility] Varicella (varivax)(chicken pox) 2008-03-09 00:00:00 [facility] [facility] Varicella (varivax)(chicken pox) 2008-03-09 00:00:00 Completed [facility] Varicella (varivax)(chicken pox) 2008-03-09 00:00:00 Completed [facility] Varicella (varivax)(chicken pox) 2008-03-09 00:00:00 Completed [facility] Varicella (varivax)(chicken pox) 2008-03-09 00:00:00 Completed [facility] Varicella (varivax)(chicken pox) 2008-03-09 00:00:00 Completed [facility] Varicella (varivax)(chicken pox) 2008-03-09 00:00:00 Completed [facility] Varicella (varivax)(chicken pox) 2008-03-09 00:00:00 Completed [facility] Varicella (varivax)(chicken pox) 2008-03-09 00:00:00 Completed [facility] Varicella (varivax)(chicken pox) 2008-03-09 00:00:00 Completed [facility] Varicella (varivax)(chicken pox) 2008-03-09 00:00:00 Completed [facility] HEPATITIS A 2006-02-12 00:00:00 Completed [facility] HEPATITIS A 2006-02-12 00:00:00 Completed [facility] HEPATITIS A 2006-02-12 00:00:00 Completed [facility] HEPATITIS A 2006-02-12 00:00:00 Completed [facility] HEPATITIS A 2006-02-12 00:00:00 Completed [facility] HEPATITIS A 2006-02-12 00:00:00 Completed [facility] HEPATITIS A 2006-02-12 00:00:00 Completed [facility] HEPATITIS A 2006-02-12 00:00:00 Completed [facility] HEPATITIS A 2006-02-12 00:00:00 Completed [facility] HEPATITIS A 2006-02-12 00:00:00 Completed [facility] HEPATITIS A 2006-02-12 00:00:00 Completed [facility] HEPATITIS A 2006-02-12 00:00:00 Completed [facility] HEPATITIS A 2006-02-12 00:00:00 Completed [facility] HEPATITIS A 2006-02-12 00:00:00 Completed [facility] HEPATITIS A 2006-02-12 00:00:00 Completed [facility] HEPATITIS A 2006-02-12 00:00:00 Completed [facility] HEPATITIS A 2006-02-12 00:00:00 Completed [facility] HEPATITIS A 2005-04-04 00:00:00 Completed [facility] HEPATITIS A 2005-04-04 00:00:00 Completed [facility] HEPATITIS A 2005-04-04 00:00:00 Completed [facility] HEPATITIS A 2005-04-04 00:00:00 Completed [facility] HEPATITIS A 2005-04-04 00:00:00 Completed [facility] HEPATITIS A 2005-04-04 00:00:00 Completed [facility] HEPATITIS A 2005-04-04 00:00:00 Completed [facility] HEPATITIS A 2005-04-04 00:00:00 Completed [facility] HEPATITIS A 2005-04-04 00:00:00 Completed [facility] HEPATITIS A 2005-04-04 00:00:00 Completed [facility] HEPATITIS A 2005-04-04 00:00:00 Completed [facility] HEPATITIS A 2005-04-04 00:00:00 Completed [facility] HEPATITIS A 2005-04-04 00:00:00 Completed [facility] HEPATITIS A 2005-04-04 00:00:00 Completed [facility] HEPATITIS A 2005-04-04 00:00:00 Completed [facility] HEPATITIS A 2005-04-04 00:00:00 Completed [facility] HEPATITIS A 2005-04-04 00:00:00 Completed [facility] DTAP 2004-08-20 00:00:00 Completed [facility] MMR 2004-08-20 00:00:00 Completed [facility] Polio (IPV/OPV) 2004-08-20 00:00:00 Completed [facility] DTAP 2004-08-20 00:00:00 Completed [facility] MMR 2004-08-20 00:00:00 Completed [facility] Polio (IPV/OPV) 2004-08-20 00:00:00 Completed [facility] DTAP 2004-08-20 00:00:00 Completed [facility] MMR 2004-08-20 00:00:00 Completed [facility] Polio (IPV/OPV) 2004-08-20 00:00:00 Completed [facility] DTAP 2004-08-20 00:00:00 Completed [facility] MMR 2004-08-20 00:00:00 Completed [facility] Polio (IPV/OPV) 2004-08-20 00:00:00 Completed [facility] DTAP 2004-08-20 00:00:00 Completed [facility] MMR 2004-08-20 00:00:00 Completed [facility] Polio (IPV/OPV) 2004-08-20 00:00:00 Completed [facility] DTAP 2004-08-20 00:00:00 Completed [facility] MMR 2004-08-20 00:00:00 Completed [facility] Polio (IPV/OPV) 2004-08-20 00:00:00 Completed [facility] DTAP 2004-08-20 00:00:00 Completed [facility] MMR 2004-08-20 00:00:00 Completed [facility] Polio (IPV/OPV) 2004-08-20 00:00:00 Completed [facility] DTAP 2004-08-20 00:00:00 Completed [facility] MMR 2004-08-20 00:00:00 Completed [facility] Polio (IPV/OPV) 2004-08-20 00:00:00 Completed [facility] DTAP 2004-08-20 00:00:00 Completed [facility] MMR 2004-08-20 00:00:00 Completed [facility] Polio (IPV/OPV) 2004-08-20 00:00:00 Completed [facility] DTAP 2004-08-20 00:00:00 Completed [facility] MMR 2004-08-20 00:00:00 Completed [facility] Polio (IPV/OPV) 2004-08-20 00:00:00 Completed [facility] DTaP, Unspecified Formulation 2004-08-20 00:00:00 Completed [facility] IPV 2004-08-20 00:00:00 Completed [facility] DTAP 2004-08-20 00:00:00 Completed [facility] MMR 2004-08-20 00:00:00 Completed [facility] Polio (IPV/OPV) 2004-08-20 00:00:00 Completed [facility] DTaP, Unspecified Formulation 2004-08-20 00:00:00 Completed [facility] IPV 2004-08-20 00:00:00 Completed [facility] DTAP 2004-08-20 00:00:00 Completed [facility] MMR 2004-08-20 00:00:00 Completed [facility] Polio (IPV/OPV) 2004-08-20 00:00:00 Completed [facility] DTaP, Unspecified Formulation 2004-08-20 00:00:00 Completed [facility] IPV 2004-08-20 00:00:00 Completed [facility] DTAP 2004-08-20 00:00:00 Completed [facility] MMR 2004-08-20 00:00:00 Completed [facility] Polio (IPV/OPV) 2004-08-20 00:00:00 Completed [facility] DTaP, Unspecified Formulation 2004-08-20 00:00:00 Completed [facility] IPV 2004-08-20 00:00:00 Completed [facility] DTAP 2004-08-20 00:00:00 Completed [facility] MMR 2004-08-20 00:00:00 Completed [facility] Polio (IPV/OPV) 2004-08-20 00:00:00 Completed [facility] DTaP, Unspecified Formulation 2004-08-20 00:00:00 Completed [facility] IPV 2004-08-20 00:00:00 Completed [facility] DTAP 2004-08-20 00:00:00 Completed [facility] MMR 2004-08-20 00:00:00 Completed [facility] Polio (IPV/OPV) 2004-08-20 00:00:00 Completed [facility] DTaP, Unspecified Formulation 2004-08-20 00:00:00 Completed [facility] IPV 2004-08-20 00:00:00 Completed [facility] DTAP 2004-08-20 00:00:00 Completed [facility] MMR 2004-08-20 00:00:00 Completed [facility] Polio (IPV/OPV) 2004-08-20 00:00:00 Completed [facility] DTaP, Unspecified Formulation 2004-08-20 00:00:00 Completed [facility] IPV 2004-08-20 00:00:00 Completed [facility] DTAP 2004-08-20 00:00:00 Completed [facility] MMR 2004-08-20 00:00:00 Completed [facility] Polio (IPV/OPV) 2004-08-20 00:00:00 Completed [facility] DTaP, Unspecified Formulation 2004-08-20 00:00:00 Completed [facility] IPV 2004-08-20 00:00:00 Completed [facility] Pneumococcal 13 Conjugate, PCV13 (Prevnar 13) 2001-11-10 00:00:00 Completed [facility] Pneumococcal 13 Conjugate, PCV13 (Prevnar 13) 2001-11-10 00:00:00 Completed [facility] Pneumococcal 13 Conjugate, PCV13 (Prevnar 13) 2001-11-10 00:00:00 Completed [facility] Pneumococcal 13 Conjugate, PCV13 (Prevnar 13) 2001-11-10 00:00:00 Completed [facility] Pneumococcal 13 Conjugate, PCV13 (Prevnar 13) 2001-11-10 00:00:00 Completed [facility] Pneumococcal 13 Conjugate, PCV13 (Prevnar 13) 2001-11-10 00:00:00 Completed [facility] Pneumococcal 13 Conjugate, PCV13 (Prevnar 13) 2001-11-10 00:00:00 Completed [facility] Pneumococcal 13 Conjugate, PCV13 (Prevnar 13) 2001-11-10 00:00:00 Completed [facility] Pneumococcal 13 Conjugate, PCV13 (Prevnar 13) 2001-11-10 00:00:00 Completed [facility] Pneumococcal 13 Conjugate, PCV13 (Prevnar 13) 2001-11-10 00:00:00 Completed [facility] Pneumococcal 13 Conjugate, PCV13 (Prevnar 13) 2001-11-10 00:00:00 Completed [facility] Pneumococcal 13 Conjugate, PCV13 (Prevnar 13) 2001-11-10 00:00:00 Completed [facility] Pneumococcal 13 Conjugate, PCV13 (Prevnar 13) 2001-11-10 00:00:00 Completed [facility] Pneumococcal 13 Conjugate, PCV13 (Prevnar 13) 2001-11-10 00:00:00 Completed [facility] Pneumococcal 13 Conjugate, PCV13 (Prevnar 13) 2001-11-10 00:00:00 Completed [facility] Pneumococcal 13 Conjugate, PCV13 (Prevnar 13) 2001-11-10 00:00:00 Completed [facility] Pneumococcal 13 Conjugate, PCV13 (Prevnar 13) 2001-11-10 00:00:00 Completed [facility] DTAP 2001-08-10 00:00:00 Completed [facility] HIB 3 Dose Schedule 2001-08-10 00:00:00 Completed [facility] MMR 2001-08-10 00:00:00 Completed [facility] DTAP 2001-08-10 00:00:00 Completed [facility] HIB 3 Dose Schedule 2001-08-10 00:00:00 Completed [facility] MMR 2001-08-10 00:00:00 Completed [facility] DTAP 2001-08-10 00:00:00 Completed [facility] HIB 3 Dose Schedule 2001-08-10 00:00:00 Completed [facility] MMR 2001-08-10 00:00:00 Completed [facility] DTAP 2001-08-10 00:00:00 Completed [facility] HIB 3 Dose Schedule 2001-08-10 00:00:00 Completed [facility] MMR 2001-08-10 00:00:00 Completed [facility] DTAP 2001-08-10 00:00:00 Completed [facility] HIB 3 Dose Schedule 2001-08-10 00:00:00 Completed [facility] MMR 2001-08-10 00:00:00 Completed [facility] DTAP 2001-08-10 00:00:00 Completed [facility] HIB 3 Dose Schedule 2001-08-10 00:00:00 Completed [facility] MMR 2001-08-10 00:00:00 Completed [facility] DTAP 2001-08-10 00:00:00 Completed [facility] HIB 3 Dose Schedule 2001-08-10 00:00:00 Completed [facility] MMR 2001-08-10 00:00:00 Completed [facility] DTAP 2001-08-10 00:00:00 Completed [facility] HIB 3 Dose Schedule 2001-08-10 00:00:00 Completed [facility] MMR 2001-08-10 00:00:00 Completed [facility] DTAP 2001-08-10 00:00:00 Completed [facility] HIB 3 Dose Schedule 2001-08-10 00:00:00 Completed [facility] MMR 2001-08-10 00:00:00 Completed [facility] DTAP 2001-08-10 00:00:00 Completed [facility] HIB 3 Dose Schedule 2001-08-10 00:00:00 Completed [facility] MMR 2001-08-10 00:00:00 Completed [facility] DTaP, Unspecified Formulation 2001-08-10 00:00:00 Completed [facility] HIB 4 Dose Schedule 2001-08-10 00:00:00 Completed [facility] DTAP 2001-08-10 00:00:00 Completed [facility] HIB 3 Dose Schedule 2001-08-10 00:00:00 Completed [facility] MMR 2001-08-10 00:00:00 Completed [facility] DTaP, Unspecified Formulation 2001-08-10 00:00:00 Completed [facility] HIB 4 Dose Schedule 2001-08-10 00:00:00 Completed [facility] DTAP 2001-08-10 00:00:00 Completed [facility] HIB 3 Dose Schedule 2001-08-10 00:00:00 Completed [facility] MMR 2001-08-10 00:00:00 Completed [facility] DTaP, Unspecified Formulation 2001-08-10 00:00:00 Completed [facility] HIB 4 Dose Schedule 2001-08-10 00:00:00 Completed [facility] DTAP 2001-08-10 00:00:00 Completed [facility] HIB 3 Dose Schedule 2001-08-10 00:00:00 Completed [facility] MMR 2001-08-10 00:00:00 Completed [facility] DTaP, Unspecified Formulation 2001-08-10 00:00:00 Completed [facility] HIB 4 Dose Schedule 2001-08-10 00:00:00 Completed [facility] DTAP 2001-08-10 00:00:00 Completed [facility] HIB 3 Dose Schedule 2001-08-10 00:00:00 Completed [facility] MMR 2001-08-10 00:00:00 Completed [facility] DTaP, Unspecified Formulation 2001-08-10 00:00:00 Completed [facility] HIB 4 Dose Schedule 2001-08-10 00:00:00 Completed [facility] DTAP 2001-08-10 00:00:00 Completed [facility] HIB 3 Dose Schedule 2001-08-10 00:00:00 Completed [facility] MMR 2001-08-10 00:00:00 Completed [facility] DTaP, Unspecified Formulation 2001-08-10 00:00:00 Completed [facility] HIB 4 Dose Schedule 2001-08-10 00:00:00 Completed [facility] DTAP 2001-08-10 00:00:00 Completed [facility] HIB 3 Dose Schedule 2001-08-10 00:00:00 Completed [facility] MMR 2001-08-10 00:00:00 Completed [facility] DTaP, Unspecified Formulation 2001-08-10 00:00:00 Completed [facility] HIB 4 Dose Schedule 2001-08-10 00:00:00 Completed [facility] DTAP 2001-08-10 00:00:00 Completed [facility] HIB 3 Dose Schedule 2001-08-10 00:00:00 Completed [facility] MMR 2001-08-10 00:00:00 Completed [facility] DTaP, Unspecified Formulation 2001-08-10 00:00:00 Completed [facility] HIB 4 Dose Schedule 2001-08-10 00:00:00 Completed [facility] HEPATITIS A 2001 00:00:00 Completed [facility] HEPATITIS A 2001 00:00:00 Completed [facility] HEPATITIS A 2001 00:00:00 Completed [facility] HEPATITIS A 2001 00:00:00 Completed [facility] HEPATITIS A 2001 00:00:00 Completed [facility] HEPATITIS A 2001 00:00:00 Completed [facility] HEPATITIS A 2001 00:00:00 Completed [facility] HEPATITIS A 2001 00:00:00 Completed [facility] HEPATITIS A 2001 00:00:00 Completed [facility] HEPATITIS A 2001 00:00:00 Completed [facility] HEPATITIS A 2001 00:00:00 Completed [facility] HEPATITIS A 2001 00:00:00 Completed [facility] HEPATITIS A 2001 00:00:00 Completed [facility] HEPATITIS A 2001 00:00:00 Completed [facility] HEPATITIS A 2001 00:00:00 Completed [facility] HEPATITIS A 2001 00:00:00 Completed [facility] HEPATITIS A 2001 00:00:00 Completed [facility] Polio (IPV/OPV) 2001-05-12 00:00:00 Completed [facility] Polio (IPV/OPV) 2001-05-12 00:00:00 Completed [facility] Polio (IPV/OPV) 2001-05-12 00:00:00 Completed [facility] Polio (IPV/OPV) 2001-05-12 00:00:00 Completed [facility] Polio (IPV/OPV) 2001-05-12 00:00:00 Completed [facility] Polio (IPV/OPV) 2001-05-12 00:00:00 Completed [facility] Polio (IPV/OPV) 2001-05-12 00:00:00 Completed [facility] Polio (IPV/OPV) 2001-05-12 00:00:00 Completed [facility] Polio (IPV/OPV) 2001-05-12 00:00:00 Completed [facility] Polio (IPV/OPV) 2001-05-12 00:00:00 Completed [facility] IPV 2001-05-12 00:00:00 Completed [facility] Polio (IPV/OPV) 2001-05-12 00:00:00 Completed [facility] IPV 2001-05-12 00:00:00 Completed [facility] Polio (IPV/OPV) 2001-05-12 00:00:00 Completed [facility] IPV 2001-05-12 00:00:00 Completed [facility] Polio (IPV/OPV) 2001-05-12 00:00:00 Completed [facility] IPV 2001-05-12 00:00:00 Completed [facility] Polio (IPV/OPV) 2001-05-12 00:00:00 Completed [facility] IPV 2001-05-12 00:00:00 Completed [facility] Polio (IPV/OPV) 2001-05-12 00:00:00 Completed [facility] IPV 2001-05-12 00:00:00 Completed [facility] Polio (IPV/OPV) 2001-05-12 00:00:00 Completed [facility] IPV 2001-05-12 00:00:00 Completed [facility] Polio (IPV/OPV) 2001-05-12 00:00:00 Completed [facility] IPV 2001-05-12 00:00:00 Completed [facility] DTAP 2001-03-05 00:00:00 Completed [facility] HIB 3 Dose Schedule 2001-03-05 00:00:00 Completed [facility] Hep B, Adol or Pedi Dosage 2001-03-05 00:00:00 Completed [facility] DTAP 2001-03-05 00:00:00 Completed [facility] HIB 3 Dose Schedule 2001-03-05 00:00:00 Completed [facility] Hep B, Adol or Pedi Dosage 2001-03-05 00:00:00 Completed [facility] DTAP 2001-03-05 00:00:00 Completed [facility] HIB 3 Dose Schedule 2001-03-05 00:00:00 Completed [facility] Hep B, Adol or Pedi Dosage 2001-03-05 00:00:00 Completed [facility] DTAP 2001-03-05 00:00:00 Completed [facility] HIB 3 Dose Schedule 2001-03-05 00:00:00 Completed [facility] Hep B, Adol or Pedi Dosage 2001-03-05 00:00:00 Completed [facility] DTAP 2001-03-05 00:00:00 Completed [facility] HIB 3 Dose Schedule 2001-03-05 00:00:00 Completed [facility] Hep B, Adol or Pedi Dosage 2001-03-05 00:00:00 Completed [facility] DTAP 2001-03-05 00:00:00 Completed [facility] HIB 3 Dose Schedule 2001-03-05 00:00:00 Completed [facility] Hep B, Adol or Pedi Dosage 2001-03-05 00:00:00 Completed [facility] DTAP 2001-03-05 00:00:00 Completed [facility] HIB 3 Dose Schedule 2001-03-05 00:00:00 Completed [facility] Hep B, Adol or Pedi Dosage 2001-03-05 00:00:00 Completed [facility] DTAP 2001-03-05 00:00:00 Completed [facility] HIB 3 Dose Schedule 2001-03-05 00:00:00 Completed [facility] Hep B, Adol or Pedi Dosage 2001-03-05 00:00:00 Completed [facility] DTAP 2001-03-05 00:00:00 Completed [facility] HIB 3 Dose Schedule 2001-03-05 00:00:00 Completed [facility] Hep B, Adol or Pedi Dosage 2001-03-05 00:00:00 Completed [facility] DTAP 2001-03-05 00:00:00 Completed [facility] HIB 3 Dose Schedule 2001-03-05 00:00:00 Completed [facility] Hep B, Adol or Pedi Dosage 2001-03-05 00:00:00 Completed [facility] DTaP, Unspecified Formulation 2001-03-05 00:00:00 Completed [facility] HIB 4 Dose Schedule 2001-03-05 00:00:00 Completed [facility] DTAP 2001-03-05 00:00:00 Completed [facility] HIB 3 Dose Schedule 2001-03-05 00:00:00 Completed [facility] Hep B, Adol or Pedi Dosage 2001-03-05 00:00:00 Completed [facility] DTaP, Unspecified Formulation 2001-03-05 00:00:00 Completed [facility] HIB 4 Dose Schedule 2001-03-05 00:00:00 Completed [facility] DTAP 2001-03-05 00:00:00 Completed [facility] HIB 3 Dose Schedule 2001-03-05 00:00:00 Completed [facility] Hep B, Adol or Pedi Dosage 2001-03-05 00:00:00 Completed [facility] DTaP, Unspecified Formulation 2001-03-05 00:00:00 Completed [facility] HIB 4 Dose Schedule 2001-03-05 00:00:00 Completed [facility] DTAP 2001-03-05 00:00:00 Completed [facility] HIB 3 Dose Schedule 2001-03-05 00:00:00 Completed [facility] Hep B, Adol or Pedi Dosage 2001-03-05 00:00:00 Completed [facility] DTaP, Unspecified Formulation 2001-03-05 00:00:00 Completed [facility] HIB 4 Dose Schedule 2001-03-05 00:00:00 Completed [facility] DTAP 2001-03-05 00:00:00 Completed [facility] HIB 3 Dose Schedule 2001-03-05 00:00:00 Completed [facility] Hep B, Adol or Pedi Dosage 2001-03-05 00:00:00 Completed [facility] DTaP, Unspecified Formulation 2001-03-05 00:00:00 Completed [facility] HIB 4 Dose Schedule 2001-03-05 00:00:00 Completed [facility] DTAP 2001-03-05 00:00:00 Completed [facility] HIB 3 Dose Schedule 2001-03-05 00:00:00 Completed [facility] Hep B, Adol or Pedi Dosage 2001-03-05 00:00:00 Completed [facility] DTaP, Unspecified Formulation 2001-03-05 00:00:00 Completed [facility] HIB 4 Dose Schedule 2001-03-05 00:00:00 Completed [facility] DTAP 2001-03-05 00:00:00 Completed [facility] HIB 3 Dose Schedule 2001-03-05 00:00:00 Completed [facility] Hep B, Adol or Pedi Dosage 2001-03-05 00:00:00 Completed [facility] DTaP, Unspecified Formulation 2001-03-05 00:00:00 Completed [facility] HIB 4 Dose Schedule 2001-03-05 00:00:00 Completed [facility] DTAP 2001-03-05 00:00:00 Completed [facility] HIB 3 Dose Schedule 2001-03-05 00:00:00 Completed [facility] Hep B, Adol or Pedi Dosage 2001-03-05 00:00:00 Completed [facility] DTaP, Unspecified Formulation 2001-03-05 00:00:00 Completed [facility] HIB 4 Dose Schedule 2001-03-05 00:00:00 Completed [facility] Pneumococcal 13 Conjugate, PCV13 (Prevnar 13) 2000 00:00:00 Completed [facility] Pneumococcal 13 Conjugate, PCV13 (Prevnar 13) 2000 00:00:00 Completed [facility] Pneumococcal 13 Conjugate, PCV13 (Prevnar 13) 2000 00:00:00 Completed [facility] Pneumococcal 13 Conjugate, PCV13 (Prevnar 13) 2000 00:00:00 Completed [facility] Pneumococcal 13 Conjugate, PCV13 (Prevnar 13) 2000 00:00:00 Completed [facility] Pneumococcal 13 Conjugate, PCV13 (Prevnar 13) 2000 00:00:00 Completed [facility] Pneumococcal 13 Conjugate, PCV13 (Prevnar 13) 2000 00:00:00 Completed [facility] Pneumococcal 13 Conjugate, PCV13 (Prevnar 13) 2000 00:00:00 Completed [facility] Pneumococcal 13 Conjugate, PCV13 (Prevnar 13) 2000 00:00:00 Completed [facility] Pneumococcal 13 Conjugate, PCV13 (Prevnar 13) 2000 00:00:00 Completed [facility] Pneumococcal 13 Conjugate, PCV13 (Prevnar 13) 2000 00:00:00 Completed [facility] Pneumococcal 13 Conjugate, PCV13 (Prevnar 13) 2000 00:00:00 Completed [facility] Pneumococcal 13 Conjugate, PCV13 (Prevnar 13) 2000 00:00:00 Completed [facility] Pneumococcal 13 Conjugate, PCV13 (Prevnar 13) 2000 00:00:00 Completed [facility] Pneumococcal 13 Conjugate, PCV13 (Prevnar 13) 2000 00:00:00 Completed [facility] Pneumococcal 13 Conjugate, PCV13 (Prevnar 13) 2000 00:00:00 Completed [facility] Pneumococcal 13 Conjugate, PCV13 (Prevnar 13) 2000 00:00:00 Completed [facility] Hep B, Adol or Pedi Dosage 2000 00:00:00 Completed [facility] Hep B, Adol or Pedi Dosage 2000 00:00:00 Completed [facility] Hep B, Adol or Pedi Dosage 2000 00:00:00 Completed [facility] Hep B, Adol or Pedi Dosage 2000 00:00:00 Completed [facility] Hep B, Adol or Pedi Dosage 2000 00:00:00 Completed [facility] Hep B, Adol or Pedi Dosage 2000 00:00:00 Completed [facility] Hep B, Adol or Pedi Dosage 2000 00:00:00 Completed [facility] Hep B, Adol or Pedi Dosage 2000 00:00:00 Completed [facility] Hep B, Adol or Pedi Dosage 2000 00:00:00 Completed [facility] Hep B, Adol or Pedi Dosage 2000 00:00:00 Completed [facility] Hep B, Adol or Pedi Dosage 2000 00:00:00 Completed [facility] Hep B, Adol or Pedi Dosage 2000 00:00:00 Completed [facility] Hep B, Adol or Pedi Dosage 2000 00:00:00 Completed [facility] Hep B, Adol or Pedi Dosage 2000 00:00:00 Completed [facility] Hep B, Adol or Pedi Dosage 2000 00:00:00 Completed [facility] Hep B, Adol or Pedi Dosage 2000 00:00:00 Completed [facility] Hep B, Adol or Pedi Dosage 2000 00:00:00 Completed [facility] DTAP Unknown Completed [facility] HIB 3 Dose Schedule Unknown Completed [facility] HEPATITIS A Unknown Completed [facility] Hep B, Adol or Pedi Dosage Unknown Completed [facility] HPV Unknown Completed [facility] Meningococcal Vaccine Unknown Completed [facility] MMR Unknown Completed [facility] Polio (IPV/OPV) Unknown Completed [facility] TDAP Unknown Completed [facility] Varicella (varivax)(chicken pox) Unknown Completed [facility] Pneumococcal 13 Conjugate, PCV13 (Prevnar 13) Unknown Completed [facility] DTaP, Unspecified Formulation Unknown Completed [facility] HIB 4 Dose Schedule Unknown Completed [facility] Meningococcal Polysaccharide (groups A, C, Y and W-135) conjugate vaccine (MCV4P) Unknown Completed [facility] IPV Unknown Completed [facility] DTAP Unknown Completed [facility] HIB 3 Dose Schedule Unknown Completed [facility] HEPATITIS A Unknown Completed [facility] Hep B, Adol or Pedi Dosage Unknown Completed [facility] HPV Unknown Completed [facility] Meningococcal Vaccine Unknown Completed [facility] MMR Unknown Completed [facility] Polio (IPV/OPV) Unknown Completed [facility] TDAP Unknown Completed [facility] Varicella (varivax)(chicken pox) Unknown Completed [facility] Pneumococcal 13 Conjugate, PCV13 (Prevnar 13) Unknown Completed [facility] DTaP, Unspecified Formulation Unknown Completed [facility] HIB 4 Dose Schedule Unknown Completed [facility] Meningococcal Polysaccharide (groups A, C, Y and W-135) conjugate vaccine (MCV4P) Unknown Completed [facility] IPV Unknown Completed [facility] DTAP Unknown Completed [facility] HIB 3 Dose Schedule Unknown Completed [facility] HEPATITIS A Unknown Completed [facility] Hep B, Adol or Pedi Dosage Unknown Completed [facility] HPV Unknown Completed [facility] Meningococcal Vaccine Unknown Completed [facility] MMR Unknown Completed [facility] Polio (IPV/OPV) Unknown Completed [facility] TDAP Unknown Completed [facility] Varicella (varivax)(chicken pox) Unknown Completed [facility] Pneumococcal 13 Conjugate, PCV13 (Prevnar 13) Unknown Completed [facility] DTaP, Unspecified Formulation Unknown Completed [facility] HIB 4 Dose Schedule Unknown Completed [facility] Meningococcal Polysaccharide (groups A, C, Y and W-135) conjugate vaccine (MCV4P) Unknown Completed [facility] IPV Unknown Completed [facility] DTAP Unknown Completed [facility] HIB 3 Dose Schedule Unknown Completed [facility] HEPATITIS A Unknown Completed [facility] Hep B, Adol or Pedi Dosage Unknown Completed [facility] HPV Unknown Completed [facility] Meningococcal Vaccine Unknown Completed [facility] MMR Unknown Completed [facility] Polio (IPV/OPV) Unknown Completed [facility] TDAP Unknown Completed [facility] Varicella (varivax)(chicken pox) Unknown Completed [facility] Pneumococcal 13 Conjugate, PCV13 (Prevnar 13) Unknown Completed [facility] DTaP, Unspecified Formulation Unknown Completed [facility] HIB 4 Dose Schedule Unknown Completed [facility] Meningococcal Polysaccharide (groups A, C, Y and W-135) conjugate vaccine (MCV4P) Unknown Completed [facility] IPV Unknown Completed [facility] DTAP Unknown Completed [facility] HIB 3 Dose Schedule Unknown Completed [facility] HEPATITIS A Unknown Completed [facility] Hep B, Adol or Pedi Dosage Unknown Completed [facility] HPV Unknown Completed [facility] Meningococcal Vaccine Unknown Completed [facility] MMR Unknown Completed [facility] Polio (IPV/OPV) Unknown Completed [facility] TDAP Unknown Completed [facility] Varicella (varivax)(chicken pox) Unknown Completed [facility] Pneumococcal 13 Conjugate, PCV13 (Prevnar 13) Unknown Completed [facility] DTaP, Unspecified Formulation Unknown Completed [facility] HIB 4 Dose Schedule Unknown Completed [facility] Meningococcal Polysaccharide (groups A, C, Y and W-135) conjugate vaccine (MCV4P) Unknown Completed [facility] IPV Unknown Completed [facility] DTAP Unknown Completed [facility] HIB 3 Dose Schedule Unknown Completed [facility] HEPATITIS A Unknown Completed [facility] Hep B, Adol or Pedi Dosage Unknown Completed [facility] HPV Unknown Completed [facility] Meningococcal Vaccine Unknown Completed [facility] MMR Unknown Completed [facility] Polio (IPV/OPV) Unknown Completed [facility] TDAP Unknown Completed [facility] Varicella (varivax)(chicken pox) Unknown Completed [facility] Pneumococcal 13 Conjugate, PCV13 (Prevnar 13) Unknown Completed [facility] DTaP, Unspecified Formulation Unknown Completed [facility] HIB 4 Dose Schedule Unknown Completed [facility] Meningococcal Polysaccharide (groups A, C, Y and W-135) conjugate vaccine (MCV4P) Unknown Completed [facility] IPV Unknown Completed [facility] DTAP Unknown Completed [facility] HIB 3 Dose Schedule Unknown Completed [facility] HEPATITIS A Unknown Completed [facility] Hep B, Adol or Pedi Dosage Unknown Completed [facility] HPV Unknown Completed [facility] Meningococcal Vaccine Unknown Completed [facility] MMR Unknown Completed [facility] Polio (IPV/OPV) Unknown Completed [facility] TDAP Unknown Completed [facility] Varicella (varivax)(chicken pox) Unknown Completed [facility] Pneumococcal 13 Conjugate, PCV13 (Prevnar 13) Unknown Completed [facility] Influenza Virus Vaccine Quad IM, Preserv and ABX Free 6 MO-64 YRS (FLUCELVAX) Unknown Completed [facility] DTaP, Unspecified Formulation Unknown Completed [facility] HIB 4 Dose Schedule Unknown Completed [facility] Meningococcal Polysaccharide (groups A, C, Y and W-135) conjugate vaccine (MCV4P) Unknown Completed [facility] IPV Unknown Completed [facility] DTAP Unknown Completed [facility] HIB 3 Dose Schedule Unknown Completed [facility] HEPATITIS A Unknown Completed [facility] Hep B, Adol or Pedi Dosage Unknown Completed [facility] HPV Unknown Completed [facility] Meningococcal Vaccine Unknown Completed [facility] MMR Unknown Completed [facility] Polio (IPV/OPV) Unknown Completed [facility] TDAP Unknown Completed [facility] Varicella (varivax)(chicken pox) Unknown Completed [facility] Pneumococcal 13 Conjugate, PCV13 (Prevnar 13) Unknown Completed [facility] Influenza Virus Vaccine Quad IM, Preserv and ABX Free 6 MO-64 YRS (FLUCELVAX) Unknown Completed [facility] DTaP, Unspecified Formulation Unknown Completed [facility] HIB 4 Dose Schedule Unknown Completed [facility] Meningococcal Polysaccharide (groups A, C, Y and W-135) conjugate vaccine (MCV4P) Unknown Completed [facility] IPV Unknown Completed [facility] DTAP Unknown Completed [facility] HIB 3 Dose Schedule Unknown Completed [facility] HEPATITIS A Unknown Completed [facility] Hep B, Adol or Pedi Dosage Unknown Completed [facility] HPV Unknown Completed [facility] Meningococcal Vaccine Unknown Completed [facility] MMR Unknown Completed [facility] Polio (IPV/OPV) Unknown Completed [facility] TDAP Unknown Completed [facility] Varicella (varivax)(chicken pox) Unknown Completed [facility] Pneumococcal 13 Conjugate, PCV13 (Prevnar 13) Unknown Completed [facility] Influenza Virus Vaccine Quad IM, Preserv and ABX Free 6 MO-64 YRS (FLUCELVAX) Unknown Completed [facility] DTaP, Unspecified Formulation Unknown Completed [facility] HIB 4 Dose Schedule Unknown Completed [facility] Meningococcal Polysaccharide (groups A, C, Y and W-135) conjugate vaccine (MCV4P) Unknown Completed [facility] IPV Unknown Completed [facility] DTAP Unknown Completed [facility] HIB 3 Dose Schedule Unknown Completed [facility] HEPATITIS A Unknown Completed [facility] Hep B, Adol or Pedi Dosage Unknown Completed [facility] HPV Unknown Completed [facility] Meningococcal Vaccine Unknown Completed [facility] MMR Unknown Completed [facility] Polio (IPV/OPV) Unknown Completed [facility] TDAP Unknown Completed [facility] Varicella (varivax)(chicken pox) Unknown Completed [facility] Pneumococcal 13 Conjugate, PCV13 (Prevnar 13) Unknown Completed [facility] Influenza Virus Vaccine Quad IM, Preserv and ABX Free 6 MO-64 YRS (FLUCELVAX) Unknown Completed [facility] DTaP, Unspecified Formulation Unknown Completed [facility] HIB 4 Dose Schedule Unknown Completed [facility] Meningococcal Polysaccharide (groups A, C, Y and W-135) conjugate vaccine (MCV4P) Unknown Completed [facility] IPV Unknown Completed [facility] DTAP Unknown Completed [facility] HIB 3 Dose Schedule Unknown Completed [facility] HEPATITIS A Unknown Completed [facility] Hep B, Adol or Pedi Dosage Unknown Completed [facility] HPV Unknown Completed [facility] Meningococcal Vaccine Unknown Completed [facility] MMR Unknown Completed [facility] Polio (IPV/OPV) Unknown Completed [facility] TDAP Unknown Completed [facility] Varicella (varivax)(chicken pox) Unknown Completed [facility] Pneumococcal 13 Conjugate, PCV13 (Prevnar 13) Unknown Completed [facility] Influenza Virus Vaccine Quad IM, Preserv and ABX Free 6 MO-64 YRS (FLUCELVAX) Unknown Completed [facility] DTaP, Unspecified Formulation Unknown Completed [facility] HIB 4 Dose Schedule Unknown Completed [facility] Meningococcal Polysaccharide (groups A, C, Y and W-135) conjugate vaccine (MCV4P) Unknown Completed [facility] IPV Unknown Completed [facility] DTAP Unknown Completed [facility] HIB 3 Dose Schedule Unknown Completed [facility] HEPATITIS A Unknown Completed [facility] Hep B, Adol or Pedi Dosage Unknown Completed [facility] HPV Unknown Completed [facility] Meningococcal Vaccine Unknown Completed [facility] MMR Unknown Completed [facility] Polio (IPV/OPV) Unknown Completed [facility] TDAP Unknown Completed [facility] Varicella (varivax)(chicken pox) Unknown Completed [facility] Pneumococcal 13 Conjugate, PCV13 (Prevnar 13) Unknown Completed [facility] Influenza Virus Vaccine Quad IM, Preserv and ABX Free 6 MO-64 YRS (FLUCELVAX) Unknown Completed [facility] DTaP, Unspecified Formulation Unknown Completed [facility] HIB 4 Dose Schedule Unknown Completed [facility] Meningococcal Polysaccharide (groups A, C, Y and W-135) conjugate vaccine (MCV4P) Unknown Completed [facility] IPV Unknown Completed [facility] HPV Unknown Completed [facility] Varicella (varivax)(chicken pox) Unknown Completed [facility] Influenza Virus Vaccine Quad IM, Preserv and ABX Free 6 MO-64 YRS (FLUCELVAX) Unknown Completed [facility] Meningococcal Polysaccharide (groups A, C, Y and W-135) conjugate vaccine (MCV4P) Unknown Completed [facility] DTAP Unknown Completed [facility] HIB 3 Dose Schedule Unknown Completed [facility] [facility] HEPATITIS A Unknown Completed [facility] Hep B, Adol or Pedi Dosage Unknown Completed [facility] Meningococcal Vaccine Unknown Completed [facility] MMR Unknown Completed [facility] Polio (IPV/OPV) Unknown Completed [facility] TDAP Unknown Completed [facility] Pneumococcal 13 Conjugate, PCV13 (Prevnar 13) Unknown Completed [facility] DTaP, Unspecified Formulation Unknown Completed [facility] HIB 4 Dose Schedule Unknown Completed [facility] IPV Unknown Completed [facility] DTAP Unknown Completed [facility] HIB 3 Dose Schedule Unknown Completed [facility] HEPATITIS A Unknown Completed [facility] Hep B, Adol or Pedi Dosage Unknown Completed [facility] HPV Unknown Completed [facility] Meningococcal Vaccine Unknown Completed [facility] MMR Unknown Completed [facility] Polio (IPV/OPV) Unknown Completed [facility] TDAP Unknown Completed [facility] Varicella (varivax)(chicken pox) Unknown Completed [facility] Pneumococcal 13 Conjugate, PCV13 (Prevnar 13) Unknown Completed [facility] Influenza Virus Vaccine Quad IM, Preserv and ABX Free 6 MO-64 YRS (FLUCELVAX) Unknown Completed [facility] DTaP, Unspecified Formulation Unknown Completed [facility] HIB 4 Dose Schedule Unknown Completed [facility] Meningococcal Polysaccharide (groups A, C, Y and W-135) conjugate vaccine (MCV4P) Unknown Completed [facility] IPV Unknown Completed [facility] HPV Unknown Completed [facility] Varicella (varivax)(chicken pox) Unknown Completed [facility] Influenza Virus Vaccine Quad IM, Preserv and ABX Free 6 MO-64 YRS (FLUCELVAX) Unknown Completed [facility] Meningococcal Polysaccharide (groups A, C, Y and W-135) conjugate vaccine (MCV4P) Unknown Completed [facility] DTAP Unknown Completed [facility] HIB 3 Dose Schedule Unknown Completed [facility] HEPATITIS A Unknown Completed [facility] Hep B, Adol or Pedi Dosage Unknown Completed [facility] Meningococcal Vaccine Unknown Completed [facility] MMR Unknown Completed [facility] Polio (IPV/OPV) Unknown Completed [facility] TDAP Unknown Completed [facility] Pneumococcal 13 Conjugate, PCV13 (Prevnar 13) Unknown Completed [facility] DTaP, Unspecified Formulation Unknown Completed [facility] HIB 4 Dose Schedule Unknown Completed [facility] IPV Unknown Completed [facility] HPV Unknown Completed [facility] Varicella (varivax)(chicken pox) Unknown Completed [facility] Influenza Virus Vaccine Quad IM, Preserv and ABX Free 6 MO-64 YRS (FLUCELVAX) Unknown Completed [facility] Meningococcal Polysaccharide (groups A, C, Y and W-135) conjugate vaccine (MCV4P) Unknown Completed [facility] DTAP Unknown Completed [facility] HIB 3 Dose Schedule Unknown Completed [facility] HEPATITIS A Unknown Completed [facility] Hep B, Adol or Pedi Dosage Unknown Completed [facility] Meningococcal Vaccine Unknown Completed [facility] MMR Unknown Completed [facility] Polio (IPV/OPV) Unknown Completed [facility] TDAP Unknown Completed [facility] Pneumococcal 13 Conjugate, PCV13 (Prevnar 13) Unknown Completed [facility] DTaP, Unspecified Formulation Unknown Completed [facility] HIB 4 Dose Schedule Unknown Completed [facility] IPV Unknown Completed [facility] DTAP Unknown Completed [facility] HIB 3 Dose Schedule Unknown Completed [facility] HEPATITIS A Unknown Completed [facility] Hep B, Adol or Pedi Dosage Unknown Completed [facility] HPV Unknown Completed [facility] Meningococcal Vaccine Unknown Completed [facility] MMR Unknown Completed [facility] Polio (IPV/OPV) Unknown Completed [facility] TDAP Unknown Completed [facility] Varicella (varivax)(chicken pox) Unknown Completed [facility] Pneumococcal 13 Conjugate, PCV13 (Prevnar 13) Unknown Completed [facility] Influenza Virus Vaccine Quad IM, Preserv and ABX Free 6 MO-64 YRS (FLUCELVAX) Unknown Completed [facility] DTaP, Unspecified Formulation Unknown Completed [facility] HIB 4 Dose Schedule Unknown Completed [facility] Meningococcal Polysaccharide (groups A, C, Y and W-135) conjugate vaccine (MCV4P) Unknown Completed [facility] IPV Unknown Completed [facility] DTAP Unknown Completed [facility] HIB 3 Dose Schedule Unknown Completed [facility] HEPATITIS A Unknown Completed [facility] Hep B, Adol or Pedi Dosage Unknown Completed [facility] HPV Unknown Completed [facility] Meningococcal Vaccine Unknown Completed [facility] MMR Unknown Completed [facility] Polio (IPV/OPV) Unknown Completed [facility] TDAP Unknown Completed [facility] Varicella (varivax)(chicken pox) Unknown Completed [facility] Pneumococcal 13 Conjugate, PCV13 (Prevnar 13) Unknown Completed [facility] Influenza Virus Vaccine Quad IM, Preserv and ABX Free 6 MO-64 YRS (FLUCELVAX) Unknown Completed [facility] DTaP, Unspecified Formulation Unknown Completed [facility] HIB 4 Dose Schedule Unknown Completed [facility] Meningococcal Polysaccharide (groups A, C, Y and W-135) conjugate vaccine (MCV4P) Unknown Completed [facility] IPV Unknown Completed [facility] DTAP Unknown Completed [facility] HIB 3 Dose Schedule Unknown Completed [facility] HEPATITIS A Unknown Completed [facility] Hep B, Adol or Pedi Dosage Unknown Completed [facility] HPV Unknown Completed [facility] Meningococcal Vaccine Unknown Completed [facility] MMR Unknown Completed [facility] Polio (IPV/OPV) Unknown Completed [facility] TDAP Unknown Completed [facility] Varicella (varivax)(chicken pox) Unknown Completed [facility] Pneumococcal 13 Conjugate, PCV13 (Prevnar 13) Unknown Completed [facility] DTaP, Unspecified Formulation Unknown Completed [facility] HIB 4 Dose Schedule Unknown Completed [facility] Meningococcal Polysaccharide (groups A, C, Y and W-135) conjugate vaccine (MCV4P) Unknown Completed [facility] IPV Unknown Completed [facility] DTAP Unknown Completed [facility] HIB 3 Dose Schedule Unknown Completed [facility] HEPATITIS A Unknown Completed [facility] Hep B, Adol or Pedi Dosage Unknown Completed [facility] HPV Unknown Completed [facility] Meningococcal Vaccine Unknown Completed [facility] MMR Unknown Completed [facility] Polio (IPV/OPV) Unknown Completed [facility] TDAP Unknown Completed [facility] Varicella (varivax)(chicken pox) Unknown Completed [facility] Pneumococcal 13 Conjugate, PCV13 (Prevnar 13) Unknown Completed [facility] DTaP, Unspecified Formulation Unknown Completed [facility] HIB 4 Dose Schedule Unknown Completed [facility] Meningococcal Polysaccharide (groups A, C, Y and W-135) conjugate vaccine (MCV4P) Unknown Completed [facility] IPV Unknown Completed [facility] DTAP Unknown Completed [facility] HIB 3 Dose Schedule Unknown Completed [facility] HEPATITIS A Unknown Completed [facility] Hep B, Adol or Pedi Dosage Unknown Completed [facility] HPV Unknown Completed [facility] Meningococcal Vaccine Unknown Completed [facility] MMR Unknown Completed [facility] Polio (IPV/OPV) Unknown Completed [facility] TDAP Unknown Completed [facility] Varicella (varivax)(chicken pox) Unknown Completed [facility] Pneumococcal 13 Conjugate, PCV13 (Prevnar 13) Unknown Completed [facility] Influenza Virus Vaccine Quad IM, Preserv and ABX Free 6 MO-64 YRS (FLUCELVAX) Unknown Completed [facility] DTaP, Unspecified Formulation Unknown Completed [facility] HIB 4 Dose Schedule Unknown Completed [facility] Meningococcal Polysaccharide (groups A, C, Y and W-135) conjugate vaccine (MCV4P) Unknown Completed [facility] IPV Unknown Completed [facility] Vital Signs Vital Name Observation Time Observation Value Comments S ource Systolic blood pressure 2023-09-15 21:40:00 116 mm[Hg] [facility] Diastolic blood pressure 2023-09-15 21:40:00 77 mm[Hg] [facility] Heart rate 2023-09-15 21:40:00 83 /min [facility] Body temperature 2023-09-15 21:40:00 36.67 Rufina [facility] Respiratory rate 2023-09-15 21:40:00 16 /min [facility] Body height 2023-09-15 21:40:00 162.6 cm [facility] Body weight 2023-09-15 21:40:00 53.524 kg [facility] BMI 2023-09-15 21:40:00 20.25 kg/m2 [facility] Oxygen saturation in Arterial blood by Pulse oximetry 2023-09-15 21:40:00 99 /min [facility] Systolic blood pressure 2023-07-03 22:17:00 112 mm[Hg] [facility] Diastolic blood pressure 2023-07-03 22:17:00 67 mm[Hg] [facility] Heart rate 2023-07-03 22:17:00 62 /min [facility] Body temperature 2023-07-03 22:17:00 36.61 Rufina [facility] Respiratory rate 2023-07-03 22:17:00 16 /min [facility] Body height 2023-07-03 22:17:00 162.6 cm [facility] Body weight 2023-07-03 22:17:00 54.477 kg [facility] BMI 2023-07-03 22:17:00 20.62 kg/m2 [facility] Systolic blood pressure 2023-06-03 17:20:00 113 mm[Hg] [facility] Diastolic blood pressure 2023-06-03 17:20:00 80 mm[Hg] [facility] Heart rate 2023-06-03 17:20:00 86 /min [facility] Body temperature 2023-06-03 17:20:00 36.72 Rufina [facility] Respiratory rate 2023-06-03 17:20:00 16 /min [facility] Body height 2023-06-03 17:20:00 162.6 cm [facility] Body weight 2023-06-03 17:20:00 55.52 kg [facility] BMI 2023-06-03 17:20:00 21.01 kg/m2 [facility] Systolic blood pressure 2023-04-22 21:06:00 114 mm[Hg] [place] [facility] Diastolic blood pressure 2023-04-22 21:06:00 71 mm[Hg] [facility] Heart rate 2023-04-22 21:06:00 89 /min [facility] Body temperature 2023-04-22 21:06:00 36.5 Rufina [facility] Respiratory rate 2023-04-22 21:06:00 16 /min [facility] Body height 2023-04-22 21:06:00 162.6 cm [facility] Body weight 2023-04-22 21:06:00 58.968 kg [facility] BMI 2023-04-22 21:06:00 22.31 kg/m2 [facility] Systolic blood pressure 2023-03-24 20:34:00 120 mm[Hg] [facility] Diastolic blood pressure 2023-03-24 20:34:00 80 mm[Hg] [facility] Heart rate 2023-03-24 20:34:00 73 /min [facility] Respiratory rate 2023-03-24 20:34:00 18 /min [facility] Body height 2023-03-24 20:34:00 162.6 cm [facility] Body weight 2023-03-24 20:34:00 58.968 kg [facility] BMI 2023-03-24 20:34:00 22.31 kg/m2 [facility] Body weight 2023-02-19 16:15:00 62.097 kg [facility] BMI 2023-02-19 16:15:00 24.25 kg/m2 [facility] Body weight 2022-12-04 14:48:00 58.514 kg [facility] BMI 2022-12-04 14:48:00 22.85 kg/m2 [facility] Systolic blood pressure 2022-10-01 18:14:00 113 mm[Hg] [place] [facility] Diastolic blood pressure 2022-10-01 18:14:00 75 mm[Hg] [facility] Heart rate 2022-10-01 18:14:00 90 /min [facility] Body height 2022-10-01 18:14:00 160 cm [facility] Body weight 2022-10-01 18:14:00 55.52 kg [facility] BMI 2022-10-01 18:14:00 21.68 kg/m2 [facility] Oxygen saturation in Arterial blood by Pulse oximetry 2022-10-01 18:14:00 98 /min [facility] Systolic blood pressure 2022-09-24 17:44:00 122 mm[Hg] [facility] Diastolic blood pressure 2022-09-24 17:44:00 80 mm[Hg] [facility] Heart rate 2022-09-24 17:44:00 95 /min [facility] Respiratory rate 2022-09-24 17:44:00 15 /min [facility] Body weight 2022-09-24 17:44:00 56.11 kg [facility] BMI 2022-09-24 17:44:00 21.23 kg/m2 [facility] Body weight 2022-09-12 15:05:00 54.477 kg [facility] BMI 2022-09-12 15:05:00 20.62 kg/m2 [facility] Systolic blood pressure 2022-08-13 16:07:00 107 mm[Hg] [facility] Diastolic blood pressure 2022-08-13 16:07:00 76 mm[Hg] [facility] Heart rate 2022-08-13 16:07:00 81 /min [facility] Respiratory rate 2022-08-13 16:07:00 18 /min [facility] Body height 2022-08-13 16:07:00 162.6 cm [facility] Body weight 2022-08-13 16:07:00 52.164 kg [facility] BMI 2022-08-13 16:07:00 19.74 kg/m2 [facility] Systolic blood pressure 2022-06-26 18:39:00 112 mm[Hg] [facility] Diastolic blood pressure 2022-06-26 18:39:00 75 mm[Hg] [facility] Heart rate 2022-06-26 18:39:00 84 /min [facility] Body temperature 2022-06-26 18:39:00 36.89 Rufina [facility] Respiratory rate 2022-06-26 18:39:00 16 /min [facility] Body weight 2022-06-26 18:39:00 54.885 kg [facility] BMI 2022-06-26 18:39:00 21.43 kg/m2 [facility] Body weight 2022-06-14 17:20:00 52.708 kg [facility] BMI 2022-06-14 17:20:00 20.58 kg/m2 [facility] Systolic blood pressure 2022-03-26 13:03:00 107 mm[Hg] [facility] Diastolic blood pressure 2022-03-26 13:03:00 69 mm[Hg] [facility] Heart rate 2022-03-26 13:03:00 88 /min [facility] Body temperature 2022-03-26 13:03:00 36.94 Rufina [facility] Respiratory rate 2022-03-26 13:03:00 16 /min [facility] Body weight 2022-03-26 13:03:00 51.03 kg [facility] BMI 2022-03-26 13:03:00 19.93 kg/m2 [facility] Systolic blood pressure 2022-02-12 20:14:00 104 mm[Hg] [facility] Diastolic blood pressure 2022-02-12 20:14:00 73 mm[Hg] [facility] Heart rate 2022-02-12 20:14:00 91 /min [facility] Body temperature 2022-02-12 20:14:00 36.78 Rufina [facility] Respiratory rate 2022-02-12 20:14:00 18 /min [facility] Body height 2022-02-12 20:14:00 160 cm [facility] Body weight 2022-02-12 20:14:00 50.168 kg [facility] BMI 2022-02-12 20:14:00 19.59 kg/m2 [facility] Oxygen saturation in Arterial blood by Pulse oximetry 2022-02-12 20:14:00 98 /min [facility] Systolic blood pressure 2021-02-16 18:39:00 113 mm[Hg] [facility] Diastolic blood pressure 2021-02-16 18:39:00 82 mm[Hg] [facility] Heart rate 2021-02-16 18:39:00 90 /min [facility] Body temperature 2021-02-16 18:39:00 36.61 Rufina [facility] Respiratory rate 2021-02-16 18:39:00 18 /min [facility] Body height 2021-02-16 18:39:00 165.1 cm [facility] Body weight 2021-02-16 18:39:00 44.453 kg [facility] BMI 2021-02-16 18:39:00 16.31 kg/m2 [facility] Procedures Procedure Date / Time Performed Performing Clinician Source POCT TEST 2023-09-15 00:00:00 Laura Mattson [facility] NOTICE OF BILLING PRACTICES FOR MEDICARE PATIENTS 2023-06-03 17:00:19 Doctor Unassigned, [place] [facility] POCT TEST 2023-06-03 00:00:00 Laura Mattson [facility] US PELVIS COMPLETE WITH TRANSVAGINAL 2023-04-03 15:02:48 Janett Mead [facility] TDAP VACCINE, >11 YRS, IM 2022-10-01 18:54:17 Ignacio Berman [facility] POCT URINALYSIS 2022-09-24 00:00:00 Molly Reynolds [facility] POCT TEST 2022-09-24 00:00:00 Carmen Reynolds [facility] FLU VACC (), 6 MO-64 YRS, .5ML, IM, QUAD (FLUCELVAX) 2022-03-26 13:28:53 Molly Reynolds [facility] Encounters Start Date/Time End Date/Time Encounter Type Admission Type Attending [facility] Facility Care Department Encounter ID Source 2024-02-03 00:00:00 2024-03-06 18:20:59 Patient Secure Msg Doctor Unassigned, [place] Doctor Unassigned, [place] [facility] [id number] 134 [id number] [facility] 2024-02-19 14:26:11 2024-02-19 14:26:11 Outpatient [facility] [id number] Alex Matthews 2024-02-18 16:30:00 2024-02-18 16:30:00 Outpatient NARENDRA ROE [facility] [id number] [facility] 2024-02-18 12:18:39 2024-02-18 12:18:39 Outpatient [facility] [id number] Alex Matthews 2024-02-10 11:30:00 2024-02-10 11:30:00 Outpatient NARENDRA ROE [facility] [id number] [facility] 2024-02-04 16:30:00 2024-02-04 16:30:00 Outpatient NARENDRA ROE [facility] [id number] [facility] 2024-02-02 16:19:32 2024-02-02 16:19:32 Outpatient [facility] [id number] Alex Avila 2023-12-26 11:30:00 2023-12-26 11:30:00 Outpatient NARENDRA ROE [facility] [id number] [facility] 2019-01-26 00:00:00 2023-12-02 02:25:58 Mobile Device Encounter Molly Reynolds [facility] [id number] [facility] 2019-08-17 00:00:00 2023-12-02 02:24:14 Mobile Device Encounter AndresAtkinsMolly bajwa [facility] [id number] [facility] 2023-09-17 16:30:00 2023-09-17 16:30:00 Outpatient R [facility] [id number] [facility] 2023-09-16 00:00:00 2023-09-16 00:00:00 [facility] 1.20.114 [id number] [facility] 2023-09-15 16:30:00 2023-09-15 17:02:54 Outpatient R NARENDRA NIEVES [facility] [id number] [facility] 2023-09-15 16:30:00 2023-09-15 17:02:54 Office Visit Narendra Nieves [facility] [id number] [id number] [id number] [facility] 2023-09-15 10:00:00 2023-09-15 10:00:00 Outpatient R NARENDRA NIEVES [facility] [id number] [facility] 2023-09-10 00:00:00 2023-09-10 00:00:00 Patient Secure Msg Doctor Unassigned, [place] [facility] 1.0.114 [id number] [id number] [facility] 2023-08-15 10:00:00 2023-08-15 10:00:00 Outpatient R JANETT MEAD CHERYAL [facility] [id number] [facility] 2023-07-03 16:00:00 2023-07-03 16:25:58 Outpatient R MEJÍA-OSCAR S, LAURA MEJÍA-OSCAR S, LAURA [facility] [id number] [facility] 2023-07-03 16:00:00 2023-07-03 16:25:58 Office Visit Mejía-Oscar sMadisynLaura [facility] 1.2.840.114 350.1.13.10 4.2.7.2.686 [id number] 134 [id number] [facility] 2023-06-03 11:00:00 2023-06-03 11:38:49 Outpatient R MEJÍA-OSCAR S, LAURA MEJÍA-OSCAR S, LAURA [facility] [id number] [facility] 2023-06-03 11:00:00 2023-06-03 11:38:49 Office Visit Mejía-Oscar sMadisynLaura [facility] 1.2.840.114 350.1.13.10 4.2.7.2.686 [id number] 134 [id number] [facility] 2023-06-03 00:00:00 2023-06-03 00:00:00 Orders Only Doctor Unassigned, Hilham [facility] 1.2.840.114 350.1.13.10 4.2.7.2.686 [id number] [facility] 2023-05-27 16:54:22 2023-05-27 16:54:22 Outpatient [facility] [id number] Alex Avila 2023-05-12 16:42:09 2023-05-12 16:42:09 Outpatient [facility] [id number] Alex Avila 2023-05-06 11:00:00 2023-05-06 11:00:00 Outpatient R YUMI Vásquez, LAURA RICHEY [facility] [id number] [facility] 2023-05-06 00:00:00 2023-05-06 00:00:00 Telephone Laura Guerrero [facility] 1.2.840.114 350.1.13.10 4.2.7.2.686 [id number] 134 [id number] [facility] 2023-05-06 00:00:00 2023-05-06 00:00:00 Patient Secure Msg Doctor Unassigned, Hilham [facility] 1.2.840.114 350.1.13.10 4.2.7.2.686 [id number] 134 [id number] [facility] 2023-04-22 15:00:00 2023-04-22 15:30:48 Outpatient R LAURA GUERRERO MARISOL [facility] [id number] [facility] 2023-04-22 15:00:00 2023-04-22 15:30:48 Office Visit Laura Guerrero [facility] 1.2.840.114 350.1.13.10 4.2.7.2.686 [id number] [facility] 2023-04-04 14:30:00 2023-04-04 14:30:00 Outpatient IGNACIO RICHARDSON [facility] [id number] [facility] 2023-04-04 10:30:00 2023-04-04 10:30:00 Outpatient IGNACIO RICHARDSON [facility] [id number] [facility] 2023-04-03 08:16:11 2023-04-03 23:59:00 Outpatient JANETT RENTERIA CHERYAL [facility] [id number] [facility] 2023-04-03 08:00:00 2023-04-03 23:59:00 Hospital Encounter Janett Mead [facility] 1.2.840.114 350.1.13.10 4.2.7.2.686 [id number] [facility] 2023-03-24 15:30:00 2023-03-24 15:53:36 [facility] [id number] [facility] 2023-03-24 15:30:00 2023-03-24 15:53:36 [facility] 1.2.840.114 350.1.13.10 4.2.7.2.686 [id number] 134 [id number] [facility] 2023-03-24 00:00:00 2023-03-24 00:00:00 Patient Secure [facility] 1.2.840.114 350.1.13.10 4.2.7.2.686 [id number] [facility] 2023-02-19 10:40:00 2023-02-19 11:53:55 Outpatient R XAVI LEONARD [facility] [id number] [facility] 2023-02-19 10:40:00 2023-02-19 11:00:00 Nurse Visit Nurse, Jd [facility] 1.2840.114 350.1.13.10 4.2.7.2.686 [id number] 225 [id number] [facility] 2022-12-04 09:40:00 2022-12-04 09:49:43 Outpatient R MOLLY REYNOLDS [facility] [id number] [facility] 2022-12-04 09:40:00 2022-12-04 09:49:43 Nurse Visit Nurse, Rudyj Molly Conrad [facility] 1..840.114 350.1.13.10 4.2.7.2.686 [id number] [facility] 2022-11-29 10:20:00 2022-11-29 10:20:00 Outpatient R [facility] [id number] [facility] 2022-10-01 14:15:00 2022-10-01 14:30:00 Client Services Account Manager Visit Lab, Branden Berman [facility] 1..840.114 350.1.13.10 4.2.7.2.686 [id number] [facility] 2022-10-01 13:00:00 2022-10-01 14:09:54 [facility] [id number] 2022-10-01 13:00:00 2022-10-01 14:09:54 Office Visit Antonella [facility] 1..840.114 350.1.13.10 4.2.7.2.686 [id number] [facility] 2022-09-24 12:30:00 2022-09-24 13:42:35 Outpatient R MOLLY REYNOLDS [facility] [id number] [facility] 2022-09-24 12:30:00 2022-09-24 13:42:35 Office Visit Molly Reynolds [facility] 1..840.114 350.1.13.10 4.2.7.2.686 [id number] [facility] 2022-09-12 10:20:00 2022-09-12 10:20:00 Outpatient MOLLY ROGERS [facility] [id number] [facility] 2022-09-12 10:20:00 2022-09-12 10:20:00 Nurse Visit Nurse, Molly Albright [facility] 1..840.114 350.1.13.10 4.2.7.2.686 [id number] 225 [id number] [facility] 2022-08-13 10:00:00 2022-08-13 10:18:09 Outpatient R JANETT MEAD CHERYAL [facility] [id number] [facility] 2022-08-13 10:00:00 2022-08-13 10:18:09 Office Visit Janett Mead [facility] 1..840.114 350.1.13.10 4.2.7.2.686 [id number] [facility] 2022-08-13 09:00:00 2022-08-13 09:00:00 Outpatient R LINDA LI [facility] [id number] [facility] 2022-08-13 09:00:00 2022-08-13 09:00:00 Outpatient R LINDA LI [facility] [id number] [facility] 2022-08-13 09:00:00 2022-08-13 09:00:00 Outpatient R LINDA LI [facility] [id number] [facility] 2022-08-13 09:00:00 2022-08-13 09:00:00 Outpatient R LINDA LI [facility] [id number] [facility] 2022-08-13 09:00:00 2022-08-13 09:00:00 Outpatient R LINDA LI [facility] [id number] [facility] 2022-07-05 11:00:00 2022-07-05 11:00:00 Outpatient R JANETT MEAD CHERYAL [facility] [id number] [facility] 2022-06-28 00:00:00 2022-06-28 00:00:00 Pre Visit Outreach Veronica Gentile 1.2.840.114 350.1.13.10 4.2.7.2.686 [id number] [facility] 2022-06-26 12:30:00 2022-06-26 13:11:32 Outpatient R MOLLY REYNOLDS [facility] [id number] [facility] 2022-06-26 12:30:00 2022-06-26 13:11:32 Office Visit Molly Reynolds [facility] 1.2.840.114 350.1.13.10 4.2.7.2.686 [id number] 225 [id number] [facility] 2022-06-26 00:00:00 2022-06-26 00:00:00 Telephone Molly Reynolds [facility] 1.2.840.114 350.1.13.10 4.2.7.2.686 [id number] 225 [id number] [facility] 2022-06-14 11:20:00 2022-06-14 11:21:30 Outpatient MOLLY ROGERS [facility] [id number] [facility] 2022-06-14 11:20:00 2022-06-14 11:21:30 Nurse Visit Nurse, Molly Albright [facility] 1.2.840.114 350.1.13.10 4.2.7.2.686 [id number] [facility] 2022-05-17 15:50:00 2022-05-17 16:10:00 Office Visit Molly Reynolds [facility] 1.2.840.114 350.1.13.10 4.2.7.2.686 [id number] [facility] 2022-05-17 15:50:00 2022-05-17 15:50:00 Outpatient R MOLLY REYNOLDS [facility] [id number] [facility] 2022-05-17 09:50:00 2022-05-17 09:50:00 Outpatient R MOLLY REYNOLDS [facility] [id number] [facility] 2022-05-17 00:00:00 2022-05-17 00:00:00 Telephone Molly Reynolds [facility] 1.2.840.114 350.1.13.10 4.2.7.2.686 [id number] 225 [id number] [facility] 2022-03-26 07:50:00 2022-03-26 08:37:57 Outpatient R MOLLY REYNOLDS [facility] [id number] [facility] 2022-03-26 07:50:00 2022-03-26 08:37:57 Office Visit Molly Reynolds [facility] 1.2.840.114 350.1.13.10 4.2.7.2.686 [id number] [facility] 2022-03-26 00:00:00 2022-03-26 00:00:00 Refill Molly Reynolds [facility] 1.2.840.114 350.1.13.10 4.2.7.2.686 [id number] [facility] 2022-02-12 15:00:00 2022-02-12 15:42:40 Office Visit Linda Li [facility] 1.2.840.114 350.1.13.10 4.2.7.2.686 [id number] 134 [id number] [facility] 2022-02-12 15:00:00 2022-02-12 15:42:40 Outpatient R LINDA LI [facility] [id number] [facility] 2022-02-12 15:00:00 2022-02-12 15:00:00 Outpatient LINDA ROBERTS [facility] [id number] [facility] 2022-02-12 15:00:00 2022-02-12 15:00:00 Outpatient JOSELINE ROBERTSN [facility] [id number] [facility] 2022-02-06 14:30:00 2022-02-06 15:14:22 Office Visit Molly Reynolds [facility] 1.840.114 350.1.13.10 4.2.7.2.686 [id number] [facility] 2022-02-06 14:30:00 2022-02-06 15:14:22 Outpatient MOLLY ROGERS [facility] [id number] [facility] 2022-02-06 14:30:00 2022-02-06 14:30:00 Outpatient MOLLY ROGERS [facility] [id number] [facility] 2022-01-07 00:00:00 2022-01-07 00:00:00 Orders Only Doctor Unassigned, Hilham [facility] 1.840.114 350.1.13.10 4.2.7.2.686 [id number] [facility] 2022-01-03 00:00:00 2022-01-03 00:00:00 Telephone Molly Reynolds [facility] 1.840.114 350.1.13.10 4.2.7.2.686 [id number] 225 [id number] [facility] 2022-01-02 09:30:00 2022-01-02 09:30:00 Outpatient JANETT RENTERIA CHERYAL [facility] [id number] [facility] 2022-01-01 08:30:00 2022-01-01 09:18:07 Outpatient MOLLY ROGERS [facility] [id number] [facility] 2022-01-01 08:30:00 2022-01-01 09:18:07 Office Visit Molly Reynolds [facility] 1.84.114 350.1.13.10 4.2.7.2.686 [id number] 225 [id number] [facility] 2022-01-01 08:30:00 2022-01-01 09:18:07 Outpatient R MOLLY REYNOLDS [facility] [id number] [facility] 2021-12-31 00:00:00 2021-12-31 00:00:00 Mayela Laura [facility] 1.84.114 350.1.13.10 4.2.7.2.686 [id number] 225 [id number] [facility] 2021-11-22 00:00:00 2021-11-22 00:00:00 Mayela Laura [facility] 1.84.114 350.1.13.10 4.2.7.2.686 [id number] [facility] 2021-11-05 08:40:00 2021-11-05 08:40:00 Outpatient R [facility] [id number] [facility] 2021-11-01 10:09:25 2021-11-01 23:59:00 Outpatient R LINDA LI [facility] [id number] [facility] 2021-11-01 10:00:00 2021-11-01 23:59:00 Hospital Encounter Linda Li [facility] 1..114 350.1.13.10 4.2.7.2.686 [id number] [facility] 2021-10-27 00:00:00 2021-10-27 00:00:00 Xavi Vera [facility] 1..114 350.1.13.10 4.2.7.2.686 [id number] [facility] 2021-10-22 10:00:00 2021-10-22 10:37:57 Outpatient R LEIGHA RAUSCH [facility] [id number] [facility] 2021-10-22 10:00:00 2021-10-22 10:37:57 Urgent Care [facility] 1.84.114 350.1.13.10 4.2.7.2.686 [id number] [facility] 2021-10-08 15:00:00 2021-10-08 15:25:31 Outpatient R GUILLERMOLINDA [facility] [id number] [facility] 2021-10-08 15:00:00 2021-10-08 15:25:31 Nurse Visit Nurse, Lkj [facility] Linda Li [facility] 1..114 350.1.13.10 4.2.7.2.686 [id number] [facility] 2021-10-08 08:40:00 2021-10-08 08:40:00 Outpatient R [facility] [id number] [facility] 2021-10-08 08:40:00 2021-10-08 08:40:00 Outpatient R MOLLY REYNOLDS [facility] [id number] [facility] 2021-10-05 00:00:00 2021-10-05 00:00:00 Patient Secure Msg Doctor Unassigned, Hilham [facility] 1..114 350.1.13.10 4.2.7.2.686 [id number] 225 [id number] [facility] 2021-10-02 08:10:00 2021-10-02 08:40:28 Outpatient MOLLY ROGERS [facility] [id number] [facility] 2021-10-02 08:10:00 2021-10-02 08:40:28 Office Visit Molly Reynolds [facility] 1.2.840.114 350.1.13.10 4.2.7.2.686 [id number] 225 [id number] [facility] 2021-10-02 08:10:00 2021-10-02 08:40:28 Outpatient R MOLLY REYNOLDS [facility] [id number] [facility] 2021-09-24 00:00:00 2021-09-24 00:00:00 Xavi Vera [facility] 1.2.840.114 350.1.13.10 4.2.7.2.686 [id number] 225 [id number] [facility] 2021-08-31 00:00:00 2021-08-31 00:00:00 Xavi Vera [facility] 1.2.840.114 350.1.13.10 4.2.7.2.686 [id number] [facility] 2021-08-28 00:00:00 2021-08-28 00:00:00 Telephone Guillermo Linda [facility] 1.2.840.114 350.1.13.10 4.2.7.2.686 [id number] [facility] 2021-08-13 15:30:00 2021-08-13 16:50:06 Outpatient R LINDA LI [facility] [id number] [facility] 2021-08-13 15:30:00 2021-08-13 16:50:06 Office Visit Guillermo Linda [facility] 1.2.840.114 350.1.13.10 4.2.7.2.686 [id number] [facility] 2021-08-13 15:30:00 2021-08-13 16:50:06 Outpatient LINDA ROBERTS [facility] [id number] Sherri s [facility] 2021-07-09 10:30:00 2021-07-09 11:12:39 Outpatient MOLLY ROGERS [facility] [id number] [facility] 2021-07-09 10:30:00 2021-07-09 11:12:39 Office Visit Molly Reynolds [facility] 1.114 350.1.13.10 4.2.7.2.686 [id number] [facility] 2021-07-09 10:30:00 2021-07-09 11:12:39 Outpatient MOLLY ROGERS [facility] [id number] [facility] 2021-07-09 10:30:00 2021-07-09 10:30:00 Outpatient MOLLY ROGERS [facility] [id number] [facility] 2021-07-05 14:30:00 2021-07-05 14:45:00 Laboratory Only Only, Ang Db Test Delia Bradford [facility] 1.840.114 350.1.13.10 4.2.7.2.686 [id number] [facility] 2021-07-05 14:30:00 2021-07-05 14:30:00 Outpatient R DELIA BRADFORD [facility] [id number] [facility] 2021-06-27 10:30:00 2021-06-27 11:06:37 Outpatient MOLLY ROGERS [facility] [id number] [facility] 2021-06-27 10:30:00 2021-06-27 11:06:37 Office Visit Molly Reynolds [facility] 1.0.114 350.1.13.10 4.2.7.2.686 [id number] 225 [id number] [facility] 2021-06-11 00:00:00 2021-06-11 00:00:00 Mayela Laura [facility] 1.840.114 350.1.13.10 4.2.7.2.686 [id number] 225 [id number] [facility] 2021-05-03 00:00:00 2021-05-03 00:00:00 Mayela Laura [facility] 1.0.114 350.1.13.10 4.2.7.2.686 [id number] 225 [id number] [facility] 2021-04-18 09:39:40 2021-04-18 10:01:58 Nurse Visit Nurse, Molly Albright [facility] 1..114 350.1.13.10 4.2.7.2.686 [id number] [facility] 2021-04-18 09:40:00 2021-04-18 09:40:00 Outpatient MOLLY ROGERS [facility] [id number] [facility] 2021-04-17 12:30:00 2021-04-17 12:30:00 Outpatient MOLLY ROGERS [facility] [id number] [facility] 2021-04-17 00:00:00 2021-04-17 00:00:00 Patient Secure Msg Doctor Unassigned, Hilham [facility] 1..114 350.1.13.10 4.2.7.2.686 [id number] 225 [id number] [facility] 2021-04-05 00:00:00 2021-04-05 00:00:00 Telephone Trupti Koch [facility] 1..114 350.1.13.10 4.2.7.2.686 [id number] [facility] 2021-04-04 11:20:00 2021-04-04 11:20:00 Outpatient Marisol CATALINO RAUSCHTANY [facility] [id number] [facility] 2021-04-04 10:09:10 2021-04-04 10:49:17 [facility] 1.2.114 350.1.13.10 4.2.7.2.686 [id number] [facility] 2021-03-20 00:00:00 2021-03-20 00:00:00 Cyndee Bolivar [facility] 1.2.114 350.1.13.10 4.2.7.2.686 [id number] [facility] 2021-03-13 12:47:01 2021-03-13 13:02:01 Client Services Account Manager Visit Pob, [facility] 1..114 350.1.13.10 4.2.7.2.686 [id number] [facility] 2021-03-13 12:45:00 2021-03-13 12:45:00 Outpatient MOLLY ROGERS [facility] [id number] [facility] 2021-03-13 00:00:00 2021-03-13 00:00:00 Patient Secure Msg Molly Reynolds [facility] 1.2.114 350.1.13.10 4.2.7.2.686 [id number] 225 [id number] [facility] 2021-02-23 00:00:00 2021-02-23 00:00:00 Telephone Molly Reynolds [facility] 1.2.114 350.1.13.10 4.2.7.2.686 [id number] 225 [id number] [facility] 2021-02-20 00:00:00 2021-02-20 00:00:00 Patient Secure Msg Doctor Unassigned, Hilham [facility] 1.114 350.1.13.10 4.2.7.2.686 [id number] 225 [id number] [facility] 2021-02-16 13:15:00 2021-02-16 13:30:00 Office Visit Guillermo Linda [facility] 1..114 350.1.13.10 4.2.7.2.686 [id number] [facility] 2021-02-16 13:15:00 2021-02-16 13:15:00 Outpatient R GUILLERMO LINDA [facility] [id number] [facility] 2021-02-16 13:15:00 2021-02-16 13:15:00 Outpatient R LINDA LI [facility] [id number] [facility] 2021-02-14 08:14:37 2021-02-14 09:02:36 Office Visit Molly Reynolds [facility] 1.114 350.1.13.10 4.2.7.2.686 [id number] [facility] 2021-02-14 08:10:00 2021-02-14 08:10:00 Outpatient R MOLLY REYNOLDS [facility] [id number] [facility] 2021-02-13 00:00:00 2021-02-13 00:00:00 Cyndee Bolivar [facility] 1.114 350.1.13.10 4.2.7.2.686 [id number] 225 [id number] [facility] 2021-02-13 00:00:00 2021-02-13 00:00:00 Cyndee Bolivar [facility] 1.2840.114 350.1.13.10 4.2.7.2.686 [id number] [facility] 2021-01-22 09:30:00 2021-01-22 09:30:00 Outpatient MOLLY ROGERS [facility] [id number] [facility] 2021-01-16 08:10:00 2021-01-16 09:05:19 Office Visit Molly Reynolds [facility] 1.2840.114 350.1.13.10 4.2.7.2.686 [id number] [facility] 2021-01-16 08:10:00 2021-01-16 08:10:00 Outpatient MOLLY ROGERS [facility] [id number] [facility] 2021-01-15 00:00:00 2021-01-15 00:00:00 Telephone Molly Reynolds [facility] 1.2840.114 350.1.13.10 4.2.7.2.686 [id number] [facility] 2021-01-02 00:00:00 2021-01-02 00:00:00 Cyndee Bolivar [facility] 1.2.840.114 350.1.13.10 4.2.7.2.686 [id number] 225 [id number] [facility] 2020-12-04 00:00:00 2020-12-04 00:00:00 Telephone Molly Reynolds [facility] [id number] 350.1.13.10 4.2.7.2.686 [id number] 225 [id number] [facility] 2020-11-29 00:00:00 2020-11-29 00:00:00 Cyndee Bolivar N [facility] [id number] 350.1.13.10 4.2.7.2.686 [id number] 225 [id number] [facility] 2020-10-24 09:48:05 2020-10-24 10:46:55 Office Visit Molly Reynolds [facility] [id number] 350.1.13.10 4.2.7.2.686 [id number] 225 [id number] [facility] 2020-10-24 09:50:00 2020-10-24 09:50:00 Outpatient R MOLLY REYNOLDS [facility] [id number] [facility] 2020-10-23 00:00:00 2020-10-23 00:00:00 Cyndee Bolivar [facility] [id number] 350.1.13.10 4.2.7.2.686 [id number] 225 [id number] [facility] 2020-10-23 00:00:00 2020-10-23 00:00:00 Telephone Molly Reynolds [facility] [id number] 350.1.13.10 4.2.7.2.686 [id number] 225 [id number] [facility] 2020-10-02 16:21:37 2020-10-02 16:41:37 Laboratory Only Lab, Adc Fam Yamilet Gilmore [facility] [id number] 350.1.13.10 4.2.7.2.686 [id number] [facility] 2020-10-02 16:20:00 2020-10-02 16:20:00 Outpatient R [facility] [id number] [facility] 2020-09-27 18:17:02 2020-09-27 18:37:02 Laboratory Only Lab, Adc Fam Jarekb I Michael P[facility] .114 350.1.13.10 4.2.7.2.686 [id number] [facility] 2020-09-27 18:20:00 2020-09-27 18:20:00 Outpatient R MICHAEL PINTO [facility] [id number] [facility] 2020-09-20 08:39:40 2020-09-20 09:24:44 Office Visit Molly Reynolds [facility] 1.114 350.1.13.10 4.2.7.2.686 [id number] 225 [id number] [facility] 2020-09-20 08:30:00 2020-09-20 08:30:00 Outpatient R MOLLY REYNOLDS [facility] [id number] [facility] 2020-09-18 00:00:00 2020-09-18 00:00:00 Telephone Molly Reynolds [facility] 1..114 350.1.13.10 4.2.7.2.686 [id number] 225 [id number] [facility] 2020-09-15 00:00:00 2020-09-15 00:00:00 Xavi Vera [facility] Clinic 1..114 350.1.13.10 4.2.7.2.686 [id number] 225 [id number] [facility] 2020-08-07 09:07:55 2020-08-07 09:27:55 Laboratory Only Lab, Adc Fam Pob Michelle NataliyaaydeeIgnacio [facility] Office Building One 1.114 350.1.13.10 4.2.7.2.686 [id number] 044 [id number] [facility] 2020-08-07 09:00:00 2020-08-07 09:00:00 Outpatient R ANENE, IGNACIO [facility] [id number] [facility] 2020-07-20 08:28:08 2020-07-20 08:48:08 Laboratory Only Lab, [facility] One 1.0.114 350.1.13.10 4.2.7.2.686 [id number] 044 [id number] [facility] 2020-07-20 08:20:00 2020-07-20 08:20:00 [facility] [id number] 2020-07-04 00:00:00 2020-07-04 00:00:00 Telephone Molly Reynolds [facility] 1.2840.114 350.1.13.10 4.2.7.2.686 [id number] 225 [id number] [facility] 2020-07-04 00:00:00 2020-07-04 00:00:00 Telephone Molly Reynolds [facility] 1.2.840.114 350.1.13.10 4.2.7.2.686 [id number] 225 [id number] 2020-06-28 17:21:12 2020-06-28 17:41:12 Laboratory Only Lab, [facility] Michael Tilleyb Dena Freire [facility] Office Building One 1.840.114 350.1.13.10 4.2.7.2.686 [id number] 044 [id number] [facility] 2020-06-28 17:21:12 2020-06-28 17:41:12 Laboratory Only Lab, [facility] Michael Tilleyb I [facility] Office Building One 1.840.114 350.1.13.10 4.2.7.2.686 [id number] 044 [id number] 2020-06-28 17:00:00 2020-06-28 17:00:00 Outpatient R DENA GILMORE [facility] [id number] [facility] 2020-06-06 00:00:00 2020-06-06 00:00:00 Telephone Molly Reynolds [facility] 1.2.840.114 350.1.13.10 4.2.7.2.686 [id number] 225 [id number] [facility] 2020-06-06 00:00:00 2020-06-06 00:00:00 Telephone Molly Reynolds [facility] 1.2.840.114 350.1.13.10 4.2.7.2.686 [id number] 225 [id number] 2020-05-15 12:58:06 2020-05-15 13:18:06 Office Visit Molly Reynolds [facility] 1.2.840.114 350.1.13.10 4.2.7.2.686 [id number] 225 [id number] 2020-05-15 12:58:06 2020-05-15 13:18:06 Office Visit Molly Reynolds [facility] 1.2.840.114 350.1.13.10 4.2.7.2.686 [id number] 225 [id number] [facility] 2020-05-15 13:10:00 2020-05-15 13:10:00 Outpatient MOLLY ROGERS [facility] [id number] [facility] 2020-05-15 00:00:00 2020-05-15 00:00:00 Xavi Vera [facility] 1.2.840.114 350.1.13.10 4.2.7.2.686 [id number] 225 [id number] 2020-05-15 00:00:00 2020-05-15 00:00:00 Telephone Molly Reynolds [facility] 1.2.840.114 350.1.13.10 4.2.7.2.686 [id number] 225 [id number] 2020-05-15 00:00:00 2020-05-15 00:00:00 Reftabatha Roldan, Xavi [facility] 1.2.840.114 350.1.13.10 4.2.7.2.686 [id number] 225 [id number] [facility] 2020-05-15 00:00:00 2020-05-15 00:00:00 Telephone Molly Reynolds [facility] 1.2.840.114 350.1.13.10 4.2.7.2.686 [id number] 225 [id number] [facility] 2020-05-10 00:00:00 2020-05-10 00:00:00 Telephone Molly Reynolds [facility] 1.2.840.114 350.1.13.10 4.2.7.2.686 [id number] 225 [id number] [facility] 2020-05-09 00:00:00 2020-05-09 00:00:00 Reftabatha Roldan Xavi [facility] 1.2.840.114 350.1.13.10 4.2.7.2.686 [id number] 225 [id number] [facility] 2020-04-05 11:17:34 2020-04-05 13:53:29 Telemedici ne Visit Molly Reynolds [facility] 1.2.840.114 350.1.13.10 4.2.7.2.686 [id number] 225 [id number] [facility] 2020-04-05 12:30:00 2020-04-05 12:30:00 Outpatient R MOLLY REYNOLDS [facility] [id number] [facility] 2020-04-05 00:00:00 2020-04-05 00:00:00 Telephone Molly Reynolds [facility] 1.2.840.114 350.1.13.10 4.2.7.2.686 [id number] 225 [id number] [facility] 2020-04-04 00:00:00 2020-04-04 00:00:00 Refill Molly Reynolds [facility] 1.2.840.114 350.1.13.10 4.2.7.2.686 [id number] 225 [id number] [facility] 2020-02-07 13:44:54 2020-02-07 14:30:06 Office Visit Molly Reynolds [facility] 1.2840.114 350.1.13.10 4.2.7.2.686 [id number] 225 [id number] [facility] 2020-02-07 13:40:00 2020-02-07 13:40:00 Outpatient R MOLLY REYNOLDS [facility] [id number] [facility] 2020-02-07 00:00:00 2020-02-07 00:00:00 Telephone Molly Reynolds [facility] 1.2.114 350.1.13.10 4.2.7.2.686 [id number] 225 [id number] [facility] 2020-02-07 00:00:00 2020-02-07 00:00:00 [facility] 1.84.114 350.1.13.10 4.2.7.2.686 [id number] 059 [id number] [facility] 2020-02-02 00:00:00 2020-02-02 00:00:00 Patient Secure Msg Golden [facility] PROFESSIO NAL BUILDING 1.840.114 350.1.13.10 4.2.7.2.686 [id number] 059 [id number] [facility] 2020-02-01 09:52:14 2020-02-01 10:46:24 Laboratory Only Pc, Adc Echo [facility] 1.2.840.114 350.1.13.10 4.2.7.2.686 [id number] 059 [id number] [facility] 2020-02-01 10:00:00 2020-02-01 10:00:00 Outpatient R [facility] [id number] [facility] 2020-01-27 00:00:00 2020-01-27 00:00:00 [facility] 1.2.840.114 350.1.13.10 4.2.7.2.686 [id number] 059 [id number] [facility] 2020-01-26 11:19:38 2020-01-26 16:10:21 [facility] 1.2.840.114 350.1.13.10 4.2.7.2.686 [id number] 059 [id number] [facility] 2020-01-26 15:18:44 2020-01-26 15:47:18 Nurse Visit Visit, Ad[facility] 1.2.840.114 350.1.13.10 4.2.7.2.686 [id number] 059 [id number] [facility] 2020-01-26 15:14:44 2020-01-26 15:29:44 Client Services Account Manager Visit 2, Adc Lab [facility] 1.2.840.114 350.1.13.10 4.2.7.2.686 [id number] [facility] 2020-01-26 11:20:00 2020-01-26 11:20:00 [facility] [id number] 2020-01-26 00:00:00 2020-01-26 00:00:00 [facility] 1.2.840.114 350.1.13.10 4.2.7.2.686 [id number] 059 [id number] [facility] 2020-01-11 00:00:00 2020-01-11 00:00:00 RefMolly Jean-Baptiste [facility] 1.2.840.114 350.1.13.10 4.2.7.2.686 [id number] 225 [id number] [facility] 2020-01-05 08:26:44 2020-01-05 09:38:08 Office Visit Cyndee Kenny [facility] 1.2.840.114 350.1.13.10 4.2.7.2.686 [id number] 225 [id number] [facility] 2020-01-05 08:20:00 2020-01-05 08:20:00 Outpatient R CYNDEE KENNY [facility] [id number] [facility] 2019-12-31 00:00:00 2019-12-31 00:00:00 Telephone Molly Reynolds [facility] 1.840.114 350.1.13.10 4.2.7.2.686 [id number] 225 [id number] [facility] 2019-12-06 13:20:00 2019-12-06 13:20:00 Outpatient R MOLLY REYNOLDS [facility] [id number] [facility] 2019-12-02 00:00:00 2019-12-02 00:00:00 Molly Mcgraw [facility] 1.2.840.114 350.1.13.10 4.2.7.2.686 [id number] 225 [id number] [facility] 2019-11-05 09:10:10 2019-11-05 09:47:52 Nurse Visit Nurse, Molly Albright [facility] 1.2.840.114 350.1.13.10 4.2.7.2.686 [id number] 225 [id number] [facility] 2019-11-05 09:00:00 2019-11-05 09:00:00 Outpatient R [facility] [id number] [facility] 2019-11-03 00:00:00 2019-11-03 00:00:00 Refill Molly Reynolds [facility] 1.2.840.114 350.1.13.10 4.2.7.2.686 [id number] 225 [id number] [facility] 2019-10-05 12:45:20 2019-10-05 13:05:20 Telemedici ne Visit Molly Reynolds [facility] 1.2.840.114 350.1.13.10 4.2.7.2.686 [id number] 225 [id number] [facility] 2019-10-05 12:30:00 2019-10-05 12:30:00 Outpatient MOLLY ROGERS [facility] [id number] [facility] 2019-10-05 00:00:00 2019-10-05 00:00:00 Telephone Molly Reynolds [facility] 1.2.840.114 350.1.13.10 4.2.7.2.686 [id number] 225 [id number] [facility] 2019-08-17 10:02:57 2019-08-17 14:25:34 Office Visit Cyndee Kenny [facility] 1.2.840.114 350.1.13.10 4.2.7.2.686 [id number] 225 [id number] [facility] 2019-08-17 10:00:00 2019-08-17 10:00:00 Outpatient CYNDEE SALEEM [facility] [id number] [facility] 2019-08-17 00:00:00 2019-08-17 00:00:00 Letter (Out) Molly Reynolds [facility] 1.2.840.114 350.1.13.10 4.2.7.2.686 [id number] 225 [id number] [facility] 2019-08-17 00:00:00 2019-08-17 00:00:00 Telephone KennyCyndee atwood Javi [facility] 1.2.840.114 350.1.13.10 4.2.7.2.686 [id number] 225 [id number] [facility] 2019-08-05 00:00:00 2019-08-05 00:00:00 Refill Molly Reynolds [facility] 1.2.840.114 350.1.13.10 4.2.7.2.686 [id number] 225 [id number] [facility] 2019-08-02 15:51:04 2019-08-02 16:28:55 Office Visit Molly Reynolds [facility] 1.2.840.114 350.1.13.10 4.2.7.2.686 [id number] 225 [id number] [facility] 2019-07-15 08:13:21 2019-07-22 11:41:46 Ancillary Visit Eder Barrera Craig L [facility] 1.2.840.114 350.1.13.10 4.2.7.2.686 [id number] 179 [id number] [facility] 2019-07-15 13:17:03 2019-07-15 13:44:48 Office Visit EfraínJordyCyndee N [facility] 1.2.840.114 350.1.13.10 4.2.7.2.686 [id number] 225 [id number] [facility] 2019-07-14 07:48:46 2019-07-14 08:28:46 Ancillary Visit Missy Barrera Craig L [facility] 1.2.840.114 350.1.13.10 4.2.7.2.686 [id number] 179 [id number] [facility] 2019-07-12 11:09:39 2019-07-12 11:49:39 Ancillary Visit Eder Barrera Craig L [facility] Building 1.2.840.114 350.1.13.10 4.2.7.2.686 [id number] 179 [id number] [facility] 2019-07-09 15:00:28 2019-07-09 15:20:28 Office Visit Molly Reynolds [facility] 1.2.840.114 350.1.13.10 4.2.7.2.686 [id number] 225 [id number] [facility] 2019-07-09 07:50:57 2019-07-09 08:30:57 Ancillary Visit Ila Rebolledo Craig [facility] Building 1.2.840.114 350.1.13.10 4.2.7.2.686 [id number] [facility] 2019-07-09 00:00:00 2019-07-09 00:00:00 Orders Only Doctor Unassigned, Hilham [facility] 1.2.840.114 350.1.13.10 4.2.7.2.686 [id number] [id number] [facility] 2019-07-09 00:00:00 2019-07-09 00:00:00 Telephone Molly Reynolds [facility] 1.2.840.114 350.1.13.10 4.2.7.2.686 [id number] 225 [id number] [facility] 2019-07-07 08:32:08 2019-07-07 09:24:23 Ancillary Visit Eder Barrera Craig L [facility] Building 1.2.840.114 350.1.13.10 4.2.7.2.686 [id number] 179 [id number] [facility] 2019-07-06 00:00:00 2019-07-06 00:00:00 Telephone Molly Reynolds [facility] 1.2.840.114 350.1.13.10 4.2.7.2.686 [id number] 225 [id number] [facility] 2019-07-01 09:36:45 2019-07-01 10:21:45 Ancillary Visit Eder Barrera Craig L [facility] 1.2.840.114 350.1.13.10 4.2.7.2.686 [id number] 179 [id number] [facility] 2019-06-30 08:17:26 2019-06-30 09:02:26 Ancillary Visit Eder Barrera Craig L [facility] 1.2.840.114 350.1.13.10 4.2.7.2.686 [id number] 179 [id number] [facility] 2019-06-30 00:00:00 2019-06-30 00:00:00 Xavi Vera [facility] 1.2.840.114 350.1.13.10 4.2.7.2.686 [id number] 225 [id number] [facility] 2019-06-28 00:00:00 2019-06-28 00:00:00 Orders Only Doctor Unassigned, Hilham [facility] 1.2.840.114 350.1.13.10 4.2.7.2.686 [id number] 009 [id number] [facility] 2019-02-26 09:14:40 2019-02-26 23:59:00 Hospital Encounter Molly [facility] 1.2.840.114 350.1.13.10 4.2.7.2.686 [id number] [facility] 2019-02-26 00:00:00 2019-02-26 00:00:00 Orders Only Doctor Unassigned, Hilham [facility] 1.2.840.114 350.1.13.10 4.2.7.2.686 [id number] 009 [id number] [facility] 2019-02-25 00:00:00 2019-02-25 00:00:00 Telephone Molly Reynolds [facility] 1.2.840.114 350.1.13.10 4.2.7.2.686 [id number] 225 [id number] [facility] 2019-02-25 00:00:00 2019-02-25 00:00:00 Refill Saba Mercer [facility] 1.2.840.114 350.1.13.10 4.2.7.2.686 [id number] 225 [id number] [facility] 2019-01-26 10:51:33 2019-01-26 12:08:39 Office Visit Molly Reynolds [facility] 1.2.840.114 350.1.13.10 4.2.7.2.686 [id number] 225 [id number] [facility] 2019-01-26 00:00:00 2019-01-26 00:00:00 RefMolly Jean-Baptiste [facility] 1.2.840.114 350.1.13.10 4.2.7.2.686 [id number] 225 [id number] [facility] 2019-01-26 00:00:00 2019-01-26 00:00:00 Orders Only Doctor Unassigned, Hilham [facility] 1.2.840.114 350.1.13.10 4.2.7.2.686 [id number] 009 [id number] [facility] 2019-01-19 00:00:00 2019-01-19 00:00:00 Telephone Molly Reynolds [facility] 1.2.840.114 350.1.13.10 4.2.7.2.686 [id number] 225 [id number] [facility] 2018-10-12 00:00:00 2018-10-12 00:00:00 Letter (Out) Farhad Angeles [facility] 1.2.840.114 350.1.13.10 4.2.7.2.686 [id number] 028 [id number] [facility] Results Test Description Test Time Test Comments Results Result Co mments Source [facility] [id number] 22:03:00* Test Item Value Reference Range Interpretation Comme nts POCT PREG (test code = 1605) Negative On board controls acceptable with C Line (test code = 3574) Yes POCT PREG LOT # (test code = 3575) POCT PREG TEST DATE ( test code = 3576) [facility] [id number] 17:21:00* Test Item Value Reference Range Interpretation Comme nts POCT PREG (test code = 1605) Negative On board controls acceptable with C Line (test code = 3574) Yes POCT PREG LOT # (test code = 3575) t POCT PREG TEST DATE ( test code = 3576) [facility] [id number] 17:21:00* Test Item Value Reference Range Interpretation Comme nts POCT PREG (test code = 1605) Negative On board controls acceptable with C Line (test code = 3574) Yes POCT PREG LOT # (test code = 3575) t PO[facility] PREG TEST DATE ( test [facility] = 3576[id number] 18:24:00* Test Item Value Reference Range Interpretation Comme nts POCT PREG (test code = 1605) Negative On board controls acceptable with C Line (test code = 3574) Yes POCT PREG LOT # (test code = 3575) POCT PREG TEST DATE ( test code = 3576) [facility] [id number] 18:24:00* Test Item Value Reference Range Interpretation Comme nts POCT PREG (test code = 1605) Negative On board controls acceptable with C Line (test code = 3574) Yes POCT PREG LOT # (test code = 3575) POCT PREG TEST DATE ( test code = 3576) [facility] SPECIFIC [id number] 18:23:00* Test Item Value Reference Range Interpretation [...] U APPEAR (test code = 3267) clear [facility] SPECIFIC [id number] 18:23:00* Test Item Value Reference Range Interpretation [...] U APPEAR (test code = 3267) clear [facility] Notes Date/Time Note Provider Source 2023-09-16 13:10:33 Rx for Diflucan for yeast infection. [facility]
--- NOTE | 2024-03-31 15:09 | EDPHYS ---
Physician Documentation [facility] Name: Saba Mcgovern Age: 23 yrs Sex: Female : 2000 Arrival Date: 03/31/2024 Time: 14:21 Bed 9 Private MD: ED Physician Jerry Lorenz HPI: 03/31 14:59 This 23 yrs old Female presents to ER via Ambulatory with complaints of Sore esteban Throat - lump with swelling. 14:59 The patient presents with sore throat. The patient describes throat pain as raw. Onset: esteban The symptoms/episode began/occurred 2 day(s) ago. Severity of symptoms: At their worst the symptoms were mild, in the emergency department the symptoms are unchanged. Modifying factors: The symptoms are alleviated by nothing, the symptoms are aggravated by swallowing, Patient's oral intake status: good. Associated signs and symptoms: The patient has no apparent associated signs or symptoms. The patient has not experienced similar symptoms in the past. 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 - Infectious Disease History:: Denies. - Social history:: Smoking status: Patient denies any tobacco usage or history of. - Family history:: not pertinent. ROS: 14:59 Constitutional: Negative for fever, chills, and weight loss, Eyes: Negative for injury, esteban pain, redness, and discharge, Cardiovascular: Negative for chest pain, palpitations, and edema, Respiratory: Negative for shortness of breath, cough, wheezing, and pleuritic chest pain, Abdomen/GI: Negative for abdominal pain, nausea, vomiting, diarrhea, and constipation, Back: Negative for injury and pain, : Negative for injury, bleeding, discharge, and swelling, MS/Extremity: Negative for injury and deformity, Skin: Negative for injury, rash, and discoloration, Neuro: Negative for headache, weakness, numbness, tingling, and seizure, Psych: Negative for depression, anxiety, suicide ideation, homicidal ideation, and hallucinations, Allergy/Immunology: Negative for hives, rash, and allergies, Endocrine: Negative for neck swelling, polydipsia, polyuria, polyphagia, and marked weight changes, Hematologic/Lymphatic: Negative for swollen nodes, abnormal bleeding, and unusual bruising, 14:59 ENT: Positive for sore throat, 14:59 Neck: Positive for pain at rest, swelling, swollen nodes, tenderness, of the right aspect of posterior pharynx, Exam: 15:04 Constitutional: This is a well developed, well nourished patient who is awake, alert, esteban and in no acute distress. Head/Face: Normocephalic, atraumatic. Eyes: Pupils equal round and reactive to light, extra-ocular motions intact. Lids and lashes normal. Conjunctiva and sclera are non-icteric and not injected. Cornea within normal limits. Periorbital areas with no swelling, redness, or edema. Chest/axilla: Normal chest wall appearance and motion. Nontender with no deformity. No lesions are appreciated. Cardiovascular: Regular rate and rhythm with a normal S1 and S2. No gallops, murmurs, or rubs. Normal PMI, no JVD. No pulse deficits. Respiratory: Lungs have equal breath sounds bilaterally, clear to auscultation and percussion. No rales, rhonchi or wheezes noted. No increased work of breathing, no retractions or nasal flaring. Abdomen/GI: Soft, non-tender, with normal bowel sounds. No distension or tympany. No guarding or rebound. No evidence of tenderness throughout. Back: No spinal tenderness. No costovertebral tenderness. Full range of motion. Skin: Warm, dry with normal turgor. Normal color with no rashes, no lesions, and no evidence of cellulitis. MS/ Extremity: Pulses equal, no cyanosis. Neurovascular intact. Full, normal range of motion. Neuro: Awake and alert, GCS 15, oriented to person, place, time, and situation. Cranial nerves II-XII grossly intact. Motor strength 5/5 in all extremities. Sensory grossly intact. Cerebellar exam normal. Normal gait. Psych: Awake, alert, with orientation to person, place and time. Behavior, mood, and affect are within normal limits. 15:04 ENT: Posterior pharynx: Airway: normal, no evidence of obstruction, Tonsils: enlarged on the right, with erythema, Uvula: normal, midline, non-edematous, no erythema, swelling, is not appreciated, erythema, that is mild, exudate, is not appreciated, peritonsillar mass, is not appreciated, Vital Signs: 14:40 BP 118 / 83; Pulse 87; Resp 16; Temp 97.7; Pulse Ox 100% ; Weight 49.9 kg; Height 5 ft. ll1 5 in. ; Pain 6/10; 14:40 Body Mass Index 18.30 (49.90 kg, 165.1 cm) ll1 14:40 Pain Scale: Adult ll1 MDM: 14:27 Medical Screening Exam initiated esteban 15:05 Differential diagnosis: cocksackie virus, echovirus infection, epiglottitis, group A esteban strep tonsillitis, influenza, laryngitis, lymphoma, mononucleosis, peritonsillar abscess chlamydia pharyngitis, pharyngitis, tonsillitis, upper respiratory infection, uvulitis. Data reviewed: vital signs, nurses notes, lab test result(s). Consideration of Admission/Observation Escalation of care including admission/observation considered. I considered the following discharge prescriptions or medication management in the emergency department Medications were administered in the Emergency Department. See MAR. Test considered but Not performed: Labs: NO CBC , NO COMP . Care significantly affected by the following chronic conditions: HEARING IMPAIRED, ANXIETY, ADHD. 03/31 14:27 Order name: Strep [facility] 03/31 14:27 Order name: Flu [facility] 03/31 14:27 Order name: SARS RAPID [facility] 03/31 16:00 Order name: Throat Culture EDMS Administered Medications: 15:36 Drug: Dexamethasone IM 10 mg IM once Route: IM; Site: right gluteus; cm10 16:03 Follow up: Response: No adverse reaction mb9 15:37 Drug: Rocephin (cefTRIAXone) IM 1 grams IM once Route: IM; Site: left gluteus; cm10 16:04 Follow up: Response: No adverse reaction mb9 15:37 Drug: Amoxicillin-Clavulanate PO 875 mg PO once Route: PO; cm10 16:04 Follow up: Response: No adverse reaction mb9 Disposition Summary: 03/31/24 15:08 Discharge Ordered Notes: Location: Home esteban Problem: new esteban Symptoms: have improved esteban Condition: Stable esteban Diagnosis - Acute tonsillitis, unspecified - RIGHT esteban Followup: esteban - With: Private Physician - When: 2 - 3 days - Reason: Recheck today's complaints, Continuance of care, Re-evaluation by your physician Followup: esteban - With: Latrice Nicole MD - When: 2 - 3 days - Reason: Recheck today's complaints, Re-evaluation by your physician Discharge Instructions: - Discharge Summary Sheet esteban - Tonsillitis esteban - Tonsillitis, [id number] esteban - Lymphadenopathy esteban Forms: - Medication Reconciliation Form esteban - Antibiotic Education esteban - Prescription Opioid Use esteban - Patient Portal Instructions esteban - Leadership Thank You Letter [facility] Prescriptions: - dexamethasone 4 mg Oral tablet - take 1 tablet ORAL route daily; 3 tablet; Refills: 0, Product Selection [facility] Permitted - Augmentin 875-125 mg Oral Tablet - take 1 tablet ORAL route every 12 hours for 10 days; 20 tablet; Refills: 0, [facility] Product Selection Permitted Signatures: Dispatcher [employer] Jerry Ramirez MD MD cha Lewis, Lynsay, RN RN ll1 Leno, Sara Christiansen RN RN mb9 Arabella Harman RN RN cm10
--- NOTE | 2024-03-31 15:09 | ER ---
Nurse's Notes [facility] Name: Saba Mcgovern Age: 23 yrs Sex: Female : 2000 Arrival Date: 03/31/2024 Time: 14:21 Bed 9 Private MD: Diagnosis: Acute tonsillitis, unspecified-RIGHT Presentation: 03/31 14:40 Chief complaint: Patient states: Sore throat, itchy, hard to talk for 2 days. No fever. ll1 Noticed a lump to R throat. Coronavirus screen: Client denies travel out of the [place] in the last 14 days. congestion, cough unrelated to allergies, sore throat, Client presents with at least one sign or symptom that may indicate coronavirus-19. Standard/surgical mask placed on the client. Ebola Screen: Patient denies travel to an Ebola-affected area in the 21 days before illness onset. Initial Sepsis Screen: Does the patient meet any 2 criteria? No. Patient's initial sepsis screen is negative. Does the patient have a suspected source of infection? No. Patient's initial sepsis screen is negative. Risk Assessment: Do you want to hurt yourself or someone else? Patient reports no desire to harm self or others. Onset of symptoms was March 30, 2024. 14:40 Method Of Arrival: Ambulatory ll1 14:40 Acuity: RICHI 4 ll1 Triage Assessment: 14:40 General: Appears in no apparent distress. Behavior is calm, cooperative, appropriate ll1 for age. Pain: Complains of pain in right aspect of posterior pharynx Quality of pain is described as aching. EENT: Reports nasal congestion pain when swallowing lump to R side of neck area. Neuro: No deficits noted. Cardiovascular: No deficits noted. Respiratory: Reports cough that is dry. 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 - Infectious Disease History:: Denies. - Social history:: Smoking status: Patient denies any tobacco usage or history of. - Family history:: not pertinent. Screenin:38 [facility] ED Fall Risk Assessment (Adult) History of falling in the last 3 months, cm10 including since admission No falls in past 3 months (0 pts) Confusion or Disorientation No (0 pts) Intoxicated or Sedated No (0 pts) Impaired Gait No (0 pts) Mobility Assist Device Used No (0 pt) Altered Elimination No (0 pt) Score/Fall Risk Level 0 - 2 = Low Risk Oriented to surroundings, Maintained a safe environment, Hourly rounding (assess needs \T\ fall precautionary measures) done. Abuse screen: Denies threats or abuse. Denies injuries from another. Nutritional screening: No deficits noted. Tuberculosis screening: No symptoms or risk factors identified. Assessment: 15:23 Reassessment: No changes from previously documented assessment. Patient and/or family ll1 updated on plan of care and expected duration. Pain level reassessed. Patient is alert, oriented x 3, equal unlabored respirations, skin warm/dry/pink. 15:37 Reassessment: Pt medicated using [employer] Aide line [id number]. cm10 16:04 Respiratory: Airway is patent Respiratory effort is even, unlabored, Respiratory mb9 pattern is regular, symmetrical, Not auscultated. EENT: Throat is reddened. Vital Signs: 14:40 BP 118 / 83; Pulse 87; Resp 16; Temp 97.7; Pulse Ox 100% ; Weight 49.9 kg; Height 5 ft. ll1 5 in. ; Pain 6/10; 14:40 Body Mass Index 18.30 (49.90 kg, 165.1 cm) ll1 14:40 Pain Scale: Adult ll1 ED Course: 14:24 Patient arrived in ED. ra3 14:27 Jerry Lorenz MD is Attending Physician. esteban 14:39 Arm band placed on. ll1 14:42 Triage completed. ll1 15:07 Latrice Nicole MD is Referral Physician. esteban 15:11 SARS RAPID Sent. bc6 15:11 Flu Sent. bc6 15:11 Strep Sent. bc6 15:11 COVID swab sent to lab. Flu and/or RSV swab sent to lab. Strep swab sent to lab. bc6 15:19 Arabella Harman, RN is Primary Nurse. cm10 15:23 Patient placed in an exam room, on a stretcher. ll1 15:38 Patient has correct armband on for positive identification. Provided Education on: cm10 Follow-up instructions. 16:05 No provider procedures requiring assistance completed. Patient did not have IV access mb9 during this emergency room visit. Administered Medications: 15:36 Drug: Dexamethasone IM 10 mg IM once Route: IM; Site: right gluteus; cm10 16:03 Follow up: Response: No adverse reaction mb9 15:37 Drug: Rocephin (cefTRIAXone) IM 1 grams IM once Route: IM; Site: left gluteus; cm10 16:04 Follow up: Response: No adverse reaction mb9 15:37 Drug: Amoxicillin-Clavulanate PO 875 mg PO once Route: PO; cm10 16:04 Follow up: Response: No adverse reaction mb9 Medication: 16:04 VIS not applicable for this client. mb9 Outcome: 15:08 Discharge ordered by . esteban 16:04 Discharged to home ambulatory, with friend, josiah 16:04 Condition: good 16:04 Discharge instructions given to patient, Used window cutter [id number] Instructed on discharge instructions, follow up and referral plans. medication usage, Demonstrated understanding of instructions, follow-up care, medications, Prescriptions given X 2, 16:05 Patient left the ED. mb9 Signatures: Jerry Lorenz MD MD cha Lewis, Lynsay RN RN ll1 Sara Burr RN RN mb9 Mandie Smith 6 Arabella Harman RN RN cm10 Lila Webb 3
[2024-03-31] MEDS ORDERED: AMOX/K CLAV 875 MG TAB ONE (15:23)
[2024-03-31] MEDS ORDERED: LIDOCAINE 1% MPF 2 ML AMPULE ONE (15:23)
[2024-03-31] MEDS ORDERED: CEFTRIAXONE 1000 MG/VIAL ONE (15:23)
[2024-03-31] MEDS ORDERED: dexAMETHasone 10 MG/ML VIAL ONE (15:23)
[2024-03-31 15:56] LABS: SARS-CoV-2 Antigen CONTROL BLUE LINE VIS/BG OK; SARS-CoV-2 Antigen Rapid Res Negative (Negative)
[2024-03-31 18:02] VITALS: BP 118/83; TEMP 97.7; O2SAT 100
== END 2024-03-31 16:05 | disposition home or self-care (01) ==
LOC: ER 14:21
DX: J03.90 Acute tonsillitis, unspecified (principal); Z11.52 Encounter for screening for COVID-19
CPT/HCPCS: 87070; 36415; 87081; 87804 ×2; 96372; 99284; 87811; J1100; J0696

== ENCOUNTER 2024-10-01 07:31 | Emergency (ER) | payer OTHER ==
--- OUTSIDE RECORDS SUMMARY | 2024-10-01 07:40 | XMS REPORT | Continuity of Care Document ---
Author Name Unknown Address [address] [facility] [address] [place] [address] [facility] Address [address] 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 Role Phone IGNACIO BERMAN Primary Care Physician LAURA Leon Attending Clinician LAURA Bateman Attending Clinician Laura Bateman MD Attending Clinician + [phone] NARENDRA NIEVES Attending Clinician Unavailable Doctor Unassigned, Malcolm Attending Clinician U Molly Hoover PA-C Attending Clinician [phone] Narendra Nieves DNP Attending Clinician [phone] Doctor Unassigned, Malcolm Attending Clinician U navailable BOSTON, JANETT Attending Clinician Unavaila kati MEAD, JANETT Attending Clinician Unavaila IGNACIO Talbert Attending Clinician Unavailable XAVI LEONARD Attending Clinician Unavailable Nurse, Jd Rivers Attending Clinician Unavailable Roldan SUBRAMANIAN, Xavi Attending Clinician [phone] MOLLY REYNOLDS Attending Clinician Unavailab le Lab, Ang - Db Attending Clinician Unavailable Antonella FASHION STYLING INTERN, Ignacio Attending Clinician [phone] LINDA LI Attending Clinician Unavailable Veronica Gentile MA Attending Clinician UnavailLinda Terry MD Attending Clinician [phone] Mayela Bocanegra MD Attending Clinician + [phone] LEIGHA RAUSCH Attending Clinician Unavailjusto Rausch FASHION STYLING INTERN, Leigha Attending Clinician [phone] Nurse, [facility] Attending Clinician Unavailable Only, Ang Db Test Attending Clinician UnavailDelia Dinh Attending Clinician [phone] DELIA BRADFORD Attending Clinician Unavailab Trupti Shirley RN Attending Clinician Unavailable Mayra Tse MD Attending Clinician [phone] Cyndee Kenny MD Attending Clinician [phone] Pob, [facility] Lab Main Attending Clinician Unavailjusto Mejias, [facility] F[facility] Pob I Attending Clinician UnavailDena Damon Attending Clinician [phone] DENA GILMORE Attending Clinician Unavailable OmMichael Fong Attending Clinician [phone] MICHAEL PINTO Attending Clinician Unavailjusto Golden MD, Lisa Attending Clinician [phone] Pc, Ad[facility] Echo Room 1 - Attending Clinician Unavai lable Visit, Adc Nurse Attending Clinician Unavailable 2, Adc Lab Attending Clinician Unavailable LISA GOLDEN Attending Clinician Unavailable CYNDEE KENNY Attending Clinician Unavail able Eder Barrera PTA Attending Clinician Unavailcarmen Doss MD, Musa Szymanski Attending Clinician [phone] Brown PHOTOENGRAVING ETCHER, Missy K Attending Clinician Unavail able David Joseph PT, Ila Attending Clinician Un available Jason SUBRAMANIAN, Saba Attending Clinician [phone] Farhad Angeles Attending Clinician [phone] JANETT MEAD Admitting Clinician Unavaila LINDA Blake Admitting Clinician Unavailable Payers Payer Name Policy Type Policy Number Effective Date Expirati on Date Source [facility] DUAL COMP HMO-POS D SNP [id number] 2024 00:00:00 [facility] [place] [employer] [id number] 2021 00:00:00 2021 00:00:00 Problems Condition Name Condition Details Condition Category Status Onset Date Resolution Date Last Treatment Date Treating Clinician Comments Source Encounter for routine checking of intrauteri ne contracept lanre device (IUD) Encounter for routine checking of intrauteri ne contracept lanre device (IUD) Disease Active 07-03 00:00: 00 [facility] Retroverte d uterus Retroverte d uterus Disease Active 2022-06 0 00:00: 00 [facility] Sensorineu ral hearing loss (SNHL) of both ears Sensorineu ral hearing loss (SNHL) of both ears Disease Active 07-15 00:00: 00 [facility] Attention deficit hyperactiv ity disorder (ADHD), combined type Attention deficit hyperactiv ity disorder (ADHD), combined type Disease Active 07-15 00:00: 00 [facility] Absence of menstruati on Absence of menstruati on Disease Resolve d 2022-06 0 00:00: 00 2024-07-13 00:00:00 2024-07-13 15:40:15 [facility] Cyst of right ovary Cyst of right ovary Disease Resolve d 2022-06 0 00:00: 00 2024-07-13 00:00:00 2024-07-13 15:40:09 [facility] Depo-Prove ra contracept lanre status Depo-Prove ra contracept lanre status Disease Resolve d 2022-06 0- 00:00: 00 2024-07-13 00:00:00 2024-07-13 15:40:10 [facility] Routine gynecologi angelica examinatio n Routine gynecologi angelica examinatio n Disease Resolve d 08-13 00:00: 00 2024-07-13 00:00:00 2024-07-13 15:40:01 [facility] Pap smear of cervix not needed Pap smear of cervix not needed Disease Resolve d 08-13 00:00: 00 2024-07-13 00:00:00 2024-07-13 15:40:03 [facility] Vaginal discharge Vaginal discharge Disease Resolve d 08-13 00:00: 00 2024-07-13 00:00:00 2024-07-13 15:40:04 [facility] Allergies, Adverse Reactions, Alerts Allergy Name Allergy Type Status Severity Reaction(s) Onset Date Inactive Date Treating Clinician Comments Source NO KNOWN ALLERGIE S Drug Class Active [facility] Social History Social Habit Start Date Stop Date Quantity Comments Source History SDOH Alcohol Frequency [facility] History SDOH Alcohol Std Drinks [facility] History SDOH Alcohol Binge [facility] Gender [facility] of Social function 2024-07-30 00:00:00 2024-07-30 00:00:00 [facility] Alcoholic beverage intake 2024-07-13 00:00:00 2024-07-13 00:00:00 .29 /d [facility] Alcohol intake 2023-07-03 00:00:00 2023-07-03 00:00:00 .29 /d [facility] Exposure to SARS-CoV-2 (event) 2022-09-21 00:00:00 2022-10-01 12:41:00 Not sure [facility] Tobacco use and exposure 2022-02-12 00:00:00 2022-02-12 00:00:00 Smokeless tobacco non-user [facility] Alcohol Comment 2021-08-13 00:00:00 2021-08-13 00:00:00 1 to 2 cans a week [facility] Sex assigned at 2000 00:00:00 2000 00:00:00 [facility] Smoking Status Start Date Stop Date Source Never smoked tobacco [facility] Medications Ordered Medication Name Filled Medication Name Start Date Stop Date Current Medication? Ordering Clinician Indication Dosage Frequency Signature (SIG) Comments Components Source metroNIDAZO LE 500 mg tablet 07-15 00:00: 00 Yes [id number] 500mg Take 1 tablet by mouth every 12 (twelve) hours. [facility] fluconazole (DIFLUCAN) 150 mg tablet 07-15 00:00: 00 07-16 05:59 :00 Yes [id number] 150mg Take 1 tablet by mouth once now for 1 dose. [facility] buPROPion XL 150 mg 24 hr tablet 2023-06 00:00: 00 Yes TAKE ONE (1) TABLET(S) BY MOUTH IN THE MORNING. [facility] fluconazole 150 mg tablet 09-15 00:00: 00 09-16 04:59 :00 No [id number] 150mg Take 1 tablet by mouth once now for 1 dose. [facility] levonorgest reL (MIRENA) IUD 1 Device 2022-06 18:30: 00 06-03 17:41 :00 No [id number] 1{devic e} [facility] miSOPROStoL 200 mcg tablet 2022-06 00:00: 00 07-03 00:00 :00 No [id number] Take one by mouth the night before your procedure and then take one by mouth the morning of your procedure. [facility] miSOPROStoL 200 mcg tablet 2022-06 1- 00:00: 00 07-03 00:00 :00 No [id number] Take one tablet the night before IUD insertion procedure and take one tablet the morning of the IUD insertion procedure. This is not for abortive treatment; patient will have IUD insertion. [facility] sucralfate 1 gram tablet 2022-06 0-05 00:00: 00 07-13 00:00 :00 No 1g Take 1 tablet by mouth in the morning and 1 tablet at noon and 1 tablet in the evening. [facility] medroxyPROG ESTERone (DEPO-PROVE RA) injection 150 mg 9-06 17:15: 00 02-19 16:17 :00 No [id number] 150mg [facility] medroxyPROG ESTERone (DEPO-PROVE RA) injection 150 mg 6-21 15:45: 00 12-04 14:49 :00 No [id number] 150mg [facility] pantoprazol e 40 mg EC tablet 4-11 00:00: 00 Yes [id number] 40mg Take 1 tablet by mouth in the morning. [facility] medroxyPROG ESTERone (DEPO-PROVE RA) injection 150 mg 3-30 16:00: 00 09-12 15:05 :00 No [id number] 150mg [facility] methylpheni date HCl (QUILLICHEW ER) 30 mg cb24 1-11 00:00: 00 09-24 00:00 :00 No [id number] 1{tbl} Take 1 tablet by mouth daily. [facility] medroxyPROG ESTERone (DEPO-PROVE RA) injection 150 mg 2021-06 2-30 18:15: 00 06-14 17:22 :00 No [id number] 150mg [facility] pantoprazol e 40 mg EC tablet 2021-06 2-29 00:00: 00 09-24 00:00 :00 No 40mg Take 1 tablet by mouth in the morning. [facility] medroxyPROG ESTERone (DEPO-PROVE RA) injection 150 mg 2021-06 0-11 14:15: 00 03-26 13:37 :00 No [id number] 150mg [facility] methylpheni date HCl (QUILLICHEW ER) 30 mg cb24 2021-06 0-11 00:00: 00 06-26 00:00 :00 No [id number] 1{tbl} Take 1 tablet by mouth daily. [facility] ibuprofen 600 mg tablet 8-24 00:00: 00 Yes [id number] 600mg Take 1 tablet by mouth every 8 (eight) hours as needed (pain). [facility] fluticasone propionate 50 mcg/actuati on nasal spray 01-01 00:00: 00 Yes [id number] 2{spray } Use 2 Sprays in each nostril in the morning and 2 Sprays in the evening. [facility] cetirizine (ZYRTEC) 10 mg tablet 01-01 00:00: 00 07-13 00:00 :00 No [id number] Take 1 po qhs for allergies [facility] methylpheni date HCl (QUILLICHEW ER) 30 mg cb24 01-01 00:00: 00 03-26 00:00 :00 No [id number] 1{tbl} Take 1 tablet by mouth daily. [facility] triamcinolo ne acetonide 0.1 % ointment 1-12 00:00: 00 07-30 00:00 :00 No [id number] Apply to area(s) 2 (two) times daily. [facility] benzonatate 100 mg capsule 2020-06 0-20 00:00: 00 01-01 00:00 :00 No [id number] 200mg Take 2 capsules by mouth 2 (two) times daily as needed for Cough. [facility] methylpheni date HCl (QUILLICHEW ER) 30 mg cb24 9- 00:00: 00 03-20 00:00 :00 No [id number] 1{tbl} Take 1 tablet by mouth daily. [facility] bromphenira mine-pseudo ephedrine-D M (BROMFED DM) 2-30-10 mg/5 mL syrup -19 00:00: 00 08-14 00:00 :00 No [id number] 5mL Take 5 mL by mouth 3 (three) times daily as needed for Congestion /Allergies or Cold symptoms. [facility] Biotin 2,500 mcg Cap 2019-06 0- 00:00: 00 07-30 00:00 :00 No [id number] Take 1 po QD for 4-6 months [facility] dexmethylph enidate 40 mg MP50 7-29 00:00: 00 02-06 00:00 :00 No [id number] 40mg Take 40 mg by mouth daily. [facility] Cetirizine 10 mg capsule - 00:00: 09-16 04:59 :00 No [id number] 10mg Take 1 capsule by mouth daily for 30 days. [facility] oseltamivir (TAMIFLU) 75 mg capsule 08-16 00:00: 00 08-27 04:59 :00 No [id number] 75mg Take 1 capsule by mouth daily for 10 days. [facility] lisdexamfet amine (VYVANSE) 50 mg capsule 2 00:00: 10-04 00:00 :00 No [id number] 50mg Take 1 capsule by mouth every morning. [facility] biotin 5,000 mcg TbDL 2-17 00:00: 00 04-05 00:00 :00 No [id number] 5000ug Take 5,000 mcg by mouth daily. [facility] bromphenira mine-pseudo ephedrine-D M (BROMFED DM) 2-30-10 mg/5 mL syrup 1-30 00:00: 00 05-16 00:00 :00 No [id number] 10mL Take 10 mL by mouth 4 (four) times daily as needed for Congestion /Allergies . [facility] diclofenac 75 mg EC tablet 2018-06 220 00:00: 00 01-25 00:00 :00 No 75mg Take 1 tablet by mouth 2 (two) times daily with meals. [facility] dexmethylph enidate 40 mg MP50 2018-06 2-05 00:00: 10-04 00:00 :00 No [facility] clobetasol 0.05 % external solution 2017-06 00:00: 00 01-25 00:00 :00 No [id number] Apply to area(s) 2 (two) times daily as needed (hair loss on scalp only. Stop when hairloss resolves. Not for face, groin or underarms. ). [facility] tretinoin 0.05 % cream 2017-06 00:00: 00 01-25 00:00 :00 No [id number] Apply to affected area(s) at bedtime. [facility] Minoxidil 5 % Soln 2017-06 00:00: 00 01-25 00:00 :00 No [id number] Apply to area(s) every 24 (twenty-fo ur) hours as needed (hairloss) . [facility] clindamycin 1 % gel 2017-06 00:00: 00 01-25 00:00 :00 No [id number] Apply to affected area(s) every morning. [facility] Immunizations Ordered Immunization Name Filled Immunization Name Date Status Comments Source DTAP 2024-02-03 00:00:00 Completed [facility] HIB 3 Dose Schedule 2024-02-03 00:00:00 Completed [facility] HEPATITIS A 2024-02-03 00:00:00 Completed [facility] Hep B, Adol or Pedi Dosage 2024-02-03 00:00:00 Completed [facility] HPV 2024-02-03 00:00:00 Completed [facility] Meningococcal Vaccine 2024-02-03 00:00:00 Completed [facility] MMR 2024-02-03 00:00:00 Completed [facility] Polio (IPV/OPV) 2024-02-03 00:00:00 Completed [facility] TDAP 2024-02-03 00:00:00 Completed [facility] Varicella (varivax)(chicken pox) 2024-02-03 00:00:00 Completed [facility] Pneumococcal 13 Conjugate, PCV13 (Prevnar 13) 2024-02-03 00:00:00 Completed [facility] Influenza Virus Vaccine Quad IM, Preserv and ABX Free 6 MO-64 YRS (FLUCELVAX) 2024-02-03 00:00:00 Completed [facility] DTaP, Unspecified Formulation 2024-02-03 00:00:00 Completed [facility] HIB 4 Dose Schedule 2024-02-03 00:00:00 Completed [facility] Meningococcal Polysaccharide (groups A, C, Y and W-135) conjugate vaccine (MCV4P) 2024-02-03 00:00:00 Completed [facility] IPV 2024-02-03 00:00:00 Completed [facility] DTAP 2023-09-16 00:00:00 Completed [facility] HIB 3 Dose Schedule 2023-09-16 00:00:00 Completed [facility] HEPATITIS A 2023-09-16 00:00:00 Completed [facility] Hep B, Adol or Pedi Dosage 2023-09-16 00:00:00 Completed [facility] HPV 2023-09-16 00:00:00 Completed [facility] Meningococcal Vaccine 2023-09-16 00:00:00 Completed [facility] MMR 2023-09-16 00:00:00 Completed [facility] Polio (IPV/OPV) 2023-09-16 00:00:00 Completed [facility] TDAP 2023-09-16 00:00:00 Completed [facility] Varicella (varivax)(chicken pox) 2023-09-16 00:00:00 Completed [facility] Pneumococcal 13 Conjugate, PCV13 (Prevnar 13) 2023-09-16 00:00:00 Completed [facility] Influenza Virus Vaccine Quad IM, Preserv and ABX Free 6 MO-64 YRS (FLUCELVAX) 2023-09-16 00:00:00 Completed [facility] DTaP, Unspecified Formulation 2023-09-16 00:00:00 Completed [facility] HIB 4 Dose Schedule 2023-09-16 00:00:00 Completed [facility] Meningococcal Polysaccharide (groups A, C, Y and W-135) conjugate vaccine (MCV4P) 2023-09-16 00:00:00 Completed [facility] IPV 2023-09-16 00:00:00 Completed [facility] HPV 2023-09-15 16:30:00 Completed [facility] Varicella (varivax)(chicken pox) 2023-09-15 16:30:00 Completed [facility] Influenza Virus Vaccine Quad IM, Preserv and ABX Free 6 MO-64 YRS (FLUCELVAX) 2023-09-15 16:30:00 Completed [facility] Meningococcal Polysaccharide (groups A, C, Y and W-135) conjugate vaccine (MCV4P) 2023-09-15 16:30:00 Completed [facility] DTAP 2023-09-15 16:30:00 Completed [facility] HIB 3 Dose Schedule 2023-09-15 16:30:00 Completed [facility] HEPATITIS A 2023-09-15 16:30:00 Completed [facility] Hep B, Adol or Pedi Dosage 2023-09-15 16:30:00 Completed [facility] Meningococcal Vaccine 2023-09-15 16:30:00 Completed [facility] MMR 2023-09-15 16:30:00 Completed [facility] Polio (IPV/OPV) 2023-09-15 16:30:00 Completed [facility] TDAP 2023-09-15 16:30:00 Completed [facility] Pneumococcal 13 Conjugate, PCV13 (Prevnar 13) 2023-09-15 16:30:00 Completed [facility] DTaP, Unspecified Formulation 2023-09-15 16:30:00 Completed [facility] HIB 4 Dose Schedule 2023-09-15 16:30:00 Completed [facility] IPV 2023-09-15 16:30:00 Completed [facility] DTAP 2023-09-10 00:00:00 Completed [facility] HIB 3 Dose Schedule 2023-09-10 00:00:00 Completed [facility] HEPATITIS A 2023-09-10 00:00:00 Completed [facility] Hep B, Adol or Pedi Dosage 2023-09-10 00:00:00 Completed [facility] HPV 2023-09-10 00:00:00 Completed [facility] Meningococcal Vaccine 2023-09-10 00:00:00 Completed [facility] MMR 2023-09-10 00:00:00 Completed [facility] Polio (IPV/OPV) 2023-09-10 00:00:00 Completed [facility] TDAP 2023-09-10 00:00:00 Completed [facility] Varicella (varivax)(chicken pox) 2023-09-10 00:00:00 Completed [facility] Pneumococcal 13 Conjugate, PCV13 (Prevnar 13) 2023-09-10 00:00:00 Completed [facility] Influenza Virus Vaccine Quad IM, Preserv and ABX Free 6 MO-64 YRS (FLUCELVAX) 2023-09-10 00:00:00 Completed [facility] DTaP, Unspecified Formulation 2023-09-10 00:00:00 Completed [facility] HIB 4 Dose Schedule 2023-09-10 00:00:00 Completed [facility] Meningococcal Polysaccharide (groups A, C, Y and W-135) conjugate vaccine (MCV4P) 2023-09-10 00:00:00 Completed [facility] IPV 2023-09-10 00:00:00 Completed [facility] HPV 2023-07-03 16:00:00 Completed [facility] Varicella (varivax)(chicken pox) 2023-07-03 16:00:00 Completed [facility] Influenza Virus Vaccine Quad IM, Preserv and ABX Free 6 MO-64 YRS (FLUCELVAX) 2023-07-03 16:00:00 Completed [facility] Meningococcal Polysaccharide (groups A, C, Y and W-135) conjugate vaccine (MCV4P) 2023-07-03 16:00:00 Completed [facility] DTAP 2023-07-03 16:00:00 Completed [facility] HIB 3 Dose Schedule 2023-07-03 16:00:00 Completed [facility] HEPATITIS A 2023-07-03 16:00:00 Completed [facility] Hep B, Adol or Pedi Dosage 2023-07-03 16:00:00 Completed [facility] Meningococcal Vaccine 2023-07-03 16:00:00 Completed [facility] MMR 2023-07-03 16:00:00 Completed [facility] Polio (IPV/OPV) 2023-07-03 16:00:00 Completed [facility] TDAP 2023-07-03 16:00:00 Completed [facility] Pneumococcal 13 Conjugate, PCV13 (Prevnar 13) 2023-07-03 16:00:00 Completed [facility] DTaP, Unspecified Formulation 2023-07-03 16:00:00 Completed [facility] HIB 4 Dose Schedule 2023-07-03 16:00:00 Completed [facility] IPV 2023-07-03 16:00:00 Completed [facility] HPV 2023-06-03 11:00:00 Completed [facility] Varicella (varivax)(chicken pox) 2023-06-03 11:00:00 Completed [facility] Influenza Virus Vaccine Quad IM, Preserv and ABX Free 6 MO-64 YRS (FLUCELVAX) 2023-06-03 11:00:00 Completed [facility] Meningococcal Polysaccharide (groups A, C, Y and W-135) conjugate vaccine (MCV4P) 2023-06-03 11:00:00 Completed [facility] DTAP 2023-06-03 11:00:00 Completed [facility] HIB 3 Dose Schedule 2023-06-03 11:00:00 Completed [facility] HEPATITIS A 2023-06-03 11:00:00 Completed [facility] Hep B, Adol or Pedi Dosage 2023-06-03 11:00:00 Completed [facility] Meningococcal Vaccine 2023-06-03 11:00:00 Completed [facility] MMR 2023-06-03 11:00:00 Completed [facility] Polio (IPV/OPV) 2023-06-03 11:00:00 Completed [facility] TDAP 2023-06-03 11:00:00 Completed [facility] Pneumococcal 13 Conjugate, PCV13 (Prevnar 13) 2023-06-03 11:00:00 Completed [facility] DTaP, Unspecified Formulation 2023-06-03 11:00:00 Completed [facility] HIB 4 Dose Schedule 2023-06-03 11:00:00 Completed [facility] IPV 2023-06-03 11:00:00 Completed [facility] DTAP 2023-06-03 00:00:00 Completed [facility] HIB 3 Dose Schedule 2023-06-03 00:00:00 Completed [facility] HEPATITIS A 2023-06-03 00:00:00 Completed [facility] Hep B, Adol or Pedi Dosage 2023-06-03 00:00:00 Completed [facility] HPV 2023-06-03 00:00:00 Completed [facility] Meningococcal Vaccine 2023-06-03 00:00:00 Completed [facility] MMR 2023-06-03 00:00:00 Completed [facility] [facility]23-06-03 00:00:00 Completed [facility] TDAP 2023-06-03 00:00:00 Completed [facility] Varicella (varivax)(chicken pox) 2023-06-03 00:00:00 Completed [facility] Pneumococcal 13 Conjugate, PCV13 (Prevnar 13) 2023-06-03 00:00:00 Completed [facility] Influenza Virus Vaccine Quad IM, Preserv and ABX Free 6 MO-64 YRS (FLUCELVAX) 2023-06-03 00:00:00 Completed [facility] DTaP, Unspecified Formulation 2023-06-03 00:00:00 Completed [facility] HIB 4 Dose Schedule 2023-06-03 00:00:00 Completed [facility] Meningococcal Polysaccharide (groups A, C, Y and W-135) conjugate vaccine (MCV4P) 2023-06-03 00:00:00 Completed [facility] IPV 2023-06-03 00:00:00 Completed [facility] DTAP 2023-05-06 00:00:00 Completed [facility] HIB 3 Dose Schedule 2023-05-06 00:00:00 Completed [facility] HEPATITIS A 2023-05-06 00:00:00 Completed [facility] Hep B, Adol or Pedi Dosage 2023-05-06 00:00:00 Completed [facility] HPV 2023-05-06 00:00:00 Completed [facility] Meningococcal Vaccine 2023-05-06 00:00:00 Completed [facility] MMR 2023-05-06 00:00:00 Completed [facility] Polio (IPV/OPV) 2023-05-06 00:00:00 Completed [facility] TDAP 2023-05-06 00:00:00 Completed [facility] Varicella (varivax)(chicken pox) 2023-05-06 00:00:00 Completed [facility] Pneumococcal 13 Conjugate, PCV13 (Prevnar 13) 2023-05-06 00:00:00 Completed [facility] Influenza Virus Vaccine Quad IM, Preserv and ABX Free 6 MO-64 YRS (FLUCELVAX) 2023-05-06 00:00:00 Completed [facility] DTaP, Unspecified Formulation 2023-05-06 00:00:00 Completed [facility] HIB 4 Dose Schedule 2023-05-06 00:00:00 Completed [facility] Meningococcal Polysaccharide (groups A, C, Y and W-135) conjugate vaccine (MCV4P) 2023-05-06 00:00:00 Completed [facility] IPV 2023-05-06 00:00:00 Completed [facility] DTAP 2023-05-06 00:00:00 Completed [facility] HIB 3 Dose Schedule 2023-05-06 00:00:00 Completed [facility] HEPATITIS A 2023-05-06 00:00:00 Completed [facility] Hep B, Adol or Pedi Dosage 2023-05-06 00:00:00 Completed [facility] HPV 2023-05-06 00:00:00 Completed [facility] Meningococcal Vaccine 2023-05-06 00:00:00 Completed [facility] MMR 2023-05-06 00:00:00 Completed [facility] Polio (IPV/OPV) 2023-05-06 00:00:00 Completed [facility] TDAP 2023-05-06 00:00:00 Completed [facility] Varicella (varivax)(chicken pox) 2023-05-06 00:00:00 Completed [facility] Pneumococcal 13 Conjugate, PCV13 (Prevnar 13) 2023-05-06 00:00:00 Completed [facility] Influenza Virus Vaccine Quad IM, Preserv and ABX Free 6 MO-64 YRS (FLUCELVAX) 2023-05-06 00:00:00 Completed [facility] DTaP, Unspecified Formulation 2023-05-06 00:00:00 Completed [facility] HIB 4 Dose Schedule 2023-05-06 00:00:00 Completed [facility] Meningococcal Polysaccharide (groups A, C, Y and W-135) conjugate vaccine (MCV4P) 2023-05-06 00:00:00 Completed [facility] IPV 2023-05-06 00:00:00 Completed [facility] DTAP 2023-04-22 15:00:00 Completed [facility] HIB 3 Dose Schedule 2023-04-22 15:00:00 Completed [facility] HEPATITIS A 2023-04-22 15:00:00 Completed [facility] Hep B, Adol or Pedi Dosage 2023-04-22 15:00:00 Completed [facility] HPV 2023-04-22 15:00:00 Completed [facility] Meningococcal Vaccine 2023-04-22 15:00:00 Completed [facility] MMR 2023-04-22 15:00:00 Completed [facility] Polio (IPV/OPV) 2023-04-22 15:00:00 Completed [facility] TDAP 2023-04-22 15:00:00 Completed [facility] Varicella (varivax)(chicken pox) 2023-04-22 15:00:00 Completed [facility] Pneumococcal 13 Conjugate, PCV13 (Prevnar 13) 2023-04-22 15:00:00 Completed [facility] Influenza Virus Vaccine Quad IM, Preserv and ABX Free 6 MO-64 YRS (FLUCELVAX) 2023-04-22 15:00:00 Completed [facility] DTaP, Unspecified Formulation 2023-04-22 15:00:00 Completed [facility] HIB 4 Dose Schedule 2023-04-22 15:00:00 Completed [facility] Meningococcal Polysaccharide (groups A, C, Y and W-135) conjugate vaccine (MCV4P) 2023-04-22 15:00:00 Completed [facility] IPV 2023-04-22 15:00:00 Completed [facility] DTAP 2023-04-03 08:00:00 Completed [facility] HIB 3 Dose Schedule 2023-04-03 08:00:00 Completed [facility] HEPATITIS A 2023-04-03 08:00:00 Completed [facility] Hep B, Adol or Pedi Dosage 2023-04-03 08:00:00 Completed [facility] HPV 2023-04-03 08:00:00 Completed [facility] Meningococcal Vaccine 2023-04-03 08:00:00 Completed [facility] MMR 2023-04-03 08:00:00 Completed [facility] Polio (IPV/OPV) 2023-04-03 08:00:00 Completed [facility] TDAP 2023-04-03 08:00:00 Completed [facility] Varicella (varivax)(chicken pox) 2023-04-03 08:00:00 Completed [facility] Pneumococcal 13 Conjugate, PCV13 (Prevnar 13) 2023-04-03 08:00:00 Completed [facility] Influenza Virus Vaccine Quad IM, Preserv and ABX Free 6 MO-64 YRS (FLUCELVAX) 2023-04-03 08:00:00 Completed [facility] DTaP, Unspecified Formulation 2023-04-03 08:00:00 Completed [facility] HIB 4 Dose Schedule 2023-04-03 08:00:00 Completed [facility] Meningococcal Polysaccharide (groups A, C, Y and W-135) conjugate vaccine (MCV4P) 2023-04-03 08:00:00 Completed [facility] IPV 2023-04-03 08:00:00 Completed [facility] DTAP 2023-03-24 15:30:00 Completed [facility] HIB 3 Dose Schedule 2023-03-24 15:30:00 Completed [facility] HEPATITIS A 2023-03-24 15:30:00 Completed [facility] Hep B, Adol or Pedi Dosage 2023-03-24 15:30:00 Completed [facility] HPV 2023-03-24 15:30:00 Completed [facility] Meningococcal Vaccine 2023-03-24 15:30:00 Completed [facility] MMR 2023-03-24 15:30:00 Completed [facility] Polio (IPV/OPV) 2023-03-24 15:30:00 Completed [facility] TDAP 2023-03-24 15:30:00 Completed [facility] Varicella (varivax)(chicken pox) 2023-03-24 15:30:00 Completed [facility] Pneumococcal 13 Conjugate, PCV13 (Prevnar 13) 2023-03-24 15:30:00 Completed [facility] Influenza Virus Vaccine Quad IM, Preserv and ABX Free 6 MO-64 YRS (FLUCELVAX) 2023-03-24 15:30:00 Completed [facility] DTaP, Unspecified Formulation 2023-03-24 15:30:00 Completed [facility] HIB 4 Dose Schedule 2023-03-24 15:30:00 Completed [facility] Meningococcal Polysaccharide (groups A, C, Y and W-135) conjugate vaccine (MCV4P) 2023-03-24 15:30:00 Completed [facility] IPV 2023-03-24 15:30:00 Completed [facility] DTAP 2023-03-24 00:00:00 Completed [facility] HIB 3 Dose Schedule 2023-03-24 00:00:00 Completed [facility] HEPATITIS A 2023-03-24 00:00:00 Completed [facility] Hep B, Adol or Pedi Dosage 2023-03-24 00:00:00 Completed [facility] HPV 2023-03-24 00:00:00 Completed [facility] Meningococcal Vaccine 2023-03-24 00:00:00 Completed [facility] MMR 2023-03-24 00:00:00 Completed [facility] Polio (IPV/OPV) 2023-03-24 00:00:00 Completed [facility] TDAP 2023-03-24 00:00:00 Completed [facility] Varicella (varivax)(chicken pox) 2023-03-24 00:00:00 Completed [facility] Pneumococcal 13 Conjugate, PCV13 (Prevnar 13) 2023-03-24 00:00:00 Completed [facility] Influenza Virus Vaccine Quad IM, Preserv and ABX Free 6 MO-64 YRS (FLUCELVAX) 2023-03-24 00:00:00 Completed [facility] DTaP, Unspecified Formulation 2023-03-24 00:00:00 Completed [facility] HIB 4 Dose Schedule 2023-03-24 00:00:00 Completed [facility] Meningococcal Polysaccharide (groups A, C, Y and W-135) conjugate vaccine (MCV4P) 2023-03-24 00:00:00 Completed [facility] IPV 2023-03-24 00:00:00 Completed [facility] TDAP 2022-10-01 00:00:00 Completed [facility] TDAP 2022-10-01 00:00:00 Completed [facility] TDAP 2022-10-01 00:00:00 Completed [facility] Influenza Virus Vaccine Quad IM, Preserv and ABX Free 6 MO-64 YRS 2022-03-26 00:00:00 Completed [facility] Influenza Virus Vaccine Quad IM, Preserv and ABX Free 6 MO-64 YRS 2022-03-26 00:00:00 Completed [facility] Influenza Virus Vaccine Quad IM, Preserv and ABX Free 6 MO-64 YRS 2022-03-26 00:00:00 Completed [facility] Influenza Virus Vaccine Quad IM, Preserv and ABX Free 6 MO-64 YRS 2022-03-26 00:00:00 Completed [facility] Influenza Virus Vaccine Quad IM, Preserv and ABX Free 6 MO-64 YRS 2022-03-26 00:00:00 Completed [facility] Influenza Virus Vaccine Quad IM, Preserv and ABX Free 6 MO-64 YRS 2022-03-26 00:00:00 Completed [facility] Influenza Virus Vaccine Quad IM, Preserv and ABX Free 6 MO-64 YRS 2022-03-26 00:00:00 Completed [facility] Influenza Virus Vaccine Quad IM, Preserv and ABX Free 6 MO-64 YRS 2022-03-26 00:00:00 Completed [facility] Influenza Virus Vaccine Quad IM, Preserv and ABX Free 6 MO-64 YRS 2022-03-26 00:00:00 Completed [facility] Influenza Virus Vaccine Quad IM, Preserv and ABX Free 6 MO-64 YRS 2022-03-26 00:00:00 Completed [facility] Influenza Virus Vaccine Quad IM, Preserv and ABX Free 6 MO-64 YRS 2022-03-26 00:00:00 Completed [facility] Influenza Virus Vaccine Quad IM, Preserv and ABX Free 6 MO-64 YRS 2022-03-26 00:00:00 Completed [facility] Influenza Virus Vaccine Quad IM, Preserv and ABX Free 6 MO-64 YRS 2022-03-26 00:00:00 Completed [facility] Influenza Virus Vaccine Quad IM, Preserv and ABX Free 6 MO-64 YRS 2022-03-26 00:00:00 Completed [facility] Influenza Virus Vaccine Quad IM, Preserv and ABX Free 6 MO-64 YRS (FLUCELVAX) 2022-03-26 00:00:00 Completed [facility] HIB 4 Dose Schedule 2021-10-05 00:00:00 Completed [facility] Meningococcal Polysaccharide (groups A, C, Y and W-135) conjugate vaccine (MCV4P) 2021-10-05 00:00:00 Completed [facility] IPV 2021-10-05 00:00:00 Completed [facility] DTAP 2021-10-05 00:00:00 Completed [facility] HIB 3 Dose Schedule 2021-10-05 00:00:00 Completed [facility] HEPATITIS A 2021-10-05 00:00:00 Completed [facility] Hep B, Adol or Pedi Dosage 2021-10-05 00:00:00 Completed [facility] HPV 2021-10-05 00:00:00 Completed [facility] Meningococcal Vaccine 2021-10-05 00:00:00 Completed [facility] MMR 2021-10-05 00:00:00 Completed [facility] Polio (IPV/OPV) 2021-10-05 00:00:00 Completed [facility] TDAP 2021-10-05 00:00:00 Completed [facility] Varicella (varivax)(chicken pox) 2021-10-05 00:00:00 Completed [facility] Pneumococcal 13 Conjugate, PCV13 (Prevnar 13) 2021-10-05 00:00:00 Completed [facility] DTaP, Unspecified Formulation 2021-10-05 00:00:00 Completed [facility] DTAP 2021-04-17 00:00:00 Completed [facility] HIB 3 Dose Schedule 2021-04-17 00:00:00 Completed [facility] HEPATITIS A 2021-04-17 00:00:00 Completed [facility] Hep B, Adol or Pedi Dosage 2021-04-17 00:00:00 Completed [facility] HPV 2021-04-17 00:00:00 Completed [facility] Meningococcal Vaccine 2021-04-17 00:00:00 Completed [facility] MMR 2021-04-17 00:00:00 Completed [facility] Polio (IPV/OPV) 2021-04-17 00:00:00 Completed [facility] TDAP 2021-04-17 00:00:00 Completed [facility] Varicella (varivax)(chicken pox) 2021-04-17 00:00:00 Completed [facility] Pneumococcal 13 Conjugate, PCV13 (Prevnar 13) 2021-04-17 00:00:00 Completed [facility] DTaP, Unspecified Formulation 2021-04-17 00:00:00 Completed [facility] HIB 4 Dose Schedule 2021-04-17 00:00:00 Completed [facility] Meningococcal Polysaccharide (groups A, C, Y and W-135) conjugate vaccine (MCV4P) 2021-04-17 00:00:00 Completed [facility] IPV 2021-04-17 00:00:00 Completed [facility] DTAP 2021-02-20 00:00:00 Completed [facility] HIB 3 Dose Schedule 2021-02-20 00:00:00 Completed [facility] HEPATITIS A 2021-02-20 00:00:00 Completed [facility] Hep B, Adol or Pedi Dosage 2021-02-20 00:00:00 Completed [facility] HPV 2021-02-20 00:00:00 Completed [facility] Meningococcal Vaccine 2021-02-20 00:00:00 Completed [facility] MMR 2021-02-20 00:00:00 Completed [facility] Polio (IPV/OPV) 2021-02-20 00:00:00 Completed [facility] TDAP 2021-02-20 00:00:00 Completed [facility] Varicella (varivax)(chicken pox) 2021-02-20 00:00:00 Completed [facility] Pneumococcal 13 Conjugate, PCV13 (Prevnar 13) 2021-02-20 00:00:00 Completed [facility] DTaP, Unspecified Formulation 2021-02-20 00:00:00 Completed [facility] HIB 4 Dose Schedule 2021-02-20 00:00:00 Completed [facility] Meningococcal Polysaccharide (groups A, C, Y and W-135) conjugate vaccine (MCV4P) 2021-02-20 00:00:00 Completed [facility] IPV 2021-02-20 00:00:00 Completed [facility] DTAP 2020-02-07 00:00:00 Completed [facility] HIB 3 Dose Schedule 2020-02-07 00:00:00 Completed [facility] HEPATITIS A 2020-02-07 00:00:00 Completed [facility] Hep B, Adol or Pedi Dosage 2020-02-07 00:00:00 Completed [facility] HPV 2020-02-07 00:00:00 Completed [facility] Meningococcal Vaccine 2020-02-07 00:00:00 Completed [facility] MMR 2020-02-07 00:00:00 Completed [facility] Polio (IPV/OPV) 2020-02-07 00:00:00 Completed [facility] TDAP 2020-02-07 00:00:00 Completed [facility] Varicella (varivax)(chicken pox) 2020-02-07 00:00:00 Completed [facility] Pneumococcal 13 Conjugate, PCV13 (Prevnar 13) 2020-02-07 00:00:00 Completed [facility] DTaP, Unspecified Formulation 2020-02-07 00:00:00 Completed [facility] HIB 4 Dose Schedule 2020-02-07 00:00:00 Completed [facility] Meningococcal Polysaccharide (groups A, C, Y and W-135) conjugate vaccine (MCV4P) 2020-02-07 00:00:00 Completed [facility] IPV 2020-02-07 00:00:00 Completed [facility] DTAP 2020-02-02 00:00:00 Completed [facility] HIB 3 Dose Schedule 2020-02-02 00:00:00 Completed [facility] HEPATITIS A 2020-02-02 00:00:00 Completed [facility] Hep B, Adol or Pedi Dosage 2020-02-02 00:00:00 Completed [facility] HPV 2020-02-02 00:00:00 Completed [facility] Meningococcal Vaccine 2020-02-02 00:00:00 Completed [facility] MMR 2020-02-02 00:00:00 Completed [facility] Polio (IPV/OPV) 2020-02-02 00:00:00 Completed [facility] TDAP 2020-02-02 00:00:00 Completed [facility] Varicella (varivax)(chicken pox) 2020-02-02 00:00:00 Completed [facility] Pneumococcal 13 Conjugate, PCV13 (Prevnar 13) 2020-02-02 00:00:00 Completed [facility] DTaP, Unspecified Formulation 2020-02-02 00:00:00 Completed [facility] HIB 4 Dose Schedule 2020-02-02 00:00:00 Completed [facility] Meningococcal Polysaccharide (groups A, C, Y and W-135) conjugate vaccine (MCV4P) 2020-02-02 00:00:00 Completed [facility] IPV 2020-02-02 00:00:00 Completed [facility] DTAP 2020-01-27 00:00:00 Completed [facility] HIB 3 Dose Schedule 2020-01-27 00:00:00 Completed [facility] HEPATITIS A 2020-01-27 00:00:00 Completed [facility] Hep B, Adol or Pedi Dosage 2020-01-27 00:00:00 Completed [facility] HPV 2020-01-27 00:00:00 Completed [facility] Meningococcal Vaccine 2020-01-27 00:00:00 Completed [facility] MMR 2020-01-27 00:00:00 Completed [facility] Polio (IPV/OPV) 2020-01-27 00:00:00 Completed [facility] TDAP 2020-01-27 00:00:00 Completed [facility] Varicella (varivax)(chicken pox) 2020-01-27 00:00:00 Completed [facility] Pneumococcal 13 Conjugate, PCV13 (Prevnar 13) 2020-01-27 00:00:00 Completed [facility] DTaP, Unspecified Formulation 2020-01-27 00:00:00 Completed [facility] HIB 4 Dose Schedule 2020-01-27 00:00:00 Completed [facility] Meningococcal Polysaccharide (groups A, C, Y and W-135) conjugate vaccine (MCV4P) 2020-01-27 00:00:00 Completed [facility] IPV 2020-01-27 00:00:00 Completed [facility] DTAP 2019-08-17 00:00:00 Completed [facility] HIB 3 Dose Schedule 2019-08-17 00:00:00 Completed [facility] HEPATITIS A 2019-08-17 00:00:00 Completed [facility] Hep B, Adol or Pedi Dosage 2019-08-17 00:00:00 Completed [facility] HPV 2019-08-17 00:00:00 Completed [facility] Meningococcal Vaccine 2019-08-17 00:00:00 Completed [facility] MMR 2019-08-17 00:00:00 Completed [facility] Polio (IPV/OPV) 2019-08-17 00:00:00 Completed [facility] TDAP 2019-08-17 00:00:00 Completed [facility] Varicella (varivax)(chicken pox) 2019-08-17 00:00:00 Completed [facility] Pneumococcal 13 Conjugate, PCV13 (Prevnar 13) 2019-08-17 00:00:00 Completed [facility] DTaP, Unspecified Formulation 2019-08-17 00:00:00 Completed [facility] HIB 4 Dose Schedule 2019-08-17 00:00:00 Completed [facility] Meningococcal Polysaccharide (groups A, C, Y and W-135) conjugate vaccine (MCV4P) 2019-08-17 00:00:00 [facility] [facility] IPV 2019-08-17 00:00:00 Completed [facility] DTAP 2019-01-26 00:00:00 Completed [facility] HIB 3 Dose Schedule 2019-01-26 00:00:00 Completed [facility] HEPATITIS A 2019-01-26 00:00:00 Completed [facility] Hep B, Adol or Pedi Dosage 2019-01-26 00:00:00 Completed [facility] HPV 2019-01-26 00:00:00 Completed [facility] Meningococcal Vaccine 2019-01-26 00:00:00 Completed [facility] MMR 2019-01-26 00:00:00 Completed [facility] Polio (IPV/OPV) 2019-01-26 00:00:00 Completed [facility] TDAP 2019-01-26 00:00:00 Completed [facility] Varicella (varivax)(chicken pox) 2019-01-26 00:00:00 Completed [facility] Pneumococcal 13 Conjugate, PCV13 (Prevnar 13) 2019-01-26 00:00:00 Completed [facility] DTaP, Unspecified Formulation 2019-01-26 00:00:00 Completed [facility] HIB 4 Dose Schedule 2019-01-26 00:00:00 Completed [facility] Meningococcal Polysaccharide (groups A, C, Y and W-135) conjugate vaccine (MCV4P) 2019-01-26 00:00:00 Completed [facility] IPV 2019-01-26 00:00:00 Completed [facility] Meningococcal Vaccine 2016-08-27 00:00:00 Completed [facility] Meningococcal Vaccine 2016-08-27 00:00:00 Completed [facility] Meningococcal Vaccine 2016-08-27 00:00:00 Completed [facility] Meningococcal Vaccine 2016-08-27 00:00:00 Completed [facility] Meningococcal Vaccine 2016-08-27 00:00:00 Completed [facility] Meningococcal Vaccine 2016-08-27 00:00:00 Completed [facility] Meningococcal Vaccine 2016-08-27 00:00:00 Completed [facility] Meningococcal Vaccine 2016-08-27 00:00:00 Completed [facility] Meningococcal Vaccine 2016-08-27 00:00:00 Completed [facility] Meningococcal Vaccine 2016-08-27 00:00:00 Completed [facility] Meningococcal Polysaccharide (groups A, C, Y and W-135) conjugate vaccine (MCV4P) 2016-08-27 00:00:00 Completed [facility] Meningococcal Vaccine 2016-08-27 00:00:00 Completed [facility] Meningococcal Polysaccharide (groups A, C, Y and W-135) conjugate vaccine (MCV4P) 2016-08-27 00:00:00 Completed [facility] Meningococcal Vaccine 2016-08-27 00:00:00 Completed [facility] Meningococcal Polysaccharide (groups A, C, Y and W-135) conjugate vaccine (MCV4P) 2016-08-27 00:00:00 Completed [facility] Meningococcal Vaccine 2016-08-27 00:00:00 Completed [facility] Meningococcal Polysaccharide (groups A, C, Y and W-135) conjugate vaccine (MCV4P) 2016-08-27 00:00:00 Completed [facility] Meningococcal Vaccine 2016-08-27 00:00:00 Completed [facility] Meningococcal Polysaccharide (groups A, C, Y and W-135) conjugate vaccine (MCV4P) 2016-08-27 00:00:00 Completed [facility] Meningococcal Vaccine 2016-08-27 00:00:00 Completed [facility] Meningococcal Polysaccharide (groups A, C, Y and W-135) conjugate vaccine (MCV4P) 2016-08-27 00:00:00 Completed [facility] Meningococcal Vaccine 2016-08-27 00:00:00 Completed [facility] Meningococcal Polysaccharide (groups A, C, Y and W-135) conjugate vaccine (MCV4P) 2016-08-27 00:00:00 Completed [facility] Meningococcal Vaccine 2016-08-27 00:00:00 Completed [facility] Meningococcal Polysaccharide (groups A, C, Y and W-135) conjugate vaccine (MCV4P) 2016-08-27 00:00:00 Completed [facility] Meningococcal Vaccine 2016 00:00:00 Completed [facility] Meningococcal Vaccine 2016 00:00:00 Completed [facility] Meningococcal Vaccine 2016 00:00:00 Completed [facility] Meningococcal Vaccine 2016 00:00:00 Completed [facility] Meningococcal Vaccine 2016 00:00:00 Completed [facility] Meningococcal Vaccine 2016 00:00:00 Completed [facility] Meningococcal Vaccine 2016 00:00:00 Completed [facility] Meningococcal Vaccine 2016 00:00:00 Completed [facility] Meningococcal Vaccine 2016 00:00:00 Completed [facility] Meningococcal Vaccine 2016 00:00:00 Completed [facility] Meningococcal Vaccine 2016 00:00:00 Completed [facility] Meningococcal Vaccine 2016 00:00:00 Completed [facility] Meningococcal Vaccine 2016 00:00:00 Completed [facility] Meningococcal Vaccine 2016 00:00:00 Completed [facility] Meningococcal Vaccine 2016 00:00:00 Completed [facility] Meningococcal Vaccine 2016 00:00:00 Completed [facility] Meningococcal Vaccine 2016 00:00:00 Completed [facility] Meningococcal Vaccine 2016 00:00:00 Completed Meningococcal Vaccine 2011-09-04 00:00:00 Completed [facility] TDAP 2011-09-04 00:00:00 Completed [facility] Meningococcal Vaccine 2011-09-04 00:00:00 Completed [facility] TDAP 2011-09-04 00:00:00 Completed [facility] Meningococcal Vaccine 2011-09-04 00:00:00 Completed [facility] TDAP 2011-09-04 00:00:00 Completed [facility] Meningococcal Vaccine 2011-09-04 00:00:00 Completed [facility] TDAP 2011-09-04 00:00:00 Completed [facility] Meningococcal Vaccine 2011-09-04 00:00:00 Completed [facility] TDAP 2011-09-04 00:00:00 Completed [facility] Meningococcal Vaccine 2011-09-04 00:00:00 Completed [facility] TDAP 2011-09-04 00:00:00 Completed [facility] Meningococcal Vaccine 2011-09-04 00:00:00 Completed [facility] TDAP 2011-09-04 00:00:00 Completed [facility] Meningococcal Vaccine 2011-09-04 00:00:00 Completed [facility] TDAP 2011-09-04 00:00:00 Completed [facility] Meningococcal Vaccine 2011-09-04 00:00:00 Completed [facility] TDAP 2011-09-04 00:00:00 Completed [facility] Meningococcal Vaccine 2011-09-04 00:00:00 Completed [facility] TDAP 2011-09-04 00:00:00 Completed [facility] Meningococcal Vaccine 2011-09-04 00:00:00 Completed [facility] TDAP 2011-09-04 00:00:00 Completed [facility] Meningococcal Vaccine 2011-09-04 00:00:00 Completed [facility] TDAP 2011-09-04 00:00:00 Completed [facility] Meningococcal Vaccine 2011-09-04 00:00:00 Completed [facility] TDAP 2011-09-04 00:00:00 Completed [facility] Meningococcal Vaccine 2011-09-04 00:00:00 Completed [facility] TDAP 2011-09-04 00:00:00 Completed [facility] Meningococcal Vaccine 2011-09-04 00:00:00 Completed [facility] TDAP 2011-09-04 00:00:00 Completed [facility] Meningococcal Vaccine 2011-09-04 00:00:00 Completed [facility] TDAP 2011-09-04 00:00:00 Completed [facility] Meningococcal Vaccine 2011-09-04 00:00:00 Completed [facility] TDAP 2011-09-04 00:00:00 Completed [facility] Meningococcal Vaccine 2011-09-04 00:00:00 Completed TDAP 2011-09-04 00:00:00 Completed HPV 2011 00:00:00 Completed [facility] HPV 2011 00:00:00 Completed [facility] HPV 2011 00:00:00 Completed [facility] HPV 2011 00:00:00 Completed [facility] HPV 2011 00:00:00 Completed [facility] HPV 2011 00:00:00 Completed [facility] HPV 2011 00:00:00 Completed [facility] HPV 2011 00:00:00 Completed [facility] HPV 2011 00:00:00 Completed [facility] HPV 2011 00:00:00 Completed [facility] HPV 2011 00:00:00 Completed [facility] HPV 2011 00:00:00 Completed [facility] HPV 2011 00:00:00 Completed [facility] HPV 2011 00:00:00 Completed [facility] HPV 2011 00:00:00 Completed [facility] HPV 2011 00:00:00 Completed [facility] HPV 2011 00:00:00 Completed [facility] Varicella (varivax)(chicken pox) 2008-03-09 00:00:00 Completed [facility] Varicella (varivax)(chicken pox) 2008-03-09 00:00:00 Completed [facility] Varicella (varivax)(chicken pox) 2008-03-09 00:00:00 Completed [facility] Varicella (varivax)(chicken pox) 2008-03-09 00:00:00 Completed [facility] Varicella (varivax)(chicken pox) 2008-03-09 00:00:00 Completed [facility] Varicella (varivax)(chicken pox) 2008-03-09 00:00:00 Completed [facility] Varicella (varivax)(chicken pox) 2008-03-09 00:00:00 Completed [facility] Varicella (varivax)(chicken pox) 2008-03-09 00:00:00 Completed [facility] Varicella (varivax)(chicken pox) 2008-03-09 00:00:00 Completed [facility] Varicella (varivax)(chicken pox) 2008-03-09 00:00:00 Completed [facility] Varicella (varivax)(chicken pox) 2008-03-09 00:00:00 Completed [facility] Varicella (varivax)(chicken pox) 2008-03-09 00:00:00 Completed [facility] Varicella (varivax)(chicken pox) 2008-03-09 00:00:00 Completed [facility] Varicella (varivax)(chicken pox) 2008-03-09 00:00:00 Completed [facility] Varicella (varivax)(chicken pox) 2008-03-09 00:00:00 Completed [facility] Varicella (varivax)(chicken pox) 2008-03-09 00:00:00 Completed [facility] Varicella (varivax)(chicken pox) 2008-03-09 00:00:00 Completed [facility] HEPATITIS A 2006-02-12 00:00:00 Completed [facility] HEPATITIS A 2006-02-12 00:00:00 Completed [facility] HEPATITIS A 2006-02-12 00:00:00 Completed [facility] HEPATITIS A 2006-02-12 00:00:00 Completed [facility] HEPATITIS A 2006-02-12 00:00:00 Completed [facility] HEPATITIS A 2006-02-12 00:00:00 Completed [facility] HEPATITIS A 2006-02-12 00:00:00 Completed [facility] HEPATITIS A 2006-02-12 00:00:00 Completed [facility] HEPATITIS A 2006-02-12 00:00:00 Completed [facility] HEPATITIS A 2006-02-12 00:00:00 Completed [facility] HEPATITIS A 2006-02-12 00:00:00 Completed [facility] HEPATITIS A 2006-02-12 00:00:00 Completed [facility] HEPATITIS A 2006-02-12 00:00:00 Completed [facility] HEPATITIS A 2006-02-12 00:00:00 Completed [facility] HEPATITIS A 2006-02-12 00:00:00 Completed [facility] HEPATITIS A 2006-02-12 00:00:00 Completed [facility] HEPATITIS A 2006-02-12 00:00:00 Completed [facility] HEPATITIS A 2005-04-04 00:00:00 Completed [facility] HEPATITIS A 2005-04-04 00:00:00 Completed [facility] HEPATITIS A 2005-04-04 00:00:00 Completed [facility] HEPATITIS A 2005-04-04 00:00:00 Completed [facility] HEPATITIS A 2005-04-04 00:00:00 Completed [facility] HEPATITIS A 2005-04-04 00:00:00 Completed [facility] HEPATITIS A 2005-04-04 00:00:00 Completed [facility] HEPATITIS A 2005-04-04 00:00:00 Completed [facility] HEPATITIS A 2005-04-04 00:00:00 Completed [facility] HEPATITIS A 2005-04-04 00:00:00 Completed [facility] HEPATITIS A 2005-04-04 00:00:00 Completed [facility] HEPATITIS A 2005-04-04 00:00:00 Completed [facility] HEPATITIS A 2005-04-04 00:00:00 Completed [facility] HEPATITIS A 2005-04-04 00:00:00 Completed [facility] HEPATITIS A 2005-04-04 00:00:00 Completed [facility] HEPATITIS A 2005-04-04 00:00:00 Completed [facility] HEPATITIS A 2005-04-04 00:00:00 Completed [facility] HEPATITIS A 2005-04-04 00:00:00 Completed DTAP 2004-08-20 00:00:00 Completed [facility] MMR 2004-08-20 00:00:00 Completed [facility] Polio (IPV/OPV) 2004-08-20 00:00:00 Completed [facility] DTAP 2004-08-20 00:00:00 Completed [facility] MMR 2004-08-20 00:00:00 Completed [facility] Polio (IPV/OPV) 2004-08-20 00:00:00 Completed [facility] DTAP 2004-08-20 00:00:00 Completed [facility] MMR 2004-08-20 00:00:00 Completed [facility] Polio (IPV/OPV) 2004-08-20 00:00:00 Completed [facility] DTAP 2004-08-20 00:00:00 Completed [facility] MMR 2004-08-20 00:00:00 Completed [facility] Polio (IPV/OPV) 2004-08-20 00:00:00 Completed [facility] DTAP 2004-08-20 00:00:00 Completed [facility] MMR 2004-08-20 00:00:00 Completed [facility] Polio (IPV/OPV) 2004-08-20 00:00:00 Completed [facility] DTAP 2004-08-20 00:00:00 Completed [facility] MMR 2004-08-20 00:00:00 Completed [facility] Polio (IPV/OPV) 2004-08-20 00:00:00 Completed [facility] DTAP 2004-08-20 00:00:00 Completed [facility] MMR 2004-08-20 00:00:00 Completed [facility] Polio (IPV/OPV) 2004-08-20 00:00:00 Completed [facility] DTAP 2004-08-20 00:00:00 Completed [facility] MMR 2004-08-20 00:00:00 Completed [facility] Polio (IPV/OPV) 2004-08-20 00:00:00 Completed [facility] DTAP 2004-08-20 00:00:00 Completed [facility] MMR 2004-08-20 00:00:00 Completed [facility] Polio (IPV/OPV) 2004-08-20 00:00:00 Completed [facility] DTAP 2004-08-20 00:00:00 Completed [facility] MMR 2004-08-20 00:00:00 Completed [facility] Polio (IPV/OPV) 2004-08-20 00:00:00 Completed [facility] DTaP, Unspecified Formulation 2004-08-20 00:00:00 Completed [facility] IPV 2004-08-20 00:00:00 Completed [facility] DTAP 2004-08-20 00:00:00 Completed [facility] MMR 2004-08-20 00:00:00 Completed [facility] Polio (IPV/OPV) 2004-08-20 00:00:00 Completed [facility] DTaP, Unspecified Formulation 2004-08-20 00:00:00 Completed [facility] IPV 2004-08-20 00:00:00 Completed [facility] DTAP 2004-08-20 00:00:00 Completed [facility] MMR 2004-08-20 00:00:00 Completed [facility] Polio (IPV/OPV) 2004-08-20 00:00:00 Completed [facility] DTaP, Unspecified Formulation 2004-08-20 00:00:00 Completed [facility] IPV 2004-08-20 00:00:00 Completed [facility] DTAP 2004-08-20 00:00:00 Completed [facility] MMR 2004-08-20 00:00:00 Completed [facility] Polio (IPV/OPV) 2004-08-20 00:00:00 Completed [facility] DTaP, Unspecified Formulation 2004-08-20 00:00:00 Completed [facility] IPV 2004-08-20 00:00:00 Completed [facility] DTAP 2004-08-20 00:00:00 Completed [facility] MMR 2004-08-20 00:00:00 Completed [facility] Polio (IPV/OPV) 2004-08-20 00:00:00 Completed [facility] DTaP, Unspecified Formulation 2004-08-20 00:00:00 Completed [facility] IPV 2004-08-20 00:00:00 Completed [facility] DTAP 2004-08-20 00:00:00 Completed [facility] MMR 2004-08-20 00:00:00 Completed [facility] Polio (IPV/OPV) 2004-08-20 00:00:00 Completed [facility] DTaP, Unspecified Formulation 2004-08-20 00:00:00 Completed [facility] IPV 2004-08-20 00:00:00 Completed [facility] DTAP 2004-08-20 00:00:00 Completed [facility] MMR 2004-08-20 00:00:00 Completed [facility] Polio (IPV/OPV) 2004-08-20 00:00:00 Completed [facility] DTaP, Unspecified Formulation 2004-08-20 00:00:00 Completed [facility] IPV 2004-08-20 00:00:00 Completed [facility] DTAP 2004-08-20 00:00:00 Completed [facility] MMR 2004-08-20 00:00:00 Completed [facility] Polio (IPV/OPV) 2004-08-20 00:00:00 Completed [facility] DTaP, Unspecified Formulation 2004-08-20 00:00:00 Completed [facility] IPV 2004-08-20 00:00:00 Completed [facility] DTaP, Unspecified Formulation 2004-08-20 00:00:00 Completed [facility] IPV 2004-08-20 00:00:00 Completed Pneumococcal 13 Conjugate, PCV13 (Prevnar 13) 2001-11-10 00:00:00 Completed [facility] Pneumococcal 13 Conjugate, PCV13 (Prevnar 13) 2001-11-10 00:00:00 Completed [facility] Pneumococcal 13 Conjugate, PCV13 (Prevnar 13) 2001-11-10 00:00:00 Completed [facility] Pneumococcal 13 Conjugate, PCV13 (Prevnar 13) 2001-11-10 00:00:00 Completed [facility] Pneumococcal 13 Conjugate, PCV13 (Prevnar 13) 2001-11-10 00:00:00 Completed [facility] Pneumococcal 13 Conjugate, PCV13 (Prevnar 13) 2001-11-10 00:00:00 Completed [facility] Pneumococcal 13 Conjugate, PCV13 (Prevnar 13) 2001-11-10 00:00:00 Completed [facility] Pneumococcal 13 Conjugate, PCV13 (Prevnar 13) 2001-11-10 00:00:00 Completed [facility] Pneumococcal 13 Conjugate, PCV13 (Prevnar 13) 2001-11-10 00:00:00 Completed [facility] Pneumococcal 13 Conjugate, PCV13 (Prevnar 13) 2001-11-10 00:00:00 Completed [facility] Pneumococcal 13 Conjugate, PCV13 (Prevnar 13) 2001-11-10 00:00:00 Completed [facility] Pneumococcal 13 Conjugate, PCV13 (Prevnar 13) 2001-11-10 00:00:00 Completed [facility] Pneumococcal 13 Conjugate, PCV13 (Prevnar 13) 2001-11-10 00:00:00 Completed [facility] Pneumococcal 13 Conjugate, PCV13 (Prevnar 13) 2001-11-10 00:00:00 Completed [facility] Pneumococcal 13 Conjugate, PCV13 (Prevnar 13) 2001-11-10 00:00:00 Completed [facility] Pneumococcal 13 Conjugate, PCV13 (Prevnar 13) 2001-11-10 00:00:00 [facility] [facility] Pneumococcal 13 Conjugate, PCV13 (Prevnar 13) 2001-11-10 00:00:00 Completed [facility] DTAP 2001-08-10 00:00:00 Completed [facility] HIB 3 Dose Schedule 2001-08-10 00:00:00 Completed [facility] MMR 2001-08-10 00:00:00 Completed [facility] DTAP 2001-08-10 00:00:00 Completed [facility] HIB 3 Dose Schedule 2001-08-10 00:00:00 Completed [facility] MMR 2001-08-10 00:00:00 Completed [facility] DTAP 2001-08-10 00:00:00 Completed [facility] HIB 3 Dose Schedule 2001-08-10 00:00:00 Completed [facility] MMR 2001-08-10 00:00:00 Completed [facility] DTAP 2001-08-10 00:00:00 Completed [facility] HIB 3 Dose Schedule 2001-08-10 00:00:00 Completed [facility] MMR 2001-08-10 00:00:00 Completed [facility] DTAP 2001-08-10 00:00:00 Completed [facility] HIB 3 Dose Schedule 2001-08-10 00:00:00 Completed [facility] MMR 2001-08-10 00:00:00 Completed [facility] DTAP 2001-08-10 00:00:00 Completed [facility] HIB 3 Dose Schedule 2001-08-10 00:00:00 Completed [facility] MMR 2001-08-10 00:00:00 Completed [facility] DTAP 2001-08-10 00:00:00 Completed [facility] HIB 3 Dose Schedule 2001-08-10 00:00:00 Completed [facility] MMR 2001-08-10 00:00:00 Completed [facility] DTAP 2001-08-10 00:00:00 Completed [facility] HIB 3 Dose Schedule 2001-08-10 00:00:00 Completed [facility] MMR 2001-08-10 00:00:00 Completed [facility] DTAP 2001-08-10 00:00:00 Completed [facility] HIB 3 Dose Schedule 2001-08-10 00:00:00 Completed [facility] MMR 2001-08-10 00:00:00 Completed [facility] DTAP 2001-08-10 00:00:00 Completed [facility] HIB 3 Dose Schedule 2001-08-10 00:00:00 Completed [facility] MMR 2001-08-10 00:00:00 Completed [facility] DTaP, Unspecified Formulation 2001-08-10 00:00:00 Completed [facility] HIB 4 Dose Schedule 2001-08-10 00:00:00 Completed [facility] DTAP 2001-08-10 00:00:00 Completed [facility] HIB 3 Dose Schedule 2001-08-10 00:00:00 Completed [facility] MMR 2001-08-10 00:00:00 Completed [facility] DTaP, Unspecified Formulation 2001-08-10 00:00:00 Completed [facility] HIB 4 Dose Schedule 2001-08-10 00:00:00 Completed [facility] DTAP 2001-08-10 00:00:00 Completed [facility] HIB 3 Dose Schedule 2001-08-10 00:00:00 Completed [facility] MMR 2001-08-10 00:00:00 Completed [facility] DTaP, Unspecified Formulation 2001-08-10 00:00:00 Completed [facility] HIB 4 Dose Schedule 2001-08-10 00:00:00 Completed [facility] DTAP 2001-08-10 00:00:00 Completed [facility] HIB 3 Dose Schedule 2001-08-10 00:00:00 Completed [facility] MMR 2001-08-10 00:00:00 Completed [facility] DTaP, Unspecified Formulation 2001-08-10 00:00:00 Completed [facility] HIB 4 Dose Schedule 2001-08-10 00:00:00 Completed [facility] DTAP 2001-08-10 00:00:00 Completed [facility] HIB 3 Dose Schedule 2001-08-10 00:00:00 Completed [facility] MMR 2001-08-10 00:00:00 Completed [facility] DTaP, Unspecified Formulation 2001-08-10 00:00:00 Completed [facility] HIB 4 Dose Schedule 2001-08-10 00:00:00 Completed [facility] DTAP 2001-08-10 00:00:00 Completed [facility] HIB 3 Dose Schedule 2001-08-10 00:00:00 Completed [facility] MMR 2001-08-10 00:00:00 Completed [facility] DTaP, Unspecified Formulation 2001-08-10 00:00:00 Completed [facility] HIB 4 Dose Schedule 2001-08-10 00:00:00 Completed [facility] DTAP 2001-08-10 00:00:00 Completed [facility] HIB 3 Dose Schedule 2001-08-10 00:00:00 Completed [facility] MMR 2001-08-10 00:00:00 Completed [facility] DTaP, Unspecified Formulation 2001-08-10 00:00:00 Completed [facility] HIB 4 Dose Schedule 2001-08-10 00:00:00 Completed [facility] DTAP 2001-08-10 00:00:00 Completed [facility] HIB 3 Dose Schedule 2001-08-10 00:00:00 Completed [facility] MMR 2001-08-10 00:00:00 Completed [facility] DTaP, Unspecified Formulation 2001-08-10 00:00:00 Completed [facility] HIB 4 Dose Schedule 2001-08-10 00:00:00 Completed [facility] DTAP 2001-08-10 00:00:00 Completed MMR 2001-08-10 00:00:00 Completed DTaP, Unspecified Formulation 2001-08-10 00:00:00 Completed HIB 4 Dose Schedule 2001-08-10 00:00:00 Completed HEPATITIS A 2001 00:00:00 Completed [facility] HEPATITIS A 2001 00:00:00 Completed [facility] HEPATITIS A 2001 00:00:00 Completed [facility] HEPATITIS A 2001 00:00:00 Completed [facility] HEPATITIS A 2001 00:00:00 Completed [facility] HEPATITIS A 2001 00:00:00 Completed [facility] HEPATITIS A 2001 00:00:00 Completed [facility] HEPATITIS A 2001 00:00:00 Completed [facility] HEPATITIS A 2001 00:00:00 Completed [facility] HEPATITIS A 2001 00:00:00 Completed [facility] HEPATITIS A 2001 00:00:00 Completed [facility] HEPATITIS A 2001 00:00:00 Completed [facility] HEPATITIS A 2001 00:00:00 Completed [facility] HEPATITIS A 2001 00:00:00 Completed [facility] HEPATITIS A 2001 00:00:00 Completed [facility] HEPATITIS A 2001 00:00:00 Completed [facility] HEPATITIS A 2001 00:00:00 Completed [facility] HEPATITIS A 2001 00:00:00 Completed Polio (IPV/OPV) 2001-05-12 00:00:00 Completed [facility] Polio (IPV/OPV) 2001-05-12 00:00:00 Completed [facility] Polio (IPV/OPV) 2001-05-12 00:00:00 Completed [facility] Polio (IPV/OPV) 2001-05-12 00:00:00 Completed [facility] Polio (IPV/OPV) 2001-05-12 00:00:00 Completed [facility] Polio (IPV/OPV) 2001-05-12 00:00:00 Completed [facility] Polio (IPV/OPV) 2001-05-12 00:00:00 Completed [facility] Polio (IPV/OPV) 2001-05-12 00:00:00 Completed [facility] Polio (IPV/OPV) 2001-05-12 00:00:00 Completed [facility] Polio (IPV/OPV) 2001-05-12 00:00:00 Completed [facility] IPV 2001-05-12 00:00:00 Completed [facility] Polio (IPV/OPV) 2001-05-12 00:00:00 Completed [facility] IPV 2001-05-12 00:00:00 Completed [facility] Polio (IPV/OPV) 2001-05-12 00:00:00 Completed [facility] IPV 2001-05-12 00:00:00 Completed [facility] Polio (IPV/OPV) 2001-05-12 00:00:00 Completed [facility] IPV 2001-05-12 00:00:00 Completed [facility] Polio (IPV/OPV) 2001-05-12 00:00:00 Completed [facility] IPV 2001-05-12 00:00:00 Completed [facility] Polio (IPV/OPV) 2001-05-12 00:00:00 Completed [facility] IPV 2001-05-12 00:00:00 Completed [facility] Polio (IPV/OPV) 2001-05-12 00:00:00 Completed [facility] IPV 2001-05-12 00:00:00 Completed [facility] Polio (IPV/OPV) 2001-05-12 00:00:00 Completed [facility] IPV 2001-05-12 00:00:00 Completed [facility] Polio (IPV/OPV) 2001-05-12 00:00:00 Completed DTAP 2001-03-05 00:00:00 Completed [facility] HIB 3 Dose Schedule 2001-03-05 00:00:00 Completed [facility] Hep B, Adol or Pedi Dosage 2001-03-05 00:00:00 Completed [facility] DTAP 2001-03-05 00:00:00 Completed [facility] HIB 3 Dose Schedule 2001-03-05 00:00:00 Completed [facility] Hep B, Adol or Pedi Dosage 2001-03-05 00:00:00 Completed [facility] DTAP 2001-03-05 00:00:00 Completed [facility] HIB 3 Dose Schedule 2001-03-05 00:00:00 Completed [facility] Hep B, Adol or Pedi Dosage 2001-03-05 00:00:00 Completed [facility] DTAP 2001-03-05 00:00:00 Completed [facility] HIB 3 Dose Schedule 2001-03-05 00:00:00 Completed [facility] Hep B, Adol or Pedi Dosage 2001-03-05 00:00:00 Completed [facility] DTAP 2001-03-05 00:00:00 Completed [facility] HIB 3 Dose Schedule 2001-03-05 00:00:00 Completed [facility] Hep B, Adol or Pedi Dosage 2001-03-05 00:00:00 Completed [facility] DTAP 2001-03-05 00:00:00 Completed [facility] HIB 3 Dose Schedule 2001-03-05 00:00:00 Completed [facility] Hep B, Adol or Pedi Dosage 2001-03-05 00:00:00 Completed [facility] DTAP 2001-03-05 00:00:00 Completed [facility] HIB 3 Dose Schedule 2001-03-05 00:00:00 Completed [facility] Hep B, Adol or Pedi Dosage 2001-03-05 00:00:00 Completed [facility] DTAP 2001-03-05 00:00:00 Completed [facility] HIB 3 Dose Schedule 2001-03-05 00:00:00 Completed [facility] Hep B, Adol or Pedi Dosage 2001-03-05 00:00:00 Completed [facility] DTAP 2001-03-05 00:00:00 Completed [facility] HIB 3 Dose Schedule 2001-03-05 00:00:00 Completed [facility] Hep B, Adol or Pedi Dosage 2001-03-05 00:00:00 Completed [facility] DTAP 2001-03-05 00:00:00 Completed [facility] HIB 3 Dose Schedule 2001-03-05 00:00:00 Completed [facility] Hep B, Adol or Pedi Dosage 2001-03-05 00:00:00 Completed [facility] DTaP, Unspecified Formulation 2001-03-05 00:00:00 Completed [facility] HIB 4 Dose Schedule 2001-03-05 00:00:00 Completed [facility] DTAP 2001-03-05 00:00:00 Completed [facility] HIB 3 Dose Schedule 2001-03-05 00:00:00 Completed [facility] Hep B, Adol or Pedi Dosage 2001-03-05 00:00:00 Completed [facility] DTaP, Unspecified Formulation 2001-03-05 00:00:00 Completed [facility] HIB 4 Dose Schedule 2001-03-05 00:00:00 Completed [facility] DTAP 2001-03-05 00:00:00 Completed [facility] HIB 3 Dose Schedule 2001-03-05 00:00:00 Completed [facility] Hep B, Adol or Pedi Dosage 2001-03-05 00:00:00 Completed [facility] DTaP, Unspecified Formulation 2001-03-05 00:00:00 Completed [facility] HIB 4 Dose Schedule 2001-03-05 00:00:00 Completed [facility] DTAP 2001-03-05 00:00:00 Completed [facility] HIB 3 Dose Schedule 2001-03-05 00:00:00 Completed [facility] Hep B, Adol or Pedi Dosage 2001-03-05 00:00:00 Completed [facility] DTaP, Unspecified Formulation 2001-03-05 00:00:00 Completed [facility] HIB 4 Dose Schedule 2001-03-05 00:00:00 Completed [facility] DTAP 2001-03-05 00:00:00 Completed [facility] HIB 3 Dose Schedule 2001-03-05 00:00:00 Completed [facility] Hep B, Adol or Pedi Dosage 2001-03-05 00:00:00 Completed [facility] DTaP, Unspecified Formulation 2001-03-05 00:00:00 Completed [facility] HIB 4 Dose Schedule 2001-03-05 00:00:00 Completed [facility] DTAP 2001-03-05 00:00:00 Completed [facility] HIB 3 Dose Schedule 2001-03-05 00:00:00 Completed [facility] Hep B, Adol or Pedi Dosage 2001-03-05 00:00:00 Completed [facility] DTaP, Unspecified Formulation 2001-03-05 00:00:00 Completed [facility] HIB 4 Dose Schedule 2001-03-05 00:00:00 Completed [facility] DTAP 2001-03-05 00:00:00 Completed [facility] HIB 3 Dose Schedule 2001-03-05 00:00:00 Completed [facility] Hep B, Adol or Pedi Dosage 2001-03-05 00:00:00 Completed [facility] DTaP, Unspecified Formulation 2001-03-05 00:00:00 Completed [facility] HIB 4 Dose Schedule 2001-03-05 00:00:00 Completed [facility] DTAP 2001-03-05 00:00:00 Completed [facility] HIB 3 Dose Schedule 2001-03-05 00:00:00 Completed [facility] Hep B, Adol or Pedi Dosage 2001-03-05 00:00:00 Completed [facility] DTaP, Unspecified Formulation 2001-03-05 00:00:00 Completed [facility] HIB 4 Dose Schedule 2001-03-05 00:00:00 Completed [facility] DTAP 2001-03-05 00:00:00 Completed [facility] HIB 3 Dose Schedule 2001-03-05 00:00:00 Completed Pneumococcal 13 Conjugate, PCV13 (Prevnar 13) 2000 00:00:00 Completed [facility] Pneumococcal 13 Conjugate, PCV13 (Prevnar 13) 2000 00:00:00 Completed [facility] Pneumococcal 13 Conjugate, PCV13 (Prevnar 13) 2000 00:00:00 Completed [facility] Pneumococcal 13 Conjugate, PCV13 (Prevnar 13) 2000 00:00:00 Completed [facility] Pneumococcal 13 Conjugate, PCV13 (Prevnar 13) 2000 00:00:00 Completed [facility] Pneumococcal 13 Conjugate, PCV13 (Prevnar 13) 2000 00:00:00 Completed [facility] Pneumococcal 13 Conjugate, PCV13 (Prevnar 13) 2000 00:00:00 Completed [facility] Pneumococcal 13 Conjugate, PCV13 (Prevnar 13) 2000 00:00:00 Completed [facility] Pneumococcal 13 Conjugate, PCV13 (Prevnar 13) 2000 00:00:00 Completed [facility] Pneumococcal 13 Conjugate, PCV13 (Prevnar 13) 2000 00:00:00 Completed [facility] Pneumococcal 13 Conjugate, PCV13 (Prevnar 13) 2000 00:00:00 Completed [facility] Pneumococcal 13 Conjugate, PCV13 (Prevnar 13) 2000 00:00:00 Completed [facility] Pneumococcal 13 Conjugate, PCV13 (Prevnar 13) 2000 00:00:00 Completed [facility] Pneumococcal 13 Conjugate, PCV13 (Prevnar 13) 2000 00:00:00 Completed [facility] Pneumococcal 13 Conjugate, PCV13 (Prevnar 13) 2000 00:00:00 Completed [facility] Pneumococcal 13 Conjugate, PCV13 (Prevnar 13) 2000 00:00:00 Completed [facility] Pneumococcal 13 Conjugate, PCV13 (Prevnar 13) 2000 00:00:00 Completed [facility] Pneumococcal 13 Conjugate, PCV13 (Prevnar 13) 2000 00:00:00 Completed [facility] Hep B, Adol or Pedi Dosage 2000 00:00:00 Completed [facility] Hep B, Adol or Pedi Dosage 2000 00:00:00 Completed [facility] Hep B, Adol or Pedi Dosage 2000 00:00:00 Completed [facility] Hep B, Adol or Pedi Dosage 2000 00:00:00 Completed [facility] Hep B, Adol or Pedi Dosage 2000 00:00:00 Completed [facility] Hep B, Adol or Pedi Dosage 2000 00:00:00 Completed [facility] Hep B, Adol or Pedi Dosage 2000 00:00:00 Completed [facility] Hep B, Adol or Pedi Dosage 2000 00:00:00 Completed [facility] Hep B, Adol or Pedi Dosage 2000 00:00:00 Completed [facility] Hep B, Adol or Pedi Dosage 2000 00:00:00 Completed [facility] Hep B, Adol or Pedi Dosage 2000 00:00:00 Completed [facility] Hep B, Adol or Pedi Dosage 2000 00:00:00 Completed [facility] Hep B, Adol or Pedi Dosage 2000 00:00:00 Completed [facility] Hep B, Adol or Pedi Dosage 2000 00:00:00 Completed [facility] Hep B, Adol or Pedi Dosage 2000 00:00:00 Completed [facility] Hep B, Adol or Pedi Dosage 2000 00:00:00 Completed [facility] Hep B, Adol or Pedi Dosage 2000 00:00:00 Completed [facility] Hep B, Adol or Pedi Dosage 2000 00:00:00 Completed Vital Signs Vital Name Observation Time Observation Value Comments S ource Systolic blood pressure 2024-07-30 15:08:00 107 mm[Hg] [facility] Diastolic blood pressure 2024-07-30 15:08:00 74 mm[Hg] [facility] Heart rate 2024-07-30 15:08:00 87 /min [facility] Body temperature 2024-07-30 15:08:00 36.67 Rufina [facility] Respiratory rate 2024-07-30 15:08:00 18 /min [facility] Body height 2024-07-30 15:08:[address] [facility] Body weight 2024-07-30 15:08:[address] [facility] BMI 2024-07-30 15:08:00 19.12 kg/m2 [facility] Systolic blood pressure 2024-07-13 21:44:00 106 mm[Hg] [facility] Diastolic blood pressure 2024-07-13 21:44:00 72 mm[Hg] [facility] Heart rate 2024-07-13 21:44:00 98 /min [facility] Respiratory rate 2024-07-13 21:44:00 18 /min [facility] Body height 2024-07-13 21:44:00 162.6 cm [facility] Body weight 2024-07-13 21:44:00 47.174 kg [facility] BMI 2024-07-13 21:44:00 17.85 kg/m2 [facility] Systolic blood pressure 2023-09-15 21:40:00 116 mm[Hg] [facility] Diastolic blood pressure 2023-09-15 21:40:00 77 mm[Hg] [facility] Heart rate 2023-09-15 21:40:00 83 /min [facility] Body temperature 2023-09-15 21:40:00 36.67 Rufina [facility] Respiratory rate 2023-09-15 21:40:00 16 /min [facility] Body height 2023-09-15 21:40:[address] [facility] Body weight 2023-09-15 21:40:[address] [facility] BMI 2023-09-15 21:40:00 20.25 kg/m2 [facility] Oxygen saturation in Arterial blood by Pulse oximetry 2023-09-15 21:40:00 99 /min [facility] Systolic blood pressure 2023-07-03 22:17:00 112 mm[Hg] [facility] Diastolic blood pressure 2023-07-03 22:17:00 67 mm[Hg] [facility] Heart rate 2023-07-03 22:17:00 62 /min [facility] Body temperature 2023-07-03 22:17:00 36.61 Rufina [facility] Respiratory rate 2023-07-03 22:17:00 16 /min [facility] Body height 2023-07-03 22:17:[address] [facility] Body weight 2023-07-03 22:17:00 54.477 kg [facility] BMI 2023-07-03 22:17:00 20.62 kg/m2 [facility] Systolic blood pressure 2023-06-03 17:20:00 113 mm[Hg] [facility] Diastolic blood pressure 2023-06-03 17:20:00 80 mm[Hg] [facility] Heart rate 2023-06-03 17:20:00 86 /min [facility] Body temperature 2023-06-03 17:20:00 36.72 Rufina [facility] Respiratory rate 2023-06-03 17:20:00 16 /min [facility] Body height 2023-06-03 17:20:00 162.6 cm [facility] Body weight 2023-06-03 17:20:[address] [facility] BMI 2023-06-03 17:20:00 21.01 kg/m2 [facility] Systolic blood pressure 2023-04-22 21:06:00 114 mm[Hg] [facility] Diastolic blood pressure 2023-04-22 21:06:00 71 mm[Hg] [facility] Heart rate 2023-04-22 21:06:00 89 /min [facility] Body temperature 2023-04-22 21:06:00 36.5 Rufina [facility] Respiratory rate 2023-04-22 21:06:00 16 /min [facility] Body height 2023-04-22 21:06:00 162.6 cm [facility] Body weight 2023-04-22 21:06:00 58.968 kg [facility] BMI 2023-04-22 21:06:00 22.31 kg/m2 [facility] Systolic blood pressure 2023-03-24 20:34:00 120 mm[Hg] [facility] Diastolic blood pressure 2023-03-24 20:34:00 80 mm[Hg] [facility] Heart rate 2023-03-24 20:34:00 73 /min [facility] Respiratory rate 2023-03-24 20:34:00 18 /min [facility] Body height 2023-03-24 20:34:00 162.6 cm [facility] Body weight 2023-03-24 20:34:[address] [facility] BMI 2023-03-24 20:34:00 22.31 kg/m2 [facility] Body weight 2023-02-19 16:15:00 62.097 kg [facility] BMI 2023-02-19 16:15:00 24.25 kg/m2 [facility] Body weight 2022-12-04 14:48:[address] [facility] BMI 2022-12-04 14:48:00 22.85 kg/m2 [facility] Systolic blood pressure 2022-10-01 18:14:00 113 mm[Hg] [facility] Diastolic blood pressure 2022-10-01 18:14:00 75 mm[Hg] [facility] Heart rate 2022-10-01 18:14:00 90 /min [facility] Body height 2022-10-01 18:14:[address] [facility] Body weight 2022-10-01 18:14:[address] [facility] BMI 2022-10-01 18:14:00 21.68 kg/m2 [facility] Oxygen saturation in Arterial blood by Pulse oximetry 2022-10-01 18:14:00 98 /min [facility] Systolic blood pressure 2022-09-24 17:44:00 122 mm[Hg] [facility] Diastolic blood pressure 2022-09-24 17:44:00 80 mm[Hg] [facility] Heart rate 2022-09-24 17:44:00 95 /min [facility] Respiratory rate 2022-09-24 17:44:00 15 /min [facility] Body weight 2022-09-24 17:44:[address] [facility] BMI 2022-09-24 17:44:00 21.23 kg/m2 [facility] Body weight 2022-09-12 15:05:00 54.477 kg [facility] BMI 2022-09-12 15:05:00 20.62 kg/m2 [facility] Systolic blood pressure 2022-08-13 16:07:00 107 mm[Hg] [facility] Diastolic blood pressure 2022-08-13 16:07:00 76 mm[Hg] [facility] Heart rate 2022-08-13 16:07:00 81 /min [facility] Respiratory rate 2022-08-13 16:07:00 18 /min [facility] Body height 2022-08-13 16:07:00 162.6 cm [facility] Body weight 2022-08-13 16:07:[address] [facility] BMI 2022-08-13 16:07:00 19.74 kg/m2 [facility] Systolic blood pressure 2022-06-26 18:39:00 112 mm[Hg] [facility] Diastolic blood pressure 2022-06-26 18:39:00 75 mm[Hg] [facility] Heart rate 2022-06-26 18:39:00 84 /min [facility] Body temperature 2022-06-26 18:39:00 36.89 Rufina [facility] Respiratory rate 2022-06-26 18:39:00 16 /min [facility] Body weight 2022-06-26 18:39:00 54.885 kg [facility] BMI 2022-06-26 18:39:00 21.43 kg/m2 [facility] Body weight 2022-06-14 17:20:00 52.708 kg [facility] BMI 2022-06-14 17:20:00 20.58 kg/m2 [facility] Systolic blood pressure 2022-03-26 13:03:00 107 mm[Hg] [facility] Diastolic blood pressure 2022-03-26 13:03:00 69 mm[Hg] [facility] Heart rate 2022-03-26 13:03:00 88 /min [facility] Body temperature 2022-03-26 13:03:00 36.94 Rufina [facility] Respiratory rate 2022-03-26 13:03:00 16 /min [facility] Body weight 2022-03-26 13:03:00 51.03 kg [facility] BMI 2022-03-26 13:03:00 19.93 kg/m2 [facility] Systolic blood pressure 2022-02-12 20:14:00 104 mm[Hg] [facility] Diastolic blood pressure 2022-02-12 20:14:00 73 mm[Hg] [facility] Heart rate 2022-02-12 20:14:00 91 /min [facility] Body temperature 2022-02-12 20:14:00 36.78 Rufina [facility] Respiratory rate 2022-02-12 20:14:00 18 /min [facility] Body height 2022-02-12 20:14:[address] [facility] Body weight 2022-02-12 20:14:[address] [facility] BMI 2022-02-12 20:14:00 19.59 kg/m2 [facility] Oxygen saturation in Arterial blood by Pulse oximetry 2022-02-12 20:14:00 98 /min [facility] Systolic blood pressure 2021-02-16 18:39:00 113 mm[Hg] [facility] Diastolic blood pressure 2021-02-16 18:39:00 82 mm[Hg] [facility] Heart rate 2021-02-16 18:39:00 90 /min [facility] Body temperature 2021-02-16 18:39:00 36.61 Rufina [facility] Respiratory rate 2021-02-16 18:39:00 18 /min [facility] Body height 2021-02-16 18:39:00 165.1 cm [facility] Body weight 2021-02-16 18:39:[address] [facility] BMI 2021-02-16 18:39:00 16.31 kg/m2 [facility] Procedures Procedure Date / Time Performed Performing Clinician Source GC & CHLAMYDIA AMPLIFIED ASSAY 2023-09-15 22:03:00 Laura Mattson [facility] GALV ONLY - VAGINAL PATHOGENS BY NUCLEIC ACID TESTING 2023-09-15 22:03:00 Madisyn Mattsonsol [facility] TRICHOMONAS AMPLIFIED ASSAY 2023-09-15 22:03:00 Laura Mattson [facility] POCT TEST 2023-09-15 00:00:00 Laura Mattson [facility] NOTICE OF BILLING PRACTICES FOR MEDICARE PATIENTS 2023-06-03 17:00:19 Doctor Unassigned, Malcolm [facility] POCT TEST 2023-06-03 00:00:00 Laura Mattson [facility] US PELVIS COMPLETE WITH TRANSVAGINAL 2023-04-03 15:02:48 Janett Mead [facility] TDAP VACCINE, >11 YRS, IM 2022-10-01 18:54:17 Ignacio Berman [facility] POCT URINALYSIS 2022-09-24 00:00:00 Molly Reynolds [facility] POCT TEST 2022-09-24 00:00:00 Carmen Reynolds [facility] FLU VACC (), 6 MO-64 YRS, .5ML, IM, QUAD (FLUCELVAX) 2022-03-26 13:28:53 Molly Reynolds [facility] Encounters Start Date/Time End Date/Time Encounter Type Admission Type Attending Clinicians Care Facility Care Department Encounter ID Source 2024-08-30 09:00:00 2024-08-30 09:00:00 Outpatient R LAURA GUERRERO MARISOL [facility] [id number] [facility] 2024-07-14 00:00:00 2024-08-14 18:14:52 Patient Secure Msg Roberti sHectorl [facility] 1.2.840.114 350.1.13.10 4.2.7.2.686 [id number] 134 [id number] [facility] 2024-08-04 00:00:00 2024-08-04 00:00:00 Outpatient R MEJÍA-OSCAR S, LAURA MEJÍA-OSCAR S, LAURA [facility] [id number] [facility] 2024-07-30 09:00:00 2024-07-30 09:24:37 Outpatient R MEJÍA-OSCAR S, LAURA MEJÍA-OSCAR S, LAURA [facility] [id number] [facility] 2024-07-30 09:00:00 2024-07-30 09:24:37 Office Visit MejíaEmigdio s Laura [facility] 1.2.840.114 350.1.13.10 4.2.7.2.686 [id number] 134 [id number] [facility] 2024-07-20 11:00:00 2024-07-20 11:00:00 Outpatient R MEJÍA-OSCAR S, LAURA MEJÍA-OSCAR S, LAURA [facility] [id number] [facility] 2024-07-15 00:00:00 2024-07-15 08:14:13 Case Management Mejía-Oscar sHectorl [facility] 1.2.840.114 350.1.13.10 4.2.7.2.686 [id number] 134 [id number] [facility] 2024-07-13 15:30:00 2024-07-13 15:57:57 Outpatient R MEJÍA-OSCAR S, LAURA MEJÍA-OSCAR S, LAURA [facility] [id number] [facility] 2024-07-13 15:30:00 2024-07-13 15:57:57 Office Visit Mejía-Oscar s Laura [facility] 1.114 350.1.13.10 4.2.7.2.686 [id number] 134 [id number] [facility] 2024-02-03 00:00:00 2024-03-06 18:20:59 Patient Secure Msg Doctor Unassigned, Malcolm Doctor Unassigned, Malcolm [facility] 1..114 350.1.13.10 4.2.7.2.686 [id number] 134 [id number] [facility] 2024-02-19 14:26:11 2024-02-19 14:26:11 Outpatient [facility] [id number] Alex Avila 2024-02-18 16:30:00 2024-02-18 16:30:00 Outpatient NARENDRA ROE [facility] [id number] [facility] 2024-02-18 12:18:39 2024-02-18 12:18:39 Outpatient [facility] [id number] Alex Avila 2024-02-10 11:30:00 2024-02-10 11:30:00 Outpatient NARENDRA ROE [facility] [id number] [facility] 2024-02-04 16:30:00 2024-02-04 16:30:00 Outpatient NARENDRA ROE [facility] [id number] [facility] 2024-02-02 16:19:32 2024-02-02 16:19:32 Outpatient [facility] [id number] Alex Avila 2023-12-26 11:30:00 2023-12-26 11:30:00 Outpatient NARENDRA ROE [facility] [id number] [facility] 2019-01-26 00:00:00 2023-12-02 02:25:58 Mobile Device Encounter Molly Reynolds [facility] 1..114 350.1.13.10 4.2.7.2.686 [id number] [facility] 2019-08-17 00:00:00 2023-12-02 02:24:14 Mobile Device Encounter Molly Reynolds [facility] 1.114 350.1.13.10 4.2.7.2.686 [id number] [facility] 2023-09-17 16:30:00 2023-09-17 16:30:00 Outpatient R [facility] [id number] [facility] 2023-09-16 00:00:00 2023-09-16 00:00:00 Refill Narendra Nieves [facility] 1..114 350.1.13.10 4.2.7.2.686 [id number] 134 [id number] [facility] 2023-09-15 16:30:00 2023-09-15 17:02:54 Outpatient R NARENDRA NIEEVS [facility] [id number] [facility] 2023-09-15 16:30:00 2023-09-15 17:02:54 Office Visit Narendra Nieves [facility] 1..114 350.1.13.10 4.2.7.2.686 [id number] 134 [id number] [facility] 2023-09-15 10:00:00 2023-09-15 10:00:00 Outpatient R NARENDRA NIEVES [facility] [id number] [facility] 2023-09-10 00:00:00 2023-09-10 00:00:00 Patient Secure Msg Doctor Unassigned, Malcolm [facility] 1..114 350.1.13.10 4.2.7.2.686 [id number] 134 [id number] [facility] 2023-08-15 10:00:00 2023-08-15 10:00:00 Outpatient R BOSTON, JANETT MEAD, JANETT [facility] [id number] [facility] 2023-07-03 16:00:00 2023-07-03 16:25:58 Outpatient R MEJÍA-OSCAR S, LAURA MEJÍA-OSCAR S, LAURA [facility] [id number] [facility] 2023-07-03 16:00:00 2023-07-03 16:25:58 Office Visit Mejía-Oscar sMadisynLaura [facility] 1.2.840.114 350.1.13.10 4.2.7.2.686 [id number] 134 [id number] [facility] 2023-06-03 11:00:00 2023-06-03 11:38:49 Outpatient R MEJÍA-OSCAR S, LAURA MEJÍA-OSCAR S, LAURA [facility] [id number] [facility] 2023-06-03 11:00:00 2023-06-03 11:38:49 Office Visit Oleksandr-Oscar sLaura [facility] 1.2.840.114 350.1.13.10 4.2.7.2.686 [id number] 134 [id number] [facility] 2023-06-03 00:00:00 2023-06-03 00:00:00 Orders Only Doctor Unassigned, Malcolm [facility] 1.2.840.114 350.1.13.10 4.2.7.2.686 [id number] [facility] 2023-05-27 16:54:22 2023-05-27 16:54:22 Outpatient [facility] [id number] Alex Cassie 2023-05-12 16:42:09 2023-05-12 16:42:09 Outpatient [facility] [id number] Alex Avila 2023-05-06 11:00:00 2023-05-06 11:00:00 Outpatient R LAURA GUERRERO MARISOL [facility] [id number] [facility] 2023-05-06 00:00:00 2023-05-06 00:00:00 Telephone Laura Guerrero [facility] 1.2.840.114 350.1.13.10 4.2.7.2.686 [id number] 134 [id number] [facility] 2023-05-06 00:00:00 2023-05-06 00:00:00 Patient Secure Msg Doctor Unassigned, Malcolm [facility] 1.2.840.114 350.1.13.10 4.2.7.2.686 [id number] 134 [id number] [facility] 2023-04-22 15:00:00 2023-04-22 15:30:48 Outpatient R LAURA GUERRERO MARISOL [facility] [id number] [facility] 2023-04-22 15:00:00 2023-04-22 15:30:48 Office Visit Laura Guerrero [facility] 1.2.840.114 350.1.13.10 4.2.7.2.686 [id number] [facility] 2023-04-04 14:30:00 2023-04-04 14:30:00 Outpatient IGNACIO RICHARDSON [facility] [id number] [facility] 2023-04-04 10:30:00 2023-04-04 10:30:00 Outpatient IGNACIO RICHARDSON [facility] [id number] [facility] 2023-04-03 08:16:11 2023-04-03 23:59:00 Outpatient JANETT RENTERIA CHERYAL [facility] [id number] [facility] 2023-04-03 08:00:2023-04-03 23:59:00 Hospital Encounter Janett Mead [facility] 1.840.114 350.1.13.10 4.2.7.2.686 [id number] [facility] 2023-03-24 15:30:00 2023-03-24 15:53:36 Outpatient R JANETT MEAD [facility] [id number] [facility] 2023-03-24 15:30:00 2023-03-24 15:53:36 Office Visit Janett Mead [facility] 1.840.114 350.1.13.10 4.2.7.2.686 [id number] 134 [id number] [facility] 2023-03-24 00:00:00 2023-03-24 00:00:00 Patient Secure Msg [place] [facility] 1.840.114 350.1.13.10 4.2.7.2.686 [id number] [facility] 2023-02-19 10:40:00 2023-02-19 11:53:55 Outpatient XAVI RAJPUT [facility] [id number] [facility] 2023-02-19 10:40:00 2023-02-19 11:00:00 Nurse Visit NurseJd Lee [facility] 1.840.114 350.1.13.10 4.2.7.2.686 [id number] [facility] 2022-12-04 09:40:00 2022-12-04 09:49:43 Outpatient MOLLY ROGERS [facility] [id number] [facility] 2022-12-04 09:40:00 2022-12-04 09:49:43 Nurse Visit NurseJd Amy C [facility] 1.20.114 350.1.13.10 4.2.7.2.686 [id number] [facility] 2022-11-29 10:20:00 2022-11-29 10:20:00 Outpatient R [facility] [id number] [facility] 2022-10-01 14:15:00 2022-10-01 14:30:00 Astronomy Professor Visit Lab[facility] 1..840.114 350.1.13.10 4.2.7.2.686 [id number] [facility] 2022-10-01 13:00:00 2022-10-01 14:09:54 Outpatient [facility] [id number] [facility] 2022-10-01 13:00:00 2022-10-01 14:09:54 Office Visit Antonella [facility] 1..840.114 350.1.13.10 4.2.7.2.686 [id number] [facility] 2022-09-24 12:30:00 2022-09-24 13:42:35 Outpatient R MOLLY REYNOLDS [facility] [id number] [facility] 2022-09-24 12:30:00 2022-09-24 13:42:35 Office Visit Molly Reynolds [facility] 1..840.114 350.1.13.10 4.2.7.2.686 [id number] [facility] 2022-09-12 10:20:00 2022-09-12 10:20:00 Outpatient R MOLLY REYNOLDS [facility] [id number] [facility] 2022-09-12 10:20:00 2022-09-12 10:20:00 Nurse Visit Nurse, RudyMolly Olmstead [facility] 1.2.840.114 350.1.13.10 4.2.7.2.686 [id number] [facility] 2022-08-13 10:00:00 2022-08-13 10:18:09 Outpatient R JANETT MEAD CHERYAL [facility] [id number] [facility] 2022-08-13 10:00:00 2022-08-13 10:18:09 Office Visit Janett Mead [facility] 1.2.840.114 350.1.13.10 4.2.7.2.686 [id number] [facility] 2022-08-13 09:00:00 2022-08-13 09:00:00 Outpatient R LINDA LI [facility] [id number] [facility] 2022-08-13 09:00:00 2022-08-13 09:00:00 Outpatient R LINDA LI [facility] [id number] [facility] 2022-08-13 09:00:00 2022-08-13 09:00:00 Outpatient R LINDA LI [facility] [id number] [facility] 2022-08-13 09:00:00 2022-08-13 09:00:00 Outpatient R LINDA LI [facility] [id number] [facility] 2022-08-13 09:00:00 2022-08-13 09:00:00 Outpatient R LINDA LI [facility] [id number] [facility] 2022-07-05 11:00:00 2022-07-05 11:00:00 Outpatient R JANETT MEAD CHERYAL [facility] [id number] [facility] 2022-06-28 00:00:00 2022-06-28 00:00:00 Pre Visit Outreach Veronica Gentile 1.2.840.114 350.1.13.10 4.2.7.2.686 [id number] [facility] 2022-06-26 12:30:00 2022-06-26 13:11:32 Outpatient MOLLY ROGERS [facility] [id number] [facility] 2022-06-26 12:30:00 2022-06-26 13:11:32 Office Visit Molly Reynolds [facility] 1.2.840.114 350.1.13.10 4.2.7.2.686 [id number] [facility] 2022-06-26 00:00:00 2022-06-26 00:00:00 Telephone Molly Reynolds [facility] 1.2.840.114 350.1.13.10 4.2.7.2.686 [id number] [facility] 2022-06-14 11:20:00 2022-06-14 11:21:30 Outpatient MLOLY ROGERS [facility] [id number] [facility] 2022-06-14 11:20:00 2022-06-14 11:21:30 Nurse Visit Nurse, Molly Albright [facility] 1.2.840.114 350.1.13.10 4.2.7.2.686 [id number] [facility] 2022-05-17 15:50:00 2022-05-17 16:10:00 Office Visit Molly Reynolds [facility] 1.2.840.114 350.1.13.10 4.2.7.2.686 [id number] [facility] 2022-05-17 15:50:00 2022-05-17 15:50:00 Outpatient MOLLY ROGERS [facility] [id number] [facility] 2022-05-17 09:50:00 2022-05-17 09:50:00 Outpatient R MOLLY REYNOLDS [facility] [id number] [facility] 2022-05-17 00:00:00 2022-05-17 00:00:00 Telephone Molly Reynolds [facility] 1.2.840.114 350.1.13.10 4.2.7.2.686 [id number] [facility] 2022-03-26 07:50:00 2022-03-26 08:37:57 Outpatient MOLLY ROGERS [facility] [id number] [facility] 2022-03-26 07:50:00 2022-03-26 08:37:57 Office Visit Molly Reynolds [facility] 1.2.840.114 350.1.13.10 4.2.7.2.686 [id number] [facility] 2022-03-26 00:00:00 2022-03-26 00:00:00 RefMolly Jean-Baptiste [facility] 1.2.840.114 350.1.13.10 4.2.7.2.686 [id number] [facility] 2022-02-12 15:00:00 2022-02-12 15:42:40 Office Visit Linda Li [facility] 1.2.840.114 350.1.13.10 4.2.7.2.686 [id number] [facility] 2022-02-12 15:00:00 2022-02-12 15:42:40 Outpatient R LINDA LI [facility] [id number] [facility] 2022-02-12 15:00:00 2022-02-12 15:00:00 Outpatient R LINDA LI [facility] [id number] [facility] 2022-02-12 15:00:00 2022-02-12 15:00:00 Outpatient JOSELINE ROBERTSN [facility] [id number] [facility] 2022-02-06 14:30:00 2022-02-06 15:14:22 Office Visit Molly Reynolds [facility] 1.840.114 350.1.13.10 4.2.7.2.686 [id number] [facility] 2022-02-06 14:30:00 2022-02-06 15:14:22 Outpatient MOLLY ROGERS [facility] [id number] [facility] 2022-02-06 14:30:00 2022-02-06 14:30:00 Outpatient MOLLY ROGERS [facility] [id number] [facility] 2022-01-07 00:00:00 2022-01-07 00:00:00 Orders Only Doctor Unassigned, Malcolm [facility] [id number] [id number] [id number] [facility] 2022-01-03 00:00:00 2022-01-03 00:00:00 Telephone Molly Reynolds [facility] 1.840.114 [id number] [id number] [id number] 225 [id number] [facility] 2022-01-02 09:30:00 2022-01-02 09:30:00 Outpatient JANETT RENTERIA CHERYAL [facility] [id number] [facility] 2022-01-01 08:30:00 2022-01-01 09:18:07 Outpatient MOLLY ROGERS [facility] [id number] [facility] 2022-01-01 08:30:00 2022-01-01 09:18:07 Office Visit Molly Reynolds [facility] 1.0.114 [id number] [id number] 225 [id number] [facility] 2022-01-01 08:30:00 2022-01-01 09:18:07 Outpatient R MOLLY REYNOLDS [facility] [id number] [facility] 2021-12-31 00:00:00 2021-12-31 00:00:00 Mayela Laura [facility] 1.0.114 350.1.13.10 4.2.7.2.686 [id number] 225 [id number] [facility] 2021-11-22 00:00:00 2021-11-22 00:00:00 Mayela Laura [facility] 1.0.114 350.1.13.10 4.2.7.2.686 [id number] 225 [id number] [facility] 2021-11-05 08:40:00 2021-11-05 08:40:00 Outpatient R [facility] [id number] [facility] 2021-11-01 10:09:25 2021-11-01 23:59:00 Outpatient R LINDA LI [facility] [id number] [facility] 2021-11-01 10:00:00 2021-11-01 23:59:00 Hospital Encounter Linda Li [facility] 1..114 350.1.13.10 4.2.7.2.686 [id number] 800 [id number] [facility] 2021-10-27 00:00:00 2021-10-27 00:00:00 Xavi Vera [facility] 1.0.114 350.1.13.10 4.2.7.2.686 [id number] 225 [id number] [facility] 2021-10-22 10:00:00 2021-10-22 10:37:57 Outpatient R LEIGHA RAUSCH [facility] [id number] [facility] 2021-10-22 10:00:00 2021-10-22 10:37:57 Urgent Care Leigha Rausch [facility] 1.840.114 350.1.13.10 4.2.7.2.686 [id number] 370 [id number] [facility] 2021-10-08 15:00:00 2021-10-08 15:25:31 Outpatient LINDA ROBERTS [facility] [id number] [facility] 2021-10-08 15:00:00 2021-10-08 15:25:31 Nurse Visit Nurse, L[facility] GuillermoLinda [facility] 1.840.114 350.1.13.10 4.2.7.2.686 [id number] [facility] 2021-10-08 08:40:00 2021-10-08 08:40:00 Outpatient R [facility] [id number] [facility] 2021-10-08 08:40:00 2021-10-08 08:40:00 Outpatient MOLLY ROGERS [facility] [id number] [facility] 2021-10-05 00:00:00 2021-10-05 00:00:00 Patient Secure Msg Doctor Unassigned, Malcolm [facility] 1.840.114 350.1.13.10 4.2.7.2.686 [id number] 225 [id number] [facility] 2021-10-02 08:10:00 2021-10-02 08:40:28 Outpatient R MOLLY REYNOLDS [facility] [id number] [facility] 2021-10-02 08:10:00 2021-10-02 08:40:28 Office Visit Molly Reynolds [facility] 1.2.840.114 350.1.13.10 4.2.7.2.686 [id number] 225 [id number] [facility] 2021-10-02 08:10:00 2021-10-02 08:40:28 Outpatient R MOLLY REYNOLDS [facility] [id number] [facility] 2021-09-24 00:00:00 2021-09-24 00:00:00 RefXavi Gaitan [facility] 1.2.840.114 350.1.13.10 4.2.7.2.686 [id number] 225 [id number] [facility] 2021-08-31 00:00:00 2021-08-31 00:00:00 RefXavi Gaitan [facility] 1.2.840.114 350.1.13.10 4.2.7.2.686 [id number] 225 [id number] [facility] 2021-08-28 00:00:00 2021-08-28 00:00:00 Telephone Linda Li [facility] 1.2.840.114 350.1.13.10 4.2.7.2.686 [id number] 134 [id number] [facility] 2021-08-13 15:30:00 2021-08-13 16:50:06 Outpatient R LINDA LI [facility] [id number] [facility] 2021-08-13 15:30:00 2021-08-13 16:50:06 Office Visit Linda Li [facility] 1.2.840.114 350.1.13.10 4.2.7.2.686 [id number] 134 [id number] [facility] 2021-08-13 15:30:00 2021-08-13 16:50:06 Outpatient R LINDA LI [facility] [id number] Sherri s [facility] 2021-07-09 10:30:00 2021-07-09 11:12:39 Outpatient MOLLY ROGERS [facility] [id number] [facility] 2021-07-09 10:30:00 2021-07-09 11:12:39 Office Visit Molly Reynolds [facility] 1.2840.114 350.1.13.10 4.2.7.2.686 [id number] 225 [id number] [facility] 2021-07-09 10:30:00 2021-07-09 11:12:39 Outpatient MOLLY ROGERS [facility] [id number] [facility] 2021-07-09 10:30:00 2021-07-09 10:30:00 Outpatient MOLLY ROGERS [facility] [id number] [facility] 2021-07-05 14:30:00 2021-07-05 14:45:00 Laboratory Only Only, Ang Db Test Delia Bradford [facility] 1.840.114 350.1.13.10 4.2.7.2.686 [id number] 370 [id number] [facility] 2021-07-05 14:30:00 2021-07-05 14:30:00 Outpatient DELIA VELA [facility] [id number] [facility] 2021-06-27 10:30:00 2021-06-27 11:06:37 Outpatient MOLLY ROGERS [facility] [id number] [facility] 2021-06-27 10:30:00 2021-06-27 11:06:37 Office Visit Molly Reynolds [facility] 1.840.114 350.1.13.10 4.2.7.2.686 [id number] 225 [id number] [facility] 2021-06-11 00:00:00 2021-06-11 00:00:00 CrisMayela Richard [facility] 1.20.114 350.1.13.10 4.2.7.2.686 [id number] 225 [id number] [facility] 2021-05-03 00:00:00 2021-05-03 00:00:00 CrisMayela Richard [facility] 1.0.114 350.1.13.10 4.2.7.2.686 [id number] 225 [id number] [facility] 2021-04-18 09:39:40 2021-04-18 10:01:58 Nurse Visit Nurse, Molly Albright [facility] 1.0.114 350.1.13.10 4.2.7.2.686 [id number] 225 [id number] [facility] 2021-04-18 09:40:00 2021-04-18 09:40:00 Outpatient MOLLY ROGERS [facility] [id number] [facility] 2021-04-17 12:30:00 2021-04-17 12:30:00 Outpatient MOLLY ROGERS [facility] [id number] [facility] 2021-04-17 00:00:00 2021-04-17 00:00:00 Patient Secure Msg Doctor Unassigned, Malcolm [facility] 1..114 350.1.13.10 4.2.7.2.686 [id number] 225 [id number] [facility] 2021-04-05 00:00:00 2021-04-05 00:00:00 Telephone Trupti Koch [facility] 1.2.114 350.1.13.10 4.2.7.2.686 [id number] [facility] 2021-04-04 11:20:00 2021-04-04 11:20:00 Outpatient CATALINO HAZELTANY [facility] [id number] [facility] 2021-04-04 10:09:10 2021-04-04 10:49:17 Urgent Care [facility]Yusef causey [facility] 1.2840.114 350.1.13.10 4.2.7.2.686 [id number] 370 [id number] [facility] 2021-03-20 00:00:00 2021-03-20 00:00:00 Cyndee Bolivar [facility] 1.2.840.114 350.1.13.10 4.2.7.2.686 [id number] [facility] 2021-03-13 12:47:01 2021-03-13 13:02:01 Astronomy Professor Visit Yamilet, Adc Lab [facility] 1.2840.114 350.1.13.10 4.2.7.2.686 [id number] [facility] 2021-03-13 12:45:00 2021-03-13 12:45:00 Outpatient R MOLLY REYNOLDS [facility] [id number] [facility] 2021-03-13 00:00:00 2021-03-13 00:00:00 Patient Secure Msg Molly Reynolds [facility] 1.2.840.114 350.1.13.10 4.2.7.2.686 [id number] 225 [id number] [facility] 2021-02-23 00:00:00 2021-02-23 00:00:00 Telephone Molly Reynolds [facility] 1.2.840.114 350.1.13.10 4.2.7.2.686 [id number] 225 [id number] [facility] 2021-02-20 00:00:00 2021-02-20 00:00:00 Patient Secure Msg Doctor Unassigned, Malcolm [facility] 1..114 350.1.13.10 4.2.7.2.686 [id number] 225 [id number] [facility] 2021-02-16 13:15:00 2021-02-16 13:30:00 Office Visit Linda Li [facility] 1.84.114 350.1.13.10 4.2.7.2.686 [id number] [facility] 2021-02-16 13:15:00 2021-02-16 13:15:00 Outpatient R LINDA LI [facility] [id number] [facility] 2021-02-16 13:15:00 2021-02-16 13:15:00 Outpatient R LINDA LI [facility] [id number] [facility] 2021-02-14 08:14:37 2021-02-14 09:02:36 Office Visit Molly Reynolds [facility] 1.84.114 350.1.13.10 4.2.7.2.686 [id number] 225 [id number] [facility] 2021-02-14 08:10:00 2021-02-14 08:10:00 Outpatient R MOLLY REYNOLDS [facility] [id number] [facility] 2021-02-13 00:00:00 2021-02-13 00:00:00 Cyndee Bolivar [facility] 1.84.114 350.1.13.10 4.2.7.2.686 [id number] 225 [id number] [facility] 2021-02-13 00:00:00 2021-02-13 00:00:00 Cyndee Bolivar [facility] 1.2840.114 350.1.13.10 4.2.7.2.686 [id number] 225 [id number] [facility] 2021-01-22 09:30:00 2021-01-22 09:30:00 Outpatient MOLLY ROGERS [facility] [id number] [facility] 2021-01-16 08:10:00 2021-01-16 09:05:19 Office Visit Molly Reynolds [facility] 1.2840.114 350.1.13.10 4.2.7.2.686 [id number] 225 [id number] [facility] 2021-01-16 08:10:00 2021-01-16 08:10:00 Outpatient MOLLY ROGERS [facility] [id number] [facility] 2021-01-15 00:00:00 2021-01-15 00:00:00 Telephone Molly Reynolds [facility] 1.2840.114 350.1.13.10 4.2.7.2.686 [id number] 225 [id number] [facility] 2021-01-02 00:00:00 2021-01-02 00:00:00 Cyndee Bolivar [facility] 1.2840.114 350.1.13.10 4.2.7.2.686 [id number] 225 [id number] [facility] 2020-12-04 00:00:00 2020-12-04 00:00:00 Telephone Molly Reynolds [facility] 1.2.840.114 350.1.13.10 4.2.7.2.686 [id number] 225 [id number] [facility] 2020-11-29 00:00:00 2020-11-29 00:00:00 Cyndee Bolivar [facility] 1.2.840.114 350.1.13.10 4.2.7.2.686 [id number] 225 [id number] [facility] 2020-10-24 09:48:05 2020-10-24 10:46:55 Office Visit Molly Reynolds [facility] 1.2840.114 350.1.13.10 4.2.7.2.686 [id number] 225 [id number] [facility] 2020-10-24 09:50:00 2020-10-24 09:50:00 Outpatient R MOLLY REYNOLDS [facility] [id number] [facility] 2020-10-23 00:00:00 2020-10-23 00:00:00 Cyndee Bolivar [facility] 1.0.114 350.1.13.10 4.2.7.2.686 [id number] 225 [id number] [facility] 2020-10-23 00:00:00 2020-10-23 00:00:00 Telephone Molly Reynolds [facility] 1.2.114 350.1.13.10 4.2.7.2.686 [id number] 225 [id number] [facility] 2020-10-02 16:21:37 2020-10-02 16:41:37 Laboratory Only Lab, Adc Fam Pob I Mando [facility] Office Building One 1..114 350.1.13.10 4.2.7.2.686 [id number] [id number] [facility] 2020-10-02 16:20:00 2020-10-02 16:20:00 Outpatient R [facility] [id number] [facility] 2020-09-27 18:17:02 2020-09-27 18:37:02 Laboratory Only Lab, Adc Fam Pob I Natalya Pintoayemi [facility] Office Building One 1.114 350.1.13.10 4.2.7.2.686 [id number] [facility] 2020-09-27 18:20:00 2020-09-27 18:20:00 Outpatient R MICHAEL PINTO [facility] [id number] [facility] 2020-09-20 08:39:40 2020-09-20 09:24:44 Office Visit Molly Reynolds [facility] 1.114 350.1.13.10 4.2.7.2.686 [id number] 225 [id number] [facility] 2020-09-20 08:30:00 2020-09-20 08:30:00 Outpatient MOLLY ROGERS [facility] [id number] [facility] 2020-09-18 00:00:00 2020-09-18 00:00:00 Telephone Molly Reynolds [facility] 1..114 350.1.13.10 4.2.7.2.686 [id number] 225 [id number] [facility] 2020-09-15 00:00:00 2020-09-15 00:00:00 Xavi Vera [facility] 1..114 350.1.13.10 4.2.7.2.686 [id number] 225 [id number] [facility] 2020-08-07 09:07:55 2020-08-07 09:27:55 Laboratory Only Lab, Adc Fam Pob [facility] Office [facility] One 1.114 350.1.13.10 4.2.7.2.686 [id number] [id number] [facility] 2020-08-07 09:00:00 2020-08-07 09:00:00 Outpatient IGNACIO RICHARDSON [facility] [id number] [facility] 2020-07-20 08:28:08 2020-07-20 08:48:08 Laboratory Only Lab, [facility] Yamilet Ambar NataliyaaydeeGiulianaIgnacioFormerly [facility] Office Building One 1.2840.114 350.1.13.10 4.2.7.2.686 [id number] [id number] [facility] 2020-07-20 08:20:00 2020-07-20 08:20:00 [facility] [id number] 2020-07-04 00:00:00 2020-07-04 00:00:00 Telephone Molly Reynolds [facility] 1.2.840.114 350.1.13.10 4.2.7.2.686 [id number] 225 [id number] [facility] 2020-07-04 00:00:00 2020-07-04 00:00:00 Telephone Molly Reynolds [facility] 1.2.840.114 350.1.13.10 4.2.7.2.686 [id number] 225 [id number] 2020-06-28 17:21:12 2020-06-28 17:41:12 Laboratory Only Lab, [facility] Yamilet Gilmore [facility] Office Building One 1.2840.114 350.1.13.10 4.2.7.2.686 [id number] 044 [id number] [facility] 2020-06-28 17:21:12 2020-06-28 17:41:12 Laboratory Only Lab, [facility] Office Building One 1.2840.114 350.1.13.10 4.2.7.2.686 [id number] [id number] 2020-06-28 17:00:00 2020-06-28 17:00:00 Outpatient Marisol [facility] [id number] [facility] 2020-06-06 00:00:00 2020-06-06 00:00:00 Telephone Molly Reynolds [facility] 1.2.840.114 350.1.13.10 4.2.7.2.686 [id number] 225 [id number] [facility] 2020-06-06 00:00:00 2020-06-06 00:00:00 Telephone Molly Reynolds [facility] 1.2.840.114 350.1.13.10 4.2.7.2.686 [id number] 225 [id number] 2020-05-15 12:58:06 2020-05-15 13:18:06 Office Visit Molly Reynolds [facility] 1.2.840.114 350.1.13.10 4.2.7.2.686 [id number] 225 [id number] 2020-05-15 12:58:06 2020-05-15 13:18:06 Office Visit Molly Reynolds [facility] 1.2.840.114 350.1.13.10 4.2.7.2.686 [id number] 225 [id number] [facility] 2020-05-15 13:10:00 2020-05-15 13:10:00 Outpatient R MOLLY REYNOLDS [facility] [id number] [facility] 2020-05-15 00:00:00 2020-05-15 00:00:00 Xavi Vera [facility] 1.2.840.114 350.1.13.10 4.2.7.2.686 [id number] 225 [id number] 2020-05-15 00:00:00 2020-05-15 00:00:00 Telephone Molly Reynolds [facility] 1.2.840.114 350.1.13.10 4.2.7.2.686 [id number] 225 [id number] 2020-05-15 00:00:00 2020-05-15 00:00:00 Refill Xavi Leonard [facility] 1.2.840.114 350.1.13.10 4.2.7.2.686 [id number] 225 [id number] [facility] 2020-05-15 00:00:00 2020-05-15 00:00:00 Telephone Molly Reynolds [facility] 1.2.840.114 350.1.13.10 4.2.7.2.686 [id number] 225 [id number] [facility] 2020-05-10 00:00:00 2020-05-10 00:00:00 Telephone Molly Reynolds [facility] 1.2.840.114 350.1.13.10 4.2.7.2.686 [id number] 225 [id number] [facility] 2020-05-09 00:00:00 2020-05-09 00:00:00 Refill RoldanXavi [facility] 1.2.840.114 350.1.13.10 4.2.7.2.686 [id number] 225 [id number] [facility] 2020-04-05 11:17:34 2020-04-05 13:53:29 Telemedici ne Visit Molly Reynolds [facility] 1.2.840.114 350.1.13.10 4.2.7.2.686 [id number] 225 [id number] [facility] 2020-04-05 12:30:00 2020-04-05 12:30:00 Outpatient R MOLLY REYNOLDS [facility] [id number] [facility] 2020-04-05 00:00:00 2020-04-05 00:00:00 Telephone Molly Reynolds [facility] 1.2.840.114 350.1.13.10 4.2.7.2.686 [id number] 225 [id number] [facility] 2020-04-04 00:00:00 2020-04-04 00:00:00 Refill Molly Reynolds [facility] 1.2.840.114 350.1.13.10 4.2.7.2.686 [id number] 225 [id number] [facility] 2020-02-07 13:44:54 2020-02-07 14:30:06 Office Visit Molly Reynolds [facility] 1.2.840.114 350.1.13.10 4.2.7.2.686 [id number] 225 [id number] [facility] 2020-02-07 13:40:00 2020-02-07 13:40:00 Outpatient R MOLLY REYNOLDS [facility] [id number] [facility] 2020-02-07 00:00:00 2020-02-07 00:00:00 Telephone Molly Reynolds [facility] 1.2.840.114 350.1.13.10 4.2.7.2.686 [id number] 225 [id number] [facility] 2020-02-07 00:00:00 2020-02-07 00:00:00 Patient Secure Msg Golden [facility] BUILDING 1.2840.114 350.1.13.10 4.2.7.2.686 [id number] [id number] [facility] 2020-02-02 00:00:00 2020-02-02 00:00:00 Patient Secure [facility] 1.2840.114 350.1.13.10 4.2.7.2.686 [id number] [id number] [facility] 2020-02-01 09:52:14 2020-02-01 10:46:24 Laboratory Only Pc, Adc Echo [facility] [place] [facility] 1.2840.114 350.1.13.10 4.2.7.2.686 [id number] [facility] 2020-02-01 10:00:00 2020-02-01 10:00:00 Outpatient R [facility] [id number] [facility] 2020-01-27 00:00:00 2020-01-27 00:00:00 Patient Secure [facility] NAL BUILDING 1.2.840.114 350.1.13.10 4.2.7.2.686 [id number] [facility] 2020-01-26 11:19:38 2020-01-26 16:10:21 [facility] 1.2.840.114 350.1.13.10 4.2.7.2.686 [id number] 059 [id number] [facility] 2020-01-26 15:18:44 2020-01-26 15:47:18 Nurse Visit Visit, Adc Nurse [place] [facility] nal Building 1.2.840.114 350.1.13.10 4.2.7.2.686 [id number] 059 [id number] [facility] 2020-01-26 15:14:44 2020-01-26 15:29:44 Astronomy Professor Visit 2, Adc [facility] 1.2.840.114 350.1.13.10 4.2.7.2.686 [id number] [facility] 2020-01-26 11:20:00 2020-01-26 11:20:00 [facility] [id number] [facility] 2020-01-26 00:00:00 2020-01-26 00:00:00 [facility] 1.2.840.114 350.1.13.10 4.2.7.2.686 [id number] 059 [id number] [facility] 2020-01-11 00:00:00 2020-01-11 00:00:00 RefMolly Jean-Baptiste [facility] 1.2.840.114 350.1.13.10 4.2.7.2.686 [id number] 225 [id number] [facility] 2020-01-05 08:26:44 2020-01-05 09:38:08 Office Visit Cyndee Kenny [facility] 1.2840.114 350.1.13.10 4.2.7.2.686 [id number] 225 [id number] [facility] 2020-01-05 08:20:00 2020-01-05 08:20:00 Outpatient R CYNDEE KENNY [facility] [id number] [facility] 2019-12-31 00:00:00 2019-12-31 00:00:00 Telephone Molly Reynolds [facility] 1.0.114 350.1.13.10 4.2.7.2.686 [id number] 225 [id number] [facility] 2019-12-06 13:20:00 2019-12-06 13:20:00 Outpatient R MOLLY REYNOLDS [facility] [id number] [facility] 2019-12-02 00:00:00 2019-12-02 00:00:00 Molly Mcgraw [facility] 1.0.114 350.1.13.10 4.2.7.2.686 [id number] 225 [id number] [facility] 2019-11-05 09:10:10 2019-11-05 09:47:52 Nurse Visit Nurse, Molly Albright [facility] 1.2.840.114 350.1.13.10 4.2.7.2.686 [id number] 225 [id number] [facility] 2019-11-05 09:00:00 2019-11-05 09:00:00 Outpatient R [facility] [id number] [facility] 2019-11-03 00:00:00 2019-11-03 00:00:00 Refill Molly Reynolds [facility] 1.2.840.114 350.1.13.10 4.2.7.2.686 [id number] [facility] 2019-10-05 12:45:20 2019-10-05 13:05:20 Telemedici ne Visit Molly Reynolds [facility] 1.2.840.114 350.1.13.10 4.2.7.2.686 [id number] 225 [id number] [facility] 2019-10-05 12:30:00 2019-10-05 12:30:00 Outpatient R MOLLY REYNOLDS [facility] [id number] [facility] 2019-10-05 00:00:00 2019-10-05 00:00:00 Telephone Molly Reynolds [facility] 1.2.840.114 350.1.13.10 4.2.7.2.686 [id number] 225 [id number] [facility] 2019-08-17 10:02:57 2019-08-17 14:25:34 Office Visit Cyndee Kenny [facility] 1.2.840.114 350.1.13.10 4.2.7.2.686 [id number] 225 [id number] [facility] 2019-08-17 10:00:00 2019-08-17 10:00:00 Outpatient R CYNDEE KENNY [facility] [id number] [facility] 2019-08-17 00:00:00 2019-08-17 00:00:00 Letter (Out) Molly Reynolds [facility] 1.2.840.114 350.1.13.10 4.2.7.2.686 [id number] 225 [id number] [facility] 2019-08-17 00:00:00 2019-08-17 00:00:00 Telephone KennyCyndee atwood Javi [facility] 1.2.840.114 350.1.13.10 4.2.7.2.686 [id number] 225 [id number] [facility] 2019-08-05 00:00:00 2019-08-05 00:00:00 Refill Molly Reynolds [facility] 1.2.840.114 350.1.13.10 4.2.7.2.686 [id number] 225 [id number] [facility] 2019-08-02 15:51:04 2019-08-02 16:28:55 Office Visit Molly Reynolds [facility] 1.2.840.114 350.1.13.10 4.2.7.2.686 [id number] [facility] 2019-07-15 08:13:21 2019-07-22 11:41:46 Ancillary Visit Eder Barrera Craig L [facility] 1.2.840.114 350.1.13.10 4.2.7.2.686 [id number] [facility] 2019-07-15 13:17:03 2019-07-15 13:44:48 Office Visit KennyCyndee atwood Javi [facility] 1.2.840.114 350.1.13.10 4.2.7.2.686 [id number] [facility] 2019-07-14 07:48:46 2019-07-14 08:28:46 Ancillary Visit Missy Barrera Craig L [facility] 1.2.840.114 350.1.13.10 4.2.7.2.686 [id number] [facility] 2019-07-12 11:09:39 2019-07-12 11:49:39 Ancillary Visit Eder Barrera [facility] 1.2.840.114 350.1.13.10 4.2.7.2.686 [id number] [facility] 2019-07-09 15:00:28 2019-07-09 15:20:28 Office Visit Molly Reynolds [facility] 1.2.840.114 350.1.13.10 4.2.7.2.686 [id number] [facility] 2019-07-09 07:50:57 2019-07-09 08:30:57 Ancillary Visit Ila Rebolledo Craig L [facility] 1.2.840.114 350.1.13.10 4.2.7.2.686 [id number] [facility] 2019-07-09 00:00:00 2019-07-09 00:00:00 Orders Only Doctor Unassigned, Malcolm [facility] 1.2.840.114 350.1.13.10 4.2.7.2.686 [id number] [facility] 2019-07-09 00:00:00 2019-07-09 00:00:00 Telephone Molly Reynolds [facility] 1.2.840.114 350.1.13.10 4.2.7.2.686 [id number] [facility] 2019-07-07 08:32:08 2019-07-07 09:24:23 Ancillary Visit Eder Barrera Craig L [facility] 1.2.840.114 350.1.13.10 4.2.7.2.686 [id number] [facility] 2019-07-06 00:00:00 2019-07-06 00:00:00 Telephone Molly Reynolds [facility] 1.2.840.114 350.1.13.10 4.2.7.2.686 [id number] [facility] 2019-07-01 09:36:45 2019-07-01 10:21:45 Ancillary Visit Eder Barrera Craig L [facility] 1.2.840.114 350.1.13.10 4.2.7.2.686 [id number] [facility] 2019-06-30 08:17:26 2019-06-30 09:02:26 Ancillary Visit Eder Barrera [facility] 1.2.840.114 350.1.13.10 4.2.7.2.686 [id number] [facility] 2019-06-30 00:00:00 2019-06-30 00:00:00 Xavi Vera [facility] 1.2.840.114 350.1.13.10 4.2.7.2.686 [id number] [facility] 2019-06-28 00:00:00 2019-06-28 00:00:00 Orders Only Doctor Unassigned, Malcolm [facility] 1.2.840.114 350.1.13.10 4.2.7.2.686 [id number] [facility] 2019-02-26 09:14:40 2019-02-26 23:59:00 Hospital Encounter Molly Reynolds [facility] 1.2.840.114 350.1.13.10 4.2.7.2.686 [id number] [facility] 2019-02-26 00:00:00 2019-02-26 00:00:00 Orders Only Doctor Unassigned, Malcolm [facility] 1.2.840.114 350.1.13.10 4.2.7.2.686 [id number] [facility] 2019-02-25 00:00:00 2019-02-25 00:00:00 Telephone Molly Reynolds [facility] 1.2.840.114 350.1.13.10 4.2.7.2.686 [id number] [facility] 2019-02-25 00:00:00 2019-02-25 00:00:00 RefSaba Damon [facility] 1.2.840.114 350.1.13.10 4.2.7.2.686 [id number] [facility] 2019-01-26 10:51:33 2019-01-26 12:08:39 Office Visit Molly Reynolds [facility] 1.2.840.114 350.1.13.10 4.2.7.2.686 [id number] [facility] 2019-01-26 00:00:00 2019-01-26 00:00:00 RefMolly Jean-Baptiste [facility] 1.2.840.114 350.1.13.10 4.2.7.2.686 [id number] [facility] 2019-01-26 00:00:00 2019-01-26 00:00:00 Orders Only Doctor Unassigned, Malcolm [facility] 1.2.840.114 350.1.13.10 4.2.7.2.686 [id number] [facility] 2019-01-19 00:00:00 2019-01-19 00:00:00 Telephone Molly Reynolds [facility] 1.2.840.114 350.1.13.10 4.2.7.2.686 [id number] [facility] 2018-10-12 00:00:00 2018-10-12 00:00:00 Letter (Out) Farhad Angeles [facility] 1.2.840.114 350.1.13.10 4.2.7.2.686 [id number] [facility] Results Test Description Test Time Test Comments Results Result Co mments Source [facility] [id number] 22:03:00* Test Item Value Reference Range Interpretation Comme nts POCT PREG (test code = 1605) Negative On board controls acceptable with C Line (test code = 3574) Yes POCT PREG LOT # (test code = 3575) POCT PREG TEST DATE ( test code = 3576) [facility] [id number] 22:03:00* Test Item Value Reference Range Interpretation Comme nts POCT PREG (test code = 1605) Negative On board controls acceptable with C Line (test code = 3574) Yes POCT PREG LOT # (test code = 3575) POCT PREG TEST DATE ( test code = 3576) [facility] [id number] 17:21:00* Test Item Value Reference Range Interpretation Comme nts POCT PREG (test code = 1605) Negative On board controls acceptable with C Line (test code = 3574) Yes POCT PREG LOT # (test code = 3575) t POCT PREG TEST DATE ( test code = 3576) [facility] [id number] 17:21:00* Test Item Value Reference Range Interpretation Comme nts POCT PREG (test code = 1605) Negative On board controls acceptable with C Line (test code = 3574) Yes POCT PREG LOT # (test code = 3575) t POCT PREG TEST DATE ( test code = 3576) [facility] [id number] 17:21:00* Test Item Value Reference Range Interpretation Comme nts POCT PREG (test code = 1605) Negative On board controls acceptable with C Line (test code = 3574) Yes POCT PREG LOT # (test code = 3575) t POCT PREG TEST DATE ( test code = 3576) [facility] [id number] 18:24:00* Test Item Value Reference Range Interpretation Comme nts POCT PREG (test code = 1605) Negative On board controls acceptable with C Line (test code = 3574) Yes POCT PREG LOT # (test code = 3575) POCT PREG TEST DATE ( test code = 3576) [facility] [id number] 18:24:00* Test Item Value Reference Range Interpretation Comme nts POCT PREG (test code = 1605) Negative On board controls acceptable with C Line (test code = 3574) Yes POCT PREG LOT # (test code = 3575) POCT PREG TEST DATE ( test code = 3576) [facility] URINALYSIS W SPECIFIC [id number] 18:23:00* Test Item Value Reference Range Interpretation [...] U APPEAR (test code = 3267) clear [facility] URINALYSIS W SPECIFIC [id number] 18:23:00* Test Item Value Reference Range Interpretation [...] U APPEAR (test code = 3267) clear [facility] Notes Date/Time Note Provider Source 2023-09-16 13:10:33 Rx for Diflucan for yeast infection. [facility]
[2024-10-01] MEDS ORDERED: ONDANSETRON 4 MG/2 ML VIAL ONE (08:12)
[2024-10-01] MEDS ORDERED: MORPHINE 4 MG/ML SYR ONE (08:12)
[2024-10-01] MEDS ORDERED: NA CHLORIDE 0.9% 1,000 ML ONE (08:13)
[2024-10-01 08:51] LABS: Absolute Eosinophils 0.1 K/uL (0-0.5); Absolute Lymphocytes (CBC) 1.8 K/uL (0.7-4.9); Absolute Monocytes 0.9 K/uL (0.1-1.3); Absolute Neutrophil 5.3 K/uL (1.8-8.0); Basophils % 0.6 % (0-1.3); Eosinophils % 1.1 % (0-4.4); Hemoglobin 13.2 g/dL (12.0-15.0); Lymphocytes % 22.7 % (15.3-44.8); MCH 29.3 pg (27.0-35.0); MCHC 34.8 g/dL (32.0-36.0); MCV 84.3 fL (80-100); MPV 7.7 fL (7.6-11.3); Monocytes % 11.1 % (3.3-12.3); Neutrophils % 64.5 % (41.7-73.7); Nucleated Red Blood Cells % 0.1 % (0-0); Platelets 262 thou/uL (152-406); RBC Red Blood Cell Count 4.51 M/uL (3.86-4.86); Red Cell Distribution Width 13.7 % (12.1-15.2)
[2024-10-01 08:53] LABS: Specific Gravity < 1.005 (1.005-1.030)
[2024-10-01 08:54] LABS: Specific Gravity < 1.005 (1.005-1.030); Sqamous Epithelial <5 /HPF (None Seen); Urine Bacteria <20 /HPF (<20); Urine Bilirubin NEGATIVE (Negative); Urine Blood 1+ (Negative); Urine Clarity Extremely Turbid (Clear); Urine Color Yellow (Yellow); Urine Culture Reflex Order REFLEXED; Urine Glucose NEGATIVE (Negative); Urine Ketones NEGATIVE (Negative); Urine Microscopic Reflex YN ORDER UMIC; Urine Nitrite NEGATIVE (Negative); Urine Protein NEGATIVE (Negative); Urine RBC <5 /HPF (None Seen); Urine Urobilinogen Normal (Normal); Urine WBC 20-50 /HPF (<5)
[2024-10-01 09:13] LABS: Albumin 3.6 g/dL (3.4-5.0); Albumin/Globulin Ratio 0.9 (1.1-1.8); Anion Gap 6.4 mEq/L (5.0-15.0); Bilirubin Total 0.8 mg/dL (0.2-1.0); Globulin 3.9 g/dL (2.3-3.5); Potassium 3.4 mEq/L (3.5-5.1); Protein, Total 7.5 g/dL (6.4-8.2)
--- NOTE | 2024-10-01 09:37 | RAD REPORT ---
EXAMINATION: Abdomen Pelvis Wo Contrast CLINICAL INDICATION: Female, 24 years old.L flank pain, severe TECHNIQUE: CT abdomen and pelvis was performed, without IV contrast, as per department protocol. Axia l, sagittal and coronal reconstructions were obtained. One or more of the following dose reduction techniques were used: Automated exposure control, adjustment of the mA and/or kV according to the pat ient size, and/or iterative reconstruction. Unless otherwise specified, incidental findings do not require dedicated imaging follow-up. [id number]. IV CONTRAST: Not administered. COMPARISON: 12/24/2022 FINDINGS: The lack of intravenous contrast limits the sensitivity of this exam for evaluation of solid visceral organs, vascular structures, and retroperitoneum. LOWER CHEST: No acute process identified.No significant pericardial effusion. UPPER GI: No significant abnormality. LIVER: No significant focal abnormality. GALLBLADDER/BILE DUCTS: No biliary ductal dilatation.? PANCREAS: No mass, ductal dilation, or tri-pancreatic fluid. SPLEEN: Unremarkable. ADRENALS: No adrenal masses. KIDNEYS AND URETERS: No hydronephrosis.Limited evaluation for renal lesions in the absence of IV cont rast.Left-sided urothelial thickening without obstructing stone.No renal calculi. ABDOMINAL AORTA AND OTHER VESSELS: Normal caliber aorta and IVC. PERITONEUM: No abnormal free fluid. No free air. LYMPH NODES: No pathologic lymphadenopathy. ABDOMINAL WALL: Unremarkable SMALL BOWEL/COLON: Small bowel has normal course and caliber. No colonic wall thickening or pericolon ic inflammatory changes. URINARY BLADDER: Underdistended but grossly unremarkable. REPRODUCTIVE ORGANS: No pathologic process. MUSCULOSKELETAL: No acute or suspicious osseous abnormality. ADDITIONAL FINDINGS: None. IMPRESSION: Left-sided urothelial thickening without obstructing stone could be secondary to an ascending urinary tract infection. No hydronephrosis.
--- NOTE | 2024-10-01 09:42 | ER ---
Nurse's Notes [facility] Name: Saba Mcgovern Age: 24 yrs Sex: Female : 2000 Arrival Date: 10/01/2024 Time: 07:31 Bed 12 Private MD: Diagnosis: Pyelonephritis acute Presentation: 10/01 07:45 Chief complaint: Patient states: LLQ pain radiating to left lower back. Urinary ld1 frequency, burning, N/V X 2 days. Pt has significant other with her - giving permission to translate/sign for patient, does not want to use equipment tech. Coronavirus screen: At this time, the client does not indicate any symptoms associated with coronavirus-19. Ebola Screen: No symptoms or risks identified at this time. Initial Sepsis Screen: Does the patient meet any 2 criteria? No. Patient's initial sepsis screen is negative. Does the patient have a suspected source of infection? No. Patient's initial sepsis screen is negative. Risk Assessment: Do you want to hurt yourself or someone else? Patient reports no desire to harm self or others. Onset of symptoms was October 01, 2024. 07:45 Method Of Arrival: Ambulatory ld1 07:45 Acuity: RICHI 3 ld1 Triage Assessment: 07:47 General: Appears in no apparent distress. comfortable, Behavior is calm, cooperative, ld1 appropriate for age. Pain: Complains of pain in left lower quadrant Pain does not radiate. Pain currently is 8 out of 10 on a pain scale. Quality of pain is described as throbbing, Pain began suddenly, Is continuous. EENT: No signs and/or symptoms were reported regarding the EENT system. Neuro: Level of Consciousness is awake, alert, obeys commands, Oriented to person, place, time, situation. Cardiovascular: Capillary refill < 3 seconds Patient's skin is warm and dry. Respiratory: Airway is patent Respiratory effort is even, unlabored. GI: Abdomen is flat, non-distended. : No signs and/or symptoms were reported regarding the genitourinary system. Derm: No signs and/or symptoms reported regarding the dermatologic system. Musculoskeletal: No signs and/or symptoms reported regarding the musculoskeletal system. Historical: - Allergies: 07:47 No Known Allergies; ld1 - PMHx: 07:47 ADD/ADHD; Anxiety; hearing impared; ld1 - PSHx: 07:47 cochlear implant; ld1 - Immunization history:: Adult Immunizations up to date. - Infectious Disease History:: Denies. - Social history:: Smoking status: Patient denies any tobacco usage or history of. Screenin:23 [facility] ED Fall Risk Assessment (Adult) History of falling in the last 3 months, bp including since admission No falls in past 3 months (0 pts) Confusion or Disorientation No (0 pts) Intoxicated or Sedated No (0 pts) Impaired Gait No (0 pts) Mobility Assist Device Used No (0 pt) Altered Elimination No (0 pt) Score/Fall Risk Level 0 - 2 = Low Risk Oriented to surroundings. Abuse screen: Denies threats or abuse. Denies injuries from another. Nutritional screening: No deficits noted. Tuberculosis screening: No symptoms or risk factors identified. 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 hb 08:36 General: Appears in no apparent distress. Behavior is calm, cooperative. Pain: Pain hb currently is 8 out of 10 on a pain scale. Neuro: Level of Consciousness is awake, alert, obeys commands, Oriented to person, place, time, situation. Cardiovascular: Patient's skin is warm and dry. Respiratory: Respiratory effort is even, unlabored, Respiratory pattern is regular, symmetrical. GI: Reports nausea, left flank pain. : Reports dysuria. EENT: No signs and/or symptoms were reported regarding the EENT system. Derm: Skin is pink, warm \T\ dry. Musculoskeletal: No signs and/or symptoms reported regarding the musculoskeletal system. Vital Signs: 07:45 BP 125 / 76; Pulse 98; Resp 18; Temp 98.1(TE); Pulse Ox 100% on R/A; Weight 58.97 kg; ld1 Height 5 ft. 2 in. ; Pain 8/10; 07:45 Body Mass Index 23.78 (58.97 kg, 157.48 cm) ld1 07:45 Pain Scale: Adult ld1 ED Course: 07:35 Patient arrived in ED. im 07:38 Govind Ryder MD is Attending Physician. jr11 07:47 Triage completed. ld1 07:47 Arm band placed on right wrist. ld1 08:32 Initial lab(s) drawn, by me, sent to lab. Urine collected: clean catch specimen, clear. hb Inserted saline lock: 22 gauge in right antecubital area, using aseptic technique. Blood collected. Flushed with 10 mL NS. 08:33 Veronica Avina, RN is Primary Nurse. hb 08:35 CBC with Diff Sent. hb 08:35 CMP Sent. hb 08:35 Lipase Sent. hb 08:35 Test, Urine Sent. hb 08:35 Urinalysis w/ reflexes Sent. hb 09:06 CT Abd/Pelvis - Without Contrast In Process Unspecified. EDMS 10:22 Patient has correct armband on for positive identification. bp 10:22 No provider procedures requiring assistance completed. IV discontinued, intact, bp bleeding controlled, No redness/swelling at site. Pressure dressing applied. Administered Medications: 08:36 Drug: Ondansetron IVP 4 mg IVP once; over 2 minutes Route: IVP; Site: right antecubital;hb 10:24 Follow up: Response: No adverse reaction bp 08:36 Drug: morphine IVP or IV 4 mg IVP once over 4 mins Route: IVP; Infused Over: 4 mins; hb Site: right antecubital; 10:24 Follow up: Response: No adverse reaction bp 08:36 Drug: NS 0.9% IV 1000 ml IV at 1 bolus Per protocol; to be given as a bolus over 60 hb minutes Route: IV; Rate: 1 bolus; Site: right antecubital; 10:24 Follow up: IV Status: Completed infusion bp Outcome: 09:41 Discharge ordered by MD. vogt 10:22 Discharged to home ambulatory, with family, bp 10:22 Condition: stable 10:22 Discharge instructions given to patient, family, Instructed on discharge instructions, follow up and referral plans. medication usage, Demonstrated understanding of instructions, follow-up care, medications, Prescriptions given X 3, 10:23 Patient left the ED. hb Signatures: Dispatcher [employer] EDHI Veronica Avina, RN RN Lexa Vela RN RN bp Christine Burch RN RN ld1 Govind Ryder MD MD jr11 Lisa Ferrell Corrections: (The following items were deleted from the chart) 07:48 07:47 Allergies: Aspirin; ld1 ld1
--- NOTE | 2024-10-01 09:42 | EDPHYS ---
Physician Documentation [facility] Name: Saba Mcgovern Age: 24 yrs Sex: Female : 2000 Arrival Date: 10/01/2024 Time: 07:31 Bed 12 Private MD: ED Physician Govind Ryder HPI: 10/01 07:49 Patient is a 24-year-old hearing-impaired with history of UTI about 1 month ago here jr11 with severe 11 out of 10 for her left-sided flank pain radiating to her back. Patient also with 4 episodes of emesis with nausea. Patient states the pain feels similar to last month but worse. Patient otherwise with negative review of system. 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 Historical: - Allergies: 07:47 No Known Allergies; ld1 - PMHx: 07:47 ADD/ADHD; Anxiety; hearing impared; ld1 - PSHx: 07:47 cochlear implant; ld1 - Immunization history:: Adult Immunizations up to date. - Infectious Disease History:: Denies. - Social history:: Smoking status: Patient denies any tobacco usage or history of. Exam: 07:49 Constitutional: This is a well developed, well nourished patient who is awake, alert, jr11 and in no acute distress. Head/Face: Normocephalic, atraumatic. Eyes: Extra-ocular motions intact. Lids and lashes normal. Conjunctiva and sclera are non-icteric and not injected. Cornea within normal limits. Periorbital areas with no swelling, redness, or edema. Chest/axilla: Normal chest wall appearance and motion. Nontender with no deformity. No lesions are appreciated. Cardiovascular: Regular rate and rhythm with a normal S1 and S2. No gallops, murmurs, or rubs. Normal PMI, no JVD. No pulse deficits. Respiratory: Lungs have equal breath sounds bilaterally, clear to auscultation and percussion. No rales, rhonchi or wheezes noted. No increased work of breathing, no retractions or nasal flaring. Abdomen/GI: TTP LLQ, no peritoneal signs Skin: Warm, dry with normal turgor. Normal color with no rashes, no lesions, and no evidence of cellulitis. MS/ Extremity: Pulses equal, no cyanosis. Neurovascular intact. Full, normal range of motion. Vital Signs: 07:45 BP 125 / 76; Pulse 98; Resp 18; Temp 98.1(TE); Pulse Ox 100% on R/A; Weight 58.97 kg; ld1 Height 5 ft. 2 in. ; Pain 8/10; 07:45 Body Mass Index 23.78 (58.97 kg, 157.48 cm) ld1 07:45 Pain Scale: Adult ld1 MDM: 07:46 Medical Screening Exam initiated 07:49 Differential diagnosis: bowel obstruction, diverticulitis, Ectopic , urinary jr11 tract infection, pyelo, denies vaginal DC or concern PID. 09:40 ED course: CT interpreted by me shows concern for pyelonephritis, will treat with [facility] cefaclor. ER warnings given all results explained. Patient hemodynamically normal, should be fine to go outpatient. No sign of endorgan dysfunction. 10/01 07:48 Order name: CBC with Diff; Complete Time: 09:37 [facility] 10/01 07:48 Order name: CMP; Complete Time: 09:37 10/01 07:48 Order name: Lipase; Complete Time: 09:37 10/01 07:48 Order name: Test, Urine; Complete Time: 09:37 10/01 07:48 Order name: Urinalysis w/ reflexes; Complete Time: 09:37 10/01 08:58 Order name: Urine Culture EDCT 10/01 07:48 Order name: CT Abd/Pelvis - Without Contrast; Complete Time: 09:37 10/01 07:48 Order name: IV Saline Lock; Complete Time: 08:35 10/01 07:48 Order name: Labs collected and sent; Complete Time: 08:35 Administered Medications: 08:36 Drug: Ondansetron IVP 4 mg IVP once; over 2 minutes Route: IVP; Site: right antecubital;hb 10:24 Follow up: Response: No adverse reaction bp 08:36 Drug: morphine IVP or IV 4 mg IVP once over 4 mins Route: IVP; Infused Over: 4 mins; hb Site: right antecubital; 10:24 Follow up: Response: No adverse reaction bp 08:36 Drug: NS 0.9% IV 1000 ml IV at 1 bolus Per protocol; to be given as a bolus over 60 hb minutes Route: IV; Rate: 1 bolus; Site: right antecubital; 10:24 Follow up: IV Status: Completed infusion bp Disposition Summary: 10/01/24 09:41 Discharge Ordered Notes: Location: Home [facility] Condition: Stable jr Diagnosis - Pyelonephritis acute jr11 Discharge Instructions: - Discharge Summary Sheet jr11 - Pyelonephritis, Adult [facility] Forms: - Medication Reconciliation Form jr11 - Antibiotic Education jr11 - Prescription Opioid Use jr - Patient Portal Instructions [facility] - Leadership Thank You Letter jr Prescriptions: - cefaclor 250 mg Oral capsule - take 1 capsule ORAL route every 8 hours; 30 capsule; Refills: 0, Product [facility] Selection Permitted - Zofran 4 mg Oral Tablet - take 1 tablet ORAL route every 12 hours As needed; 20 tablet; Refills: 0, [facility] Product Selection Permitted - Tylenol-Codeine #3 300mg-30mg Oral tablet - take 1 tablet ORAL route every 4 hours As needed; 12 tablet; Refills: 0, [facility] Product Selection Permitted Signatures: Dispatcher [employer] EDVeronica Hilliard RN RN Christine Burch RN RN ld1 Govind Ryder MD MD jr11 Lexa Cary RN bp Corrections: (The following items were deleted from the chart) 07:48 07:47 Allergies: Aspirin; ld1 ld1
[2024-10-01 10:33] VITALS: BP 125/76; TEMP 98.1; O2SAT 100
== END 2024-10-01 10:23 | disposition home or self-care (01) ==
LOC: ER 07:31
DX: N10 Acute pyelonephritis (principal)
CPT/HCPCS: 87088; 85025; 81001; 87086; 36415; 81025; 83690; 80053; 74176; J2405; J7030; 87077; 87186; 96361; 96374; 96375; 99284

== ENCOUNTER 2025-03-26 20:17 | Emergency (ER) | payer OTHER ==
--- OUTSIDE RECORDS SUMMARY | 2025-03-26 20:28 | XMS REPORT | Continuity of Care Document ---
Author Name Unknown Address [address] [place] [address] [facility] Address [address] [place] [address] Care Team Providers Care Crusher Tender Name Role Phone IGNACIO BERMAN Primary Care Physician LAURA Leon Attending Clinician LAURA Bateman Attending Clinician Laura Bateman MD Attending Clinician + [phone] NARENDRA NIEVES Attending Clinician Unavailable Doctor Unassigned, [place] Attending Clinician U Molly Hoover PA-C Attending Clinician [phone] Narendra Nieves DNP Attending Clinician [phone] Doctor Unassigned, [place] Attending Clinician U navailable JANETT MEAD Attending Clinician Unavaila kati MEAD, JANETT Attending Clinician Unavaila IGNACIO Talbert Attending Clinician Unavailable XAVI LEONARD Attending Clinician Unavailable Nurse, Jd Rivers Attending Clinician Unavailable Roldan SUBRAMANIAN, Xavi Attending Clinician [phone] MOLLY REYNOLDS Attending Clinician Unavailab le Lab, Ang - Db Attending Clinician Unavailable Antonella SOIL TESTER, Ignacio Attending Clinician [phone] LINDA LI Attending Clinician Unavailable Veronica Gentile MA Attending Clinician UnavailLinda Terry MD Attending Clinician [phone] Mayela Bocanegra MD Attending Clinician + [phone] LEIGHA RAUSCH Attending Clinician Unavailabl jaja Rausch SOIL TESTER, Leigha Attending Clinician [phone] Nurse, [facility] Attending Clinician Unavailable Only, Ang Db Test Attending Clinician UnavailDelia Dinh Attending Clinician + [phone] DELIA BRADFORD Attending Clinician Unavailab Trupti Shirley RN Attending Clinician Unavailable Mayra Tse MD Attending Clinician [phone] Cyndee Kenny MD Attending Clinician [phone] Pob, [facility] Main Attending Clinician Unavailjusto wilkinson Lab, [facility] Fam Pob I Attending Clinician UnavailDena Damon Attending Clinician [phone] DENA GILMORE Attending Clinician Unavailable Omagchristian LINCOLN Omaycrystal Attending Clinician [phone] MICHAEL PINTO Attending Clinician Unavailjusto Golden MD, Lisa Attending Clinician [phone] Pc, [facility] Echo Room 1 - Attending Clinician Unavai lable Visit, Ad[facility] Nurse Attending Clinician Unavailable 2, [facility] Lab Attending Clinician Unavailable LISA GOLDEN Attending Clinician Unavailable CYNDEE KENNY Attending Clinician Unavail able Eder Barrera PTA Attending Clinician Unavaila kati Doss MD, Musa Szymanski Attending Clinician [phone] Missy Barrera PTA Attending Clinician Unavail able Ila Rebolledo PT Attending Clinician Un available Jason SUBRAMANIAN, Saba Attending Clinician [phone] Farhad Angeles Attending Clinician [phone] JANETT MEAD Admitting Clinician Unavaila LINDA Blake Admitting Clinician Unavailable Payers Payer Name Policy Type Policy Number Effective Date Expirati on Date Source [facility] DUAL COMP HMO-POS D SNP [id number] 2024 00:00:00 [facility] [place] [employer] [id number] 2021 00:00:00 2021 00:00:00 Problems Condition Name Condition Details Condition Category Status Onset Date Resolution Date Last Treatment Date Treating Clinician Comments Source Encounter for routine checking of intrauteri ne contracept lanre device (IUD) Encounter for routine checking of intrauteri ne contracept lanre device (IUD) Disease Active 07-03 00:00: 00 [facility] Retroverte d uterus Retroverte d uterus Disease Active 2022-06 0 00:00: 00 [facility] Sensorineu ral hearing loss (SNHL) of both ears Sensorineu ral hearing loss (SNHL) of both ears Disease Active 07-15 00:00: 00 [facility] Attention deficit hyperactiv ity disorder (ADHD), combined type Attention deficit hyperactiv ity disorder (ADHD), combined type Disease Active 07-15 00:00: 00 [facility] Absence of menstruati on Absence of menstruati on Disease Resolve d 2022-06 0- 00:00: 00 2024-07-13 00:00:00 2024-07-13 15:40:15 [facility] Cyst of right ovary Cyst of right ovary Disease Resolve d 2022-06 0- 00:00: 00 2024-07-13 00:00:00 2024-07-13 15:40:09 [facility] Depo-Prove ra contracept lanre status Depo-Prove ra contracept lanre status Disease Resolve d 2022-06 0-09 00:00: 00 2024-07-13 00:00:00 2024-07-13 15:40:10 [facility] Routine gynecologi angelica examinatio n Routine gynecologi angelica examinatio n Disease Resolve d 08-13 00:00: 00 2024-07-13 00:00:00 2024-07-13 15:40:01 [facility] Pap smear of cervix not needed Pap smear of cervix not needed Disease Resolve d 08-13 00:00: 00 2024-07-13 00:00:00 2024-07-13 15:40:03 [facility] Vaginal discharge Vaginal discharge Disease Resolve d 08-13 00:00: 00 2024-07-13 00:00:00 2024-07-13 15:40:04 [facility] Allergies, Adverse Reactions, Alerts Allergy Name Allergy Type Status Severity Reaction(s) Onset Date Inactive Date Treating Clinician Comments Source NO KNOWN ALLERGIE S Drug Class Active [facility] Social History Social Habit Start Date Stop Date Quantity Comments Source History SDOH Alcohol Frequency [facility] History SDOH Alcohol Std Drinks [facility] History SDOH Alcohol Binge [facility] Gender [facility] of Social function 2024-07-30 00:00:00 2024-07-30 00:00:00 [facility] Alcoholic beverage intake 2024-07-13 00:00:00 2024-07-13 00:00:00 .29 /d [facility] Alcohol intake 2023-07-03 00:00:00 2023-07-03 00:00:00 .29 /d [facility] Exposure to SARS-CoV-2 (event) 2022-09-21 00:00:00 2022-10-01 12:41:00 Not sure [facility] Tobacco use and exposure 2022-02-12 00:00:00 2022-02-12 00:00:00 Smokeless tobacco non-user [facility] Alcohol Comment 2021-08-13 00:00:00 2021-08-13 00:00:00 1 to 2 cans a week [facility] Sex assigned at 2000 00:00:00 2000 00:00:00 [facility] Smoking Status Start Date Stop Date Source Never smoked tobacco [facility] Medications Ordered Medication Name Filled Medication Name Start Date Stop Date Current Medication? Ordering Clinician Indication Dosage Frequency Signature (SIG) Comments Components Source metroNIDAZO LE 500 mg tablet 07-15 00:00: 00 Yes [id number] 500mg Take 1 tablet by mouth every 12 (twelve) hours. [facility] fluconazole (DIFLUCAN) 150 mg tablet 07-15 00:00: 00 07-16 05:59 :00 No [id number] 150mg Take 1 tablet by mouth once now for 1 dose. [facility] buPROPion XL 150 mg 24 hr tablet 2023-06 00:00: 00 Yes TAKE ONE (1) TABLET(S) BY MOUTH IN THE MORNING. [facility] fluconazole 150 mg tablet 09-15 00:00: 00 09-16 04:59 :00 No [id number] 150mg Take 1 tablet by mouth once now for 1 dose. [facility] levonorgest reL (MIRENA) IUD 1 Device 2022-06 18:30: 00 06-03 17:41 :00 No [id number] 1{devic e} [facility] miSOPROStoL 200 mcg tablet 2022-06 00:00: 00 07-03 00:00 :00 No [id number] Take one by mouth the night before your procedure and then take one by mouth the morning of your procedure. [facility] miSOPROStoL 200 mcg tablet 2022-06 1- 00:00: 00 07-03 00:00 :00 No [id number] Take one tablet the night before IUD insertion procedure and take one tablet the morning of the IUD insertion procedure. This is not for abortive treatment; patient will have IUD insertion. [facility] sucralfate 1 gram tablet 2022-06 0-05 00:00: 00 07-13 00:00 :00 No 1g Take 1 tablet by mouth in the morning and 1 tablet at noon and 1 tablet in the evening. [facility] medroxyPROG ESTERone (DEPO-PROVE RA) injection 150 mg 9-06 17:15: 00 02-19 16:17 :00 No [id number] 150mg [facility] medroxyPROG ESTERone (DEPO-PROVE RA) injection 150 mg 6- 15:45: 00 12-04 14:49 :00 No [id number] [facility] EC tablet 4-11 00:00: 00 Yes [id number] 40mg Take 1 tablet by mouth in the morning. [facility] medroxyPROG ESTERone (DEPO-PROVE RA) injection 150 mg 3-30 16:00: 00 09-12 15:05 :00 No [id number] 150mg [facility] methylpheni date HCl (QUILLICHEW ER) 30 mg cb24 1-11 00:00: 00 09-24 00:00 :00 No [id number] 1{tbl} Take 1 tablet by mouth daily. [facility] medroxyPROG ESTERone (DEPO-PROVE RA) injection 150 mg 2021-06 2-30 18:15: 00 06-14 17:22 :00 No [id number] [facility] pantoprazol e 40 mg EC tablet 2021-06 2-29 00:00: 00 09-24 00:00 :00 No 40mg Take 1 tablet by mouth in the morning. [facility] medroxyPROG ESTERone (DEPO-PROVE RA) injection 150 mg 2021-06 0-11 14:15: 00 03-26 13:37 :00 No [id number] 150mg [facility] methylpheni date HCl (QUILLICHEW ER) 30 mg cb24 2021-06 0-11 00:00: 00 06-26 00:00 :00 No [id number] 1{tbl} Take 1 tablet by mouth daily. [facility] ibuprofen 600 mg tablet 8-24 00:00: 00 Yes [id number] 600mg Take 1 tablet by mouth every 8 (eight) hours as needed (pain). [facility] fluticasone propionate 50 mcg/actuati on nasal spray 01-01 00:00: 00 Yes [id number] 2{spray } Use 2 Sprays in each nostril in the morning and 2 Sprays in the evening. [facility] cetirizine (ZYRTEC) 10 mg tablet 01-01 00:00: 00 07-13 00:00 :00 No [id number] Take 1 po qhs for allergies [facility] methylpheni date HCl (QUILLICHEW ER) 30 mg cb24 01-01 00:00: 00 03-26 00:00 :00 No [id number] 1{tbl} Take 1 tablet by mouth daily. [facility] triamcinolo ne acetonide 0.1 % ointment - 00:00: 00 07-30 00:00 :00 No [id number] Apply to area(s) 2 (two) times daily. [facility] benzonatate 100 mg capsule 2020-06 0- 00:00: 00 01-01 00:00 :00 No [id number] 200mg Take 2 capsules by mouth 2 (two) times daily as needed for Cough. [facility] methylpheni date HCl (QUILLICHEW ER) 30 mg cb24 - 00:00: 00 03-20 00:00 :00 No [id number] 1{tbl} Take 1 tablet by mouth daily. [facility] bromphenira mine-pseudo ephedrine-D M (BROMFED DM) 2-30-10 mg/5 mL syrup - 00:00: 00 08-14 00:00 :00 No [id number] 5mL Take 5 mL by mouth 3 (three) times daily as needed for Congestion /Allergies or Cold symptoms. [facility] Biotin 2,500 mcg Cap 2019-06 0-21 00:00: 00 07-30 00:00 :00 No [id number] Take 1 po QD for 4-6 months [facility] dexmethylph enidate 40 mg MP50 7-29 00:00: 00 02-06 00:00 :00 No [id number] 40mg Take 40 mg by mouth daily. [facility] Cetirizine 10 mg capsule 3- 00:00: 09-16 04:59 :00 No [id number] 10mg Take 1 capsule by mouth daily for 30 days. [facility] oseltamivir (TAMIFLU) 75 mg capsule 3 00:00: 00 08-27 04:59 :00 No [id number] 75mg Take 1 capsule by mouth daily for 10 days. [facility] lisdexamfet amine (VYVANSE) 50 mg capsule 2- 00:00: 10-04 00:00 :00 No [id number] 50mg Take 1 capsule by mouth every morning. [facility] biotin 5,000 mcg TbDL 2-17 00:00: 04-05 00:00 :00 No [id number] 5000ug Take 5,000 mcg by mouth daily. [facility] bromphenira mine-pseudo ephedrine-D M (BROMFED DM) 2-30-10 mg/5 mL syrup 1-30 00:00: 00 05-16 00:00 :00 No [id number] 10mL Take 10 mL by mouth 4 (four) times daily as needed for Congestion /Allergies . [facility] diclofenac 75 mg EC tablet 2018-06 2-20 00:00: 00 01-25 00:00 :00 No 75mg Take 1 tablet by mouth 2 (two) times daily with meals. [facility] dexmethylph enidate 40 mg MP50 2018-06 2-05 00:00: 00 10-04 00:00 :00 No [facility] clobetasol 0.05 % external solution 2017-06 00:00: 00 01-25 00:00 :00 No [id number] Apply to area(s) 2 (two) times daily as needed (hair loss on scalp only. Stop when hairloss resolves. Not for face, groin or underarms. ). [facility] tretinoin 0.05 % cream 2017-06 00:00: 00 01-25 00:00 :00 No [id number] Apply to affected area(s) at bedtime. [facility] Minoxidil 5 % Soln 2017-06 00:00: 00 01-25 00:00 :00 No [id number] Apply to area(s) every 24 (twenty-fo ur) hours as needed (hairloss) . [facility] clindamycin 1 % gel 2017-06 00:00: 00 01-25 00:00 :00 No [id number] Apply to affected area(s) every morning. [facility] Immunizations Ordered Immunization Name Filled Immunization Name Date Status Comments Source DTAP 2024-02-03 00:00:00 Completed [facility] HIB 3 Dose Schedule 2024-02-03 00:00:00 Completed [facility] HEPATITIS A 2024-02-03 00:00:00 Completed [facility] Hep B, Adol or Pedi Dosage 2024-02-03 00:00:00 Completed [facility] HPV 2024-02-03 00:00:00 Completed [facility] Meningococcal Vaccine 2024-02-03 00:00:00 Completed [facility] MMR 2024-02-03 00:00:00 Completed [facility] Polio (IPV/OPV) 2024-02-03 00:00:00 Completed [facility] TDAP 2024-02-03 00:00:00 Completed [facility] Varicella (varivax)(chicken pox) 2024-02-03 00:00:00 Completed [facility] Pneumococcal 13 Conjugate, PCV13 (Prevnar 13) 2024-02-03 00:00:00 Completed [facility] Influenza Virus Vaccine Quad IM, Preserv and ABX Free 6 MO-64 YRS (FLUCELVAX) 2024-02-03 00:00:00 Completed [facility] DTaP, Unspecified Formulation 2024-02-03 00:00:00 Completed [facility] HIB 4 Dose Schedule 2024-02-03 00:00:00 Completed [facility] Meningococcal Polysaccharide (groups A, C, Y and W-135) conjugate vaccine (MCV4P) 2024-02-03 00:00:00 Completed [facility] IPV 2024-02-03 00:00:00 Completed [facility] DTAP 2023-09-16 00:00:00 Completed [facility] HIB 3 Dose Schedule 2023-09-16 00:00:00 Completed [facility] HEPATITIS A 2023-09-16 00:00:00 Completed [facility] Hep B, Adol or Pedi Dosage 2023-09-16 00:00:00 Completed [facility] HPV 2023-09-16 00:00:00 Completed [facility] Meningococcal Vaccine 2023-09-16 00:00:00 Completed [facility] MMR 2023-09-16 00:00:00 Completed [facility] Polio (IPV/OPV) 2023-09-16 00:00:00 Completed [facility] TDAP 2023-09-16 00:00:00 Completed [facility] Varicella (varivax)(chicken pox) 2023-09-16 00:00:00 Completed [facility] Pneumococcal 13 Conjugate, PCV13 (Prevnar 13) 2023-09-16 00:00:00 Completed [facility] Influenza Virus Vaccine Quad IM, Preserv and ABX Free 6 MO-64 YRS (FLUCELVAX) 2023-09-16 00:00:00 Completed [facility] DTaP, Unspecified Formulation 2023-09-16 00:00:00 Completed [facility] HIB 4 Dose Schedule 2023-09-16 00:00:00 Completed [facility] Meningococcal Polysaccharide (groups A, C, Y and W-135) conjugate vaccine (MCV4P) 2023-09-16 00:00:00 Completed [facility] IPV 2023-09-16 00:00:00 Completed [facility] HPV 2023-09-15 16:30:00 Completed [facility] Varicella (varivax)(chicken pox) 2023-09-15 16:30:00 Completed [facility] Influenza Virus Vaccine Quad IM, Preserv and ABX Free 6 MO-64 YRS (FLUCELVAX) 2023-09-15 16:30:00 Completed [facility] Meningococcal Polysaccharide (groups A, C, Y and W-135) conjugate vaccine (MCV4P) 2023-09-15 16:30:00 Completed [facility] DTAP 2023-09-15 16:30:00 Completed [facility] HIB 3 Dose Schedule 2023-09-15 16:30:00 Completed [facility] HEPATITIS A 2023-09-15 16:30:00 Completed [facility] Hep B, Adol or Pedi Dosage 2023-09-15 16:30:00 Completed [facility] Meningococcal Vaccine 2023-09-15 16:30:00 Completed [facility] MMR 2023-09-15 16:30:00 Completed [facility] Polio (IPV/OPV) 2023-09-15 16:30:00 Completed [facility] TDAP 2023-09-15 16:30:00 Completed [facility] Pneumococcal 13 Conjugate, PCV13 (Prevnar 13) 2023-09-15 16:30:00 Completed [facility] DTaP, Unspecified Formulation 2023-09-15 16:30:00 Completed [facility] HIB 4 Dose Schedule 2023-09-15 16:30:00 Completed [facility] IPV 2023-09-15 16:30:00 Completed [facility] DTAP 2023-09-10 00:00:00 Completed [facility] HIB 3 Dose Schedule 2023-09-10 00:00:00 Completed [facility] HEPATITIS A 2023-09-10 00:00:00 Completed [facility] Hep B, Adol or Pedi Dosage 2023-09-10 00:00:00 Completed [facility] HPV 2023-09-10 00:00:00 Completed [facility] Meningococcal Vaccine 2023-09-10 00:00:00 Completed [facility] MMR 2023-09-10 00:00:00 Completed [facility] Polio (IPV/OPV) 2023-09-10 00:00:00 Completed [facility] TDAP 2023-09-10 00:00:00 Completed [facility] Varicella (varivax)(chicken pox) 2023-09-10 00:00:00 Completed [facility] Pneumococcal 13 Conjugate, PCV13 (Prevnar 13) 2023-09-10 00:00:00 Completed [facility] Influenza Virus Vaccine Quad IM, Preserv and ABX Free 6 MO-64 YRS (FLUCELVAX) 2023-09-10 00:00:00 Completed [facility] DTaP, Unspecified Formulation 2023-09-10 00:00:00 Completed [facility] HIB 4 Dose Schedule 2023-09-10 00:00:00 Completed [facility] Meningococcal Polysaccharide (groups A, C, Y and W-135) conjugate vaccine (MCV4P) 2023-09-10 00:00:00 Completed [facility] IPV 2023-09-10 00:00:00 Completed [facility] HPV 2023-07-03 16:00:00 Completed [facility] Varicella (varivax)(chicken pox) 2023-07-03 16:00:00 Completed [facility] Influenza Virus Vaccine Quad IM, Preserv and ABX Free 6 MO-64 YRS (FLUCELVAX) 2023-07-03 16:00:00 Completed [facility] Meningococcal Polysaccharide (groups A, C, Y and W-135) conjugate vaccine (MCV4P) 2023-07-03 16:00:00 Completed [facility] DTAP 2023-07-03 16:00:00 Completed [facility] HIB 3 Dose Schedule 2023-07-03 16:00:00 Completed [facility] HEPATITIS A 2023-07-03 16:00:00 Completed [facility] Hep B, Adol or Pedi Dosage 2023-07-03 16:00:00 Completed [facility] Meningococcal Vaccine 2023-07-03 16:00:00 Completed [facility] MMR 2023-07-03 16:00:00 Completed [facility] Polio (IPV/OPV) 2023-07-03 16:00:00 Completed [facility] TDAP 2023-07-03 16:00:00 Completed [facility] Pneumococcal 13 Conjugate, PCV13 (Prevnar 13) 2023-07-03 16:00:00 Completed [facility] DTaP, Unspecified Formulation 2023-07-03 16:00:00 Completed [facility] HIB 4 Dose Schedule 2023-07-03 16:00:00 Completed [facility] IPV 2023-07-03 16:00:00 Completed [facility] HPV 2023-06-03 11:00:00 Completed [facility] Varicella (varivax)(chicken pox) 2023-06-03 11:00:00 Completed [facility] Influenza Virus Vaccine Quad IM, Preserv and ABX Free 6 MO-64 YRS (FLUCELVAX) 2023-06-03 11:00:00 Completed [facility] Meningococcal Polysaccharide (groups A, C, Y and W-135) conjugate vaccine (MCV4P) 2023-06-03 11:00:00 Completed [facility] DTAP 2023-06-03 11:00:00 Completed [facility] HIB 3 Dose Schedule 2023-06-03 11:00:00 Completed [facility] HEPATITIS A 2023-06-03 11:00:00 Completed [facility] Hep B, Adol or Pedi Dosage 2023-06-03 11:00:00 Completed [facility] Meningococcal Vaccine 2023-06-03 11:00:00 Completed [facility] MMR 2023-06-03 11:00:00 Completed [facility] Polio (IPV/OPV) 2023-06-03 11:00:00 Completed [facility] TDAP 2023-06-03 11:00:00 Completed [facility] Pneumococcal 13 Conjugate, PCV13 (Prevnar 13) 2023-06-03 11:00:00 Completed [facility] DTaP, Unspecified Formulation 2023-06-03 11:00:00 Completed [facility] HIB 4 Dose Schedule 2023-06-03 11:00:00 Completed [facility] IPV 2023-06-03 11:00:00 Completed [facility] DTAP 2023-06-03 00:00:00 Completed [facility] HIB 3 Dose Schedule 2023-06-03 00:00:00 Completed [facility] HEPATITIS A 2023-06-03 00:00:00 Completed [facility] Hep B, Adol or Pedi Dosage 2023-06-03 00:00:00 Completed [facility] HPV 2023-06-03 00:00:00 Completed [facility] Meningococcal Vaccine 2023-06-03 00:00:00 Completed [facility] MMR 2023-06-03 00:00:00 Completed [facility] Polio (IPV/OPV) 2023-06-03 00:00:00 Completed [facility] TDAP 2023-06-03 00:00:00 Completed [facility] Varicella (varivax)(chicken pox) 2023-06-03 00:00:00 Completed [facility] Pneumococcal 13 Conjugate, PCV13 (Prevnar 13) 2023-06-03 00:00:00 Completed [facility] Influenza Virus Vaccine Quad IM, Preserv and ABX Free 6 MO-64 YRS (FLUCELVAX) 2023-06-03 00:00:00 Completed [facility] DTaP, Unspecified Formulation 2023-06-03 00:00:00 Completed [facility] HIB 4 Dose Schedule 2023-06-03 00:00:00 Completed [facility] Meningococcal Polysaccharide (groups A, C, Y and W-135) conjugate vaccine (MCV4P) 2023-06-03 00:00:00 Completed [facility] IPV 2023-06-03 00:00:00 Completed [facility] DTAP 2023-05-06 00:00:00 Completed [facility] HIB 3 Dose Schedule 2023-05-06 00:00:00 Completed [facility] HEPATITIS A 2023-05-06 00:00:00 Completed [facility] Hep B, Adol or Pedi Dosage 2023-05-06 00:00:00 Completed [facility] HPV 2023-05-06 00:00:00 Completed [facility] Meningococcal Vaccine 2023-05-06 00:00:00 Completed [facility] MMR 2023-05-06 00:00:00 Completed [facility] Polio (IPV/OPV) 2023-05-06 00:00:00 Completed [facility] TDAP 2023-05-06 00:00:00 Completed [facility] Varicella (varivax)(chicken pox) 2023-05-06 00:00:00 Completed [facility] Pneumococcal 13 Conjugate, PCV13 (Prevnar 13) 2023-05-06 00:00:00 Completed [facility] Influenza Virus Vaccine Quad IM, Preserv and ABX Free 6 MO-64 YRS (FLUCELVAX) 2023-05-06 00:00:00 Completed [facility] DTaP, Unspecified Formulation 2023-05-06 00:00:00 Completed [facility] HIB 4 Dose Schedule 2023-05-06 00:00:00 Completed [facility] Meningococcal Polysaccharide (groups A, C, Y and W-135) conjugate vaccine (MCV4P) 2023-05-06 00:00:00 Completed [facility] IPV 2023-05-06 00:00:00 Completed [facility] DTAP 2023-05-06 00:00:00 Completed [facility] HIB 3 Dose Schedule 2023-05-06 00:00:00 Completed [facility] HEPATITIS A 2023-05-06 00:00:00 Completed [facility] Hep B, Adol or Pedi Dosage 2023-05-06 00:00:00 Completed [facility] HPV 2023-05-06 00:00:00 Completed [facility] Meningococcal Vaccine 2023-05-06 00:00:00 Completed [facility] MMR 2023-05-06 00:00:00 Completed [facility] Polio (IPV/OPV) 2023-05-06 00:00:00 Completed [facility] TDAP 2023-05-06 00:00:00 Completed [facility] Varicella (varivax)(chicken pox) 2023-05-06 00:00:00 Completed [facility] Pneumococcal 13 Conjugate, PCV13 (Prevnar 13) 2023-05-06 00:00:00 Completed [facility] Influenza Virus Vaccine Quad IM, Preserv and ABX Free 6 MO-64 YRS (FLUCELVAX) 2023-05-06 00:00:00 Completed [facility] DTaP, Unspecified Formulation 2023-05-06 00:00:00 Completed [facility] HIB 4 Dose Schedule 2023-05-06 00:00:00 Completed [facility] Meningococcal Polysaccharide (groups A, C, Y and W-135) conjugate vaccine (MCV4P) 2023-05-06 00:00:00 Completed [facility] IPV 2023-05-06 00:00:00 Completed [facility] DTAP 2023-04-22 15:00:00 Completed [facility] HIB 3 Dose Schedule 2023-04-22 15:00:00 Completed [facility] HEPATITIS A 2023-04-22 15:00:00 Completed [facility] Hep B, Adol or Pedi Dosage 2023-04-22 15:00:00 Completed [facility] HPV 2023-04-22 15:00:00 Completed [facility] Meningococcal Vaccine 2023-04-22 15:00:00 Completed [facility] MMR 2023-04-22 15:00:00 Completed [facility] Polio (IPV/OPV) 2023-04-22 15:00:00 Completed [facility] TDAP 2023-04-22 15:00:00 Completed [facility] Varicella (varivax)(chicken pox) 2023-04-22 15:00:00 Completed [facility] Pneumococcal 13 Conjugate, PCV13 (Prevnar 13) 2023-04-22 15:00:00 Completed [facility] Influenza Virus Vaccine Quad IM, Preserv and ABX Free 6 MO-64 YRS (FLUCELVAX) 2023-04-22 15:00:00 Completed [facility] DTaP, Unspecified Formulation 2023-04-22 15:00:00 Completed [facility] HIB 4 Dose Schedule 2023-04-22 15:00:00 Completed [facility] Meningococcal Polysaccharide (groups A, C, Y and W-135) conjugate vaccine (MCV4P) 2023-04-22 15:00:00 Completed [facility] IPV 2023-04-22 15:00:00 Completed [facility] DTAP 2023-04-03 08:00:00 Completed [facility] HIB 3 Dose Schedule 2023-04-03 08:00:00 Completed [facility] HEPATITIS A 2023-04-03 08:00:00 Completed [facility] Hep B, Adol or Pedi Dosage 2023-04-03 08:00:00 Completed [facility] HPV 2023-04-03 08:00:00 Completed [facility] Meningococcal Vaccine 2023-04-03 08:00:00 Completed [facility] MMR 2023-04-03 08:00:00 Completed [facility] Polio (IPV/OPV) 2023-04-03 08:00:00 Completed [facility] TDAP 2023-04-03 08:00:00 Completed [facility] Varicella (varivax)(chicken pox) 2023-04-03 08:00:00 Completed [facility] Pneumococcal 13 Conjugate, PCV13 (Prevnar 13) 2023-04-03 08:00:00 Completed [facility] Influenza Virus Vaccine Quad IM, Preserv and ABX Free 6 MO-64 YRS (FLUCELVAX) 2023-04-03 08:00:00 Completed [facility] DTaP, Unspecified Formulation 2023-04-03 08:00:00 Completed [facility] HIB 4 Dose Schedule 2023-04-03 08:00:00 Completed [facility] Meningococcal Polysaccharide (groups A, C, Y and W-135) conjugate vaccine (MCV4P) 2023-04-03 08:00:00 Completed [facility] IPV 2023-04-03 08:00:00 Completed [facility] DTAP 2023-03-24 15:30:00 Completed [facility] HIB 3 Dose Schedule 2023-03-24 15:30:00 Completed [facility] HEPATITIS A 2023-03-24 15:30:00 Completed [facility] Hep B, Adol or Pedi Dosage 2023-03-24 15:30:00 Completed [facility] HPV 2023-03-24 15:30:00 Completed [facility] Meningococcal Vaccine 2023-03-24 15:30:00 Completed [facility] MMR 2023-03-24 15:30:00 Completed [facility] Polio (IPV/OPV) 2023-03-24 15:30:00 Completed [facility] TDAP 2023-03-24 15:30:00 Completed [facility] Varicella (varivax)(chicken pox) 2023-03-24 15:30:00 Completed [facility] Pneumococcal 13 Conjugate, PCV13 (Prevnar 13) 2023-03-24 15:30:00 Completed [facility] Influenza Virus Vaccine Quad IM, Preserv and ABX Free 6 MO-64 YRS (FLUCELVAX) 2023-03-24 15:30:00 Completed [facility] DTaP, Unspecified Formulation 2023-03-24 15:30:00 Completed [facility] HIB 4 Dose Schedule 2023-03-24 15:30:00 Completed [facility] Meningococcal Polysaccharide (groups A, C, Y and W-135) conjugate vaccine (MCV4P) 2023-03-24 15:30:00 Completed [facility] IPV 2023-03-24 15:30:00 Completed [facility] DTAP 2023-03-24 00:00:00 Completed [facility] HIB 3 Dose Schedule 2023-03-24 00:00:00 Completed [facility] HEPATITIS A 2023-03-24 00:00:00 Completed [facility] Hep B, Adol or Pedi Dosage 2023-03-24 00:00:00 Completed [facility] HPV 2023-03-24 00:00:00 Completed [facility] Meningococcal Vaccine 2023-03-24 00:00:00 Completed [facility] MMR 2023-03-24 00:00:00 Completed [facility] Polio (IPV/OPV) 2023-03-24 00:00:00 Completed [facility] TDAP 2023-03-24 00:00:00 Completed [facility] Varicella (varivax)(chicken pox) 2023-03-24 00:00:00 Completed [facility] Pneumococcal 13 Conjugate, PCV13 (Prevnar 13) 2023-03-24 00:00:00 Completed [facility] Influenza Virus Vaccine Quad IM, Preserv and ABX Free 6 MO-64 YRS (FLUCELVAX) 2023-03-24 00:00:00 Completed [facility] DTaP, Unspecified Formulation 2023-03-24 00:00:00 Completed [facility] HIB 4 Dose Schedule 2023-03-24 00:00:00 Completed [facility] Meningococcal Polysaccharide (groups A, C, Y and W-135) conjugate vaccine (MCV4P) 2023-03-24 00:00:00 Completed [facility] IPV 2023-03-24 00:00:00 Completed [facility] TDAP 2022-10-01 00:00:00 Completed [facility] TDAP 2022-10-01 00:00:00 Completed [facility] TDAP 2022-10-01 00:00:00 Completed [facility] Influenza Virus Vaccine Quad IM, Preserv and ABX Free 6 MO-64 YRS 2022-03-26 00:00:00 Completed [facility] Influenza Virus Vaccine Quad IM, Preserv and ABX Free 6 MO-64 YRS 2022-03-26 00:00:00 Completed [facility] Influenza Virus Vaccine Quad IM, Preserv and ABX Free 6 MO-64 YRS 2022-03-26 00:00:00 Completed [facility] Influenza Virus Vaccine Quad IM, Preserv and ABX Free 6 MO-64 YRS 2022-03-26 00:00:00 Completed [facility] Influenza Virus Vaccine Quad IM, Preserv and ABX Free 6 MO-64 YRS 2022-03-26 00:00:00 Completed [facility] Influenza Virus Vaccine Quad IM, Preserv and ABX Free 6 MO-64 YRS 2022-03-26 00:00:00 Completed [facility] Influenza Virus Vaccine Quad IM, Preserv and ABX Free 6 MO-64 YRS 2022-03-26 00:00:00 Completed [facility] Influenza Virus Vaccine Quad IM, Preserv and ABX Free 6 MO-64 YRS 2022-03-26 00:00:00 Completed [facility] Influenza Virus Vaccine Quad IM, Preserv and ABX Free 6 MO-64 YRS 2022-03-26 00:00:00 Completed [facility] Influenza Virus Vaccine Quad IM, Preserv and ABX Free 6 MO-64 YRS 2022-03-26 00:00:00 Completed [facility] Influenza Virus Vaccine Quad IM, Preserv and ABX Free 6 MO-64 YRS 2022-03-26 00:00:00 Completed [facility] Influenza Virus Vaccine Quad IM, Preserv and ABX Free 6 MO-64 YRS 2022-03-26 00:00:00 Completed [facility] Influenza Virus Vaccine Quad IM, Preserv and ABX Free 6 MO-64 YRS 2022-03-26 00:00:00 Completed [facility] Influenza Virus Vaccine Quad IM, Preserv and ABX Free 6 MO-64 YRS 2022-03-26 00:00:00 Completed [facility] Influenza Virus Vaccine Quad IM, Preserv and ABX Free 6 MO-64 YRS (FLUCELVAX) 2022-03-26 00:00:00 Completed [facility] HIB 4 Dose Schedule 2021-10-05 00:00:00 Completed [facility] Meningococcal Polysaccharide (groups A, C, Y and W-135) conjugate vaccine (MCV4P) 2021-10-05 00:00:00 Completed [facility] IPV 2021-10-05 00:00:00 Completed [facility] DTAP 2021-10-05 00:00:00 Completed [facility] HIB 3 Dose Schedule 2021-10-05 00:00:00 Completed [facility] HEPATITIS A 2021-10-05 00:00:00 Completed [facility] Hep B, Adol or Pedi Dosage 2021-10-05 00:00:00 Completed [facility] HPV 2021-10-05 00:00:00 Completed [facility] Meningococcal Vaccine 2021-10-05 00:00:00 Completed [facility] MMR 2021-10-05 00:00:00 Completed [facility] Polio (IPV/OPV) 2021-10-05 00:00:00 Completed [facility] TDAP 2021-10-05 00:00:00 Completed [facility] Varicella (varivax)(chicken pox) 2021-10-05 00:00:00 Completed [facility] Pneumococcal 13 Conjugate, PCV13 (Prevnar 13) 2021-10-05 00:00:00 Completed [facility] DTaP, Unspecified Formulation 2021-10-05 00:00:00 Completed [facility] DTAP 2021-04-17 00:00:00 Completed [facility] HIB 3 Dose Schedule 2021-04-17 00:00:00 Completed [facility] HEPATITIS A 2021-04-17 00:00:00 Completed [facility] Hep B, Adol or Pedi Dosage 2021-04-17 00:00:00 Completed [facility] HPV 2021-04-17 00:00:00 Completed [facility] Meningococcal Vaccine 2021-04-17 00:00:00 Completed [facility] MMR 2021-04-17 00:00:00 Completed [facility] Polio (IPV/OPV) 2021-04-17 00:00:00 Completed [facility] TDAP 2021-04-17 00:00:00 Completed [facility] Varicella (varivax)(chicken pox) 2021-04-17 00:00:00 Completed [facility] Pneumococcal 13 Conjugate, PCV13 (Prevnar 13) 2021-04-17 00:00:00 Completed [facility] DTaP, Unspecified Formulation 2021-04-17 00:00:00 Completed [facility] HIB 4 Dose Schedule 2021-04-17 00:00:00 Completed [facility] Meningococcal Polysaccharide (groups A, C, Y and W-135) conjugate vaccine (MCV4P) 2021-04-17 00:00:00 Completed [facility] IPV 2021-04-17 00:00:00 Completed [facility] DTAP 2021-02-20 00:00:00 Completed [facility] HIB 3 Dose Schedule 2021-02-20 00:00:00 Completed [facility] HEPATITIS A 2021-02-20 00:00:00 Completed [facility] Hep B, Adol or Pedi Dosage 2021-02-20 00:00:00 Completed [facility] HPV 2021-02-20 00:00:00 Completed [facility] Meningococcal Vaccine 2021-02-20 00:00:00 Completed [facility] MMR 2021-02-20 00:00:00 Completed [facility] Polio (IPV/OPV) 2021-02-20 00:00:00 Completed [facility] TDAP 2021-02-20 00:00:00 Completed [facility] Varicella (varivax)(chicken pox) 2021-02-20 00:00:00 Completed [facility] Pneumococcal 13 Conjugate, PCV13 (Prevnar 13) 2021-02-20 00:00:00 Completed [facility] DTaP, Unspecified Formulation 2021-02-20 00:00:00 Completed [facility] HIB 4 Dose Schedule 2021-02-20 00:00:00 Completed [facility] Meningococcal Polysaccharide (groups A, C, Y and W-135) conjugate vaccine (MCV4P) 2021-02-20 00:00:00 Completed [facility] IPV 2021-02-20 00:00:00 Completed [facility] DTAP 2020-02-07 00:00:00 Completed [facility] HIB 3 Dose Schedule 2020-02-07 00:00:00 Completed [facility] HEPATITIS A 2020-02-07 00:00:00 Completed [facility] Hep B, Adol or Pedi Dosage 2020-02-07 00:00:00 Completed [facility] HPV 2020-02-07 00:00:00 Completed [facility] Meningococcal Vaccine 2020-02-07 00:00:00 Completed [facility] MMR 2020-02-07 00:00:00 Completed [facility] Polio (IPV/OPV) 2020-02-07 00:00:00 Completed [facility] TDAP 2020-02-07 00:00:00 Completed [facility] Varicella (varivax)(chicken pox) 2020-02-07 00:00:00 Completed [facility] Pneumococcal 13 Conjugate, PCV13 (Prevnar 13) 2020-02-07 00:00:00 Completed [facility] DTaP, Unspecified Formulation 2020-02-07 00:00:00 Completed [facility] HIB 4 Dose Schedule 2020-02-07 00:00:00 Completed [facility] Meningococcal Polysaccharide (groups A, C, Y and W-135) conjugate vaccine (MCV4P) 2020-02-07 00:00:00 Completed [facility] IPV 2020-02-07 00:00:00 Completed [facility] DTAP 2020-02-02 00:00:00 Completed [facility] HIB 3 Dose Schedule 2020-02-02 00:00:00 Completed [facility] HEPATITIS A 2020-02-02 00:00:00 Completed [facility] Hep B, Adol or Pedi Dosage 2020-02-02 00:00:00 Completed [facility] HPV 2020-02-02 00:00:00 Completed [facility] Meningococcal Vaccine 2020-02-02 00:00:00 Completed [facility] MMR 2020-02-02 00:00:00 Completed [facility] Polio (IPV/OPV) 2020-02-02 00:00:00 Completed [facility] TDAP 2020-02-02 00:00:00 Completed [facility] Varicella (varivax)(chicken pox) 2020-02-02 00:00:00 Completed [facility] Pneumococcal 13 Conjugate, PCV13 (Prevnar 13) 2020-02-02 00:00:00 Completed [facility] DTaP, Unspecified Formulation 2020-02-02 00:00:00 Completed [facility] HIB 4 Dose Schedule 2020-02-02 00:00:00 Completed [facility] Meningococcal Polysaccharide (groups A, C, Y and W-135) conjugate vaccine (MCV4P) 2020-02-02 00:00:00 Completed [facility] IPV 2020-02-02 00:00:00 Completed [facility] DTAP 2020-01-27 00:00:00 Completed [facility] HIB 3 Dose Schedule 2020-01-27 00:00:00 Completed [facility] HEPATITIS A 2020-01-27 00:00:00 Completed [facility] Hep B, Adol or Pedi Dosage 2020-01-27 00:00:00 Completed [facility] HPV 2020-01-27 00:00:00 Completed [facility] Meningococcal Vaccine 2020-01-27 00:00:00 Completed [facility] MMR 2020-01-27 00:00:00 Completed [facility] Polio (IPV/OPV) 2020-01-27 00:00:00 Completed [facility] TDAP 2020-01-27 00:00:00 Completed [facility] Varicella (varivax)(chicken pox) 2020-01-27 00:00:00 Completed [facility] Pneumococcal 13 Conjugate, PCV13 (Prevnar 13) 2020-01-27 00:00:00 Completed [facility] DTaP, Unspecified Formulation 2020-01-27 00:00:00 Completed [facility] HIB 4 Dose Schedule 2020-01-27 00:00:00 Completed [facility] Meningococcal Polysaccharide (groups A, C, Y and W-135) conjugate vaccine (MCV4P) 2020-01-27 00:00:00 Completed [facility] IPV 2020-01-27 00:00:00 Completed [facility] DTAP 2019-08-17 00:00:00 Completed [facility] HIB 3 Dose Schedule 2019-08-17 00:00:00 Completed [facility] HEPATITIS A 2019-08-17 00:00:00 Completed [facility] Hep B, Adol or Pedi Dosage 2019-08-17 00:00:00 Completed [facility] HPV 2019-08-17 00:00:00 Completed [facility] Meningococcal Vaccine 2019-08-17 00:00:00 Completed [facility] MMR 2019-08-17 00:00:00 Completed [facility] Polio (IPV/OPV) 2019-08-17 00:00:00 Completed [facility] TDAP 2019-08-17 00:00:00 Completed [facility] Varicella (varivax)(chicken pox) 2019-08-17 00:00:00 Completed [facility] Pneumococcal 13 Conjugate, PCV13 (Prevnar 13) 2019-08-17 00:00:00 Completed [facility] DTaP, Unspecified Formulation 2019-08-17 00:00:00 Completed [facility] HIB 4 Dose Schedule 2019-08-17 00:00:00 Completed [facility] Meningococcal Polysaccharide (groups A, C, Y and W-135) conjugate vaccine (MCV4P) 2019-08-17 00:00:00 Completed [facility] IPV 2019-08-17 00:00:00 Completed [facility] DTAP 2019-01-26 00:00:00 Completed [facility] HIB 3 Dose Schedule 2019-01-26 00:00:00 Completed [facility] HEPATITIS A 2019-01-26 00:00:00 Completed [facility] Hep B, Adol or Pedi Dosage 2019-01-26 00:00:00 Completed [facility] HPV 2019-01-26 00:00:00 Completed [facility] Meningococcal Vaccine 2019-01-26 00:00:00 Completed [facility] MMR 2019-01-26 00:00:00 Completed [facility] Polio (IPV/OPV) 2019-01-26 00:00:00 Completed [facility] TDAP 2019-01-26 00:00:00 Completed [facility] Varicella (varivax)(chicken pox) 2019-01-26 00:00:00 Completed [facility] Pneumococcal 13 Conjugate, PCV13 (Prevnar 13) 2019-01-26 00:00:00 Completed [facility] DTaP, Unspecified Formulation 2019-01-26 00:00:00 Completed [facility] HIB 4 Dose Schedule 2019-01-26 00:00:00 Completed [facility] Meningococcal Polysaccharide (groups A, C, Y and W-135) conjugate vaccine (MCV4P) 2019-01-26 00:00:00 Completed [facility] IPV 2019-01-26 00:00:00 Completed [facility] Meningococcal Vaccine 2016-08-27 00:00:00 Completed [facility] Meningococcal Vaccine 2016-08-27 00:00:00 Completed [facility] Meningococcal Vaccine 2016-08-27 00:00:00 Completed [facility] Meningococcal Vaccine 2016-08-27 00:00:00 Completed [facility] Meningococcal Vaccine 2016-08-27 00:00:00 Completed [facility] Meningococcal Vaccine 2016-08-27 00:00:00 Completed [facility] Meningococcal Vaccine 2016-08-27 00:00:00 Completed [facility] Meningococcal Vaccine 2016-08-27 00:00:00 Completed [facility] Meningococcal Vaccine 2016-08-27 00:00:00 Completed [facility] Meningococcal Vaccine 2016-08-27 00:00:00 Completed [facility] Meningococcal Polysaccharide (groups A, C, Y and W-135) conjugate vaccine (MCV4P) 2016-08-27 00:00:00 Completed [facility] Meningococcal Vaccine 2016-08-27 00:00:00 Completed [facility] Meningococcal Polysaccharide (groups A, C, Y and W-135) conjugate vaccine (MCV4P) 2016-08-27 00:00:00 Completed [facility] Meningococcal Vaccine 2016-08-27 00:00:00 Completed [facility] Meningococcal Polysaccharide (groups A, C, Y and W-135) conjugate vaccine (MCV4P) 2016-08-27 00:00:00 Completed [facility] Meningococcal Vaccine 2016-08-27 00:00:00 Completed [facility] Meningococcal Polysaccharide (groups A, C, Y and W-135) conjugate vaccine (MCV4P) 2016-08-27 00:00:00 Completed [facility] Meningococcal Vaccine 2016-08-27 00:00:00 Completed [facility] Meningococcal Polysaccharide (groups A, C, Y and W-135) conjugate vaccine (MCV4P) 2016-08-27 00:00:00 Completed [facility] Meningococcal Vaccine 2016-08-27 00:00:00 Completed [facility] Meningococcal Polysaccharide (groups A, C, Y and W-135) conjugate vaccine (MCV4P) 2016-08-27 00:00:00 Completed [facility] Meningococcal Vaccine 2016-08-27 00:00:00 Completed [facility] Meningococcal Polysaccharide (groups A, C, Y and W-135) conjugate vaccine (MCV4P) 2016-08-27 00:00:00 Completed [facility] Meningococcal Vaccine 2016-08-27 00:00:00 Completed [facility] Meningococcal Polysaccharide (groups A, C, Y and W-135) conjugate vaccine (MCV4P) 2016-08-27 00:00:00 Completed [facility] Meningococcal Vaccine 2016 00:00:00 Completed [facility] Meningococcal Vaccine 2016 00:00:00 Completed [facility] Meningococcal Vaccine 2016 00:00:00 Completed [facility] Meningococcal Vaccine 2016 00:00:00 Completed [facility] Meningococcal Vaccine 2016 00:00:00 Completed [facility] Meningococcal Vaccine 2016 00:00:00 Completed [facility] Meningococcal Vaccine 2016 00:00:00 Completed [facility] Meningococcal Vaccine 2016 00:00:00 Completed [facility] Meningococcal Vaccine 2016 00:00:00 Completed [facility] Meningococcal Vaccine 2016 00:00:00 Completed [facility] Meningococcal Vaccine 2016 00:00:00 Completed [facility] Meningococcal Vaccine 2016 00:00:00 Completed [facility] Meningococcal Vaccine 2016 00:00:00 Completed [facility] Meningococcal Vaccine 2016 00:00:00 Completed [facility] Meningococcal Vaccine 2016 00:00:00 Completed [facility] Meningococcal Vaccine 2016 00:00:00 Completed [facility] Meningococcal Vaccine 2016 00:00:00 Completed [facility] Meningococcal Vaccine 2016 00:00:00 Completed Meningococcal Vaccine 2011-09-04 00:00:00 Completed [facility] TDAP 2011-09-04 00:00:00 Completed [facility] Meningococcal Vaccine 2011-09-04 00:00:00 Completed [facility] TDAP 2011-09-04 00:00:00 Completed [facility] Meningococcal Vaccine 2011-09-04 00:00:00 Completed [facility] TDAP 2011-09-04 00:00:00 Completed [facility] Meningococcal Vaccine 2011-09-04 00:00:00 Completed [facility] TDAP 2011-09-04 00:00:00 Completed [facility] Meningococcal Vaccine 2011-09-04 00:00:00 Completed [facility] TDAP 2011-09-04 00:00:00 Completed [facility] Meningococcal Vaccine 2011-09-04 00:00:00 Completed [facility] TDAP 2011-09-04 00:00:00 Completed [facility] Meningococcal Vaccine 2011-09-04 00:00:00 Completed [facility] TDAP 2011-09-04 00:00:00 Completed [facility] Meningococcal Vaccine 2011-09-04 00:00:00 Completed [facility] TDAP 2011-09-04 00:00:00 Completed [facility] Meningococcal Vaccine 2011-09-04 00:00:00 Completed [facility] TDAP 2011-09-04 00:00:00 Completed [facility] Meningococcal Vaccine 2011-09-04 00:00:00 Completed [facility] TDAP 2011-09-04 00:00:00 Completed [facility] Meningococcal Vaccine 2011-09-04 00:00:00 Completed [facility] TDAP 2011-09-04 00:00:00 Completed [facility] Meningococcal Vaccine 2011-09-04 00:00:00 Completed [facility] TDAP 2011-09-04 00:00:00 Completed [facility] Meningococcal Vaccine 2011-09-04 00:00:00 Completed [facility] TDAP 2011-09-04 00:00:00 Completed [facility] Meningococcal Vaccine 2011-09-04 00:00:00 Completed [facility] TDAP 2011-09-04 00:00:00 Completed [facility] Meningococcal Vaccine 2011-09-04 00:00:00 Completed [facility] TDAP 2011-09-04 00:00:00 Completed [facility] Meningococcal Vaccine 2011-09-04 00:00:00 Completed [facility] TDAP 2011-09-04 00:00:00 Completed [facility] Meningococcal Vaccine 2011-09-04 00:00:00 Completed [facility] TDAP 2011-09-04 00:00:00 Completed [facility] Meningococcal Vaccine 2011-09-04 00:00:00 Completed TDAP 2011-09-04 00:00:00 Completed HPV 2011 00:00:00 Completed [facility] HPV 2011 00:00:00 Completed [facility] HPV 2011 00:00:00 Completed [facility] HPV 2011 00:00:00 Completed [facility] HPV 2011 00:00:00 Completed [facility] HPV 2011 00:00:00 Completed [facility] HPV 2011 00:00:00 Completed [facility] HPV 2011 00:00:00 Completed [facility] HPV 2011 00:00:00 Completed [facility] HPV 2011 00:00:00 Completed [facility] HPV 2011 00:00:00 Completed [facility] HPV 2011 00:00:00 Completed [facility] HPV 2011 00:00:00 Completed [facility] HPV 2011 00:00:00 Completed [facility] HPV 2011 00:00:00 Completed [facility] HPV 2011 00:00:00 Completed [facility] HPV 2011 00:00:00 Completed [facility] Varicella (varivax)(chicken pox) 2008-03-09 00:00:00 Completed [facility] Varicella (varivax)(chicken pox) 2008-03-09 00:00:00 Completed [facility] Varicella (varivax)(chicken pox) 2008-03-09 00:00:00 Completed [facility] Varicella (varivax)(chicken pox) 2008-03-09 00:00:00 Completed [facility] Varicella (varivax)(chicken pox) 2008-03-09 00:00:00 Completed [facility] Varicella (varivax)(chicken pox) 2008-03-09 00:00:00 Completed [facility] Varicella (varivax)(chicken pox) 2008-03-09 00:00:00 Completed [facility] Varicella (varivax)(chicken pox) 2008-03-09 00:00:00 Completed [facility] Varicella (varivax)(chicken pox) 2008-03-09 00:00:00 Completed [facility] Varicella (varivax)(chicken pox) 2008-03-09 00:00:00 Completed [facility] Varicella (varivax)(chicken pox) 2008-03-09 00:00:00 Completed [facility] Varicella (varivax)(chicken pox) 2008-03-09 00:00:00 Completed [facility] Varicella (varivax)(chicken pox) 2008-03-09 00:00:00 Completed [facility] Varicella (varivax)(chicken pox) 2008-03-09 00:00:00 Completed [facility] Varicella (varivax)(chicken pox) 2008-03-09 00:00:00 Completed [facility] Varicella (varivax)(chicken pox) 2008-03-09 00:00:00 Completed [facility] Varicella (varivax)(chicken pox) 2008-03-09 00:00:00 Completed [facility] HEPATITIS A 2006-02-12 00:00:00 Completed [facility] HEPATITIS A 2006-02-12 00:00:00 Completed [facility] HEPATITIS A 2006-02-12 00:00:00 Completed [facility] HEPATITIS A 2006-02-12 00:00:00 Completed [facility] HEPATITIS A 2006-02-12 00:00:00 Completed [facility] HEPATITIS A 2006-02-12 00:00:00 Completed [facility] HEPATITIS A 2006-02-12 00:00:00 Completed [facility] HEPATITIS A 2006-02-12 00:00:00 Completed [facility] HEPATITIS A 2006-02-12 00:00:00 Completed [facility] HEPATITIS A 2006-02-12 00:00:00 Completed [facility] HEPATITIS A 2006-02-12 00:00:00 Completed [facility] HEPATITIS A 2006-02-12 00:00:00 Completed [facility] HEPATITIS A 2006-02-12 00:00:00 Completed [facility] HEPATITIS A 2006-02-12 00:00:00 Completed [facility] HEPATITIS A 2006-02-12 00:00:00 Completed [facility] HEPATITIS A 2006-02-12 00:00:00 Completed [facility] HEPATITIS A 2006-02-12 00:00:00 Completed [facility] HEPATITIS A 2005-04-04 00:00:00 Completed [facility] HEPATITIS A 2005-04-04 00:00:00 Completed [facility] HEPATITIS A 2005-04-04 00:00:00 Completed [facility] HEPATITIS A 2005-04-04 00:00:00 Completed [facility] HEPATITIS A 2005-04-04 00:00:00 Completed [facility] HEPATITIS A 2005-04-04 00:00:00 Completed [facility] HEPATITIS A 2005-04-04 00:00:00 Completed [facility] HEPATITIS A 2005-04-04 00:00:00 Completed [facility] HEPATITIS A 2005-04-04 00:00:00 Completed [facility] HEPATITIS A 2005-04-04 00:00:00 Completed [facility] HEPATITIS A 2005-04-04 00:00:00 Completed [facility] HEPATITIS A 2005-04-04 00:00:00 Completed [facility] HEPATITIS A 2005-04-04 00:00:00 Completed [facility] HEPATITIS A 2005-04-04 00:00:00 Completed [facility] HEPATITIS A 2005-04-04 00:00:00 Completed [facility] HEPATITIS A 2005-04-04 00:00:00 Completed [facility] HEPATITIS A 2005-04-04 00:00:00 Completed [facility] HEPATITIS A 2005-04-04 00:00:00 Completed DTAP 2004-08-20 00:00:00 Completed [facility] MMR 2004-08-20 00:00:00 Completed [facility] Polio (IPV/OPV) 2004-08-20 00:00:00 Completed [facility] DTAP 2004-08-20 00:00:00 Completed [facility] MMR 2004-08-20 00:00:00 Completed [facility] Polio (IPV/OPV) 2004-08-20 00:00:00 Completed [facility] DTAP 2004-08-20 00:00:00 Completed [facility] MMR 2004-08-20 00:00:00 Completed [facility] Polio (IPV/OPV) 2004-08-20 00:00:00 Completed [facility] DTAP 2004-08-20 00:00:00 Completed [facility] MMR 2004-08-20 00:00:00 Completed [facility] Polio (IPV/OPV) 2004-08-20 00:00:00 Completed [facility] DTAP 2004-08-20 00:00:00 Completed [facility] MMR 2004-08-20 00:00:00 Completed [facility] Polio (IPV/OPV) 2004-08-20 00:00:00 Completed [facility] DTAP 2004-08-20 00:00:00 Completed [facility] MMR 2004-08-20 00:00:00 Completed [facility] Polio (IPV/OPV) 2004-08-20 00:00:00 Completed [facility] DTAP 2004-08-20 00:00:00 Completed [facility] MMR 2004-08-20 00:00:00 Completed [facility] Polio (IPV/OPV) 2004-08-20 00:00:00 Completed [facility] DTAP 2004-08-20 00:00:00 Completed [facility] MMR 2004-08-20 00:00:00 Completed [facility] Polio (IPV/OPV) 2004-08-20 00:00:00 Completed [facility] DTAP 2004-08-20 00:00:00 Completed [facility] MMR 2004-08-20 00:00:00 Completed [facility] Polio (IPV/OPV) 2004-08-20 00:00:00 Completed [facility] DTAP 2004-08-20 00:00:00 Completed [facility] MMR 2004-08-20 00:00:00 Completed [facility] Polio (IPV/OPV) 2004-08-20 00:00:00 Completed [facility] DTaP, Unspecified Formulation 2004-08-20 00:00:00 Completed [facility] IPV 2004-08-20 00:00:00 Completed [facility] DTAP 2004-08-20 00:00:00 Completed [facility] MMR 2004-08-20 00:00:00 Completed [facility] Polio (IPV/OPV) 2004-08-20 00:00:00 Completed [facility] DTaP, Unspecified Formulation 2004-08-20 00:00:00 Completed [facility] IPV 2004-08-20 00:00:00 Completed [facility] DTAP 2004-08-20 00:00:00 Completed [facility] MMR 2004-08-20 00:00:00 Completed [facility] Polio (IPV/OPV) 2004-08-20 00:00:00 Completed [facility] DTaP, Unspecified Formulation 2004-08-20 00:00:00 Completed [facility] IPV 2004-08-20 00:00:00 Completed [facility] DTAP 2004-08-20 00:00:00 Completed [facility] MMR 2004-08-20 00:00:00 Completed [facility] Polio (IPV/OPV) 2004-08-20 00:00:00 Completed [facility] DTaP, Unspecified Formulation 2004-08-20 00:00:00 Completed [facility] IPV 2004-08-20 00:00:00 Completed [facility] DTAP 2004-08-20 00:00:00 Completed [facility] MMR 2004-08-20 00:00:00 Completed [facility] Polio (IPV/OPV) 2004-08-20 00:00:00 Completed [facility] DTaP, Unspecified Formulation 2004-08-20 00:00:00 Completed [facility] IPV 2004-08-20 00:00:00 Completed [facility] DTAP 2004-08-20 00:00:00 Completed [facility] MMR 2004-08-20 00:00:00 Completed [facility] Polio (IPV/OPV) 2004-08-20 00:00:00 Completed [facility] DTaP, Unspecified Formulation 2004-08-20 00:00:00 Completed [facility] IPV 2004-08-20 00:00:00 Completed [facility] DTAP 2004-08-20 00:00:00 Completed [facility] MMR 2004-08-20 00:00:00 Completed [facility] Polio (IPV/OPV) 2004-08-20 00:00:00 Completed [facility] DTaP, Unspecified Formulation 2004-08-20 00:00:00 Completed [facility] IPV 2004-08-20 00:00:00 Completed [facility] DTAP 2004-08-20 00:00:00 Completed [facility] MMR 2004-08-20 00:00:00 Completed [facility] Polio (IPV/OPV) 2004-08-20 00:00:00 Completed [facility] DTaP, Unspecified Formulation 2004-08-20 00:00:00 Completed [facility] IPV 2004-08-20 00:00:00 Completed [facility] DTaP, Unspecified Formulation 2004-08-20 00:00:00 Completed [facility] IPV 2004-08-20 00:00:00 Completed Pneumococcal 13 Conjugate, PCV13 (Prevnar 13) 2001-11-10 00:00:00 Completed [facility] Pneumococcal 13 Conjugate, PCV13 (Prevnar 13) 2001-11-10 00:00:00 Completed [facility] Pneumococcal 13 Conjugate, PCV13 (Prevnar 13) 2001-11-10 00:00:00 Completed [facility] Pneumococcal 13 Conjugate, PCV13 (Prevnar 13) 2001-11-10 00:00:00 Completed [facility] Pneumococcal 13 Conjugate, PCV13 (Prevnar 13) 2001-11-10 00:00:00 Completed [facility] Pneumococcal 13 Conjugate, PCV13 (Prevnar 13) 2001-11-10 00:00:00 Completed [facility] Pneumococcal 13 Conjugate, PCV13 (Prevnar 13) 2001-11-10 00:00:00 Completed [facility] Pneumococcal 13 Conjugate, PCV13 (Prevnar 13) 2001-11-10 00:00:00 Completed [facility] Pneumococcal 13 Conjugate, PCV13 (Prevnar 13) 2001-11-10 00:00:00 Completed [facility] Pneumococcal 13 Conjugate, PCV13 (Prevnar 13) 2001-11-10 00:00:00 Completed [facility] Pneumococcal 13 Conjugate, PCV13 (Prevnar 13) 2001-11-10 00:00:00 Completed [facility] Pneumococcal 13 Conjugate, PCV13 (Prevnar 13) 2001-11-10 00:00:00 Completed [facility] Pneumococcal 13 Conjugate, PCV13 (Prevnar 13) 2001-11-10 00:00:00 Completed [facility] Pneumococcal 13 Conjugate, PCV13 (Prevnar 13) 2001-11-10 00:00:00 Completed [facility] Pneumococcal 13 Conjugate, PCV13 (Prevnar 13) 2001-11-10 00:00:00 Completed [facility] Pneumococcal 13 Conjugate, PCV13 (Prevnar 13) 2001-11-10 00:00:00 Completed [facility] Pneumococcal 13 Conjugate, PCV13 (Prevnar 13) 2001-11-10 00:00:00 Completed [facility] DTAP 2001-08-10 00:00:00 Completed [facility] HIB 3 Dose Schedule 2001-08-10 00:00:00 Completed [facility] MMR 2001-08-10 00:00:00 Completed [facility] DTAP 2001-08-10 00:00:00 Completed [facility] HIB 3 Dose Schedule 2001-08-10 00:00:00 Completed [facility] MMR 2001-08-10 00:00:00 Completed [facility] DTAP 2001-08-10 00:00:00 Completed [facility] HIB 3 Dose Schedule 2001-08-10 00:00:00 Completed [facility] MMR 2001-08-10 00:00:00 Completed [facility] DTAP 2001-08-10 00:00:00 Completed [facility] HIB 3 Dose Schedule 2001-08-10 00:00:00 Completed [facility] MMR 2001-08-10 00:00:00 Completed [facility] DTAP 2001-08-10 00:00:00 Completed [facility] HIB 3 Dose Schedule 2001-08-10 00:00:00 Completed [facility] MMR 2001-08-10 00:00:00 Completed [facility] DTAP 2001-08-10 00:00:00 Completed [facility] HIB 3 Dose Schedule 2001-08-10 00:00:00 Completed [facility] MMR 2001-08-10 00:00:00 Completed [facility] DTAP 2001-08-10 00:00:00 Completed [facility] HIB 3 Dose Schedule 2001-08-10 00:00:00 Completed [facility] MMR 2001-08-10 00:00:00 Completed [facility] DTAP 2001-08-10 00:00:00 Completed [facility] HIB 3 Dose Schedule 2001-08-10 00:00:00 Completed [facility] MMR 2001-08-10 00:00:00 Completed [facility] DTAP 2001-08-10 00:00:00 Completed [facility] HIB 3 Dose Schedule 2001-08-10 00:00:00 Completed [facility] MMR 2001-08-10 00:00:00 Completed [facility] DTAP 2001-08-10 00:00:00 Completed [facility] HIB 3 Dose Schedule 2001-08-10 00:00:00 Completed [facility] MMR 2001-08-10 00:00:00 Completed [facility] DTaP, Unspecified Formulation 2001-08-10 00:00:00 Completed [facility] HIB 4 Dose Schedule 2001-08-10 00:00:00 Completed [facility] DTAP 2001-08-10 00:00:00 Completed [facility] HIB 3 Dose Schedule 2001-08-10 00:00:00 Completed [facility] MMR 2001-08-10 00:00:00 Completed [facility] DTaP, Unspecified Formulation 2001-08-10 00:00:00 Completed [facility] HIB 4 Dose Schedule 2001-08-10 00:00:00 Completed [facility] DTAP 2001-08-10 00:00:00 Completed [facility] HIB 3 Dose Schedule 2001-08-10 00:00:00 Completed [facility] MMR 2001-08-10 00:00:00 Completed [facility] DTaP, Unspecified Formulation 2001-08-10 00:00:00 Completed [facility] HIB 4 Dose Schedule 2001-08-10 00:00:00 Completed [facility] DTAP 2001-08-10 00:00:00 Completed [facility] HIB 3 Dose Schedule 2001-08-10 00:00:00 Completed [facility] MMR 2001-08-10 00:00:00 Completed [facility] DTaP, Unspecified Formulation 2001-08-10 00:00:00 Completed [facility] HIB 4 Dose Schedule 2001-08-10 00:00:00 Completed [facility] DTAP 2001-08-10 00:00:00 Completed [facility] HIB 3 Dose Schedule 2001-08-10 00:00:00 Completed [facility] MMR 2001-08-10 00:00:00 Completed [facility] DTaP, Unspecified Formulation 2001-08-10 00:00:00 Completed [facility] HIB 4 Dose Schedule 2001-08-10 00:00:00 Completed [facility] DTAP 2001-08-10 00:00:00 Completed [facility] HIB 3 Dose Schedule 2001-08-10 00:00:00 Completed [facility] MMR 2001-08-10 00:00:00 Completed [facility] DTaP, Unspecified Formulation 2001-08-10 00:00:00 Completed [facility] HIB 4 Dose Schedule 2001-08-10 00:00:00 Completed [facility] DTAP 2001-08-10 00:00:00 Completed [facility] HIB 3 Dose Schedule 2001-08-10 00:00:00 Completed [facility] MMR 2001-08-10 00:00:00 Completed [facility] DTaP, Unspecified Formulation 2001-08-10 00:00:00 Completed [facility] HIB 4 Dose Schedule 2001-08-10 00:00:00 Completed [facility] DTAP 2001-08-10 00:00:00 Completed [facility] HIB 3 Dose Schedule 2001-08-10 00:00:00 Completed [facility] MMR 2001-08-10 00:00:00 Completed [facility] DTaP, Unspecified Formulation 2001-08-10 00:00:00 Completed [facility] HIB 4 Dose Schedule 2001-08-10 00:00:00 Completed [facility] DTAP 2001-08-10 00:00:00 Completed MMR 2001-08-10 00:00:00 Completed DTaP, Unspecified Formulation 2001-08-10 00:00:00 Completed HIB 4 Dose Schedule 2001-08-10 00:00:00 Completed HEPATITIS A 2001 00:00:00 Completed [facility] HEPATITIS A 2001 00:00:00 Completed [facility] HEPATITIS A 2001 00:00:00 Completed [facility] HEPATITIS A 2001 00:00:00 Completed [facility] HEPATITIS A 2001 00:00:00 Completed [facility] HEPATITIS A 2001 00:00:00 Completed [facility] HEPATITIS A 2001 00:00:00 Completed [facility] HEPATITIS A 2001 00:00:00 Completed [facility] HEPATITIS A 2001 00:00:00 Completed [facility] HEPATITIS A 2001 00:00:00 Completed [facility] HEPATITIS A 2001 00:00:00 Completed [facility] HEPATITIS A 2001 00:00:00 Completed [facility] HEPATITIS A 2001 00:00:00 Completed [facility] HEPATITIS A 2001 00:00:00 Completed [facility] HEPATITIS A 2001 00:00:00 Completed [facility] HEPATITIS A 2001 00:00:00 Completed [facility] HEPATITIS A 2001 00:00:00 Completed [facility] HEPATITIS A 2001 00:00:00 Completed Polio (IPV/OPV) 2001-05-12 00:00:00 Completed [facility] Polio (IPV/OPV) 2001-05-12 00:00:00 Completed [facility] Polio (IPV/OPV) 2001-05-12 00:00:00 Completed [facility] Polio (IPV/OPV) 2001-05-12 00:00:00 Completed [facility] Polio (IPV/OPV) 2001-05-12 00:00:00 Completed [facility] Polio (IPV/OPV) 2001-05-12 00:00:00 Completed [facility] Polio (IPV/OPV) 2001-05-12 00:00:00 Completed [facility] Polio (IPV/OPV) 2001-05-12 00:00:00 Completed [facility] Polio (IPV/OPV) 2001-05-12 00:00:00 Completed [facility] Polio (IPV/OPV) 2001-05-12 00:00:00 Completed [facility] IPV 2001-05-12 00:00:00 Completed [facility] Polio (IPV/OPV) 2001-05-12 00:00:00 Completed [facility] IPV 2001-05-12 00:00:00 Completed [facility] Polio (IPV/OPV) 2001-05-12 00:00:00 Completed [facility] IPV 2001-05-12 00:00:00 Completed [facility] Polio (IPV/OPV) 2001-05-12 00:00:00 Completed [facility] IPV 2001-05-12 00:00:00 Completed [facility] Polio (IPV/OPV) 2001-05-12 00:00:00 Completed [facility] IPV 2001-05-12 00:00:00 Completed [facility] Polio (IPV/OPV) 2001-05-12 00:00:00 Completed [facility] IPV 2001-05-12 00:00:00 Completed [facility] Polio (IPV/OPV) 2001-05-12 00:00:00 Completed [facility] IPV 2001-05-12 00:00:00 Completed [facility] Polio (IPV/OPV) 2001-05-12 00:00:00 Completed [facility] IPV 2001-05-12 00:00:00 Completed [facility] Polio (IPV/OPV) 2001-05-12 00:00:00 Completed DTAP 2001-03-05 00:00:00 Completed [facility] HIB 3 Dose Schedule 2001-03-05 00:00:00 Completed [facility] Hep B, Adol or Pedi Dosage 2001-03-05 00:00:00 Completed [facility] DTAP 2001-03-05 00:00:00 Completed [facility] HIB 3 Dose Schedule 2001-03-05 00:00:00 Completed [facility] Hep B, Adol or Pedi Dosage 2001-03-05 00:00:00 Completed [facility] DTAP 2001-03-05 00:00:00 Completed [facility] HIB 3 Dose Schedule 2001-03-05 00:00:00 Completed [facility] Hep B, Adol or Pedi Dosage 2001-03-05 00:00:00 Completed [facility] DTAP 2001-03-05 00:00:00 Completed [facility] HIB 3 Dose Schedule 2001-03-05 00:00:00 Completed [facility] Hep B, Adol or Pedi Dosage 2001-03-05 00:00:00 Completed [facility] DTAP 2001-03-05 00:00:00 Completed [facility] HIB 3 Dose Schedule 2001-03-05 00:00:00 Completed [facility] Hep B, Adol or Pedi Dosage 2001-03-05 00:00:00 Completed [facility] DTAP 2001-03-05 00:00:00 Completed [facility] HIB 3 Dose Schedule 2001-03-05 00:00:00 Completed [facility] Hep B, Adol or Pedi Dosage 2001-03-05 00:00:00 Completed [facility] DTAP 2001-03-05 00:00:00 Completed [facility] HIB 3 Dose Schedule 2001-03-05 00:00:00 Completed [facility] Hep B, Adol or Pedi Dosage 2001-03-05 00:00:00 Completed [facility] DTAP 2001-03-05 00:00:00 Completed [facility] HIB 3 Dose Schedule 2001-03-05 00:00:00 Completed [facility] Hep B, Adol or Pedi Dosage 2001-03-05 00:00:00 Completed [facility] DTAP 2001-03-05 00:00:00 Completed [facility] HIB 3 Dose Schedule 2001-03-05 00:00:00 Completed [facility] Hep B, Adol or Pedi Dosage 2001-03-05 00:00:00 Completed [facility] DTAP 2001-03-05 00:00:00 Completed [facility] HIB 3 Dose Schedule 2001-03-05 00:00:00 [facility] [facility] Hep B, Adol or Pedi Dosage 2001-03-05 00:00:00 Completed [facility] DTaP, Unspecified Formulation 2001-03-05 00:00:00 Completed [facility] HIB 4 Dose Schedule 2001-03-05 00:00:00 Completed [facility] DTAP 2001-03-05 00:00:00 Completed [facility] HIB 3 Dose Schedule 2001-03-05 00:00:00 Completed [facility] Hep B, Adol or Pedi Dosage 2001-03-05 00:00:00 Completed [facility] DTaP, Unspecified Formulation 2001-03-05 00:00:00 Completed [facility] HIB 4 Dose Schedule 2001-03-05 00:00:00 Completed [facility] DTAP 2001-03-05 00:00:00 Completed [facility] HIB 3 Dose Schedule 2001-03-05 00:00:00 Completed [facility] Hep B, Adol or Pedi Dosage 2001-03-05 00:00:00 Completed [facility] DTaP, Unspecified Formulation 2001-03-05 00:00:00 Completed [facility] HIB 4 Dose Schedule 2001-03-05 00:00:00 Completed [facility] DTAP 2001-03-05 00:00:00 Completed [facility] HIB 3 Dose Schedule 2001-03-05 00:00:00 Completed [facility] Hep B, Adol or Pedi Dosage 2001-03-05 00:00:00 Completed [facility] DTaP, Unspecified Formulation 2001-03-05 00:00:00 Completed [facility] HIB 4 Dose Schedule 2001-03-05 00:00:00 Completed [facility] DTAP 2001-03-05 00:00:00 Completed [facility] HIB 3 Dose Schedule 2001-03-05 00:00:00 Completed [facility] Hep B, Adol or Pedi Dosage 2001-03-05 00:00:00 Completed [facility] DTaP, Unspecified Formulation 2001-03-05 00:00:00 Completed [facility] HIB 4 Dose Schedule 2001-03-05 00:00:00 Completed [facility] DTAP 2001-03-05 00:00:00 Completed [facility] HIB 3 Dose Schedule 2001-03-05 00:00:00 Completed [facility] Hep B, Adol or Pedi Dosage 2001-03-05 00:00:00 Completed [facility] DTaP, Unspecified Formulation 2001-03-05 00:00:00 Completed [facility] HIB 4 Dose Schedule 2001-03-05 00:00:00 Completed [facility] DTAP 2001-03-05 00:00:00 Completed [facility] HIB 3 Dose Schedule 2001-03-05 00:00:00 Completed [facility] Hep B, Adol or Pedi Dosage 2001-03-05 00:00:00 Completed [facility] DTaP, Unspecified Formulation 2001-03-05 00:00:00 Completed [facility] HIB 4 Dose Schedule 2001-03-05 00:00:00 Completed [facility] DTAP 2001-03-05 00:00:00 Completed [facility] HIB 3 Dose Schedule 2001-03-05 00:00:00 Completed [facility] Hep B, Adol or Pedi Dosage 2001-03-05 00:00:00 Completed [facility] DTaP, Unspecified Formulation 2001-03-05 00:00:00 Completed [facility] HIB 4 Dose Schedule 2001-03-05 00:00:00 Completed [facility] DTAP 2001-03-05 00:00:00 Completed [facility] HIB 3 Dose Schedule 2001-03-05 00:00:00 Completed Pneumococcal 13 Conjugate, PCV13 (Prevnar 13) 2000 00:00:00 Completed [facility] Pneumococcal 13 Conjugate, PCV13 (Prevnar 13) 2000 00:00:00 Completed [facility] Pneumococcal 13 Conjugate, PCV13 (Prevnar 13) 2000 00:00:00 Completed [facility] Pneumococcal 13 Conjugate, PCV13 (Prevnar 13) 2000 00:00:00 Completed [facility] Pneumococcal 13 Conjugate, PCV13 (Prevnar 13) 2000 00:00:00 Completed [facility] Pneumococcal 13 Conjugate, PCV13 (Prevnar 13) 2000 00:00:00 Completed [facility] Pneumococcal 13 Conjugate, PCV13 (Prevnar 13) 2000 00:00:00 Completed [facility] Pneumococcal 13 Conjugate, PCV13 (Prevnar 13) 2000 00:00:00 Completed [facility] Pneumococcal 13 Conjugate, PCV13 (Prevnar 13) 2000 00:00:00 Completed [facility] Pneumococcal 13 Conjugate, PCV13 (Prevnar 13) 2000 00:00:00 Completed [facility] Pneumococcal 13 Conjugate, PCV13 (Prevnar 13) 2000 00:00:00 Completed [facility] Pneumococcal 13 Conjugate, PCV13 (Prevnar 13) 2000 00:00:00 Completed [facility] Pneumococcal 13 Conjugate, PCV13 (Prevnar 13) 2000 00:00:00 Completed [facility] Pneumococcal 13 Conjugate, PCV13 (Prevnar 13) 2000 00:00:00 Completed [facility] Pneumococcal 13 Conjugate, PCV13 (Prevnar 13) 2000 00:00:00 Completed [facility] Pneumococcal 13 Conjugate, PCV13 (Prevnar 13) 2000 00:00:00 Completed [facility] Pneumococcal 13 Conjugate, PCV13 (Prevnar 13) 2000 00:00:00 Completed [facility] Pneumococcal 13 Conjugate, PCV13 (Prevnar 13) 2000 00:00:00 Completed [facility] Hep B, Adol or Pedi Dosage 2000 00:00:00 Completed [facility] Hep B, Adol or Pedi Dosage 2000 00:00:00 Completed [facility] Hep B, Adol or Pedi Dosage 2000 00:00:00 Completed [facility] Hep B, Adol or Pedi Dosage 2000 00:00:00 Completed [facility] Hep B, Adol or Pedi Dosage 2000 00:00:00 Completed [facility] Hep B, Adol or Pedi Dosage 2000 00:00:00 Completed [facility] Hep B, Adol or Pedi Dosage 2000 00:00:00 Completed [facility] Hep B, Adol or Pedi Dosage 2000 00:00:00 Completed [facility] Hep B, Adol or Pedi Dosage 2000 00:00:00 Completed [facility] Hep B, Adol or Pedi Dosage 2000 00:00:00 Completed [facility] Hep B, Adol or Pedi Dosage 2000 00:00:00 Completed [facility] Hep B, Adol or Pedi Dosage 2000 00:00:00 Completed [facility] Hep B, Adol or Pedi Dosage 2000 00:00:00 Completed [facility] Hep B, Adol or Pedi Dosage 2000 00:00:00 Completed [facility] Hep B, Adol or Pedi Dosage 2000 00:00:00 Completed [facility] Hep B, Adol or Pedi Dosage 2000 00:00:00 Completed [facility] Hep B, Adol or Pedi Dosage 2000 00:00:00 Completed [facility] Hep B, Adol or Pedi Dosage 2000 00:00:00 Completed Vital Signs Vital Name Observation Time Observation Value Comments S ource Systolic blood pressure 2024-07-30 15:08:00 107 mm[Hg] [facility] Diastolic blood pressure 2024-07-30 15:08:00 74 mm[Hg] [facility] Heart rate 2024-07-30 15:08:00 87 /min [facility] Body temperature 2024-07-30 15:08:00 36.67 Rufina [facility] Respiratory rate 2024-07-30 15:08:00 18 /min [facility] Body height 2024-07-30 15:08:00 162.6 cm [facility] Body weight 2024-07-30 15:08:00 50.531 kg [facility] BMI 2024-07-30 15:08:00 19.12 kg/m2 [facility] Systolic blood pressure 2024-07-13 21:44:00 106 mm[Hg] [facility] Diastolic blood pressure 2024-07-13 21:44:00 72 mm[Hg] [facility] Heart rate 2024-07-13 21:44:00 98 /min [facility] Respiratory rate 2024-07-13 21:44:00 18 /min [facility] Body height 2024-07-13 21:44:00 162.6 cm [facility] Body weight 2024-07-13 21:44:00 47.174 kg [facility] BMI 2024-07-13 21:44:00 17.85 kg/m2 [facility] Systolic blood pressure 2023-09-15 21:40:00 116 mm[Hg] [facility] Diastolic blood pressure 2023-09-15 21:40:00 77 mm[Hg] [facility] Heart rate 2023-09-15 21:40:00 83 /min [facility] Body temperature 2023-09-15 21:40:00 36.67 Rufina [facility] Respiratory rate 2023-09-15 21:40:00 16 /min [facility] Body height 2023-09-15 21:40:00 162.6 cm [facility] Body weight 2023-09-15 21:40:00 53.524 kg [facility] BMI 2023-09-15 21:40:00 20.25 kg/m2 [facility] Oxygen saturation in Arterial blood by Pulse oximetry 2023-09-15 21:40:00 99 /min [facility] Systolic blood pressure 2023-07-03 22:17:00 112 mm[Hg] [facility] Diastolic blood pressure 2023-07-03 22:17:00 67 mm[Hg] [facility] Heart rate 2023-07-03 22:17:00 62 /min [facility] Body temperature 2023-07-03 22:17:00 36.61 Rufina [facility] Respiratory rate 2023-07-03 22:17:00 16 /min [facility] Body height 2023-07-03 22:17:00 162.6 cm [facility] Body weight 2023-07-03 22:17:00 54.477 kg [facility] BMI 2023-07-03 22:17:00 20.62 kg/m2 [facility] Systolic blood pressure 2023-06-03 17:20:00 113 mm[Hg] [facility] Diastolic blood pressure 2023-06-03 17:20:00 80 mm[Hg] [facility] Heart rate 2023-06-03 17:20:00 86 /min [facility] Body temperature 2023-06-03 17:20:00 36.72 Rufina [facility] Respiratory rate 2023-06-03 17:20:00 16 /min [facility] Body height 2023-06-03 17:20:00 162.6 cm [facility] Body weight 2023-06-03 17:20:00 55.52 kg [facility] BMI 2023-06-03 17:20:00 21.01 kg/m2 [facility] Systolic blood pressure 2023-04-22 21:06:00 114 mm[Hg] [facility] Diastolic blood pressure 2023-04-22 21:06:00 71 mm[Hg] [facility] Heart rate 2023-04-22 21:06:00 89 /min [facility] Body temperature 2023-04-22 21:06:00 36.5 Rufina [facility] Respiratory rate 2023-04-22 21:06:00 16 /min [facility] Body height 2023-04-22 21:06:00 162.6 cm [facility] Body weight 2023-04-22 21:06:00 58.968 kg [facility] BMI 2023-04-22 21:06:00 22.31 kg/m2 [facility] Systolic blood pressure 2023-03-24 20:34:00 120 mm[Hg] [facility] Diastolic blood pressure 2023-03-24 20:34:00 80 mm[Hg] [facility] Heart rate 2023-03-24 20:34:00 73 /min [facility] Respiratory rate 2023-03-24 20:34:00 18 /min [facility] Body height 2023-03-24 20:34:00 162.6 cm [facility] Body weight 2023-03-24 20:34:00 58.968 kg [facility] BMI 2023-03-24 20:34:00 22.31 kg/m2 [facility] Body weight 2023-02-19 16:15:[address] [facility] BMI 2023-02-19 16:15:00 24.25 kg/m2 [facility] Body weight 2022-12-04 14:48:00 58.514 kg [facility] BMI 2022-12-04 14:48:00 22.85 kg/m2 [facility] Systolic blood pressure 2022-10-01 18:14:00 113 mm[Hg] [facility] Diastolic blood pressure 2022-10-01 18:14:00 75 mm[Hg] [facility] Heart rate 2022-10-01 18:14:00 90 /min [facility] Body height 2022-10-01 18:14:00 160 cm [facility] Body weight 2022-10-01 18:14:00 55.52 kg [facility] BMI 2022-10-01 18:14:00 21.68 kg/m2 [facility] Oxygen saturation in Arterial blood by Pulse oximetry 2022-10-01 18:14:00 98 /min [facility] Systolic blood pressure 2022-09-24 17:44:00 122 mm[Hg] [facility] Diastolic blood pressure 2022-09-24 17:44:00 80 mm[Hg] [facility] Heart rate 2022-09-24 17:44:00 95 /min [facility] Respiratory rate 2022-09-24 17:44:00 15 /min [facility] Body weight 2022-09-24 17:44:00 56.11 kg [facility] BMI 2022-09-24 17:44:00 21.23 kg/m2 [facility] Body weight 2022-09-12 15:05:00 54.477 kg [facility] BMI 2022-09-12 15:05:00 20.62 kg/m2 [facility] Systolic blood pressure 2022-08-13 16:07:00 107 mm[Hg] [facility] Diastolic blood pressure 2022-08-13 16:07:00 76 mm[Hg] [facility] Heart rate 2022-08-13 16:07:00 81 /min [facility] Respiratory rate 2022-08-13 16:07:00 18 /min [facility] Body height 2022-08-13 16:07:00 162.6 cm [facility] Body weight 2022-08-13 16:07:00 52.164 kg [facility] BMI 2022-08-13 16:07:00 19.74 kg/m2 [facility] Systolic blood pressure 2022-06-26 18:39:00 112 mm[Hg] [facility] Diastolic blood pressure 2022-06-26 18:39:00 75 mm[Hg] [facility] Heart rate 2022-06-26 18:39:00 84 /min [facility] Body temperature 2022-06-26 18:39:00 36.89 Rufina [facility] Respiratory rate 2022-06-26 18:39:00 16 /min [facility] Body weight 2022-06-26 18:39:00 54.885 kg [facility] BMI 2022-06-26 18:39:00 21.43 kg/m2 [facility] Body weight 2022-06-14 17:20:00 52.708 kg [facility] BMI 2022-06-14 17:20:00 20.58 kg/m2 [facility] Systolic blood pressure 2022-03-26 13:03:00 107 mm[Hg] [facility] Diastolic blood pressure 2022-03-26 13:03:00 69 mm[Hg] [facility] Heart rate 2022-03-26 13:03:00 88 /min [facility] Body temperature 2022-03-26 13:03:00 36.94 Rufina [facility] Respiratory rate 2022-03-26 13:03:00 16 /min [facility] Body weight 2022-03-26 13:03:00 51.03 kg [facility] BMI 2022-03-26 13:03:00 19.93 kg/m2 [facility] Systolic blood pressure 2022-02-12 20:14:00 104 mm[Hg] [facility] Diastolic blood pressure 2022-02-12 20:14:00 73 mm[Hg] [facility] Heart rate 2022-02-12 20:14:00 91 /min [facility] Body temperature 2022-02-12 20:14:00 36.78 Rufina [facility] Respiratory rate 2022-02-12 20:14:00 18 /min [facility] Body height 2022-02-12 20:14:00 160 cm [facility] Body weight 2022-02-12 20:14:00 50.168 kg [facility] BMI 2022-02-12 20:14:00 19.59 kg/m2 [facility] Oxygen saturation in Arterial blood by Pulse oximetry 2022-02-12 20:14:00 98 /min [facility] Systolic blood pressure 2021-02-16 18:39:00 113 mm[Hg] [facility] Diastolic blood pressure 2021-02-16 18:39:00 82 mm[Hg] [facility] Heart rate 2021-02-16 18:39:00 90 /min [facility] Body temperature 2021-02-16 18:39:00 36.61 Rufina [facility] Respiratory rate 2021-02-16 18:39:00 18 /min [facility] Body height 2021-02-16 18:39:00 165.1 cm [facility] Body weight 2021-02-16 18:39:00 44.453 kg [facility] BMI 2021-02-16 18:39:00 16.31 kg/m2 [facility] Procedures Procedure Date / Time Performed Performing Clinician Source GC & CHLAMYDIA AMPLIFIED ASSAY 2023-09-15 22:03:00 Laura Mattson [facility] GALV ONLY - VAGINAL PATHOGENS BY NUCLEIC ACID TESTING 2023-09-15 22:03:00 Madisyn Mattsonsol [facility] TRICHOMONAS AMPLIFIED ASSAY 2023-09-15 22:03:00 Laura Mattson [facility] POCT TEST 2023-09-15 00:00:00 Laura Mattson [facility] NOTICE OF BILLING PRACTICES FOR MEDICARE PATIENTS 2023-06-03 17:00:19 Doctor Unassigned, [place] [facility] POCT TEST 2023-06-03 00:00:00 Laura Mattson [facility] US PELVIS COMPLETE WITH TRANSVAGINAL 2023-04-03 15:02:48 Janett Mead [facility] TDAP VACCINE, >11 YRS, IM 2022-10-01 18:54:17 Ignacio Berman [facility] POCT URINALYSIS 2022-09-24 00:00:00 Molly Reynolds [facility] POCT TEST 2022-09-24 00:00:00 Carmen Reynolds [facility] FLU VACC (), 6 MO-64 YRS, .5ML, IM, QUAD (FLUCELVAX) 2022-03-26 13:28:53 Molly Reynolds [facility] Encounters Start Date/Time End Date/Time Encounter Type Admission Type Attending Clinicians Care Facility Care Department Encounter ID Source 2024-08-30 09:00:00 2024-08-30 09:00:00 Outpatient R LAURA GUERRERO [facility] [id number] [facility] 2024-07-14 00:00:00 2024-08-14 18:14:52 Patient Secure Msg Saida sHectorl [facility] 1..840.114 350.1.13.10 4.2.7.2.686 [id number] [facility] 2024-08-04 00:00:00 2024-08-04 00:00:00 Outpatient R MEJÍA-OSCAR S, LAURA MEJÍA-OSCAR S, [facility] [id number] [facility] 2024-07-30 09:00:00 2024-07-30 09:24:37 Outpatient R MEJÍA-OSCAR S, LAURA MEJÍA-OSCAR S, [facility] [id number] [facility] 2024-07-30 09:00:00 2024-07-30 09:24:37 Office Visit Saida s Laura [facility] 1..840.114 350.1.13.10 4.2.7.2.686 [id number] 134 [id number] [facility] 2024-07-20 11:00:00 2024-07-20 11:00:00 Outpatient R MEJÍA-OSCAR S, LAURA MEJÍA-OSCAR S, [facility] [id number] [facility] 2024-07-15 00:00:00 2024-07-15 08:14:13 Case Management Saida sHectorl [facility] 1..840.114 350.1.13.10 4.2.7.2.686 [id number] [facility] 2024-07-13 15:30:00 2024-07-13 15:57:57 Outpatient R MEJÍA-OSCAR S, LAURA MEJÍA-OSCAR S, [facility] [id number] [facility] 2024-07-13 15:30:00 2024-07-13 15:57:57 Office Visit Laura Guerrero [facility] 1.114 350.1.13.10 4.2.7.2.686 [id number] 134 [id number] [facility] 2024-02-03 00:00:00 2024-03-06 18:20:59 Patient Secure Msg Doctor Unassigned, [place] Doctor Unassigned, [place] [facility] 1.114 350.1.13.10 4.2.7.2.686 [id number] [facility] 2024-02-19 14:26:11 2024-02-19 14:26:11 Outpatient [facility] [id number] Alex Avila 2024-02-18 16:30:00 2024-02-18 16:30:00 Outpatient NARENDRA ROE [facility] [id number] [facility] 2024-02-18 12:18:39 2024-02-18 12:18:39 Outpatient [facility] [id number] Alex Avila 2024-02-10 11:30:00 2024-02-10 11:30:00 Outpatient [facility] [id number] [facility] 2024-02-04 16:30:00 2024-02-04 16:30:00 Outpatient [facility] [id number] [facility] 2024-02-02 16:19:32 2024-02-02 16:19:32 Outpatient [facility] [id number] Alex Avila 2023-12-26 11:30:00 2023-12-26 11:30:00 Outpatient [facility] [id number] [facility] 2019-01-26 00:00:00 2023-12-02 02:25:58 Mobile Device Encounter Molly Reynolds [facility] 1..114 350.1.13.10 4.2.7.2.686 [id number] [facility] 2019-08-17 00:00:00 2023-12-02 02:24:14 Mobile Device Encounter Molly Reynolds [facility] 1..114 350.1.13.10 4.2.7.2.686 [id number] [facility] 2023-09-17 16:30:00 2023-09-17 16:30:00 Outpatient R [facility] [id number] [facility] 2023-09-16 00:00:00 2023-09-16 00:00:00 Refill Narendra Nieves [facility] 1.84.114 350.1.13.10 4.2.7.2.686 [id number] [facility] 2023-09-15 16:30:00 2023-09-15 17:02:54 Outpatient [facility] [id number] [facility] 2023-09-15 16:30:00 2023-09-15 17:02:54 Office Visit Narendra Nieves [facility] 1.2.114 350.1.13.10 4.2.7.2.686 [id number] [facility] 2023-09-15 10:00:00 2023-09-15 10:00:00 Outpatient [facility] [id number] [facility] 2023-09-10 00:00:00 2023-09-10 00:00:00 Patient Secure Msg Doctor Unassigned, [place] [facility] 1..114 350.1.13.10 4.2.7.2.686 [id number] [facility] 2023-08-15 10:00:00 2023-08-15 10:00:00 Outpatient R JANETT MEAD CHERYAL [facility] [id number] [facility] 2023-07-03 16:00:00 2023-07-03 16:25:58 Outpatient R MEJÍA-OSCAR S, LAURA MEJÍA-OSCAR S, [facility] [id number] [facility] 2023-07-03 16:00:00 2023-07-03 16:25:58 Office Visit Mejía-Oscar sMadisynLaura [facility] 1.2.840.114 350.1.13.10 4.2.7.2.686 [id number] [facility] 2023-06-03 11:00:00 2023-06-03 11:38:49 Outpatient R MEJÍA-OSCAR S, LAURA MEJÍA-OSCAR S, [facility] [id number] [facility] 2023-06-03 11:00:00 2023-06-03 11:38:49 Office Visit Oleksandr-Oscar sMadisynLaura [facility] 1.2.840.114 350.1.13.10 4.2.7.2.686 [id number] 134 [id number] [facility] 2023-06-03 00:00:00 2023-06-03 00:00:00 Orders Only Doctor Unassigned, [place] [facility] 1.2.840.114 350.1.13.10 4.2.7.2.686 [id number] [facility] 2023-05-27 16:54:22 2023-05-27 16:54:22 Outpatient [facility] [id number] Alex F 2023-05-12 16:42:09 2023-05-12 16:42:09 Outpatient [facility] [id number] Alex Matthews 2023-05-06 11:00:00 2023-05-06 11:00:00 Outpatient R MEJÍALAURA DUENAS [facility] [id number] [facility] 2023-05-06 00:00:00 2023-05-06 00:00:00 Telephone Laura Guerrero [facility] 1.2.840.114 350.1.13.10 4.2.7.2.686 [id number] [facility] 2023-05-06 00:00:00 2023-05-06 00:00:00 Patient Secure Msg Doctor Unassigned, [place] [facility] 1.2.840.114 350.1.13.10 4.2.7.2.686 [id number] [facility] 2023-04-22 15:00:00 2023-04-22 15:30:48 Outpatient R LAURA GUERRERO [facility] [id number] [facility] 2023-04-22 15:00:00 2023-04-22 15:30:48 Office Visit Laura Guerrero [facility] 1.2.840.114 350.1.13.10 4.2.7.2.686 [id number] [facility] 2023-04-04 14:30:00 2023-04-04 14:30:00 Outpatient IGNACIO [facility] [id number] [facility] 2023-04-04 10:30:00 2023-04-04 10:30:00 Outpatient IGNACIO [facility] [id number] [facility] 2023-04-03 08:16:11 2023-04-03 23:59:00 Outpatient JANETT RENTERIA [facility] [id number] [facility] 2023-04-03 08:00:00 2023-04-03 23:59:00 Hospital Encounter Janett Mead [facility] 1.840.114 350.1.13.10 4.2.7.2.686 [id number] [facility] 2023-03-24 15:30:00 2023-03-24 15:53:36 Outpatient R JANETT MEAD [facility] [id number] [facility] 2023-03-24 15:30:00 2023-03-24 15:53:36 Office Visit Janett Mead [facility] 1.840.114 350.1.13.10 4.2.7.2.686 [id number] 134 [id number] [facility] 2023-03-24 00:00:00 2023-03-24 00:00:00 Patient Secure Msg [facility] 1.840.114 350.1.13.10 4.2.7.2.686 [id number] 134 [id number] [facility] 2023-02-19 10:40:00 2023-02-19 11:53:55 Outpatient R XAVI LEONARD [facility] [id number] [facility] 2023-02-19 10:40:00 2023-02-19 11:00:00 Nurse Visit NurseJd [facility] 1.2840.114 350.1.13.10 4.2.7.2.686 [id number] 225 [id number] [facility] 2022-12-04 09:40:00 2022-12-04 09:49:43 Outpatient MOLLY ROGERS [facility] [id number] [facility] 2022-12-04 09:40:00 2022-12-04 09:49:43 Nurse Visit NurseJd Amy C [facility] 1.2840.114 350.1.13.10 4.2.7.2.686 [id number] 225 [id number] [facility] 2022-11-29 10:20:00 2022-11-29 10:20:00 Outpatient R [facility] [id number] [facility] 2022-10-01 14:15:00 2022-10-01 14:30:00 Asian Studies Professor Visit Lab, [facility] 1..840.114 350.1.13.10 4.2.7.2.686 [id number] [facility] 2022-10-01 13:00:00 2022-10-01 14:09:54 [facility] [id number] [facility] 2022-10-01 13:00:00 2022-10-01 14:09:54 Office Visit Antonella [facility] 1..840.114 350.1.13.10 4.2.7.2.686 [id number] [facility] 2022-09-24 12:30:00 2022-09-24 13:42:35 Outpatient R MOLLY REYNOLDS [facility] [id number] [facility] 2022-09-24 12:30:00 2022-09-24 13:42:35 Office Visit Molly Reynolds [facility] 1..840.114 350.1.13.10 4.2.7.2.686 [id number] 225 [id number] [facility] 2022-09-12 10:20:00 2022-09-12 10:20:00 Outpatient R MOLLY REYNOLDS [facility] [id number] [facility] 2022-09-12 10:20:00 2022-09-12 10:20:00 Nurse Visit Nurse, Lkj Molly Conrad [facility] 1.2.840.114 350.1.13.10 4.2.7.2.686 [id number] 225 [id number] [facility] 2022-08-13 10:00:00 2022-08-13 10:18:09 Outpatient R JANETT MEAD [facility] [id number] [facility] 2022-08-13 10:00:00 2022-08-13 10:18:09 Office Visit Janett Mead [facility] 1.2.840.114 350.1.13.10 4.2.7.2.686 [id number] 134 [id number] [facility] 2022-08-13 09:00:00 2022-08-13 09:00:00 Outpatient R LINDA LI [facility] [id number] [facility] 2022-08-13 09:00:00 2022-08-13 09:00:00 Outpatient R LINDA IL [facility] [id number] [facility] 2022-08-13 09:00:00 2022-08-13 09:00:00 Outpatient R LINDA LI [facility] [id number] [facility] 2022-08-13 09:00:00 2022-08-13 09:00:00 Outpatient R LINDA LI [facility] [id number] [facility] 2022-08-13 09:00:00 2022-08-13 09:00:00 Outpatient R LINDA LI [facility] [id number] [facility] 2022-07-05 11:00:00 2022-07-05 11:00:00 Outpatient R JANETT MEAD [facility] [id number] [facility] 2022-06-28 00:00:00 2022-06-28 00:00:00 Pre Visit Outreach Krupa, Veronica GOEL 1.2.840.114 350.1.13.10 4.2.7.2.686 [id number] [facility] 2022-06-26 12:30:00 2022-06-26 13:11:32 Outpatient R [facility] [id number] [facility] 2022-06-26 12:30:00 2022-06-26 13:11:32 Office Visit Molly Reynolds [facility] 1.2.840.114 350.1.13.10 4.2.7.2.686 [id number] 225 [id number] [facility] 2022-06-26 00:00:00 2022-06-26 00:00:00 Telephone Molly Reynolds [facility] 1.2.840.114 350.1.13.10 4.2.7.2.686 [id number] 225 [id number] [facility] 2022-06-14 11:20:00 2022-06-14 11:21:30 Outpatient [facility] [id number] [facility] 2022-06-14 11:20:00 2022-06-14 11:21:30 Nurse Visit Nurse, Molly Albright [facility] 1.2.840.114 350.1.13.10 4.2.7.2.686 [id number] 225 [id number] [facility] 2022-05-17 15:50:00 2022-05-17 16:10:00 Office Visit Molly Reynolds [facility] 1.2.840.114 350.1.13.10 4.2.7.2.686 [id number] 225 [id number] [facility] 2022-05-17 15:50:00 2022-05-17 15:50:00 Outpatient R MOLLY REYNOL[facility] [id number] [facility] 2022-05-17 09:50:00 2022-05-17 09:50:00 Outpatient R [facility] [id number] [facility] 2022-05-17 00:00:00 2022-05-17 00:00:00 Telephone Molly Reynolds [facility] 1.2.840.114 350.1.13.10 4.2.7.2.686 [id number] 225 [id number] [facility] 2022-03-26 07:50:00 2022-03-26 08:37:57 Outpatient R [facility] [id number] [facility] 2022-03-26 07:50:00 2022-03-26 08:37:57 Office Visit Molly Reynolds [facility] 1.2.840.114 350.1.13.10 4.2.7.2.686 [id number] 225 [id number] [facility] 2022-03-26 00:00:00 2022-03-26 00:00:00 Molly Mcgraw [facility] 1.2.840.114 350.1.13.10 4.2.7.2.686 [id number] 225 [id number] [facility] 2022-02-12 15:00:00 2022-02-12 15:42:40 Office Visit Linda Li [facility] 1.2.840.114 350.1.13.10 4.2.7.2.686 [id number] [facility] 2022-02-12 15:00:00 2022-02-12 15:42:40 Outpatient R LINDA LI [facility] [id number] [facility] 2022-02-12 15:00:00 2022-02-12 15:00:00 Outpatient R LINDA LI [facility] [id number] [facility] 2022-02-12 15:00:00 2022-02-12 15:00:00 Outpatient Marisol HERIBERTOJOSELINEN [facility] [id number] [facility] 2022-02-06 14:30:00 2022-02-06 15:14:22 Office Visit Molly Reynolds [facility] 1.840.114 350.1.13.10 4.2.7.2.686 [id number] 225 [id number] [facility] 2022-02-06 14:30:00 2022-02-06 15:14:22 Outpatient MOLLY ROGERS [facility] [id number] [facility] 2022-02-06 14:30:00 2022-02-06 14:30:00 Outpatient MO[facility] ROGERS [facility] [id number] [facility] 2022-01-07 00:00:00 2022-01-07 00:00:00 Orders Only Doctor Unassigned, [place] [facility] 1.840.114 350.1.13.10 4.2.7.2.686 [id number] [facility] 2022-01-03 00:00:00 2022-01-03 00:00:00 Telephone Molly Reynolds [facility] 1.840.114 350.1.13.10 4.2.7.2.686 [id number] 225 [id number] [facility] 2022-01-02 09:30:00 2022-01-02 09:30:00 Outpatient JANETT RENTERIA [facility] [id number] [facility] 2022-01-01 08:30:00 2022-01-01 09:18:07 Outpatient MO[facility] ROGERS [facility] [id number] [facility] 2022-01-01 08:30:00 2022-01-01 09:18:07 Office Visit Molly Reynolds [facility] 1.0.114 350.1.13.10 4.2.7.2.686 [id number] 225 [id number] [facility] 2022-01-01 08:30:00 2022-01-01 09:18:07 Outpatient R [facility] [id number] [facility] 2021-12-31 00:00:00 2021-12-31 00:00:00 Mayela Laura [facility] 1.0.114 350.1.13.10 4.2.7.2.686 [id number] 225 [id number] [facility] 2021-11-22 00:00:00 2021-11-22 00:00:00 Mayela Laura [facility] 1.0.114 350.1.13.10 4.2.7.2.686 [id number] 225 [id number] [facility] 2021-11-05 08:40:00 2021-11-05 08:40:00 Outpatient R [facility] [id number] [facility] 2021-11-01 10:09:25 2021-11-01 23:59:00 Outpatient R LINDA LI [facility] [id number] [facility] 2021-11-01 10:00:00 2021-11-01 23:59:00 Hospital Encounter Linda Li [facility] 1.0.114 350.1.13.10 4.2.7.2.686 [id number] [facility] 2021-10-27 00:00:00 2021-10-27 00:00:00 Xavi Vera [facility] 1..114 350.1.13.10 4.2.7.2.686 [id number] 225 [id number] [facility] 2021-10-22 10:00:00 2021-10-22 10:37:57 Outpatient R LEIGHA RAUSCH [facility] [id number] [facility] 2021-10-22 10:00:00 2021-10-22 10:37:57 [facility] 1.840.114 350.1.13.10 4.2.7.2.686 [id number] 370 [id number] [facility] 2021-10-08 15:00:00 2021-10-08 15:25:31 Outpatient LINDA ROBERTS [facility] [id number] [facility] 2021-10-08 15:00:00 2021-10-08 15:25:31 Nurse Visit Nurse, Lkj [facility] Linda Li [facility] 1.840.114 350.1.13.10 4.2.7.2.686 [id number] 134 [id number] [facility] 2021-10-08 08:40:00 2021-10-08 08:40:00 Outpatient R [facility] [id number] [facility] 2021-10-08 08:40:00 2021-10-08 08:40:00 Outpatient R MOLLY REYNOLDS [facility] [id number] [facility] 2021-10-05 00:00:00 2021-10-05 00:00:00 Patient Secure Msg Doctor Unassigned, [place] [facility] 1.840.114 350.1.13.10 4.2.7.2.686 [id number] 225 [id number] [facility] 2021-10-02 08:10:00 2021-10-02 08:40:28 Outpatient R MOLLY RE[facility]OL[facility] [id number] [facility] 2021-10-02 08:10:00 2021-10-02 08:40:28 Office Visit Molly Reynolds [facility] 1.2.840.114 350.1.13.10 4.2.7.2.686 [id number] 225 [id number] [facility] 2021-10-02 08:10:00 2021-10-02 08:40:28 Outpatient R MOLLY REYNOLDS [facility] [id number] [facility] 2021-09-24 00:00:00 2021-09-24 00:00:00 Xavi Vera [facility] 1.2.840.114 350.1.13.10 4.2.7.2.686 [id number] 225 [id number] [facility] 2021-08-31 00:00:00 2021-08-31 00:00:00 RefXavi Gaitan [facility] 1.2.840.114 350.1.13.10 4.2.7.2.686 [id number] 225 [id number] [facility] 2021-08-28 00:00:00 2021-08-28 00:00:00 Telephone Linda Li [facility] 1.2.840.114 350.1.13.10 4.2.7.2.686 [id number] 134 [id number] [facility] 2021-08-13 15:30:00 2021-08-13 16:50:06 Outpatient R LINDA LI [facility] [id number] [facility] 2021-08-13 15:30:00 2021-08-13 16:50:06 Office Visit Linda Li [facility] 1.2.840.114 350.1.13.10 4.2.7.2.686 [id number] 134 [id number] [facility] 2021-08-13 15:30:00 2021-08-13 16:50:06 Outpatient R LINDA LI [facility] [id number] Sherri mosley [facility] 2021-07-09 10:30:00 2021-07-09 11:12:39 Outpatient MOLLY ROGERS [facility] [id number] [facility] 2021-07-09 10:30:00 2021-07-09 11:12:39 Office Visit Molly Reynolds [facility] 1.2840.114 350.1.13.10 4.2.7.2.686 [id number] 225 [id number] [facility] 2021-07-09 10:30:00 2021-07-09 11:12:39 Outpatient MO[facility] ROGERS [facility] [id number] [facility] 2021-07-09 10:30:00 2021-07-09 10:30:00 Outpatient MO[facility] ROGERS [facility] [id number] [facility] 2021-07-05 14:30:00 2021-07-05 14:45:00 Laboratory Only Only, Ang Db Test Delia Bradford [facility] 1.840.114 350.1.13.10 4.2.7.2.686 [id number] [facility] 2021-07-05 14:30:00 2021-07-05 14:30:00 Outpatient R DELIA BRADFORD [facility] [id number] [facility] 2021-06-27 10:30:00 2021-06-27 11:06:37 Outpatient MO[facility] R[facility]ERS [facility] [id number] [facility] 2021-06-27 10:30:00 2021-06-27 11:06:37 Office Visit Molly Reynolds [facility] 1.2840.114 350.1.13.10 4.2.7.2.686 [id number] 225 [id number] [facility] 2021-06-11 00:00:00 2021-06-11 00:00:00 Edmond Mayela Bocanegra [facility] 1.20.114 350.1.13.10 4.2.7.2.686 [id number] 225 [id number] [facility] 2021-05-03 00:00:00 2021-05-03 00:00:00 Edmond Mayela Bocanegra [facility] 1.0.114 350.1.13.10 4.2.7.2.686 [id number] 225 [id number] [facility] 2021-04-18 09:39:40 2021-04-18 10:01:58 Nurse Visit Nurse, Molly Albright [facility] 1.0.114 350.1.13.10 4.2.7.2.686 [id number] [facility] 2021-04-18 09:40:00 2021-04-18 09:40:00 Outpatient [facility] R[facility]ERS [facility] [id number] [facility] 2021-04-17 12:30:00 2021-04-17 12:30:00 Outpatient [facility] R[facility]ERS [facility] [id number] [facility] 2021-04-17 00:00:00 2021-04-17 00:00:00 Patient Secure Msg Doctor Unassigned, [place] [facility] 1..114 350.1.13.10 4.2.7.2.686 [id number] 225 [id number] [facility] 2021-04-05 00:00:00 2021-04-05 00:00:00 Telephone Trupti Koch [facility] 1..114 350.1.13.10 4.2.7.2.686 [id number] [facility] 2021-04-04 11:20:00 2021-04-04 11:20:00 Outpatient LEIGHA HAZEL [facility] [id number] [facility] 2021-04-04 10:09:10 2021-04-04 10:49:17 [facility] 1.2840.114 350.1.13.10 4.2.7.2.686 [id number] [facility] 2021-03-20 00:00:00 2021-03-20 00:00:00 Cyndee Bolivar [facility] 1.2.840.114 350.1.13.10 4.2.7.2.686 [id number] [facility] 2021-03-13 12:47:01 2021-03-13 13:02:01 Asian Studies Professor Visit Poamy, [facility] 1.2840.114 350.1.13.10 4.2.7.2.686 [id number] [facility] 2021-03-13 12:45:00 2021-03-13 12:45:00 Outpatient Marisol [facility] [id number] [facility] 2021-03-13 00:00:00 2021-03-13 00:00:00 Patient Secure Msg Molly Reynolds [facility] 1.2.840.114 350.1.13.10 4.2.7.2.686 [id number] 225 [id number] [facility] 2021-02-23 00:00:00 2021-02-23 00:00:00 Telephone Molly Reynolds [facility] 1.2.840.114 350.1.13.10 4.2.7.2.686 [id number] 225 [id number] [facility] 2021-02-20 00:00:00 2021-02-20 00:00:00 Patient Secure Msg Doctor Unassigned, [place] [facility] 1.114 350.1.13.10 4.2.7.2.686 [id number] 225 [id number] [facility] 2021-02-16 13:15:00 2021-02-16 13:30:00 Office Visit Linda Li [facility] 1.114 350.1.13.10 4.2.7.2.686 [id number] [facility] 2021-02-16 13:15:00 2021-02-16 13:15:00 Outpatient R LINDA LI [facility] [id number] [facility] 2021-02-16 13:15:00 2021-02-16 13:15:00 Outpatient R LINDA LI [facility] [id number] [facility] 2021-02-14 08:14:37 2021-02-14 09:02:36 Office Visit Molly Reynolds [facility] 1..114 350.1.13.10 4.2.7.2.686 [id number] 225 [id number] [facility] 2021-02-14 08:10:00 2021-02-14 08:10:00 Outpatient R [facility] [id number] [facility] 2021-02-13 00:00:00 2021-02-13 00:00:00 Cyndee Bolivar [facility] 1.84.114 350.1.13.10 4.2.7.2.686 [id number] 225 [id number] [facility] 2021-02-13 00:00:00 2021-02-13 00:00:00 Cyndee Bolivar [facility] 1.2.840.114 350.1.13.10 4.2.7.2.686 [id number] 225 [id number] [facility] 2021-01-22 09:30:00 2021-01-22 09:30:00 Outpatient MO[facility]R [facility] [id number] [facility] 2021-01-16 08:10:00 2021-01-16 09:05:19 Office Visit Molly Reynolds [facility] 1.2.840.114 350.1.13.10 4.2.7.2.686 [id number] 225 [id number] [facility] 2021-01-16 08:10:00 2021-01-16 08:10:00 Outpatient [facility] [id number] [facility] 2021-01-15 00:00:00 2021-01-15 00:00:00 Telephone Molly Reynolds [facility] 1.2840.114 350.1.13.10 4.2.7.2.686 [id number] 225 [id number] [facility] 2021-01-02 00:00:00 2021-01-02 00:00:00 Cyndee Bolivar [facility] 1.2.840.114 350.1.13.10 4.2.7.2.686 [id number] 225 [id number] [facility] 2020-12-04 00:00:00 2020-12-04 00:00:00 Telephone Molly Reynolds [facility] 1.2.840.114 350.1.13.10 4.2.7.2.686 [id number] 225 [id number] [facility] 2020-11-29 00:00:00 2020-11-29 00:00:00 Cyndee Bolivar [facility] 1.2840.114 350.1.13.10 4.2.7.2.686 [id number] 225 [id number] [facility] 2020-10-24 09:48:05 2020-10-24 10:46:55 Office Visit Molly Reynolds [facility] 1.20.114 350.1.13.10 4.2.7.2.686 [id number] 225 [id number] [facility] 2020-10-24 09:50:00 2020-10-24 09:50:00 Outpatient R [facility] [id number] [facility] 2020-10-23 00:00:00 2020-10-23 00:00:00 Cyndee Bolivar [facility] 1..114 350.1.13.10 4.2.7.2.686 [id number] 225 [id number] [facility] 2020-10-23 00:00:00 2020-10-23 00:00:00 Telephone Molly Reynolds [facility] 1..114 350.1.13.10 4.2.7.2.686 [id number] 225 [id number] [facility] 2020-10-02 16:21:37 2020-10-02 16:41:37 Laboratory Only Lab, Adc Fam Pob I Mando [facility] Office [facility] 1.114 350.1.13.10 4.2.7.2.686 [id number] [facility] 2020-10-02 16:20:00 2020-10-02 16:20:00 Outpatient R MANDO [facility] [id number] [facility] 2020-09-27 18:17:02 2020-09-27 18:37:02 Laboratory Only Lab, Adc Fam Pob I NatalyaagNatalya gonzalesayemi [facility] 1..114 350.1.13.10 4.2.7.2.686 [id number] [facility] 2020-09-27 18:20:00 2020-09-27 18:20:00 Outpatient Marisol MICHAEL PINTO [facility] [id number] [facility] 2020-09-20 08:39:40 2020-09-20 09:24:44 Office Visit Molly Reynolds [facility] 1.114 350.1.13.10 4.2.7.2.686 [id number] 225 [id number] [facility] 2020-09-20 08:30:00 2020-09-20 08:30:00 Outpatient [facility] [id number] [facility] 2020-09-18 00:00:00 2020-09-18 00:00:00 Telephone Molly Reynolds [facility] 1..114 350.1.13.10 4.2.7.2.686 [id number] 225 [id number] [facility] 2020-09-15 00:00:00 2020-09-15 00:00:00 Xavi Vera [facility] 1..114 350.1.13.10 4.2.7.2.686 [id number] 225 [id number] [facility] 2020-08-07 09:07:55 2020-08-07 09:27:55 Laboratory Only Lab, [facility] 1.114 350.1.13.10 4.2.7.2.686 [id number] [facility] 2020-08-07 09:00:00 2020-08-07 09:00:00 Outpatient IGNACIO RICHARDSON [facility] [id number] [facility] 2020-07-20 08:28:08 2020-07-20 08:48:08 Laboratory Only Lab, [facility] Yamilet Ambar [facility] 1.2840.114 350.1.13.10 4.2.7.2.686 [id number] [facility] 2020-07-20 08:20:00 2020-07-20 08:20:00 Outpatient IGNACIO [facility]DSON [facility] [id number] [facility] 2020-07-04 00:00:00 2020-07-04 00:00:00 Telephone Molly Reynolds [facility] 1.2.840.114 350.1.13.10 4.2.7.2.686 [id number] 225 [id number] [facility] 2020-07-04 00:00:00 2020-07-04 00:00:00 Telephone Molly Reynolds [facility] 1.2.840.114 350.1.13.10 4.2.7.2.686 [id number] 225 [id number] 2020-06-28 17:21:12 2020-06-28 17:41:12 Laboratory Only Lab, [facility] Michael Gilmore [facility] Office Building One 1.2840.114 350.1.13.10 4.2.7.2.686 [id number] [facility] 2020-06-28 17:21:12 2020-06-28 17:41:12 Laboratory Only Lab, [facility] Office Building One 1.2840.114 350.1.13.10 4.2.7.2.686 [id number] 2020-06-28 17:00:00 2020-06-28 17:00:00 Outpatient Marisol G[facility] [id number] [facility] 2020-06-06 00:00:00 2020-06-06 00:00:00 Telephone Molly Reynolds [facility] 1.2.840.114 350.1.13.10 4.2.7.2.686 [id number] 225 [id number] [facility] 2020-06-06 00:00:00 2020-06-06 00:00:00 Telephone Molly Reynolds [facility] 1.2.840.114 350.1.13.10 4.2.7.2.686 [id number] 225 [id number] 2020-05-15 12:58:06 2020-05-15 13:18:06 Office Visit Molly Reynolds [facility] 1.2.840.114 350.1.13.10 4.2.7.2.686 [id number] 225 [id number] 2020-05-15 12:58:06 2020-05-15 13:18:06 Office Visit Molly Reynolds [facility] 1.2.840.114 350.1.13.10 4.2.7.2.686 [id number] [facility] 2020-05-15 13:10:00 2020-05-15 13:10:00 Outpatient R [facility] [id number] [facility] 2020-05-15 00:00:00 2020-05-15 00:00:00 Xavi Vera [facility] 1.2.840.114 350.1.13.10 4.2.7.2.686 [id number] 225 [id number] 2020-05-15 00:00:00 2020-05-15 00:00:00 Telephone Molly Reynolds [facility] 1.2.840.114 350.1.13.10 4.2.7.2.686 [id number] 225 [id number] 2020-05-15 00:00:00 2020-05-15 00:00:00 Xavi Vera [facility] 1.2.840.114 350.1.13.10 4.2.7.2.686 [id number] 225 [id number] [facility] 2020-05-15 00:00:00 2020-05-15 00:00:00 Telephone Molly Reynolds [facility] 1.2.840.114 350.1.13.10 4.2.7.2.686 [id number] 225 [id number] [place] [facility]10 [facility]:00:00 2020-05-10 00:00:00 Telephone Molly Reynolds [facility] 1.2.840.114 350.1.13.10 4.2.7.2.686 [id number] 225 [id number] [facility] 2020-05-09 00:00:00 2020-05-09 00:00:00 Refill Xavi Leonard [facility] 1.2.840.114 350.1.13.10 4.2.7.2.686 [id number] 225 [id number] [facility] 2020-04-05 11:17:34 2020-04-05 13:53:29 Telemedici ne Visit Molly Reynolds [facility] 1.2.840.114 350.1.13.10 4.2.7.2.686 [id number] 225 [id number] [facility] 2020-04-05 12:30:00 2020-04-05 12:30:00 Outpatient R MOLLY [facility] [id number] [facility] 2020-04-05 00:00:00 2020-04-05 00:00:00 Telephone Molly Reynolds [facility] 1.2.840.114 350.1.13.10 4.2.7.2.686 [id number] 225 [id number] [facility] 2020-04-04 00:00:00 2020-04-04 00:00:00 Refill Molly Reynolds [facility] 1.2.840.114 350.1.13.10 4.2.7.2.686 [id number] 225 [id number] [facility] 2020-02-07 13:44:54 2020-02-07 14:30:06 Office Visit Molly Reynolds [facility] 1.2.840.114 350.1.13.10 4.2.7.2.686 [id number] 225 [id number] [facility] 2020-02-07 13:40:00 2020-02-07 13:40:00 Outpatient R [facility] [id number] [facility] 2020-02-07 00:00:00 2020-02-07 00:00:00 Telephone Molly Reynolds [facility] 1.2.840.114 350.1.13.10 4.2.7.2.686 [id number] 225 [id number] [facility] 2020-02-07 00:00:00 2020-02-07 00:00:00 Patient Secure Msg [facility] 1.2840.114 350.1.13.10 4.2.7.2.686 [id number] 059 [id number] [facility] 2020-02-02 00:00:00 2020-02-02 00:00:00 [facility] 1.2840.114 350.1.13.10 4.2.7.2.686 [id number] 059 [id number] [facility] 2020-02-01 09:52:14 2020-02-01 10:46:24 Laboratory Only Pc, [facility] 1.2840.114 350.1.13.10 4.2.7.2.686 [id number] 059 [id number] [facility] 2020-02-01 10:00:00 2020-02-01 10:00:00 Outpatient [facility] [id number] [facility] 2020-01-27 00:00:00 2020-01-27 00:00:00 [facility] 1.2.840.114 350.1.13.10 4.2.7.2.686 [id number] 059 [id number] [facility] 2020-01-26 11:19:38 2020-01-26 16:10:21 [facility] 1.2.840.114 350.1.13.10 4.2.7.2.686 [id number] 059 [id number] [facility] 2020-01-26 15:18:44 2020-01-26 15:47:18 Nurse Visit Visit, Adc Nurse [place] [facility] 1.2.840.114 350.1.13.10 4.2.7.2.686 [id number] 059 [id number] [facility] 2020-01-26 15:14:44 2020-01-26 15:29:44 Asian Studies Professor Visit 2, [facility] 1.2.840.114 350.1.13.10 4.2.7.2.686 [id number] [facility] 2020-01-26 11:20:00 2020-01-26 11:20:00 Outpatient R [facility] [id number] [facility] 2020-01-26 00:00:00 2020-01-26 00:00:00 [facility] 1.2.840.114 350.1.13.10 4.2.7.2.686 [id number] 059 [id number] [facility] 2020-01-11 00:00:00 2020-01-11 00:00:00 RefMolly Jean-Baptiste [facility] 1.2.840.114 350.1.13.10 4.2.7.2.686 [id number] 225 [id number] [facility] 2020-01-05 08:26:44 2020-01-05 09:38:08 Office Visit Cyndee Kenny [facility] 1.2.840.114 350.1.13.10 4.2.7.2.686 [id number] 225 [id number] [facility] 2020-01-05 08:20:00 2020-01-05 08:20:00 Outpatient R CYNDEE KENNY [facility] [id number] [facility] 2019-12-31 00:00:00 2019-12-31 00:00:00 Telephone Molly Reynolds [facility] 1.2840.114 350.1.13.10 4.2.7.2.686 [id number] 225 [id number] [facility] 2019-12-06 13:20:00 2019-12-06 13:20:00 Outpatient R [facility] [id number] [facility] 2019-12-02 00:00:00 2019-12-02 00:00:00 Molly Mcgraw [facility] 1.20.114 350.1.13.10 4.2.7.2.686 [id number] 225 [id number] [facility] 2019-11-05 09:10:10 2019-11-05 09:47:52 Nurse Visit Nurse, Molly Albright [facility] 1.2.840.114 350.1.13.10 4.2.7.2.686 [id number] [facility] 2019-11-05 09:00:00 2019-11-05 09:00:00 Outpatient R [facility] [id number] [facility] 2019-11-03 00:00:00 2019-11-03 00:00:00 Refill Molly Reynolds [facility] 1.2.840.114 350.1.13.10 4.2.7.2.686 [id number] 225 [id number] [facility] 2019-10-05 12:45:20 2019-10-05 13:05:20 Telemedici ne Visit Molly Reynolds [facility] 1.2.840.114 350.1.13.10 4.2.7.2.686 [id number] 225 [id number] [facility] 2019-10-05 12:30:00 2019-10-05 12:30:00 Outpatient R [facility] [id number] [facility] 2019-10-05 00:00:00 2019-10-05 00:00:00 Telephone Molly Reynolds [facility] 1.2.840.114 350.1.13.10 4.2.7.2.686 [id number] 225 [id number] [facility] 2019-08-17 10:02:57 2019-08-17 14:25:34 Office Visit Cyndee Kenny [facility] 1.2.840.114 350.1.13.10 4.2.7.2.686 [id number] 225 [id number] [facility] 2019-08-17 10:00:00 2019-08-17 10:00:00 Outpatient R CYNDEE KENNY [facility] [id number] [facility] 2019-08-17 00:00:00 2019-08-17 00:00:00 Letter (Out) Molly Reynolds [facility] 1.2.840.114 350.1.13.10 4.2.7.2.686 [id number] 225 [id number] [facility] 2019-08-17 00:00:00 2019-08-17 00:00:00 Telephone EfraínJordyCyndee N [facility] 1.2.840.114 350.1.13.10 4.2.7.2.686 [id number] 225 [id number] [facility] 2019-08-05 00:00:00 2019-08-05 00:00:00 Refill Molly Reynolds [facility] 1.2.840.114 350.1.13.10 4.2.7.2.686 [id number] 225 [id number] [facility] 2019-08-02 15:51:04 2019-08-02 16:28:55 Office Visit Molly Reynolds [facility] 1.2.840.114 350.1.13.10 4.2.7.2.686 [id number] [facility] 2019-07-15 08:13:21 2019-07-22 11:41:46 Ancillary Visit Eder Barrera [facility] 1.2.840.114 350.1.13.10 4.2.7.2.686 [id number] [facility] 2019-07-15 13:17:03 2019-07-15 13:44:48 Office Visit EfraínJordyCyndee N [facility] 1.2.840.114 350.1.13.10 4.2.7.2.686 [id number] 225 [id number] [facility] 2019-07-14 07:48:46 2019-07-14 08:28:46 Ancillary Visit Missy Barrera [facility] Building 1.2.840.114 350.1.13.10 4.2.7.2.686 [id number] [facility] 2019-07-12 11:09:39 2019-07-12 11:49:39 [facility] 1.20.114 350.1.13.10 4.2.7.2.686 [id number] [facility] 2019-07-09 15:00:28 2019-07-09 15:20:28 Office Visit Molly Reynolds [facility] 1.20.114 350.1.13.10 4.2.7.2.686 [id number] 225 [id number] [facility] 2019-07-09 07:50:57 2019-07-09 08:30:57 Ancillary Visit Ila Rebolledo [facility] 1.20.114 350.1.13.10 4.2.7.2.686 [id number] [facility] 2019-07-09 00:00:00 2019-07-09 00:00:00 Orders Only Doctor Unassigned, [place] [facility] 1.2840.114 350.1.13.10 4.2.7.2.686 [id number] 009 [id number] [facility] 2019-07-09 00:00:00 2019-07-09 00:00:00 Telephone Molly Reynolds [facility] 1.20.114 350.1.13.10 4.2.7.2.686 [id number] 225 [id number] [facility] 2019-07-07 08:32:08 2019-07-07 09:24:23 Ancillary Visit Eder Barrera Craig [facility] Building 1.20.114 350.1.13.10 4.2.7.2.686 [id number] [facility] 2019-07-06 00:00:00 2019-07-06 00:00:00 Telephone Molly Reynolds [facility] 1.2.840.114 350.1.13.10 4.2.7.2.686 [id number] 225 [id number] [facility] 2019-07-01 09:36:45 2019-07-01 10:21:45 Ancillary Visit Eder Barrera Craig [facility] 1.2.840.114 350.1.13.10 4.2.7.2.686 [id number] [facility] 2019-06-30 08:17:26 2019-06-30 09:02:26 Ancillary Visit Eder Barrera [facility] 1.2.840.114 350.1.13.10 4.2.7.2.686 [id number] 179 [id number] [facility] 2019-06-30 00:00:00 2019-06-30 00:00:00 Xavi Vera [facility] 1.2.840.114 350.1.13.10 4.2.7.2.686 [id number] 225 [id number] [facility] 2019-06-28 00:00:00 2019-06-28 00:00:00 Orders Only Doctor Unassigned, [place] [facility] 1.2.840.114 350.1.13.10 4.2.7.2.686 [id number] 009 [id number] [facility] 2019-02-26 09:14:40 2019-02-26 23:59:00 Hospital Encounter Molly Reynolds [facility] 1.2.840.114 350.1.13.10 4.2.7.2.686 [id number] [facility] 2019-02-26 00:00:00 2019-02-26 00:00:00 Orders Only Doctor Unassigned, [place] [facility] 1.2.840.114 350.1.13.10 4.2.7.2.686 [id number] [facility] 2019-02-25 00:00:00 2019-02-25 00:00:00 Telephone Molly Reynolds [facility] 1.2.840.114 350.1.13.10 4.2.7.2.686 [id number] 225 [id number] [facility] 2019-02-25 00:00:00 2019-02-25 00:00:00 Refill Saba Mercer [facility] 1.2.840.114 350.1.13.10 4.2.7.2.686 [id number] 225 [id number] [facility] 2019-01-26 10:51:33 2019-01-26 12:08:39 Office Visit Molly Reynolds [facility] 1.2.840.114 350.1.13.10 4.2.7.2.686 [id number] 225 [id number] [facility] 2019-01-26 00:00:00 2019-01-26 00:00:00 Refill Molly Reynolds [facility] 1.2.840.114 350.1.13.10 4.2.7.2.686 [id number] 225 [id number] [facility] 2019-01-26 00:00:00 2019-01-26 00:00:00 Orders Only Doctor Unassigned, [place] [facility] 1.2.840.114 350.1.13.10 4.2.7.2.686 [id number] [id number] [facility] 2019-01-19 00:00:00 2019-01-19 00:00:00 Telephone Molly Reynolds [facility] 1.2.840.114 350.1.13.10 4.2.7.2.686 [id number] 225 [id number] [facility] 2018-10-12 00:00:2018-10-12 00:00:00 Letter (Out) AlanvishnuFarhad blank [facility] 1.2.840.114 350.1.13.10 4.2.7.2.686 [id number] 028 [id number] [facility] Results Test Description Test Time Test Comments Results Result Co mments Source [facility] [id number] 22:03:00* Test Item Value Reference Range Interpretation Comme nts POCT PREG (test code = 1605) Negative On board controls acceptable with C Line (test code = 3574) Yes POCT PREG LOT # (test code = 3575) POCT PREG TEST DATE ( test code = 3576) [facility] [id number] 22:03:00* Test Item Value Reference Range Interpretation Comme nts POCT PREG (test code = 1605) Negative On board controls acceptable with C Line (test code = 3574) Yes POCT PREG LOT # (test code = 3575) POCT PREG TEST DATE ( test code = 3576) [id number] 17:21:00* Test Item Value Reference Range Interpretation Comme nts POCT PREG (test code = 1605) Negative On board controls acceptable with C Line (test code = 3574) Yes POCT PREG LOT # (test code = 3575) t POCT PREG TEST DATE ( test code = 3576) [facility] [id number] 17:21:00* Test Item Value Reference Range Interpretation Comme nts POCT PREG (test code = 1605) Negative On board controls acceptable with C Line (test code = 3574) Yes POCT PREG LOT # (test code = 3575) t POCT PREG TEST DATE ( test code = 3576) [id number] 17:21:00* Test Item Value Reference Range Interpretation Comme nts POCT PREG (test code = 1605) Negative On board controls acceptable with C Line (test code = 3574) Yes POCT PREG LOT # (test code = 3575) t POCT PREG TEST DATE ( test code = 3576) [facility] [id number] 18:24:00* Test Item Value Reference Range Interpretation Comme nts POCT PREG (test code = 1605) Negative On board controls acceptable with C Line (test code = 3574) Yes POCT PREG LOT # (test code = 3575) POCT PREG TEST DATE ( test code = 3576) [facility] [id number] 18:24:00* Test Item Value Reference Range Interpretation Comme nts POCT PREG (test code = 1605) Negative On board controls acceptable with C Line (test code = 3574) Yes POCT PREG LOT # (test code = 3575) POCT PREG TEST DATE ( test code = 3576) [facility] [id number] 18:23:00* Test Item Value Reference Range Interpretation [...] U APPEAR (test code = 3267) clear [facility]IFIC [id number] 18:23:00* Test Item Value Reference Range Interpretation [...] U APPEAR (test code = 3267) clear [facility] Notes Date/Time Note Provider Source 2023-09-16 13:10:33 Rx for Diflucan for yeast infection. [facility]
[2025-03-26 21:08] LABS: Sqamous Epithelial <5 /HPF (None Seen); Urine Culture Reflex Order REFLEXED; Urine Microscopic Reflex YN ORDER UMIC
--- NOTE | 2025-03-26 22:14 | ER ---
Nurse's Notes [facility] Name: Saba Mcgovern Age: 24 yrs Sex: Female : 2000 Arrival Date: 03/26/2025 Time: 20:17 Bed 13 Private MD: Diagnosis: Acute cystitis with hematuria;Dysuria;UTI/ Urinary tract infection, site not specified Presentation: 03/26 20:29 Chief complaint: Patient states: urinary burning, lt lower back pain, urinary frequency dd2 that began 10 days ago. Coronavirus screen: At this time, the client does not indicate any symptoms associated with coronavirus-19. Ebola Screen: No symptoms or risks identified at this time. Risk Assessment: Do you want to hurt yourself or someone else? Patient reports no desire to harm self or others. Onset of symptoms was March 2025. 20:29 Method Of Arrival: Ambulatory dd2 20:29 Acuity: RICHI 3 dd2 22:50 Initial Sepsis Screen: Does the patient meet any 2 criteria? No. Patient's initial kt5 sepsis screen is negative. Does the patient have a suspected source of infection? No. Patient's initial sepsis screen is negative. Triage Assessment: 20:30 General: Appears in no apparent distress. uncomfortable, Behavior is calm, cooperative, dd2 appropriate for age. Pain: Complains of pain in left low back. : Reports burning with urination, pain in left in lower back urinary frequency. Historical: - Allergies: 20:30 No Known Allergies; dd2 - PMHx: 20:30 ADD/ADHD; Anxiety; hearing impared; dd2 - PSHx: 20:30 cochlear implant; dd2 - Immunization history:: Adult Immunizations up to date. - Infectious Disease History:: Denies. - Social history:: Smoking status: Patient denies any tobacco usage or history of. - Family history:: not pertinent. Screenin:45 [facility] ED Fall Risk Assessment (Adult) History of falling in the last 3 months, kt5 including since admission No falls in past 3 months (0 pts) Confusion or Disorientation No (0 pts) Intoxicated or Sedated No (0 pts) Impaired Gait No (0 pts) Mobility Assist Device Used No (0 pt) Altered Elimination No (0 pt) Score/Fall Risk Level 0 - 2 = Low Risk. Abuse screen: Denies threats or abuse. Nutritional screening: No deficits noted. Tuberculosis screening: No symptoms or risk factors identified. Assessment: 20:45 General: Appears in no apparent distress. comfortable, Behavior is calm, cooperative. kt5 Pain: Complains of pain in pain on urination Pain currently is 3 out of 10 on a pain scale. Quality of pain is described as burning, Pain began 1.5 weeks ago Is continuous. Neuro: No deficits noted. [place] Agitation-Sedation Scale (RASS): 0 - Alert and Calm Level of Consciousness is awake, alert, obeys commands, Oriented to person, place, time, situation, Appropriate for age. Cardiovascular: No deficits noted. Heart tones S1 S2 present Capillary refill < 3 seconds Clubbing of nail beds is absent JVD is absent Pulses are all present. Edema is absent. Respiratory: Airway is patent Trachea midline Respiratory effort is even, unlabored, Respiratory pattern is regular, symmetrical. GI: No deficits noted. No signs and/or symptoms were reported involving the gastrointestinal system. Abdomen is flat, non-distended, Bowel sounds present X 4 quads. Abd is soft and non tender X 4 quads. : Reports burning with urination, since 1.5 weeks lower back pain. EENT: No deficits noted. No signs and/or symptoms were reported regarding the EENT system. Derm: No deficits noted. No signs and/or symptoms reported regarding the dermatologic system. Musculoskeletal: No deficits noted. No signs and/or symptoms reported regarding the musculoskeletal system. 21:51 Reassessment: Patient appears in no apparent distress at this time. No changes from kt5 previously documented assessment. Patient and/or family updated on plan of care and expected duration. Pain level reassessed. Patient is alert, oriented x 3, equal unlabored respirations, skin warm/dry/pink. 22:41 Reassessment: Patient appears in no apparent distress at this time. No changes from kt5 previously documented assessment. Patient and/or family updated on plan of care and expected duration. Pain level reassessed. Patient is alert, oriented x 3, equal unlabored respirations, skin warm/dry/pink. Vital Signs: 20:40 BP 91 / 60; Pulse 95; Resp 16; Temp 98.9; Pulse Ox 100% ; Pain 3/10; kt5 21:51 BP 108 / 60; Pulse 76; Resp 18; Pulse Ox 100% ; kt5 22:41 BP 100 / 62; Pulse 83; Resp 16; Temp 98.3; Pulse Ox 9% ; Pain 3/10; kt5 20:40 Pain Scale: Adult kt5 22:41 Pain Scale: Adult kt5 ED Course: 20:19 Patient arrived in ED. mr 20:21 Jerry Lorenz MD is Attending Physician. [facility] 20:30 Triage completed. dd2 20:30 Arm band placed on right wrist. dd2 20:40 Zo Gama, RATNA is Primary Nurse. kt5 20:45 Patient has correct armband on for positive identification. Bed in low position. Call kt5 light in reach. Side rails up X 1. Adult w/ patient. Client placed on continuous cardiac and pulse oximetry monitoring. NIBP monitoring applied. Door closed. Noise minimized. Pillow given. 20:45 PREGU Sent. kt5 20:45 UA Rfx Kenan Cult if indicated Sent. kt5 20:45 No provider procedures requiring assistance completed. kt5 22:50 Provided Education on: follow up and meds. kt5 Administered Medications: 22:25 Drug: Rocephin (cefTRIAXone) IM 1 grams IM once Route: IM; Site: right deltoid; kt5 22:41 Follow up: Response: No adverse reaction kt5 22:25 Drug: Ciprofloxacin PO 500 mg PO once Route: PO; kt5 22:41 Follow up: Response: No adverse reaction kt5 22:25 Drug: Cefdinir PO Suspension 300 mg PO once Route: PO; kt5 22:41 Follow up: Response: No adverse reaction kt5 22:25 Drug: Phenazopyridine PO 200 mg PO once Route: PO; kt5 22:41 Follow up: Response: No adverse reaction kt5 Medication: 20:45 VIS not applicable for this client. kt5 Outcome: 22:[address] ordered [address] . [facility] 22:42 Discharged to home ambulatory, with family, kt5 22:42 Condition: stable 22:42 Discharge instructions given to patient, family, Instructed on discharge instructions, follow up and referral plans. Demonstrated understanding of instructions, follow-up care, medications, Prescriptions given X 4, 22:51 Patient left the ED. kt5 Addendum: 03/30/2025 13:09 Addendum: Culture Results: Positive urine culture. Phone call Attempt #1 call back if l l1 not doing better, given ER phone number. Signatures: Jerry Lorenz MD MD cha Rivera, [facility], Reg Reg mr Leesa Conklin, RN RN ll1 RADHA ROCHA RN RN dd2 Zo Gama RN RN kt5
--- NOTE | 2025-03-26 22:14 | EDPHYS ---
Physician Documentation [facility] Name: Saba Mcgovern Age: 24 yrs Sex: Female : 2000 Arrival Date: 03/26/2025 Time: 20:17 Bed 13 Private MD: ED Physician Jerry Lorenz HPI: 03/26 22:08 This 24 yrs old Female presents to ER via Ambulatory with complaints of esteban Urinary Problem. 22:08 The patient presents with urinary symptoms, dysuria, frequency, hematuria, hesitancy, esteban urgency. Onset: The symptoms/episode began/occurred 2 day(s) ago. Modifying factors: The symptoms are alleviated by nothing, the symptoms are aggravated by urinating. Associated signs and symptoms: The patient has no apparent associated signs or symptoms. Severity of symptoms: At their worst the symptoms were mild, moderate, in the emergency department the symptoms are unchanged. The patient is not sexually active. The patient has experienced similar episodes in the past, multiple times. Historical: - Allergies: 20:30 No Known Allergies; dd2 - PMHx: 20:30 ADD/ADHD; Anxiety; hearing impared; dd2 - PSHx: 20:30 cochlear implant; dd2 - Immunization history:: Adult Immunizations up to date. - Infectious Disease History:: Denies. - Social history:: Smoking status: Patient denies any tobacco usage or history of. - Family history:: not pertinent. ROS: 22:08 Constitutional: Negative for fever, chills, and weight loss, Eyes: Negative for injury, esteban pain, redness, and discharge, ENT: Negative for injury, pain, and discharge, Neck: Negative for injury, pain, and swelling, Cardiovascular: Negative for chest pain, palpitations, and edema, Respiratory: Negative for shortness of breath, cough, wheezing, and pleuritic chest pain, Abdomen/GI: Negative for abdominal pain, nausea, vomiting, diarrhea, and constipation, Back: Negative for injury and pain, MS/Extremity: Negative for injury and deformity, Skin: Negative for injury, rash, and discoloration, Neuro: Negative for headache, weakness, numbness, tingling, and seizure, Psych: Negative for depression, anxiety, suicide ideation, homicidal ideation, and hallucinations, Allergy/Immunology: Negative for hives, rash, and allergies, Endocrine: Negative for neck swelling, polydipsia, polyuria, polyphagia, and marked weight changes, Hematologic/Lymphatic: Negative for swollen nodes, abnormal bleeding, and unusual bruising, 22:08 : Positive for urinary symptoms, urinary frequency, hematuria, burning with urination, Exam: 22:08 Constitutional: This is a well developed, well nourished patient who is awake, alert, esteban and in no acute distress. Head/Face: Normocephalic, atraumatic. Eyes: Pupils equal round and reactive to light, extra-ocular motions intact. Lids and lashes normal. Conjunctiva and sclera are non-icteric and not injected. Cornea within normal limits. Periorbital areas with no swelling, redness, or edema. ENT: Nares patent. No nasal discharge, no septal abnormalities noted. Tympanic membranes are normal and external auditory canals are clear. Oropharynx with no redness, swelling, or masses, exudates, or evidence of obstruction, uvula midline. Mucous membranes moist. Neck: Trachea midline, no thyromegaly or masses palpated, and no cervical lymphadenopathy. Supple, full range of motion without nuchal rigidity, or vertebral point tenderness. No Meningismus. Chest/axilla: Normal chest wall appearance and motion. Nontender with no deformity. No lesions are appreciated. Cardiovascular: Regular rate and rhythm with a normal S1 and S2. No gallops, murmurs, or rubs. Normal PMI, no JVD. No pulse deficits. Respiratory: Lungs have equal breath sounds bilaterally, clear to auscultation and percussion. No rales, rhonchi or wheezes noted. No increased work of breathing, no retractions or nasal flaring. Abdomen/GI: Soft, non-tender, with normal bowel sounds. No distension or tympany. No guarding or rebound. No evidence of tenderness throughout. Back: No spinal tenderness. No costovertebral tenderness. Full range of motion. Skin: Warm, dry with normal turgor. Normal color with no rashes, no lesions, and no evidence of cellulitis. MS/ Extremity: Pulses equal, no cyanosis. Neurovascular intact. Full, normal range of motion., bilateral aka Neuro: Awake and alert, GCS 15, oriented to person, place, time, and situation. Cranial nerves II-XII grossly intact. Motor strength 5/5 in all extremities. Sensory grossly intact. Cerebellar exam normal. Normal gait. Psych: Awake, alert, with orientation to person, place and time. Behavior, mood, and affect are within normal limits. Vital Signs: 20:40 BP 91 / 60; Pulse 95; Resp 16; Temp 98.9; Pulse Ox 100% ; Pain 3/10; kt5 21:51 BP 108 / 60; Pulse 76; Resp 18; Pulse Ox 100% ; kt5 22:41 BP 100 / 62; Pulse 83; Resp 16; Temp 98.3; Pulse Ox 9% ; Pain 3/10; kt5 20:40 Pain Scale: Adult kt5 22:41 Pain Scale: Adult kt5 MDM: 20:22 Medical Screening Exam initiated [facility] 22:09 Differential diagnosis: ectopic , kidney stone, urinary tract infection. Data [facility] reviewed: vital signs, nurses notes, lab test result(s). Consideration of Admission/Observation Escalation of care including admission/observation considered. I considered the following discharge prescriptions or medication management in the emergency department Medications were administered in the Emergency Department. See MAR. Test considered but Not performed: Labs: no labs, cbc, cmp. Care significantly affected by the following chronic conditions: add/adhd/ [place], anxiety. 03/26 20:22 Order name: UA Rfx Kenan Cult if indicated; Complete Time: 21:50 [facility] 03/26 20:22 Order name: PREGU; Complete Time: 21:50 [facility] 03/26 21:12 Order name: Urine Culture EDMS Administered Medications: 22:25 Drug: Rocephin (cefTRIAXone) IM 1 grams IM once Route: IM; Site: right deltoid; 5 22:41 Follow up: Response: No adverse reaction 22:25 Drug: Ciprofloxacin PO 500 mg PO once Route: PO; kt5 22:41 Follow up: Response: No adverse reaction 5 22:25 Drug: Cefdinir PO Suspension 300 mg PO once Route: PO; kt5 22:41 Follow up: Response: No adverse reaction 22:25 Drug: Phenazopyridine PO 200 mg PO once Route: PO; 5 22:41 Follow up: Response: No adverse reaction 5 Disposition Summary: 03/26/25 22:14 Discharge Ordered Notes: Location: Home esteban Problem: new esteban Symptoms: have improved esteban Condition: Stable esteban Diagnosis - Acute cystitis with hematuria esteban - Dysuria esteban - UTI/ Urinary tract infection, site not specified esteban Followup: esteban - With: Private Physician - When: 2 - 3 days - Reason: Recheck today's complaints, Continuance of care, Re-evaluation by your physician Discharge Instructions: - Discharge Summary Sheet esteban - Dysuria esteban - Urinary Tract Infection, Adult esteban - Urinary Tract Infection, Adult, [id number] [facility] Forms: - Medication Reconciliation Form [facility] - Antibiotic Education [facility] - Prescription Opioid Use [facility] - Patient Portal Instructions [facility] - Leadership Thank You Letter [facility] Prescriptions: - cefdinir 300 mg Oral capsule - take 1 capsule ORAL route 2 times per day for 4 days; 8 capsule; Refills: 0, [facility] Product Selection Permitted - Pyridium 200 mg Oral Tablet - take 1 tablet ORAL route every 8 hours for 3 days; 9 tablet; Refills: 0, [facility] Product Selection Permitted - Cipro 500 mg Oral Tablet - take 1 tablet ORAL route every 12 hours for 7 days; 14 tablet; Refills: 0, [facility] Product Selection Permitted - Fluconazole 200 mg Oral tablet - take 1 tablet ORAL route once daily take 1 tab when needed, repeat in 1 week if esteban needed; 2 tablet; Refills: 0, Product Selection Permitted Signatures: Dispatcher [employer] EDMS Jerry Lorenz MD MD cha DAVIS, DIANA RN RN dd2 Zo Gama, RN RN kt5 Corrections: (The following items were deleted from the chart) 20:23 20:23 UA Rfx Kenan Cult if indicated+U.LAB.BRZ ordered. EDMS EDMS 20:23 20:23 Test, Urine+UC.LAB.BRZ ordered. EDMS EDMS
[2025-03-26] MEDS ORDERED: LIDOCAINE 1% MPF 2 ML AMPULE ONE ×2 (22:17→22:18)
[2025-03-26] MEDS ORDERED: CEFTRIAXONE 1000 MG/VIAL ONE (22:17)
[2025-03-26] MEDS ORDERED: CEFDINIR 300 MG CAP PO ONE (22:17)
[2025-03-26] MEDS ORDERED: CIPROFLOXACIN HCL 500 MG TAB ONE (22:17)
[2025-03-26] MEDS ORDERED: PHENAZOPYRIDINE 100MG TAB PO ONE ×3 (22:18→22:24)
[2025-03-26 23:29] VITALS: BP 100/62; TEMP 98.3; O2SAT 9
== END 2025-03-26 22:51 | disposition home or self-care (01) ==
LOC: ER 20:17
DX: N30.01 Acute cystitis with hematuria (principal)
CPT/HCPCS: 87088; 81001; 87086; 81025; 87077; 87186; 96372; 99284; J0696